=== PATIENT | female | born 1965 | race Caucasian/White ===

== ENCOUNTER → 2018-09-13 14:36 | Outpatient (CLI) | payer MEDICAID, SELFPAY ==
--- NOTE | 2018-09-13 14:40 | XR_ITS ---
XR knee RT 4V HISTORY: ITS.REASON: right knee pain/ 4 views weightbearing ORDERING PHYSICIAN: Mireya William MD PATIENT AGE: 53 years COMPARISON: 05/20/2016 FINDINGS: There are moderate osteoarthritic changes of the medial compartment and patellofemoral joint. There is decrease in the joint space medially with osteophyte formation and osteosclerosis. These findings have progressed since the previous exam at both the medial compartment and patellofemoral joint. No fracture or dislocation. There is minimal lateral translation of the tibia by approximately 4 mm. IMPRESSION: Moderate osteoarthritis of the right knee which has progressed at the medial compartment and patellofemoral joint
== END ==
PROVIDERS: PCP Nurse Practitioner Family; Visit Provider Orthopaedic Surgery
DX: M25.561 Pain in right knee (principal)
CPT/HCPCS: 73564

== ENCOUNTER → 2019-02-08 13:02 | Outpatient (CLI) | payer MEDICAID, SELFPAY | PROVIDERS: PCP Nurse Practitioner; Visit Provider Nurse Practitioner | DX: G47.30 Sleep apnea, unspecified (principal); G47.10 Hypersomnia, unspecified; R06.83 Snoring; E66.9 Obesity, unspecified; G47.33 Obstructive sleep apnea (adult) (pediatric) | CPT/HCPCS: 95806 ==

== ENCOUNTER → 2020-01-01 13:16 | Outpatient (CLI) | payer OTHER, SELFPAY ==
[2020-01-01 13:27] LABS: Basophils # 0.1 K/mm3 (0-0.2); Basophils % 0.9 % (0.1-2.0); Eosinophils # 0.2 K/mm3 (0.0-0.4); Eosinophils % 2.5 % (0.1-12.0); Hematocrit 42.1 % (37.0-47.0); Hemoglobin 13.3 g/dL (12.2-16.2); Lymphocytes # 2.2 K/mm3 (0.7-4.5); Mean Corpuscular HGB Conc 31.7 g/dL (31.8-35.4); Mean Corpuscular Hemoglobin 28.7 pg (27.0-31.2); Mean Corpuscular Volume 90.8 fl (81-99); Monocytes # 0.5 K/mm3 (0.1-1.0); Neutrophils # 4.5 K/mm3 (1.8-7.8); Neutrophils % 60.5 % (37.0-80.0); Platelet Count 327 K/mm3 (142-424); Red Blood Count 4.64 M/mm3 (4.20-5.40); Red Cell Distribution Width 14.2 % (11.5-17.5); White Blood Count 7.4 K/mm3 (4.8-10.8)
[2020-01-01 13:29] LABS: Chloride 103 mmol/L (98-107); Potassium 5.2 mmoL/L (3.5-5.1); Sodium 138 mmol/L (136-145)
[2020-01-01 13:32] LABS: Alanine Aminotransferase 19 U/L (12-78); Albumin Level 4.2 g/dl (3.5-5.0); Albumin/Globulin Ratio 1.1 (1.1-1.8); Alkaline Phosphatase 132 U/L (38-126); Anion Gap 13.2 mEq/L (5-15); Aspartate Amino Transferase 24 U/L (14-36); Bilirubin,Total 0.4 mg/dl (0.2-1.3); Blood Urea Nitrogen 30 mg/dl (7-17); Carbon Dioxide 27 mmol/L (22.0-30.0); Cholesterol 174 mg/dl (140-200); Estimated Glomerular Filt Rate 52 ml/min (>60); GFR (African American) 62 ML/MIN (>60); Globulin 3.7 g/dL (1.3-3.2); Glucose 99 mg/dl (74-100); Total Protein,Serum 7.9 g/dl (6.3-8.2); Triglycerides 102 mg/dl (30-150); VLDL Cholesterol 20 mg/dL (0-40)
[2020-01-01 13:33] LABS: HDL Cholesterol 35 mg/dl (40-60)
[2020-01-01 13:43] LABS: Direct LDL Cholesterol 130.22 mg/dL (100-129)
[2020-01-01 14:03] LABS: Thyroid Stimulating Hormone 0.82 uIU/mL (0.465-4.68)
[2020-01-01 20:32] LABS: Hemoglobin A1C 5.5 % (4.0-6.0)
[2020-01-02 13:08] LABS: Vitamin D 25 Hydroxy 64.2 ng/mL (30.0-100.0)
[2020-01-02 13:16] LABS: Uric Acid 8.3 mg/dl (2.5-6.2)
== END ==
PROVIDERS: Visit Provider Physician Assistant
DX: M10.9 Gout, unspecified (principal); Z79.899 Other long term (current) drug therapy
CPT/HCPCS: 80053; 80061; 82652; 83036; 84436; 84443; 84550; 85025

== ENCOUNTER → 2020-01-02 09:34 | Outpatient (CLI) | payer OTHER, SELFPAY ==
--- NOTE | 2020-01-02 09:37 | XR_ITS ---
PROCEDURE: XR CHEST 2V CLINICAL HISTORY: edema, dyspnea COMPARISON: CXR1 CHEST-PORTABLE from 02/07/2013 CXR2 XR chest AP from 04/29/2019 FINDINGS: Borderline cardiomegaly without failure. The lungs are clear without infiltrates, suspicious nodules, or pleural effusions. No acute bony abnormalities. IMPRESSION: Mild cardiomegaly otherwise negative Dictated by: Abhijit Ramey MD 01/02/2020 11:38 Electronically signed by Abhijit Ramey MD in [place] 01/02/2020 11:38
== END ==
PROVIDERS: PCP Physician Assistant; Visit Provider Physician Assistant
DX: R06.00 Dyspnea, unspecified (principal); R60.9 Edema, unspecified
CPT/HCPCS: 71046

== ENCOUNTER → 2020-01-10 09:11 | Outpatient (CLI) | payer OTHER, SELFPAY | PROVIDERS: PCP Physician Assistant; Visit Provider Physician Assistant | DX: R06.00 Dyspnea, unspecified (principal); R60.9 Edema, unspecified | CPT/HCPCS: 93306 ==

== ENCOUNTER 2020-01-10 13:45 | Outpatient (RCR) | payer OTHER, SELFPAY ==
--- NOTE | 2020-01-10 14:36 | HMH.PTOPWND ---
Rehab Outpt Wound Evaluation Rehab OP Wound Evaluation Start: 01/10/20 13:56 Freq: Status: Active Protocol: Document 01/10/20 14:20 [email or web address] (Rec: 01/10/20 14:36 PHORNE [id number]) Electronically Signed By Wayne Ovalles, PT 01/10/20 14:20 Subjective/History History History Pt is 54 yowf who presents with c/o B LE edema with associated pain and worse with prolonged standing or sitting . She also reports tingling and numbness throughout B LE, but the description of symptoms most resembles lumbar pathology. She has increased tenderness to palpation throughout B lower legs. She has PMH of HTN and hypothyroid . Subjective Subjective Pt c/o 2/10 pain currently, 10 /10 at worst. Lymphedema Eval Classification of Lymphedema Secondary Lymphedema Yes Stemmer's sign Stemmer's Sign no Stage of Lymphedema Lymphedema stages Stage II (Pitting edema, increased fibrosis w/ decreased pitting) Skin Changes Dry Skin Yes Skin Folds Yes Other Changes Yes Pain Scale Pain Scale (0-10) 10 Affected Extremities Areas Affected by Lymphedema/Edema Right Lower Extremity,Left Lower Extremity Manual Lymphatic Drainage Treatment Area MLD Treatment Area Right Lower Extremity,Left Lower Extremity Wound Problems/Impairments Impairments Problems/Impairmments Palpation Tenderness,Impaired Walking,Impaired Standing, Impaired Sitting,Increased Edema,Lymphedema Present, Subjective C/O Pain,Impaired Self Care/Self Management Prognosis Rehab Potential Fair Clinical Impression Consistent with Diagnosis Yes Short Term Goals Number of Weeks 4 Decreased Palpation Tenderness Yes: to min Increase Ability to Sit Yes Decrease Subjective C/O Pain Yes: 7/10 at worst Patient to Understand Lymphedema Yes Treatment and Exercises Decrease Girth Measurments by (cm) Yes: by 10 cm Alf Goals Number of Weeks 8 Decreased Palpation Tenderness Yes: to none Increase Ability to Stand Yes Decrease Subjective C/O Pain Yes: 4/10 at worst
== END 2020-01-10 13:50 | disposition home or self-care (01) ==
LOC: PT 13:45
PROVIDERS: PCP Physician Assistant; Visit Provider Podiatrist
DX: I89.0 Lymphedema, not elsewhere classified (principal)
CPT/HCPCS: 97162

== ENCOUNTER → 2020-05-17 11:38 | Outpatient (CLI) | payer OTHER, SELFPAY ==
--- NOTE | 2020-05-17 11:39 | XR_ITS ---
PROCEDURE: XR KNEE LT 4V CLINICAL INDICATION: knee pain COMPARISON: [id number] XR knee RT 4V from 09/13/2018 FINDINGS: No fracture or dislocation. No lytic or blastic change. There is normal mineralization. There is prominent joint space narrowing medially and there is prominent spurring of the medial tibial spine. There is narrowing of the patellofemoral space. The changes are similar to the right knee though not quite as severe. There is no definite effusion and there is no fracture or loose body. IMPRESSION: Moderate degenerate changes primarily involving the medial joint space similar to the right knee Dictated by: Dr. Andrzej Burk MD 05/17/2020 12:[address] Andrzej Burk MD in [place] 05/17/2020 12:17
== END ==
PROVIDERS: PCP Physician Assistant; Visit Provider Nurse Practitioner Family
DX: M25.562 Pain in left knee (principal)
CPT/HCPCS: 73564

== ENCOUNTER → 2020-06-06 13:39 | Outpatient (CLI) | payer OTHER, SELFPAY ==
--- NOTE | 2020-06-06 13:43 | XR_ITS ---
PROCEDURE: XR KNEE RT 4V CLINICAL INDICATION: pain and swelling COMPARISON: CR [id number] KNEE-3 VIEWS-RT from 05/27/2016 CR [id number] XR knee RT 4V from 09/13/2018 CR XR KNEE LT 4V from 05/17/2020 FINDINGS: There are moderate to severe osteoarthritic changes of the medial compartment and patellofemoral joint. No fracture or dislocation. There is mild lateral translation of the proximal tibia and there is mild osteosclerosis of the medial compartment. IMPRESSION: Moderate to severe osteoarthritic changes of the right knee which has progressed since 05/27/2016 Dictated b Abhijit Ramey MD 06/06/2020 14:08 Abhijit Ramey MD in [place] 06/06/2020 14:08
== END ==
PROVIDERS: PCP Physician Assistant; Visit Provider Physician Assistant
DX: M25.561 Pain in right knee (principal)
CPT/HCPCS: 73564

== ENCOUNTER 2020-07-05 07:48 | Outpatient (RCR) | payer OTHER, SELFPAY ==
--- NOTE | 2020-07-05 08:57 | HMH.PTOPEV ---
PT Outpatient Evaluation Rehab PT Outpatient Evaluation Start: 07/05/20 08:44 Freq: Status: Active Protocol: Document 07/05/20 08:45 ANA (Rec: 07/05/20 08:56 ANA [id number]) Electronically Signed By Josesito Mtz, PT 07/05/20 08:45 Outpatient Therapy Subjective History Subjective History Pt reports h/o chronic LBP and B knee pain beginning ~10+yrs ago. Pt reports and acknowledges her need to lose weight to help decrease overall arthritic issues. Pt reports R>L knee pain, and L>R sided LBP. Pt reports intermittent LLE radicular s/s into L SI area, and R LE into glut mm area. Pt reports B knee medial jt line pain and referred pain into B pes anserine area. PMH: lymphedema Chief Complaint Pain,Stiff,Swelling, Paresthesia,Weakness Symptom Type Ache,Sharp,Dull Symptoms Relieved By Rest/Positioning,Ice,OTC Meds Symptoms Aggravated By Standing,Physical Activity, Walking,Lifting Prior Functional Limitations Lifting,Housework,Standing, Walking Current Functional Limitations Lifting,Housework,Standing, Walking,Bending/Stooping Symptom Description Constant but Variable Level of pain today (0-10) 7 Pain scale - at its best (0-10) 5 Pain scale - at its worst (0-10) 10 Lumbopelvic Eval Posture Thoracic Spine Posture Standing Position Neutral Lumbar Spine Posture Standing Position Neutral Assistive device Assistive Devices None / NA Gait Observation General Gait Pattern Observation Antalgic Gait Palapation tenderness bilateral lumbar spinal tenderness Yes: 3/4 paraspinal tenderness Yes: 3/4 buttock tenderness Yes: 3/4 Lumbar/Sacral Palpation Findings Tenderness Accessory Movement L-spine Vertebrae Accessory Movements [place] [employer] [place] that Elicit Symptoms L2 bilateral L3 bilateral L4 bilateral L5 bilateral Range of Motion Lumbar Spine Active Flexion Range of 0-40 Motion (degrees) Lumbar Spine Active Extension Range of 0-15 Motion (degrees) Left Lumbar Spine Lateral Flexion Active 0-20 Range of Motion (degrees) Right Lumbar Spine Lateral Flexion 0-20 Active Range of Motion (degrees) Lumbar Spine ROM Limitations
== END 2020-07-05 08:40 | disposition home or self-care (01) ==
LOC: PT 07:48
PROVIDERS: PCP Physician Assistant; Visit Provider Orthopaedic Surgery
DX: M54.5 Low back pain (principal); M17.0 Bilateral primary osteoarthritis of knee
CPT/HCPCS: 97163

== ENCOUNTER → 2020-08-01 18:06 | Outpatient (CLI) | payer OTHER, SELFPAY ==
[2020-08-01 19:08] LABS: Basophils # 0.1 K/mm3 (0-0.2); Basophils % 0.8 % (0.1-2.0); Eosinophils # 0.2 K/mm3 (0.0-0.4); Hematocrit 39.7 % (37.0-47.0); Lymphocytes # 3.1 K/mm3 (0.7-4.5); Lymphocytes % 27.9 % (10-50); Mean Corpuscular HGB Conc 32.9 g/dL (31.8-35.4); Mean Corpuscular Hemoglobin 30.8 pg (27.0-31.2); Mean Corpuscular Volume 93.7 fl (81-99); Mean Platelet Volume 9.1 fl (7.4-10.4); Monocytes # 0.6 K/mm3 (0.1-1.0); Neutrophils # 7.2 K/mm3 (1.8-7.8); Neutrophils % 64.2 % (37.0-80.0); Platelet Count 301 K/mm3 (142-424); Red Blood Count 4.23 M/mm3 (4.20-5.40); Red Cell Distribution Width 14.1 % (11.5-17.5); White Blood Count 11.2 K/mm3 (4.8-10.8)
[2020-08-01 19:10] LABS: Chloride 102 mmol/L (98-107); Potassium 4.9 mmoL/L (3.5-5.1); Sodium 140 mmol/L (136-145)
[2020-08-01 19:12] LABS: Alanine Aminotransferase 16 U/L (12-78); Alkaline Phosphatase 103 U/L (38-126); Aspartate Amino Transferase 22 U/L (14-36); Bilirubin,Total 0.4 mg/dl (0.2-1.3); Blood Urea Nitrogen 27 mg/dl (7-17); Estimated Glomerular Filt Rate 51 ml/min (>60); GFR (African American) 62 ML/MIN (>60)
[2020-08-01 19:13] LABS: Albumin Level 3.8 g/dl (3.5-5.0); Albumin/Globulin Ratio 1.2 (1.1-1.8); Anion Gap 12.9 mEq/L (5-15); Calcium 9.8 mg/dl (8.4-10.2); Carbon Dioxide 30 mmol/L (22.0-30.0); Cholesterol 163 mg/dl (140-200); Globulin 3.2 g/dL (1.3-3.2); Glucose 110 mg/dl (74-100); HDL Cholesterol 41 mg/dl (40-60); Triglycerides 137 mg/dl (30-150); VLDL Cholesterol 27 mg/dL (0-40)
[2020-08-01 19:25] LABS: Direct LDL Cholesterol 106.62 mg/dL (100-129)
[2020-08-01 19:29] LABS: T4 (Thyroxine) 7.9 ug/dl (5.53-11.0)
== END ==
PROVIDERS: Visit Provider Physician Assistant
DX: E03.9 Hypothyroidism, unspecified (principal); I89.0 Lymphedema, not elsewhere classified
CPT/HCPCS: 80053; 80061; 84436; 84443; 85025

== ENCOUNTER 2020-08-13 10:00 | Outpatient (RCR) | payer OTHER, SELFPAY ==
--- NOTE | 2020-07-09 09:17 | HMH.PTOPWND ---
Rehab Outpt Wound Evaluation Rehab OP Wound Evaluation Start: 07/09/20 08:55 Freq: Status: Active Protocol: Document 07/09/20 09:11 ANDREA (Rec: 07/09/20 09:17 PHORNE [id number]) Electronically Signed By Wayne Ovalles, PT 07/09/20 09:11 Subjective/History History History Pt is 55 yowf who presents with c/o B LE edema, for as long as I can remember. She reports both legs appear to swell evenly, but she has more knee pain on the L. She reports recent cortisone injections in B knees due to OA. She has hx of OA, gout, HTN, sleep apnea, cataract surgery, and hypothyroid. Subjective Subjective Currently c/o 5/10 pain in B lower legs. Intermittent tingling in B LE as well. Lymphedema Eval Classification of Lymphedema Secondary Lymphedema Yes Stemmer's sign Stemmer's Sign yes Stage of Lymphedema Lymphedema stages Stage II (Pitting edema, increased fibrosis w/ decreased pitting) Skin Changes Dry Skin Yes: B LE Skin Folds Yes: B ankle cuff Other Changes Yes Pain Scale Pain Scale (0-10) 5 Affected Extremities Areas Affected by Lymphedema/Edema Right Lower Extremity,Left Lower Extremity Manual Lymphatic Drainage Treatment Area MLD Treatment Area Right Lower Extremity,Left Lower Extremity Wound Problems/Impairments Impairments Problems/Impairmments Palpation Tenderness,Impaired Standing,Impaired Recreational Activities,Increased Edema, Lymphedema Present,Subjective C/O Pain,Impaired Self Care/ Self Management Prognosis Rehab Potential Fair Clinical Impression Consistent with Diagnosis Yes Short Term Goals Number of Weeks 4 Decreased Palpation Tenderness Yes: to min Decrease Edema Yes Decrease Subjective C/O Pain Yes: /10 Patient to Understand Lymphedema Yes Treatment and Exercises Decrease Girth Measurments by (cm) Yes: by 10 cm Property Management Bookkeeper Goals Number of Weeks 8 Decreased Palpation Tenderness Yes: to none Decrease Lymphedema Yes Decrease Subjective C/O Pain Yes: 11/10 Patient to be Ind w/ HEP Yes
== END 2020-08-13 10:05 | disposition home or self-care (01) ==
LOC: PT 10:00
PROVIDERS: PCP Physician Assistant; Visit Provider Orthopaedic Surgery
DX: M17.11 Unilateral primary osteoarthritis, right knee; I89.0 Lymphedema, not elsewhere classified
CPT/HCPCS: 97140; 97162

== ENCOUNTER → 2020-10-07 18:12 | Outpatient (CLI) | payer OTHER, SELFPAY ==
[2020-10-07 18:56] LABS: T4 (Thyroxine) 10.7 ug/dl (5.53-11.0)
== END ==
LOC: LAB 18:13 → LAB.DROPOF 10-08 11:54
PROVIDERS: Visit Provider Physician Assistant
DX: E03.9 Hypothyroidism, unspecified (principal)
CPT/HCPCS: 84436; 84443

== ENCOUNTER → 2021-01-03 10:57 | Outpatient (CLI) | payer OTHER, SELFPAY ==
[2021-01-03 11:40] LABS: Basophils # 0.1 K/mm3 (0-0.2); Basophils % 0.9 % (0.1-2.0); Eosinophils # 0.2 K/mm3 (0.0-0.4); Eosinophils % 2.3 % (0.1-12.0); Hematocrit 38.7 % (37.0-47.0); Hemoglobin 12.2 g/dL (12.2-16.2); Lymphocytes # 2.7 K/mm3 (0.7-4.5); Lymphocytes % 25.2 % (10-50); Mean Corpuscular HGB Conc 31.5 g/dL (31.8-35.4); Mean Corpuscular Hemoglobin 29.5 pg (27.0-31.2); Mean Corpuscular Volume 93.7 fl (81-99); Mean Platelet Volume 7.9 fl (7.4-10.4); Monocytes # 0.5 K/mm3 (0.1-1.0); Monocytes % 4.2 % (1.7-9.3); Neutrophils # 7.3 K/mm3 (1.8-7.8); Neutrophils % 67.4 % (37.0-80.0); Platelet Count 305 K/mm3 (142-424); Red Blood Count 4.13 M/mm3 (4.20-5.40); Red Cell Distribution Width 14.6 % (11.5-17.5); White Blood Count 10.8 K/mm3 (4.8-10.8)
[2021-01-03 11:56] LABS: Alanine Aminotransferase 18 U/L (12-78); Albumin Level 4.1 g/dl (3.5-5.0); Albumin/Globulin Ratio 1.2 (1.1-1.8); Alkaline Phosphatase 110 U/L (38-126); Aspartate Amino Transferase 23 U/L (14-36); Bilirubin,Total 0.5 mg/dl (0.2-1.3); Blood Urea Nitrogen 25 mg/dl (7-17); Calcium 9.7 mg/dl (8.4-10.2); Carbon Dioxide 27 mmol/L (22.0-30.0); Chloride 104 mmol/L (98-107); Estimated Glomerular Filt Rate 51 ml/min (>60); GFR (African American) 62 ML/MIN (>60); Globulin 3.5 g/dL (1.3-3.2); Glucose 115 mg/dl (74-100); Sodium 140 mmol/L (136-145); Total Protein,Serum 7.6 g/dl (6.3-8.2)
[2021-01-03 12:03] LABS: C-Reactive Protein 25.8 mg/L (0-4)
[2021-01-03 12:18] LABS: Erythrocyte Sedimentation Rate 63 mm/hr (0-30)
[2021-01-04 13:10] LABS: RA Latex Turbid. <10.0 IU/mL (0.0-13.9)
[2021-01-05 15:46] LABS: Anti-Centromere B Antibodies <0.2 AI (0.0-0.9); Anti-Jo-1 <0.2 AI (0.0-0.9); Anti-Smith Antibody <0.2 AI (0.0-0.9); Antichromatin Antibodies <0.2 AI (0.0-0.9); Antiscleroderma-70 Antibodies <0.2 AI (0.0-0.9); RNP Antibodies <0.2 AI (0.0-0.9); Sjogren's Anti-SS-A <0.2 AI (0.0-0.9); Sjogren's Anti-SS-B <0.2 AI (0.0-0.9)
[2021-01-05 16:15] LABS: Anti-DNA (DS) Ab Qn 2 IU/mL (0-9)
[2021-01-06 03:14] LABS: PTT-LA 31.1 sec (0.0-51.9); dRVVT 38.2 sec (0.0-47.0)
[2021-01-06 15:02] LABS: Lupus Reflex Interpretation Comment: (.)
[2021-01-07 15:42] LABS: Anti-Cyclic Citrullinated Pept 13 units (0-19)
== END ==
PROVIDERS: Visit Provider Physician Assistant
DX: M25.50 Pain in unspecified joint (principal)
CPT/HCPCS: 80053; 84443; 85025; 85613; 85651; 86140; 86200; 86225; 86235; 86431

== ENCOUNTER 2021-01-06 12:11 | Emergency (ER) | payer OTHER, SELFPAY ==
[2021-01-06 12:28] VITALS: BP 144/98; PULSE 101; RESP 22; TEMP 36.2; O2SAT 94; BMI 51.2
--- NOTE | 2021-01-06 12:37 | HMH.EDUTC ---
[facility] [place] Clinical Impression: Vertigo Otitis media Qualifiers: Otitis media type: suppurative Chronicity: acute Laterality: bilateral Recurrence: non-recurrent Spontaneous tympanic membrane rupture: without spontaneous rupture Qualified Code(s): H66.003 - Acute suppurative otitis media without spontaneous rupture of ear drum, bilateral Disposition: Home, Self-Care Condition on Discharge: Good Instructions: Vertigo, Middle Ear Infection Additional Instructions: Drink plenty of fluids. Take tylenol or ibuprofen for pain or fever. Take the medications as directed. Follow up with your regular doctor. GO TO THE ER FOR ANY WORSENING SYMPTOMS Prescriptions: Doxycycline Hyclate [Doxycycline 100mg Capsule] 100 mg PO Q12 10 Days #20 cap Transmission Status: Received by [id number] predniSONE [Prednisone 20mg Tab] 20 mg PO BID 5 Days #10 tab Transmission Status: Received by [id number] Referrals: Lisa Aguirre PA [Primary Care Provider] - Time of Disposition: 12:51 Medical Decision Making - Medical Records Medical records reviewed: No: I reviewed the patient's medical records. - Cesar Inquiry Pt receiving controlled substance: No Vital Signs: 01/06/21 12:28 01/06/21 13:02 Temperature 97.2 F L 98 F Temperature Source Tympanic Pulse Rate 103 H Pulse Rate [Right] 101 H Respiratory Rate 22 16 Blood Pressure 147/101 H Blood Pressure [Right Arm] 144/98 H Blood Pressure Mean [Right Arm] 113 Blood Pressure Source [Right Arm] Automatic Cuff Blood Pressure Position [Right Arm] Sitting 02 Sat by Pulse Oximetry 94 L Oxygen Delivery Method Room Air [facility] [place] HPI - General Stated complaint: pressure in ears, dizziness, nausea Time Seen by Provider: 01/06/21 12:37 Mode of Arrival: Ambulatory Source of Information: Patient Limitations: No Limitations Description of Symptoms (Recalled from Triage Doc. by RN): pt is having EATON, inner ear pain and dizziness bilaterally, thought the R ear is worse. pt saw Lisa about two weeks ago and was perscribed bactrim and meclazine. the meclizine has helped with some of the dizziness but make her very fatigued. with the bactrim the ears were some better but after stopping it about it week ago they are worse again. HEENT Symptoms (Recalled from RN notes): Yes (inner ear pain and dizziness) Resp Symptoms (Recalled from RN notes): No Skin Symptoms (Recalled from RN notes): No MS Symptoms (Recalled from RN notes): No Functional Status (Recalled from RN notes): na - History of Present Illness Provider Complaint: She c/o intermittent dizziness, bilateral ear pain and sinus congestion. Her symptoms have been ongoing for the past 3 weeks approx. - Related Data Home Medications Medication Instructions Recorded Confirmed cholecalciferol (vitamin D3) 25 1,000 unit PO DAILY 08/29/18 11/08/20 mcg (1,000 unit) capsule lisinopril 10 PO 30 Days #30 tab 08/29/18 11/08/20 mg-hydrochlorothiazide 12.5 mg tablet magnesium citrate 125 mg capsule 125 mg PO DAILY cap 08/29/18 11/08/20 meloxicam 15 mg tablet PO 30 Days #30 tab 08/29/18 11/08/20 vitamin B complex 1 tab PO DAILY 08/29/18 11/08/20 Previous Rx's Medication Instructions Recorded diclofenac sodium 1 % topical gel 4 g TOPICAL QID PRN #100 g 05/17/20 gabapentin 100 mg capsule 100 mg PO BID #60 cap 08/02/20 metronidazole 0.75 % topical gel 1 applic TOPICAL BID PRN #45 g 10/23/20 naproxen 500 mg tablet See Rx Instructions .ROUTE 12/17/20 .COMPLEX #60 tab fluticasone propionate 50 1 spray INTRANASAL QDAY 30 Days 12/18/20 mcg/actuation nasal #9.9 g spray,suspension meclizine 25 mg tablet 25 mg PO TID PRN #30 tab 12/18/20 sulfamethoxazole 800 1 tab PO BID 10 Days #20 tab 12/18/20 mg-trimethoprim 160 mg tablet levothyroxine 150 mcg tablet See Rx Instructions .ROUTE 01/03/21 .COMPLEX #90 tab Doxycycline Hyclate [Doxycycline 100 mg PO Q12 10 Days #20 cap
[2021-01-06 13:02] VITALS: BP 147/101; PULSE 103; RESP 16; TEMP 36.6
== END 2021-01-06 13:02 | disposition home or self-care (01) ==
PROVIDERS: Emergency Provider Nurse Practitioner Family; PCP Physician Assistant
DX: H66.003 Acute suppurative otitis media without spontaneous rupture of ear drum, bilateral (principal); E03.9 Hypothyroidism, unspecified; I10 Essential (primary) hypertension; Z79.899 Other long term (current) drug therapy; Z88.0 Allergy status to penicillin; Z88.1 Allergy status to other antibiotic agents; Z88.8 Allergy status to other drugs, medicaments and biological substances
CPT/HCPCS: 99202; G0463

== ENCOUNTER 2021-02-04 18:15 | Emergency (ER) | payer OTHER, SELFPAY ==
--- NOTE | 2021-02-04 18:21 | HMH.EDUTC ---
[facility] [place] Disposition Clinical Impression: Low back pain Qualifiers: Chronicity: acute Back pain laterality: right Sciatica presence: without sciatica Qualified Code(s): M54.5 - Low back pain Disposition: Home, Self-Care Condition on Discharge: Good Instructions: Ankle Sprain, DI for Ankle Sprain Additional Instructions: Rest the extremity, apply ice for 15 minutes as tolerated three or four times per day, Elevate the extremity as tolerated while you are resting. Take ibuprofen for pain. I sent in a prescription to your pharmacy. Follow up with Dr. Hall (orthopedics). Sometimes there can be fractures that don't show up well on the first set of x-rays. So, you should follow up if you continue to have symptoms. I put in a referral but you need to call her office and schedule an appointment. Follow up with your regular doctor. GO TO THE ER FOR ANY WORSENING SYMPTOMS Prescriptions: Ibuprofen [Ibuprofen 600mg Tablet] 600 mg PO Q6HP PRN #30 tab PRN Reason: Mild Pain Transmission Status: Received by [id number] methylPREDNISolone [Medrol] 4 mg PO DIRECTED 6 Days #21 tab.ds.pk Transmission Status: Received by [id number] Referrals: Lisa Aguirre PA [Primary Care Provider] - Bri Hall DPM [Staff Physician] - Forms: Work/School Release Time of Disposition: 18:31 Medical Decision Making - Medical Records Medical records reviewed: No: I reviewed the patient's medical records. - Cesar Inquiry Pt receiving controlled substance: No Vital Signs: 02/04/21 18:31 02/04/21 19:46 Temperature 98.8 F 98 F Temperature Source Oral Pulse Rate 80 Pulse Rate [Right] 89 Respiratory Rate 16 19 Blood Pressure 119/74 Blood Pressure [Right Arm] 121/79 Blood Pressure Mean [Right Arm] 93 02 Sat by Pulse Oximetry 98 Orders (Tests/Meds): ED MEDICATIONS Discontinued Medications Generic Name Dose Route Start Last Admin Trade Name Freq PRN Reason Stop Dose Admin Ketorolac Tromethamine 60 mg 02/04/21 19:18 02/04/21 19:43 Ketorolac 60mg/2ml Vial IM 02/04/21 19:19 60 mg ONCE ONE Administration Methylprednisolone Sodium Succinate 125 mg 02/04/21 19:18 02/04/21 19:42 Methylprednisolone Sod Succ 125mg Vial IM 02/04/21 19:19 125 mg ONCE ONE Administration [facility] [place] HPI - General Stated complaint: back and legs numb Time Seen by Provider: 02/04/21 18:21 - History of Present Illness Provider Complaint: She states that she has been having low back pain that radiates down her right leg. She has a history of similar episodes. She denies any injury. She states that when she gets like this she usally needs a steroid shot to get it better. - Related Data Home Medications Medication Instructions Recorded Confirmed cholecalciferol (vitamin D3) 25 1,000 unit PO DAILY 08/29/18 01/16/21 mcg (1,000 unit) capsule lisinopril 10 PO 30 Days #30 tab 08/29/18 01/16/21 mg-hydrochlorothiazide 12.5 mg tablet magnesium citrate 125 mg capsule 125 mg PO DAILY cap 08/29/18 01/16/21 meloxicam 15 mg tablet PO 30 Days #30 tab 08/29/18 01/16/21 vitamin B complex 1 tab PO DAILY 08/29/18 01/16/21 tizanidine 4 mg capsule 4 mg PO TID PRN 01/16/21 01/16/21 Previous Rx's Medication Instructions Recorded diclofenac sodium 1 % topical gel 4 g TOPICAL QID PRN #100 g 05/17/20 naproxen 500 mg tablet See Rx Instructions .ROUTE 12/17/20 .COMPLEX #60 tab meclizine 25 mg tablet 25 mg PO TID PRN #30 tab 12/18/20 Doxycycline Hyclate [Doxycycline 100 mg PO Q12 10 Days #20 cap 01/06/21 100mg Capsule] levothyroxine 200 mcg tablet 200 mcg PO DAILY #30 tab 01/09/21 furosemide 20 mg tablet 20 mg PO DAILY #30 tab 01/21/21 fluticasone propionate 50 See Rx Instructions .ROUTE 01/27/21 mcg/actuation nasal .COMPLEX #16 g spray,suspension Ibuprofen [Ibuprofen 600mg 600 mg PO Q6HP PRN #30 tab 02/04/21 Tablet] methylPREDNISolone [Medrol] 4 mg PO DIRECTED 6 Days
[2021-02-04 18:31] VITALS: BP 121/79; PULSE 89; RESP 16; TEMP 37.1; O2SAT 98; BMI 56.5
[2021-02-04 19:46] VITALS: BP 119/74; PULSE 80; RESP 19; TEMP 36.6
== END 2021-02-04 19:55 | disposition home or self-care (01) ==
PROVIDERS: Emergency Provider Nurse Practitioner Family; PCP Physician Assistant
DX: M54.5 Low back pain (principal); I10 Essential (primary) hypertension; E66.01 Morbid (severe) obesity due to excess calories; Z68.43 Body mass index [BMI] 50.0-59.9, adult; Z88.0 Allergy status to penicillin; Z88.8 Allergy status to other drugs, medicaments and biological substances; Z79.899 Other long term (current) drug therapy
CPT/HCPCS: 96372; 99202; G0463

== ENCOUNTER → 2021-02-06 09:48 | Outpatient (CLI) | payer OTHER, SELFPAY ==
--- NOTE | 2021-02-06 | CA_ITS ---
APPROVED REPORT Exam: Pharmacologic Technologist: Audrey Quevedo, Ht: 5 ft 2 in Wt: 299 lbs BSA: 2.27 m2 HR: 77 bpm BP: 101/51 mmHg Medical History Medications: Levothyroxine,,,,, Flonase,,,,, Naproxen,,,,, MeLOXICAM,,,,, Meclizine,,,,, DOxycycline,,,,, Lisinopri/HCTZ,,,,, Tizadine,,,,, Stress Test Details Test: LEXISCAN HR Resting HR: 82 bpm Max Heart Rate (APMHR): 164.107375 bpm Max HR Achieved: 109 bpm Target HR (85% APMHR): 139.983606 bpm % of APMHR: 66.46 Recovery HR: 96 bpm BP Resting BP: 101/51 mmHg Max BP: 118/61 mmHg Recovery BP: 106.0/55.0 mmHg ECG Resting ECG: NSR, rightward axis, low voltage QRS Clinical Exercise duration: 04:00 min Highest Stage Achieved: Exercise capacity: 1.0 METs Stress ECG Conclusion Symptoms: Mild SOA, queasy stomach, malaise. No CP. Arrythmias/Ectopy: Occ PVC. ST-T Changes: No significant changes. Conclusion: Unremarkable Lexiscan stress. Myoview images reported separately. Test Summary REST . . . . . . . Resting REST 04:03 . . 82 . 101/ 51 . . Stage 1 . . . . . . . Cardiolite injected Stage 1 01:00 . . 104 . . . . Stage 2 01:00 . . 104 . . . . Stage 3 01:00 . . 101 . 111/ 57 . . Stage 4 01:00 . . 101 . 116/ 57 . Stop exercise at 04:00 RECOVERY 01:00 . . 101 . 118/ 61 . . RECOVERY 02:00 . . 100 . 118/ 61 . . RECOVERY 03:00 . . 92 . 118/ 61 . . RECOVERY 03:27 . . 99 . 106/ 55 . . Electronically signed by : Tulio Angel, 02/07/2021 08:30:37
--- NOTE | 2021-02-06 09:49 | NM_ITS ---
APPROVED REPORT Exam: Nuclear Stress Test Indication: OBESITY, HTN, FM HX, C.P., SOB, PALPITATIONS, SYNCOPE, FATIGUE Patient Location: Outpatient Stress Tech: [facility] Tech:Kassidy ShoreLUISA RT (R)(N)(M) Ht: 5 ft 2 in Wt: 300 lbs Bra Size: 38C HR: 77 bpm BP: 101/51 mmHg BSA: 2.27 m2 BMI: 54.8 History: OBESITY, HTN, FM HX, C.P., SOB, PALPITATIONS, SYNCOPE, FATIGUE Procedure: Patient received a 0.4 mg of intravenous Lexiscan, resting heart rate 77 bpm, resting blood pressure 101/51 mmHg, with Lexiscan maximum heart rate achived was 105 bpm which is % of the maximum predicted heart rate and blood pressure was 111/57 mmHg. Cardiac Stress and Resting SPECT Images: Cardiac Stress and Resting SPECT images were obtained using technetium 99m Myoview 32.6 mCi stress and 10.06 mCi at rest. EF of 75%. No wall motion abnormalities. No fixed or reversible defects. Conclusion: EF of 75%. No wall motion abnormalities. No fixed or reversible defects. Electronically signed by : Abhijit Ramey MD 02/10/2021 13:53:04
== END ==
PROVIDERS: PCP Physician Assistant; Visit Provider Physician Assistant
DX: R06.00 Dyspnea, unspecified (principal); R60.9 Edema, unspecified
CPT/HCPCS: 78452; 93017; 93306; A9502; J2785

== ENCOUNTER → 2021-02-18 07:39 | Outpatient (CLI) | payer OTHER, SELFPAY ==
--- NOTE | 2021-02-18 08:39 | XR_ITS ---
PROCEDURE: XR CHEST 2V CLINICAL HISTORY: dyspnea COMPARISON: CR CXR1 CHEST-PORTABLE from 02/07/2013 CR CXR2 XR chest AP from 04/29/2019 DX XR CHEST 2V from 01/02/2020 FINDINGS: But is again noted and there is no pulmonary congestion. However there is a somewhat subtle ill-defined hazy opacities in the right infrahilar region and right lower lobe and retrocardiac location on the lateral not seen on the previous chest film 01/02/2020. A minimal developing pneumonic infiltrate cannot be excluded. The right upper lung field and left lung sanchez are clear. There is no pleural fluid. IMPRESSION: Questionable mild ill-defined pneumonic infiltrate right lower lobe and suggest clinical correlation Dictated by: Dr. Andrzej Burk MD 02/18/2021 09:00 Dr. Andrzej Burk MD in [place] 02/18/2021 09:00
== END ==
PROVIDERS: PCP Physician Assistant; Visit Provider Physician Assistant
DX: R06.00 Dyspnea, unspecified (principal); R60.9 Edema, unspecified
CPT/HCPCS: 71046; 94060; 94727; 94729

== ENCOUNTER → 2021-04-09 09:37 | Outpatient (CLI) | payer OTHER, SELFPAY ==
--- NOTE | 2021-04-09 | XR_ITS ---
PROCEDURE: XR CHEST 2V CLINICAL HISTORY: DYSPNES Dyspnea COMPARISON: CR CXR2 XR chest AP from 04/29/2019 DX XR CHEST 2V from 01/02/2020 CR XR CHEST 2V from 02/18/2021 FINDINGS: The cardiomediastinal silhouette and pulmonary vascularity are within normal limits. The left CP angle is cut off on the film. The remaining lungs are clear. No acute bony abnormalities. IMPRESSION: No acute findings. Dictated by: Abhijit Ramey MD 04/09/2021 12:58 Abhijit Ramey MD in [place] 04/09/2021 12:58
--- NOTE | 2021-04-09 09:37 | NM_ITS ---
PROCEDURE: NM PUL VENT AND PERFUSE CLINICAL INDICATION: SOA COMPARISON: CR XR CHEST 2V from 04/09/2021 TECHNIQUE: Dose 37.6 mCi technetium DTPA inhaled. 8.7 mCi technetium M AA IV FINDINGS: There is a segmental perfusion/ventilation mismatching defect involving the anterior segment of the right upper lobe.. Matching defect is present within the lingula involving both superior and inferior segment. A small mismatching defect is present involving the posterior segment of the left upper lobe. IMPRESSION: Multiple mismatching defects as well as a matching segmental defect. These findings are consistent with high probability for pulmonary embolus. Dictated by: Abhijit Ramey MD 04/09/2021 14:52 Abhijit Ramey MD in [place] 04/09/2021 14:52
== END ==
PROVIDERS: PCP Physician Assistant; Visit Provider Physician Assistant
DX: R06.00 Dyspnea, unspecified (principal)
CPT/HCPCS: 71046; 78582; A9539; A9540

== ENCOUNTER → 2021-04-10 10:59 | Outpatient (CLI) | payer OTHER, SELFPAY ==
[2021-04-10 11:59] LABS: Anion Gap 14.6 mEq/L (5-15); Blood Urea Nitrogen 27 mg/dl (7-17); Calcium 9.6 mg/dl (8.4-10.2); Carbon Dioxide 27 mmol/L (22.0-30.0); Chloride 103 mmol/L (98-107); Estimated Glomerular Filt Rate 51 ml/min (>60); GFR (African American) 62 ML/MIN (>60); Glucose 100 mg/dl (74-100); Potassium 4.6 mmoL/L (3.5-5.1); Sodium 140 mmol/L (136-145)
== END ==
PROVIDERS: Visit Provider Physician Assistant
DX: N18.9 Chronic kidney disease, unspecified (principal)
CPT/HCPCS: 36415; 80048

== ENCOUNTER 2021-04-13 12:16 | Emergency (ER) | payer OTHER, SELFPAY ==
[2021-04-13 12:40] VITALS: BP 126/79; PULSE 88; RESP 22; TEMP 36.8; O2SAT 97; BMI 52.1
--- NOTE | 2021-04-13 13:29 | HMH.EDUTC ---
[facility] [place] Clinical Impression: Otitis media Qualifiers: Otitis media type: unspecified Laterality: right Qualified Code(s): H66.91 - Otitis media, unspecified, right ear Disposition: Home, Self-Care Condition on Discharge: Good Instructions: Middle Ear Infection, Ofloxacin Otic Additional Instructions: Use drops as prescribed in your right ear for Otitis Media *Monitor Temp, Over the counter Motrin or Tylenol as directed/as needed Tylenol every 4 hours and Motrin every 6 hours (as long as your family doctor has told you that you can take it) for fever or pain. and straight to ER if unable to lower temp less than 101.0 after medication given *Warm salt water gargles may help to soothe the throat *Throat Lozenges *Warm fluids like tea with honey may help to soothe the throat *Sleep elevated *Humidifier/Vaporizer Return if needed Follow up IMMEDIATELY for new or worsening symptoms or no Noticeable improvement over the next 48-72 hours. 911 for difficulty breathing or swallowing Prescriptions: Ofloxacin [Floxin 0.3% OTIC Solution 5mL] 10 ml OT BID 14 Days #1 bottle Transmission Status: Pending to [id number] Referrals: Lisa Aguirre PA [Primary Care Provider] - As needed Time of Disposition: 13:46 Medical Decision Making - Cesar Inquiry Pt receiving controlled substance: No Cesar was queried for this patient: No Vital Signs: 04/13/21 12:40 Temperature 98.3 F Temperature Source Oral Pulse Rate [Right Brachial] 88 Respiratory Rate 22 Blood Pressure [Right Arm] 126/79 Blood Pressure Mean [Right Arm] 94 Blood Pressure Source [Right Arm] Automatic Cuff Blood Pressure Position [Right Arm] Sitting 02 Sat by Pulse Oximetry 97 Oxygen Delivery Method Room Air [facility] [place] - General Stated complaint: Rt ear pain Time Seen by Provider: 04/13/21 13:29 Mode of Arrival: Ambulatory Source of Information: Patient Limitations: No Limitations Description of Symptoms (Recalled from Triage Doc. by RN): PATIENT C/O RIGHT EAR PAIN SINCE WEDNESDAY HEENT Symptoms (Recalled from RN notes): Yes Resp Symptoms (Recalled from RN notes): No Skin Symptoms (Recalled from RN notes): No MS Symptoms (Recalled from RN notes): No Functional Status (Recalled from RN notes): WNL - History of Present Illness Provider Complaint: Patient state that she has been having pain in her right ear and right side of throat for several days State that she was worried that she may have an ear infection States that today she wasnt able to hear out of her ear so she came in to get it checked - Related Data Home Medications Medication Instructions Recorded Confirmed magnesium citrate 125 mg capsule 125 mg PO DAILY cap 08/29/18 04/02/21 vitamin B complex 1 tab PO DAILY 08/29/18 04/02/21 tizanidine 4 mg capsule 4 mg PO TID PRN 01/16/21 04/02/21 aspirin 81 mg tablet,delayed 81 mg PO DAILY 03/17/21 04/02/21 release lisinopril 10 1 tab PO DAILY 30 Days tab 03/17/21 04/02/21 mg-hydrochlorothiazide 12.5 mg tablet loratadine 10 mg tablet 10 mg PO DAILY tab 03/17/21 04/02/21 meloxicam 15 mg tablet 15 mg PO DAILY 30 Days #30 tab 03/17/21 04/02/21 montelukast 10 mg tablet 10 mg PO DAILY tab 03/17/21 04/02/21 albuterol sulfate 90 mcg/actuation 90 mcg INHALATION g 04/02/21 04/02/21 aerosol inhaler azelastine 137 mcg (0.1 %) nasal 2 spray INTRANASAL BID 04/02/21 04/02/21 spray aerosol fluticasone propionate 50 g INTRANASAL 04/02/21 04/02/21 mcg/actuation nasal spray,suspension Previous Rx's Medication Instructions Recorded meclizine 25 mg tablet 25 mg PO TID PRN #30 tab 12/18/20 furosemide 20 mg tablet 20 mg PO DAILY #30 tab 01/21/21 Ibuprofen [Ibuprofen 600mg 600 mg PO Q6HP PRN #30 tab 02/04/21 Tablet] metoprolol succinate 25 mg 25 mg PO DAILY #30 tab 03/17/21 tablet,extended release 24 hr naproxen 500 mg tablet See Rx Instructions .ROUTE 03/27/21 .COMPLEX #60 tab fluticasone 250 mcg-salmetero
[2021-04-13 13:50] VITALS: BP 126/79; PULSE 88; RESP 22; TEMP 36.8; O2SAT 97
== END 2021-04-13 13:55 | disposition home or self-care (01) ==
PROVIDERS: Emergency Provider Nurse Practitioner; PCP Physician Assistant
DX: H66.91 Otitis media, unspecified, right ear (principal); H61.21 Impacted cerumen, right ear; E03.9 Hypothyroidism, unspecified; I10 Essential (primary) hypertension; Z88.0 Allergy status to penicillin; Z88.1 Allergy status to other antibiotic agents; Z88.8 Allergy status to other drugs, medicaments and biological substances; Z79.899 Other long term (current) drug therapy
CPT/HCPCS: 99202; G0463

== ENCOUNTER → 2021-06-02 13:10 | Outpatient (CLI) | payer OTHER, SELFPAY ==
[2021-06-02 15:29] LABS: Basophils # 0.1 K/mm3 (0-0.2); Basophils % 1.1 % (0.1-2.0); Eosinophils # 0.3 K/mm3 (0.0-0.4); Eosinophils % 2.8 % (0.1-12.0); Hematocrit 37.4 % (37.0-47.0); Hemoglobin 12.1 g/dL (12.2-16.2); Lymphocytes # 2.6 K/mm3 (0.7-4.5); Lymphocytes % 22.2 % (10-50); Mean Corpuscular HGB Conc 32.3 g/dL (31.8-35.4); Mean Corpuscular Hemoglobin 29.5 pg (27.0-31.2); Mean Corpuscular Volume 91.4 fl (81-99); Mean Platelet Volume 9.1 fl (7.4-10.4); Monocytes # 0.6 K/mm3 (0.1-1.0); Monocytes % 5.2 % (1.7-9.3); Neutrophils % 68.6 % (37.0-80.0); Platelet Count 332 K/mm3 (142-424); Red Blood Count 4.09 M/mm3 (4.20-5.40); Red Cell Distribution Width 15.2 % (11.5-17.5); White Blood Count 11.7 K/mm3 (4.8-10.8)
[2021-06-02 15:40] LABS: Alanine Aminotransferase 19 U/L (12-78); Albumin Level 3.8 g/dl (3.5-5.0); Albumin/Globulin Ratio 1.2 (1.1-1.8); Alkaline Phosphatase 101 U/L (38-126); Anion Gap 11.4 mEq/L (5-15); Aspartate Amino Transferase 22 U/L (14-36); Bilirubin,Total 0.6 mg/dl (0.2-1.3); Blood Urea Nitrogen 35 mg/dl (7-17); Calcium 9.4 mg/dl (8.4-10.2); Carbon Dioxide 28 mmol/L (22.0-30.0); Chloride 105 mmol/L (98-107); Chol/HDL Ratio 5.9 (1-3.5); Cholesterol 178 mg/dl (140-200); Estimated Glomerular Filt Rate 51 ml/min (>60); GFR (African American) 62 ML/MIN (>60); Globulin 3.2 g/dL (1.3-3.2); Glucose 131 mg/dl (74-100); HDL Cholesterol 30 mg/dl (40-60); Potassium 5.4 mmoL/L (3.5-5.1); Sodium 139 mmol/L (136-145); Triglycerides 141 mg/dl (30-150); VLDL Cholesterol 28 mg/dL (0-40)
[2021-06-02 15:51] LABS: Direct LDL Cholesterol 122.61 mg/dL (100-129)
[2021-06-02 15:53] LABS: 25-OH Vitamin D, Total 68.4 ng/mL (30-100)
[2021-06-02 16:11] LABS: Thyroid Stimulating Hormone 0.85 uIU/mL (0.465-4.68)
[2021-06-02 17:55] LABS: Free T4 (Free Thyroxine) 2.43 ng/dl (0.78-2.19)
== END ==
PROVIDERS: Visit Provider Physician Assistant
DX: E03.9 Hypothyroidism, unspecified (principal); I10 Essential (primary) hypertension; R59.1 Generalized enlarged lymph nodes; E66.9 Obesity, unspecified; Z68.43 Body mass index [BMI] 50.0-59.9, adult
CPT/HCPCS: 80053; 80061; 82306; 84439; 84443; 85025

== ENCOUNTER → 2021-06-11 12:51 | Outpatient (CLI) | payer OTHER, SELFPAY ==
[2021-06-11 13:57] LABS: Chloride 105 mmol/L (98-107); Potassium 5.2 mmoL/L (3.5-5.1); Sodium 141 mmol/L (136-145)
[2021-06-11 14:00] LABS: Blood Urea Nitrogen 31 mg/dl (7-17); Estimated Glomerular Filt Rate 46 ml/min (>60); GFR (African American) 56 ML/MIN (>60)
[2021-06-11 14:01] LABS: Anion Gap 15.2 mEq/L (5-15); Calcium 9.9 mg/dl (8.4-10.2); Carbon Dioxide 26 mmol/L (22.0-30.0); Glucose 135 mg/dl (74-100)
[2021-06-11 15:21] LABS: Hemoglobin A1C 5.6 % (4.0-6.0)
[2021-06-13 15:32] LABS: Anti-DNA (DS) Ab Qn 2 IU/mL (0-9)
== END ==
PROVIDERS: Visit Provider Physician Assistant
DX: D64.9 Anemia, unspecified (principal); R73.09 Other abnormal glucose; M25.50 Pain in unspecified joint
CPT/HCPCS: 36415; 80048; 83036; 86225

== ENCOUNTER → 2021-10-03 07:23 | Outpatient (CLI) | payer OTHER, SELFPAY ==
--- NOTE | 2021-10-03 07:33 | CT_ITS ---
PROCEDURE INFORMATION: Exam: CTA Chest With Contrast Exam date and time: 10/03/2021 7:33 AM Age: 56 years old Clinical indication: Shortness of breath; Additional info: SOB TECHNIQUE: Imaging protocol: Computed tomographic angiography of the chest with contrast. 3D rendering (Not supervised by radiologist): MIP and/or 3D reconstructed images were created by the technologist. Radiation optimization: All CT scans at this facility use at least one of these dose optimization techniques: automated exposure control; mA and/or kV adjustment per patient size (includes targeted exams where dose is matched to clinical indication); or iterative reconstruction. Contrast material: ISOVUE 370; Contrast volume: 75 ml; Contrast route: INTRAVENOUS (IV); COMPARISON: CR XR CHEST 2V 04/09/2021 12:28 PM FINDINGS: Pulmonary arteries: No evidence of pulmonary embolus to the segmental level. Aorta: No aneurysm of the aorta. No dissection of the aorta. Lungs: Unremarkable. No consolidation. No masses. Pleural spaces: Unremarkable. No pneumothorax. No pleural effusion. Heart: Unremarkable. No cardiomegaly. No pericardial effusion. Lymph nodes: Unremarkable. No enlarged lymph nodes. Kidneys and ureters: 2.3 cm simple cyst left kidney . No follow-up imaging recommended . Bones/joints: Unremarkable. No acute fracture. Soft tissues: Unremarkable. IMPRESSION: 1. No evidence of pulmonary embolus to the segmental level. 2. No aneurysm of the aorta. 3. No dissection of the aorta. COMMENTS: Consistent with the [employer]'s Incidental Findings Committee white paper (J Am Hannah Radiol 2018): Any incidental renal lesion less than 1 cm or classified as too small to characterize, or any incidental cystic renal lesion characterized as simple-appearing, is likely benign. No follow-up imaging is recommended for these lesions per consensus recommendations based on imaging criteria.
[2021-10-03 08:11] LABS: Blood Urea Nitrogen 36 mg/dl (7-17); Estimated Glomerular Filt Rate 36 ml/min (>60); GFR (African American) 43 ML/MIN (>60)
[2021-10-03 09:15] LABS: D-Dimer 0.39 ug/mL (0.0-0.5)
== END ==
PROVIDERS: Visit Provider Internal Medicine Pulmonary Disease
DX: R06.02 Shortness of breath (principal)
CPT/HCPCS: 36415; 71275; 82565; 84520; 85378; Q9967

== ENCOUNTER → 2022-01-19 07:39 | Outpatient (CLI) | payer OTHER, SELFPAY ==
--- NOTE | 2022-01-19 07:40 | CA_ITS ---
APPROVED REPORT EXAM: Comprehensive 2D, Doppler, and color-flow Echocardiogram Budget Accountant: Nicole Mayers RVT Ht: 5 ft 2 in Wt: 292lbs BSA: 2.25 BP: 131/74 mmHg Indications: CHECK RVSP,SOA,PHTN,OBESITY,HX PE,ASTHMA 2D Dimensions LVOT 2.39 cm (M/F) 1.5-2.5 LA Volume 28.80 mL LA Volume Index 12.85 mL/m2 (M/F) 16-34 M-Mode Dimensions RVDd 3.00 cm (0.9-2.6) LA Diam 3.98 cm (1.9-4.0) LVDd 4.50 cm (3.5-5.7) Ao Diam 3.41 cm (2.0-3.7) LVDs 2.95 cm (3.5-5.7) IVSd 1.22 cm (0.6-1.1) PWd 1.31 cm (0.6-1.1) EF (Teich) 63.60% FS 34.40% EDV (Teich) 92.40 mL TAPSE 2.11 (<1.7) ESV (Teich) 33.60 mL LV Diastology E Decel Time 150.00 (160-240 msec) E/A Ratio 0.9 MED E' 4.00 (< 7 cm/sec) E'/MED E' Ratio 17.37 (>14) LAT E' 6.30 (<10 cm/sec) E/LAT E' Ratio 11.03 (>14) Aortic Valve AO Peak GR. 5.60 mmHg Mitral Valve MV E Max Marcus. 69.00 (40-130 cm/s) MV A Velocity 79.00 (40-130 cm/s) E/A Ratio 0.88 MV Decel. Time 150.00 (160-240 ms) MV PHT 44.00 ms Pulmonary Valve PV Peak Velocity 82.00 (50-150 cm/s) Tricuspid Valve TR P. Velocity 221.00 cm/s RAP Estimate 10.00 mmHg RVSP 29.60 mmHg Left Ventricle Left atrium is mildly enlarged, left ventricle is normal size, mild concentric left ventricular hypertrophy, visually estimated ejection fraction 55% with no regional wall motion abnormality, grade 1 diastolic dysfunction seen without tissue Doppler evidence of raise left atrial pressure. Right Ventricle Right atrium and right ventricle are mildly enlarged with normal contractility. Aortic Valve Aortic valve is minimally thickened and fibrosed, there is no aortic stenosis or aortic insufficiency. Mitral Valve Mitral valve grossly normal, there is trace mitral regurgitation. Tricuspid Valve Tricuspid valve grossly normal, there is trace tricuspid regurgitation, calculated right ventricular systolic pressure 30 mmHg. Pulmonic Valve Pulmonic valve is poorly visualized. Great Vessels Aortic root is normal size. Inferior vena cava is poorly visualized. Pericardium No significant pericardial effusion noted. Conclusion 1. Mild biatrial normal, normal left ventricular size, mild concentric left ventricular hypertrophy, visually estimated ejection fraction 55% with no regional wall motion abnormality, grade 1 diastolic dysfunction seen without tissue Doppler evidence of raise left atrial pressure. 2. Mildly enlarged right ventricle with normal contractility. 3. Trace mitral and tricuspid regurgitation, calculated right ventricular systolic pressure 30 mmHg. 4. No significant pericardial effusion noted 5. Inferior vena cava is poorly visualized. Electronically signed by : Trev Mijares MD 01/19/2022 19:27:03
[2022-01-19 09:07] LABS: Basophils # 0.1 K/mm3 (0-0.2); Basophils % 1.1 % (0.1-2.0); Eosinophils # 0.4 K/mm3 (0.0-0.4); Eosinophils % 3.1 % (0.1-12.0); Hematocrit 36.3 % (37.0-47.0); Hemoglobin 11.5 g/dL (12.2-16.2); Lymphocytes # 2.8 K/mm3 (0.7-4.5); Lymphocytes % 24.1 % (10-50); Mean Corpuscular HGB Conc 31.6 g/dL (31.8-35.4); Mean Corpuscular Hemoglobin 29.6 pg (27.0-31.2); Mean Corpuscular Volume 93.6 fl (81-99); Mean Platelet Volume 8.8 fl (7.4-10.4); Monocytes # 0.7 K/mm3 (0.1-1.0); Monocytes % 5.9 % (1.7-9.3); Neutrophils # 7.5 K/mm3 (1.8-7.8); Neutrophils % 65.7 % (37.0-80.0); Platelet Count 348 K/mm3 (142-424); Red Blood Count 3.88 M/mm3 (4.20-5.40); Red Cell Distribution Width 14.9 % (11.5-17.5); White Blood Count 11.5 K/mm3 (4.8-10.8)
[2022-01-19 09:37] LABS: Chloride 105 mmol/L (98-107); Potassium 4.9 mmoL/L (3.5-5.1); Sodium 138 mmol/L (136-145)
[2022-01-19 09:40] LABS: Anion Gap 11.9 mEq/L (5-15); Blood Urea Nitrogen 31 mg/dl (7-17); Carbon Dioxide 26 mmol/L (22.0-30.0); Cholesterol 163 mg/dl (140-200); Estimated Glomerular Filt Rate 36 ml/min (>60); GFR (African American) 43 ML/MIN (>60); Triglycerides 130 mg/dl (30-150); VLDL Cholesterol 26 mg/dL (0-40)
[2022-01-19 09:41] LABS: Calcium 8.9 mg/dl (8.4-10.2); Chol/HDL Ratio 5.4 (1-3.5); Glucose 124 mg/dl (74-100); HDL Cholesterol 30 mg/dl (40-60)
[2022-01-19 09:54] LABS: Direct LDL Cholesterol 113.24 mg/dL (100-129)
[2022-01-19 10:10] LABS: Thyroid Stimulating Hormone 0.81 uIU/mL (0.465-4.68)
== END ==
PROVIDERS: Nurse Practitioner Family; PCP Physician Assistant; Visit Provider Internal Medicine Pulmonary Disease
DX: R06.09 Other forms of dyspnea (principal); I27.20 Pulmonary hypertension, unspecified; E66.01 Morbid (severe) obesity due to excess calories; Z68.43 Body mass index [BMI] 50.0-59.9, adult; J45.40 Moderate persistent asthma, uncomplicated
CPT/HCPCS: 36415; 80048; 80061; 84436; 84443; 85025; 93306

== ENCOUNTER → 2022-02-02 14:11 | Outpatient (CLI) | payer OTHER, SELFPAY ==
[2022-02-08 18:09] LABS: D001-IgE D pteronyssinus <0.10 kU/L (Class 0); D002-IgE D farinae <0.10 kU/L (Class 0); E001-IgE Cat Dander 1.02 kU/L (Class II); E005-IgE Dog Dander 4.67 kU/L (Class IV); E072-IgE Mouse Urine <0.10 kU/L (Class 0); G002-IgE Bermuda Grass <0.10 kU/L (Class 0); G006-IgE Timothy Grass <0.10 kU/L (Class 0); I006-IgE Cockroach, German <0.10 kU/L (Class 0); Immunoglobulin E, Total 90 IU/mL (6-495); M001-IgE Penicillium chrysogen <0.10 kU/L (Class 0); M002-IgE Cladosporium herbarum <0.10 kU/L (Class 0); M003-IgE Aspergillus fumigatus <0.10 kU/L (Class 0); M006-IgE Alternaria alternata <0.10 kU/L (Class 0); T001-IgE Maple/Box Elder <0.10 kU/L (Class 0); T003-IgE Common Silver Birch <0.10 kU/L (Class 0); T006-IgE Cedar, Mountain <0.10 kU/L (Class 0); T007-IgE Oak, White <0.10 kU/L (Class 0); T008-IgE Elm, American <0.10 kU/L (Class 0); T010-IgE Walnut <0.10 kU/L (Class 0); T011-IgE Maple Leaf Sycamore <0.10 kU/L (Class 0); T014-IgE Cottonwood <0.10 kU/L (Class 0); T015-IgE Ash, White <0.10 kU/L (Class 0); T022-IgE Pecan, Hickory <0.10 kU/L (Class 0); T070-IgE White Mulberry <0.10 kU/L (Class 0); W001-IgE Ragweed, Short <0.10 kU/L (Class 0); W011-IgE Thistle, Russian <0.10 kU/L (Class 0); W014-IgE Pigweed, Common <0.10 kU/L (Class 0); W018-IgE Sheep Sorrel <0.10 kU/L (Class 0)
== END ==
PROVIDERS: PCP Physician Assistant; Visit Provider Internal Medicine Pulmonary Disease
DX: R06.09 Other forms of dyspnea (principal); R42 Dizziness and giddiness; R60.0 Localized edema; J45.50 Severe persistent asthma, uncomplicated
CPT/HCPCS: 36415; 82785; 86003; 94762

== ENCOUNTER → 2022-10-13 10:00 | Outpatient (CLI) | payer OTHER, SELFPAY ==
--- NOTE | 2022-10-13 10:02 | US_ITS ---
FINAL REPORT CLINICAL HISTORY: .HTN, bilateral rest pain, bilateral claudication, obesity, lymphedema bilateral legs. FINDINGS: ANKLE-BRACHIAL PRESSURE INDICES Pressure indices are as follows: RIGHT LOWER EXTREMITY: Ankle-brachial pressure index: 1.1 Comments: Normal LEFT LOWER EXTREMITY: Ankle-brachial pressure index: 1.0 Comments: Normal CONCLUSION: No evidence of significant obstructive peripheral vascular disease of the lower extremities Reviewed, Interpreted and Dictated by Moshe Borjas III, MD Transcribed by Philly Hale Authenticated and [facility]
== END ==
PROVIDERS: PCP Physician Assistant; Visit Provider Nurse Practitioner Family
DX: I70.213 Atherosclerosis of native arteries of extremities with intermittent claudication, bilateral legs (principal)
CPT/HCPCS: 93923

== ENCOUNTER 2023-01-14 15:00 | Outpatient (RCR) | payer OTHER, SELFPAY | END 2023-01-14 15:05 | disposition home or self-care (01) | LOC: PT 15:00 | PROVIDERS: PCP Physician Assistant; Visit Provider Nurse Practitioner Family | DX: I89.0 Lymphedema, not elsewhere classified (principal) | CPT/HCPCS: 97110; 97140; 97162; 97164 ==

== ENCOUNTER → 2023-02-12 13:42 | Outpatient (CLI) | payer OTHER, SELFPAY ==
--- NOTE | 2023-02-12 13:47 | US_ITS ---
FINAL REPORT TECHNIQUE: Sonographic images of the thyroid were obtained. CLINICAL HISTORY: HYPOTHYROIDISM FINDINGS: THYROID ULTRASOUND The thyroid gland is small measuring 2.0 x 0.4 x 0.0.8 cm on the right and 1.8 x 0.4 x 0.6 cm on the left. No dominant mass is identified. IMPRESSION: Small thyroid gland without mass. Reviewed, Interpreted and Dictated by Moshe Borjas III, MD Transcribed by Ana Morales Authenticated and [facility]
== END ==
PROVIDERS: PCP Physician Assistant; Visit Provider Nurse Practitioner Family
DX: E03.9 Hypothyroidism, unspecified (principal)
CPT/HCPCS: 76536

== ENCOUNTER 2023-02-15 14:40 | Emergency (ER) | payer OTHER, SELFPAY ==
[2023-02-15 15:00] VITALS: BP 148/61; PULSE 103; RESP 20; TEMP 36.8; O2SAT 97; BMI 54.6
--- NOTE | 2023-02-15 15:20 | EXP.UTC ---
Discharge Plan Disposition Patient Disposition: Home, Self-Care Condition: Good Prescriptions Prescriptions: New methylprednisolone 4 mg Tablets,Dose Pack 4 mg PO DIRECTED Qty: 21 0RF ciprofloxacin-dexamethasone 0.3-0.1 % Drops,Suspension 2 drp Ear-Right BID 7 Days Qty: 1 0RF sulfamethoxazole-trimethoprim [Bactrim DS] 800-160 mg Tablet 1 tab PO BID Qty: 20 0RF No Action magnesium citrate 125 mg capsule 125 mg capsule 125 mg PO DAILY meloxicam 15 mg tablet 15 mg PO DAILY 30 Days Qty: 30 tizanidine 4 mg capsule 4 mg PO TID PRN (Reason: pain) triamcinolone acetonide 55 mcg/actuation nasal spray,aerosol 55 mcg/actuation aerosol INTRANASAL escitalopram oxalate 5 mg tablet 5 mg PO DAILY lisinopril-hydrochlorothiazide 10-12.5 mg tablet 1 tab PO DAILY Label Comments: TAKE 1 TABLET BY MOUTH ONCE DAILY levothyroxine 200 mcg tablet 200 mcg PO DAILY loratadine 10 mg tablet 10 mg PO DAILY aspirin [Adult Low Dose Aspirin] 81 mg tablet,delayed release (DR/EC) 81 mg PO DAILY azelastine 137 mcg (0.1 %) aerosol,spray 2 spray INTRANASAL BID Rx Instructions: administer into each nostril albuterol sulfate 90 mcg/actuation HFA aerosol inhaler 90 mcg INHALATION Label Comments: INHALE 2 PUFFS BY MOUTH EVERY 4 TO 6 HOURS NEEDED FOR PERSISTENT COUGH WHEEZE CHEST TIGHTNESS OR SHORTNESS OF BREATH ipratropium-albuterol 0.5 mg-3 mg(2.5 mg base)/3 mL solution for nebulization 3 ml INHALATION QID PRN (Reason: shortness of breath or wheezing) Qty: 90 3RF diclofenac sodium 1 % gel 2 g TP QID Qty: 100 0RF Rx Instructions: apply to single elbow, wrist or hand; for hand includes palm/fingers/back of hand fluticasone propionate [Flonase Allergy Relief] 50 mcg/actuation spray,suspension 2 spray intranasal DAILY 90 Days Qty: 16 3RF Rx Instructions: administer into each nostril fluticasone propion-salmeterol [Advair Diskus] 500-50 mcg/dose blister with device 1 inh INHALATION DAILY Label Comments: INHALE 1 DOSE BY MOUTH TWICE DAILY fluticasone propion-salmeterol [Advair Diskus] 500-50 mcg/dose blister with device 1 inh INHALATION BID montelukast 10 mg tablet 10 mg PO DAILY Referrals Follow up/Referrals: Ariela Soto APRN [Primary Care Provider] - See instructions Activity Restrictions/Add. Instructions Additional Instructions/Restrictions: Drink plenty of fluids. Take tylenol or ibuprofen for pain or fever. Take the medications as directed. Follow up with your regular doctor. GO TO THE ER FOR ANY WORSENING SYMPTOMS Clinical Impressions Clinical Impression: Otitis media, Pharyngitis Instructions Patient Instructions: Middle Ear Infection Discharge ED Provider: Will Barry [facility] General Stated complaint: ear and throat pain Mode of Arrival: Ambulatory Source of Information: Patient Limitations: No Limitations Time Seen by Provider: 02/15/23 15:15 Description of Symptoms (Recalled from Triage Doc. by RN): right ear pain and drainage. 1 wk ago was in [facility] Symptoms (Recalled from RN notes): Yes Resp Symptoms (Recalled from RN notes): No Skin Symptoms (Recalled from RN notes): No MS Symptoms (Recalled from RN notes): No Functional Status (Recalled from RN notes): n/a History of Present Illness Provider Complaint: She states that she was treated for a right ear infection last week but it has not got better. She is having right ear pain and fullness, sore throat, and dizziness at times when she turns her head to the right. Related Data Home Medications Medication Instructions Recorded Confirmed magnesium citrate 125 mg capsule 125 mg PO DAILY . 08/29/18 02/15/23 tizanidine 4 mg capsule 4 mg PO TID PRN pain 01/16/21 02/15/23 aspirin 81 mg tablet,delayed 81 mg PO DAILY heart health 03/17/21 02/15/23 release (Adult Low Dose Aspirin) kale
[2023-02-15 15:44] VITALS: BP 148/61; PULSE 103; RESP 20; TEMP 36.8; O2SAT 97
== END 2023-02-15 15:44 | disposition home or self-care (01) ==
PROVIDERS: Emergency Provider Nurse Practitioner Family; PCP Nurse Practitioner Family
DX: H66.91 Otitis media, unspecified, right ear (principal); J02.9 Acute pharyngitis, unspecified; I10 Essential (primary) hypertension; E03.9 Hypothyroidism, unspecified
CPT/HCPCS: 99212; 99214; G0463

== ENCOUNTER → 2023-03-01 16:24 | Outpatient (CLI) | payer OTHER, SELFPAY ==
[2023-03-01 16:31] LABS: Adenovirus,PCR Not Detected (NotDetected); Bordetella Pertussis Not Detected (NotDetected); Chlamydophila Pneumoniae, PCR Not Detected (NotDetected); Coronavirus 19, PCR Not Detected (NotDetected); Coronavirus 229E Not Detected (NotDetected); Coronavirus NL63 Not Detected (NotDetected); Coronavirus OC43 Not Detected (NotDetected); Coronovirus HKU1,PCR Not Detected (NotDetected); Human Metapneumovirus Not Detected (NotDetected); Influenza A, PCR Not Detected (NotDetected); Influenza AH1, 2009 Not Detected (NotDetected); Influenza AH1, PCR Not Detected (NotDetected); Influenza AH3,PCR Not Detected (NotDetected); Influenza B, PCR Not Detected (NotDetected); Mycoplasma Pneumoniae, PCR Not Detected (NotDetected); Parainfluenza 1, PCR Not Detected (NotDetected); Parainfluenza 2, PCR Not Detected (NotDetected); Parainfluenza 3, PCR Not Detected (NotDetected); Parainfluenza 4, PCR Not Detected (NotDetected); Respiratory Syncytial Virus Not Detected (NotDetected); Rhinovirus/Enterovirus Not Detected (NotDetected)
== END ==
PROVIDERS: PCP Nurse Practitioner Family; Visit Provider Nurse Practitioner Family
DX: R05.1 Acute cough (principal)
CPT/HCPCS: 87581; 87632; 87798; C9803; U0003; U0005

== ENCOUNTER → 2023-04-19 07:33 | Outpatient (CLI) | payer OTHER, SELFPAY ==
--- NOTE | 2023-04-19 07:35 | MR_ITS ---
FINAL REPORT CLINICAL HISTORY: LEFT ANTERIOR KNEE PAIN, SWELLING OF JOINT COMPARISON: None FINDINGS: Multi planar MR imaging was performed of the left knee. On the sagittal images, the anterior cruciate ligament is not well seen. The posterior cruciate ligament is intact. On the coronal images, the anterior cruciate ligament is identified and appears intact. The quadriceps and patellar tendons are intact. There are large complex tears of the anterior and posterior horns of the medial meniscus. There is a linear tear of the anterior horn of the lateral meniscus. The medial and lateral collateral ligaments appear intact. The medial and lateral retinacula appear intact. There are osteochondral lesions along the articular surface of the medial femoral condyle. There are moderate hypertrophic changes at the joint margins, more evident on the right than the left. Small osteophytes are noted along the undersurface of the patella. No evidence of soft tissue inflammatory reaction. IMPRESSION: Areas of the anterior and posterior horns of the medial meniscus and anterior horn of the lateral meniscus. Osteochondral lesions medial femoral condyle and medial tibial plateau with moderate changes of osteoarthritis at the medial and lateral joint margins. Small osteophytes along the undersurface of the patella. Reviewed, Interpreted and Dictated by Alberto Patrick MD Transcribed by Maria Antonia Manjarrez Authenticated and [facility]
== END ==
PROVIDERS: PCP Nurse Practitioner Family; Visit Provider Nurse Practitioner Family
DX: M25.562 Pain in left knee (principal); M25.462 Effusion, left knee
CPT/HCPCS: 73721

== ENCOUNTER → 2023-04-29 13:36 | Outpatient (CLI) | payer OTHER, SELFPAY ==
--- NOTE | 2023-04-29 13:39 | XR_ITS ---
FINAL REPORT CLINICAL HISTORY: rt knee pain COMPARISON: 06/06/2020 FINDINGS: RIGHT KNEE SERIES Four views of the right knee were obtained. There is no acute fracture or dislocation. There is moderate degenerative change. There is no soft tissue abnormality. IMPRESSION: Moderate degenerative change. Reviewed, Interpreted and Dictated by Moshe Borjas III, MD Transcribed by Kumar Tobar Authenticated and [facility]
== END ==
PROVIDERS: PCP Nurse Practitioner Family; Visit Provider Orthopaedic Surgery
DX: M25.561 Pain in right knee (principal)
CPT/HCPCS: 73562

== ENCOUNTER → 2023-05-03 10:50 | Outpatient (CLI) | payer OTHER, SELFPAY ==
--- NOTE | 2023-05-03 10:50 | CT_ITS ---
FINAL REPORT TECHNIQUE: Axial CT images of the face were obtained without contrast. Coronal reformatted images were also obtained. This study was performed with techniques to keep radiation doses as low as reasonably achievable, (ALARA). Individualized dose reduction techniques using automated exposure control or adjustment of mA and/or kV according to the patient''s size were employed. CLINICAL HISTORY: chronic sinus pressure FINDINGS: There is moderate mucosal thickening of the right sphenoid sinus. Remaining paranasal sinuses are clear. Ostiomeatal units are patent. No fluid levels are identified. There are multiple missing and carious teeth. Lucency is seen surrounding the apex of the left mandibular premolar worrisome for periapical abscess. IMPRESSION: Moderate mucosal thickening of the right sphenoid sinus. No fluid levels identified. Lucency surrounding the apex of the left mandibular premolar worrisome for periapical abscess Reviewed, Interpreted and Dictated by Moshe Borjas III, MD Transcribed by Jil Soler Authenticated and [facility]
== END ==
PROVIDERS: PCP Nurse Practitioner Family; Visit Provider Nurse Practitioner
DX: J32.9 Chronic sinusitis, unspecified (principal)
CPT/HCPCS: 70486

== ENCOUNTER → 2023-05-27 14:08 | Outpatient (POV) | payer OTHER, SELFPAY ==
[2023-05-27 14:23] VITALS: BP 135/99; PULSE 116; RESP 20; O2SAT 93; BMI 54.8
--- NOTE | 2023-05-27 14:47 | EXP.PAIN.OV ---
HPI Data of Consult Patient: new to practice Consult date: 05/27/23 Requesting Physician: Missy Rice APRN Primary Care Provider: Ariela Soto APRN Consult Narrative Reason for consult: Bilateral knee pain, hip pain, low back pain History of present illness: Ms. Barrera is a 58 year old female who presents today as a new patient. She is a referral from Dr. Frankie Rice's office. Today she rates her pain a 7 out of 10. Patient states that she continues to have pain at multiple sites including her bilateral knees, hips and low back. Patient states this is going on for years and progressively worsened over time. Patient does describe it as a aching, sharp sensations that is worse with increased activity. She does state that when standing it causes significant pain that she has to frequently stop and take breaks. She does state that she will experience numbness in her hips and has recently found out that she cannot put pressure or lie on her right hip due to worsening pain. Patient does state that her knees have had multiple injections in the past including gel that did provide significant relief. She does have a torn meniscus in her left knee and was seen Dr. Rice who at this time is not recommending surgery. Patient does have a significant health history including lymphedema, osteoarthritis, thyroid disorder and sleep apnea. Patient states she has tried [id number] medications such as Tylenol and ibuprofen and is currently prescribed tizanidine 4 mg 3 times a day and meloxicam 15 mg daily. She does state that she takes hydrochlorothiazide for her blood pressure and lymphedema. Patient denies any side effects from these medications. She does state that overall her worst pain is in her bilateral knees and would be interested to have improvements in this area. Patient is not on any scheduled medications. Patient has also tried heat and ice and topicals with minimal relief. Her Cesar is [phone]. Its been reviewed and appropriate. CC: Missy Rice APRN [facility] Disclaimer: The information contained in this section may have been updated after the patient was seen, as this information can be updated by other users. Medical History (Updated 05/27/23 @ 14:53 by Missy Rice APRN) Abnormal EKG Allergic rhinitis Asthma Chest pain Chronic sinusitis Dyspnea Dyspnea on exertion Family history of asthma History of DVT (deep vein thrombosis) History of pulmonary embolism HTN (hypertension) Hypertrophy of nasal turbinates Hypothyroidism Lymphedema of both lower extremities Mild right atrial enlargement Moderate persistent asthma Morbid obesity with BMI of 50.0-59.9, adult Osteoarthritis Pulmonary embolism Pulmonary hypertension Seasonal allergies Shortness of breath Sinus tachycardia Tooth abscess Surgical History History of colonoscopy Family History Other Cancer Coronary artery disease Heart attack Hypertension Stroke Thyroid disorder Social History (Updated 05/27/23 @ 14:24 by Yane Munoz RN) Smoking Status: Never smoker alcohol intake: never substance use type: denies use current occupational status: other Travel in the last 8 weeks: None household members: family housing: house number of children: 2 Review of Systems Review of Systems Review of systems:: pertinent systems reviewed and negative unless documented below Review of systems (narrative): Review of Systems: General: No recent weight changes, no fever, no sleep disturbances Respiratory: No cough, no shortness of air, no recurring pulmonary infections Cardiovascular/peripheral vascular: No chest pain, no palpitations, no edema, no shortness of breath Gastrointestinal: No new onset incontinence, normal bowel movements reported Genitourinary: No new onset incontinence Musculoskeletal: Low back pain, bilate
== END ==
PROVIDERS: PCP Nurse Practitioner Family; Visit Provider Nurse Practitioner Family
DX: M25.561 Pain in right knee (principal); M25.562 Pain in left knee; G89.29 Other chronic pain; M25.551 Pain in right hip; M25.552 Pain in left hip; M54.5 Low back pain
CPT/HCPCS: 99202; G0463

== ENCOUNTER 2023-06-11 09:09 | Day surgery (SDC) | payer OTHER, SELFPAY ==
[2023-06-11 09:30] VITALS: BP 137/74; BP 139/95; PULSE 112; PULSE 119; RESP 18; TEMP 36.5; O2SAT 96; BMI 52.8
--- NOTE | 2023-06-11 09:41 | P.PCN_ITS ---
Procedure Anesthesiologist:: Jeremy Wharton CRNA Complications:: None
--- NOTE | 2023-06-11 09:41 | EXP.PAIN.PRO ---
Procedure Anesthesiologist:: Jeremy Wharton CRNA Complications:: None
--- NOTE | 2023-06-11 09:43 | EXP.PAIN.PRO ---
Procedure Date: 06/11/23 Time: 09:30 Anesthesiologist:: Jeremy Wharton CRNA Complications:: None Pre-procedure Diagnosis:: Osteoarthritis bilateral knees. Meniscus tear left knee. Post-procedure Diagnosis:: Same. Indications for Procedure:: Patient is a pleasant 58-year-old female comes our clinic today for bilateral intra-articular knee injections. Patient has had multiple knee injections of different variety of medication. She states cortisone intra-articular has been effective in the past. Patient reports she has a meniscus tear in the left knee. However, orthopedic surgery does not want to operate. Patient rates her pain 7/10. Procedure Details:: Procedure Details: Bilateral intra-articular knee injection Informed consent was obtained risk and benefits of the procedure were explained to the patient. Patient was taken the procedure room both knees were prepped using ChloraPrep. A 25-gauge needle was used to inject 10 mL bupivacaine 0.25% and Depo-Medrol 40 mg into each knee. We did a total of 80 mg Depo-Medrol for both knees. The patient tolerated the procedure well with no complications. Plan and Disposition:: Patient was discharged without incident.
[2023-06-11 09:45] VITALS: BP 112/88; PULSE 113; RESP 18; O2SAT 96
== END 2023-06-11 09:45 | disposition home or self-care (01) ==
PROVIDERS: PCP Nurse Practitioner Family; Visit Provider Nurse Anesthetist, Certified Registered
DX: M17.0 Bilateral primary osteoarthritis of knee (principal); S83.207D Unspecified tear of unspecified meniscus, current injury, left knee, subsequent encounter
CPT/HCPCS: 20610; J1040

== ENCOUNTER → 2023-07-09 07:57 | Outpatient (POV) | payer OTHER, SELFPAY ==
[2023-07-09 08:28] VITALS: BP 121/75; PULSE 95; RESP 18; O2SAT 95; BMI 51.2
--- NOTE | 2023-07-09 08:47 | EXP.PAIN.SOA ---
[facility] Pain Management SOAP Note Subjective:: This patient is a very pleasant 58-year-old female that comes our clinic today for follow-up after receiving bilateral intra-articular knee injections. Patient reports 70+ percent improvement terms of her overall bilateral knee pain. She states she is able to ambulate with minimal difficulty. Also, transitioning from sitting to standing is much less painful. She rates her pain today 3/10. Objective:: Patient is awake alert [place] x3. In no acute distress. Flexion-extension lumbar spine normal. Deep tendon reflexes upper lower extremities normal. Motor strength upper and lower extremities normal. There is no gross sensory deficit. Gait is normal Assessment:: Bilateral osteoarthritis knees. Chronic bilateral knee pain. Plan:: Patient will contact us on a as needed basis regarding her knees. I did talk with her briefly regarding genicular nerve block if in fact intra-articular cortisone fails. [facility] Disclaimer: The information contained in this section may have been updated after the patient was seen, as this information can be updated by other users. Medical History Abnormal EKG Allergic rhinitis Asthma Chest pain Chronic sinusitis Dyspnea Dyspnea on exertion Family history of asthma History of DVT (deep vein thrombosis) History of pulmonary embolism HTN (hypertension) Hypertrophy of nasal turbinates Hypothyroidism Lymphedema of both lower extremities Mild right atrial enlargement Moderate persistent asthma Morbid obesity with BMI of 50.0-59.9, adult Osteoarthritis Pulmonary embolism Pulmonary hypertension Seasonal allergies Shortness of breath Sinus tachycardia Tooth abscess Surgical History History of colonoscopy Family History Other Cancer Coronary artery disease Heart attack Hypertension Stroke Thyroid disorder Social History Smoking Status: Never smoker alcohol intake: never substance use type: denies use current occupational status: other Travel in the last 8 weeks: None household members: family housing: house number of children: 2
== END ==
PROVIDERS: PCP Family Medicine; Visit Provider Nurse Anesthetist, Certified Registered
DX: M17.0 Bilateral primary osteoarthritis of knee (principal); M25.561 Pain in right knee; M25.562 Pain in left knee; G89.29 Other chronic pain
CPT/HCPCS: 99212; G0463

== ENCOUNTER → 2023-07-14 07:32 | Outpatient (CLI) | payer OTHER, SELFPAY ==
[2023-07-14 08:40] VITALS: PULSE 76; PULSE 80
== END ==
PROVIDERS: PCP Family Medicine; Visit Provider Internal Medicine Pulmonary Disease
DX: R06.09 Other forms of dyspnea (principal)
CPT/HCPCS: 94060; 94618; 94640; 94727; 94729

== ENCOUNTER → 2023-08-23 10:19 | Outpatient (POV) | payer OTHER, SELFPAY ==
--- NOTE | 2023-08-23 12:43 | A.OFFVIS_ITS ---
[facility] Pain Management SOAP Note Subjective:: This patient is a very pleasant 58-year-old female comes our clinic today for evaluation regarding bilateral knee pain. Patient having difficulty standing and or ambulating secondary to bilateral knee pain. Patient states her knee pain is affecting her sleep. Patient reports responding very well to intra- articular knee injections on 06/11/2023. Patient requesting a repeat of the intra-articular knee injections. I think this is reasonable given her degree of relief with previous injections as well as her symptoms. Patient has had consultation regarding bilateral knee pain with orthopedic surgery. No surgery was recommended. I discussed with the patient regarding future intervention in regards to genicular nerve block. Patient's Cesar #[id number] has been reviewed and appropriate. Objective:: Patient is awake alert [place] x3. In no acute distress. Flexion-extension lumbar spine somewhat guarded secondary to pain. Deep tendon reflexes upper and lower extremities normal. Motor strength upper and lower extremities normal. There is no gross sensory deficit. Gait is antalgic. Assessment:: DJD bilateral knees. Osteoarthritis bilateral knees. Plan:: We will plan bilateral intra-articular knee injections. [facility] Disclaimer: The information contained in this section may have been updated after the patient was seen, as this information can be updated by other users. Medical History (Updated 07/14/23 @ 10:31 by Rene Ortiz MD) Abnormal EKG Allergic rhinitis Asthma Chest pain Chronic sinusitis Dyspnea Dyspnea on exertion Family history of asthma History of DVT (deep vein thrombosis) History of pulmonary embolism HTN (hypertension) Hypertrophy of nasal turbinates Hypothyroidism Lymphedema of both lower extremities Mild right atrial enlargement Moderate persistent asthma Morbid obesity with BMI of 50.0-59.9, adult Osteoarthritis Pulmonary embolism Pulmonary hypertension Seasonal allergies Shortness of breath Sinus tachycardia Tooth abscess Surgical History History of colonoscopy Family History Other Cancer Coronary artery disease Heart attack Hypertension Stroke Thyroid disorder Social History Smoking Status: Never smoker alcohol intake: never substance use type: denies use current occupational status: other Travel in the last 8 weeks: None household members: family housing: house number of children: 2
[2023-08-23 14:17] VITALS: BP 145/65; PULSE 98; RESP 18; O2SAT 96; BMI 54.8
== END ==
PROVIDERS: PCP Nurse Practitioner Family; Visit Provider Nurse Anesthetist, Certified Registered
DX: M17.0 Bilateral primary osteoarthritis of knee (principal)
CPT/HCPCS: 99212; G0463

== ENCOUNTER 2023-09-07 07:57 | Day surgery (SDC) | payer OTHER, SELFPAY ==
[2023-09-07 08:31] VITALS: BP 123/73; PULSE 108; RESP 18; TEMP 36.7; O2SAT 96; BMI 52.8
[2023-09-07 08:35] VITALS: BP 141/86; PULSE 111; RESP 20; O2SAT 95
[2023-09-07 08:38] VITALS: BP 141/86; PULSE 103; RESP 20; O2SAT 95
[2023-09-07 08:42] VITALS: BP 118/77; PULSE 99; RESP 16; O2SAT 96
--- NOTE | 2023-09-07 08:48 | P.PCN_ITS ---
Procedure Date: 09/07/23 Time: 08:30 Anesthesiologist:: Jeremy Wharton CRNA Complications:: None Pre-procedure Diagnosis:: DJD bilateral knees. Chronic knee pain bilaterally. Post-procedure Diagnosis:: Same. Indications for Procedure:: Very pleasant 58-year-old female that comes our clinic today for bilateral intra-articular knee injections of cortisone. Patient complains of bilateral knee pain she describes as constant, dull, aching. Patient rates her pain 8/10. Patient reports responding very well several months of relief from previous intra-articular cortisone injections. Procedure Details:: Informed consent was obtained risk and benefits of the procedure were explained to the patient. Patient was taken the procedure room both knees were prepped using ChloraPrep. A 25-gauge needle was used to inject 10 mL bupivacaine 0.25% a nd Depo-Medrol 40 mg into each knee. We did a total of 80 mg Depo-Medrol for both knees. The patient tolerated the procedure well with no complications. Plan and Disposition:: Patient was discharged without incident.
== END 2023-09-07 08:42 | disposition home or self-care (01) ==
PROVIDERS: PCP Nurse Practitioner Family; Visit Provider Nurse Anesthetist, Certified Registered
DX: M17.0 Bilateral primary osteoarthritis of knee (principal); M25.561 Pain in right knee; M25.562 Pain in left knee; G89.29 Other chronic pain
CPT/HCPCS: 20610; J1040

== ENCOUNTER 2023-11-25 16:29 | Outpatient (CLI) | payer OTHER, SELFPAY ==
--- NOTE | 2023-11-25 16:39 | CA_ITS ---
FINAL REPORT TECHNIQUE: Graded compression, spectral analysis and ultrasound images of the venous system of the right upper extremity were obtained. CLINICAL HISTORY: RIGHT ARM PAIN,NKI,HX OF DVT'S AND PE'S,OBESITY FINDINGS: The jugular vein, subclavian vein, axillary vein, brachial vein, cephalic vein and basilic venous system are fully compressible and demonstrate no evidence of thrombosis. IMPRESSION: No evidence of thrombosis of the venous system of the right upper extremity. Reviewed, Interpreted and Dictated by Alberto Patrick MD Transcribed by Lula Fernández Authenticated and [facility]
== END 2023-11-25 23:59 ==
PROVIDERS: PCP Nurse Practitioner Family; Visit Provider Nurse Practitioner Family
DX: M79.601 Pain in right arm (principal); Z86.718 Personal history of other venous thrombosis and embolism; I89.0 Lymphedema, not elsewhere classified
CPT/HCPCS: 93971

== ENCOUNTER 2023-11-30 12:55 | Outpatient (CLI) | payer OTHER, SELFPAY ==
--- NOTE | 2023-11-30 13:02 | XR_ITS ---
FINAL REPORT CLINICAL HISTORY: RT UPPER LIMB PAIN COMPARISON: None FINDINGS: Two views show no evidence of acute displaced fracture or dislocation of the visualized bony architecture. The joint spaces appear normal. IMPRESSION: Unremarkable exam. Reviewed, Interpreted and Dictated by Patricia Quick MD Transcribed by Cindy Sheppard Authenticated and [facility]
== END 2023-11-30 23:59 ==
LOC: RAD 12:57
PROVIDERS: PCP Nurse Practitioner Family; Visit Provider Nurse Practitioner Family
DX: M79.601 Pain in right arm (principal)
CPT/HCPCS: 73030

== ENCOUNTER 2024-01-13 16:35 | Emergency (ER) | payer OTHER, SELFPAY ==
[2024-01-13 17:45] VITALS: BP 113/82; PULSE 100; RESP 22; TEMP 37.1; O2SAT 95; BMI 36.6
--- NOTE | 2024-01-13 17:51 | ED_ITS ---
Discharge Plan Disposition Patient Disposition: Home, Self-Care Condition: Good Prescriptions Prescriptions: New drtchiwk-cosvzqlnt-PJ 3.5-10,000-1 mg/mL-unit/mL-% solution 4 drp Ear-Right Q8H 7 Days Qty: 10 0RF levofloxacin 500 mg tablet 500 mg PO DAILY Qty: 7 0RF methylprednisolone 4 mg Tablets,Dose Pack 4 mg PO DIRECTED 6 Days Qty: 21 0RF Rx Instructions: Take 1 pack as directed for 6 days guaifenesin [Mucinex] 600 mg tablet extended release 12hr 600 - 1,200 mg PO BIDP PRN (Reason: Congestion) Qty: 30 0RF No Action magnesium citrate 125 mg capsule 125 mg PO DAILY meloxicam 15 mg tablet 15 mg PO DAILY 30 Days Qty: 30 tizanidine 4 mg capsule 4 mg PO TID PRN (Reason: pain) triamcinolone acetonide 55 mcg/actuation aerosol 1 mcg INTRANASAL . lisinopril-hydrochlorothiazide 10-12.5 mg tablet 1 tab PO DAILY Patient Comments: TAKE 1 TABLET BY MOUTH ONCE DAILY fluticasone propion-salmeterol [Advair Diskus] 250-50 mcg/dose blister with device 1 inh inhalation BID 90 Days Qty: 180 3RF cholecalciferol (vitamin D3) 25 mcg (1,000 unit) capsule 25 mcg PO DAILY B-complex with vitamin C [Super B/C] Capsule 1 cap PO DAILY potassium citrate 99 mg capsule 99 mg PO DAILY brimonidine 0.2 % drops 1 drp ophthalmic (eye) BID Rx Instructions: administer approximately 8 hours apart montelukast 10 mg tablet 10 mg PO DAILY 90 Days Qty: 90 2RF fluticasone propionate [Flonase Allergy Relief] 50 mcg/actuation spray,suspension 2 spray intranasal DAILY 90 Days Qty: 16 2RF Rx Instructions: administer into each nostril azelastine 137 mcg (0.1 %) aerosol,spray 1 spray intranasal .q6 PRN (Reason: allergy symptoms) 90 Days Qty: 30 3RF Rx Instructions: administer into each nostril loratadine 10 mg tablet 10 mg PO DAILY aspirin [Adult Low Dose Aspirin] 81 mg tablet,delayed release (DR/EC) 81 mg PO DAILY albuterol sulfate 90 mcg/actuation HFA aerosol inhaler 90 mcg INHALATION . Patient Comments: INHALE 2 PUFFS BY MOUTH EVERY 4 TO 6 HOURS NEEDED FOR PERSISTENT COUGH WHEEZE CHEST TIGHTNESS OR SHORTNESS OF BREATH levothyroxine 175 mcg tablet 175 mcg PO DAILY ipratropium-albuterol 0.5 mg-3 mg(2.5 mg base)/3 mL solution for nebulization 3 ml INHALATION QID PRN (Reason: shortness of breath or wheezing) Qty: 90 3RF methylprednisolone [Medrol (Coleman)] 4 mg tablets,dose pack See Rx Instructions PO PER PKG DIR Rx Instructions: PO PER PKG DIR fluticasone propionate [Flonase Allergy Relief] 50 mcg/actuation spray,suspension 2 spray intranasal DAILY Rx Instructions: administer into each nostril montelukast 10 mg tablet 10 mg PO DAILY Referrals Follow up/Referrals: Una Olmos APRN [Primary Care Provider] - See instructions Activity Restrictions/Add. Instructions Additional Instructions/Restrictions: Drink plenty of fluids. Take tylenol or ibuprofen for pain or fever. Take the medications as directed. Follow up with your regular doctor. GO TO THE ER FOR ANY WORSENING SYMPTOMS Use the ear drops as directed. Clinical Impressions Clinical Impression: Otitis media, Sinusitis Instructions Patient Instructions: How to Instill Ear Drops, Sinusitis, Middle Ear Infection, DI for Sinusitis Discharge ED Provider: Will Barry [facility] General Stated complaint: right ear pain Time Seen by Provider: 01/13/24 17:51 History of Present Illness Provider Complaint: She states that she has had right ear pain, scratchy throat, malaise and sinus congestion for the past 3 days. Related Data Home Medications Medication Instructions Recorded Confirmed magnesium citrate 125 mg capsule 125 mg PO DAILY . 08/29/18 12/13/23 tizanidine 4 mg capsule 4 mg PO TID PRN pain 01/16/21 12/13/23 aspirin 81 mg tablet,delayed 81 mg PO DAILY heart health 03/17/21 12/13/23 release (Adult Low Dose Aspirin) loratadine 10 mg tablet 10 mg PO DAILY allergies 03/17/21 12/13/23 meloxicam 15 mg tablet 15 mg PO DAILY Pain 30 days #30 03/17/21 12/13/23 tabs albuterol sulfate 90 mcg/actuation 90 mcg inhalation . . 04/02/21 12/13/23 aerosol inhaler triamcinolone acetonide 55 1 mcg intranasal . . 06/02/21 12/13/23 mcg/actuation nasal spray,aerosol lisinopril 10 1 tab PO DAILY High blood pressure 11/03/21 12/13/23 mg-hydrochlorothiazide 12.5 mg tablet montelukast 10 mg tablet 10 mg PO DAILY Asthma 02/15/23 12/13/23 B-complex with vitamin C (Super 1 cap PO DAILY . 04/14/23 12/13/23 B/C capsule) cholecalciferol (vitamin D3) 25 25 mcg PO DAILY . 04/14/23 12/13/23 mcg (1,000 unit) capsule potassium citrate 99 mg capsule 99 mg PO DAILY . 04/14/23 12/13/23 levothyroxine 175 mcg tablet 175 mcg PO DAILY . 05/05/23 12/13/23 fluticasone propionate 50 2 spray intranasal DAILY . 06/11/23 12/13/23 mcg/actuation nasal spray,suspension (Flonase Allergy Relief) methylprednisolone 4 mg tablets in See Rx Instructions PO PER PKG DIR 06/11/23 12/13/23 a dose pack (Medrol (Coleman)) . brimonidine 0.2 % eye drops 1 drp ophthalmic (eye) BID 12/13/23 12/13/23 Previous Rx's Medication Instructions Recorded ipratropium 0.5 mg-albuterol 3 mg 3 ml inhalation QID PRN shortness 03/10/23 (2.5 mg base)/3 mL nebulization of breath or wheezing #90 mL soln fluticasone 250 mcg-salmeterol 50 1 inh inhalation BID 90 days #180 07/14/23 mcg/dose blistr powdr for ea inhalation (Advair Diskus) azelastine 137 mcg (0.1 %) nasal 1 spray intranasal .q6 PRN allergy 12/13/23 spray aerosol symptoms 90 days #30 mL fluticasone propionate 50 2 spray intranasal DAILY 90 days 12/13/23 mcg/actuation nasal #16 grams spray,suspension (Flonase Allergy Relief) montelukast 10 mg tablet 10 mg PO DAILY 90 days #90 tabs 12/13/23 guaifenesin 600 mg tablet, 600 - 1,200 mg (1 - 2 x 600 mg) PO 01/13/24 extended release 12 hr (Mucinex) BIDP PRN Congestion #30 tabs levofloxacin 500 mg tablet 500 mg PO DAILY #7 tabs 01/13/24 methylprednisolone 4 mg tablets in 4 mg PO DIRECTED 6 days #21 tabs 01/13/24 a dose pack hdolavui-hngosogsz-wnfajsxks 3.5 4 drp Ear-Right Q8H 7 days #10 mL 01/13/24 mg/mL-10,000 unit/mL-1 % ear solution Allergies Allergy/AdvReac Type Severity Reaction Status Date / Time cefprozil [From Cefzil] Allergy Verified 12/13/23 15:28 cephalexin [From Keflex] Allergy Verified 12/13/23 15:28 cetirizine [From Zyrtec] Allergy Verified 12/13/23 15:28 erythromycin base Allergy Verified 12/13/23 15:28 fexofenadine [From Calista] Allergy Verified 12/13/23 15:28 loratadine [From Claritin-D] Allergy Verified 12/13/23 15:28 Penicillins Allergy Verified 12/13/23 15:28 pseudoephedrine Allergy Verified 12/13/23 15:28 [From Claritin-D] Antihistamine, Piperidine Allergy Unknown Uncoded 12/13/23 15:28 Astemizole Allergy Unknown Uncoded 12/13/23 15:28 Cefprozil Allergy Unknown Uncoded 12/13/23 15:28 Cephalexin Allergy Unknown Uncoded 12/13/23 15:28 Cephalosporin Allergy Unknown Uncoded 12/13/23 15:28 Cetirizine Allergy Unknown Uncoded 12/13/23 15:28 CLASS: 04:00 - ANTIHISTAMINE Allergy Unknown Uncoded 12/13/23 15:28 DRUGS DHE 45 Allergy Unknown LOSS OF Uncoded 12/13/23 15:28 MUSCLE CONTROL From Erythromycin Stearate Allergy Unknown Uncoded 12/13/23 15:28 From Fexofenadine Allergy Unknown Uncoded 12/13/23 15:28 Hydrochloride Macrolide/Antibacterial Allergy Unknown Uncoded 12/13/23 15:28 Penicillin Allergy Unknown Uncoded 12/13/23 15:28 PSEUDOEPHEDRINE Allergy Unknown I-HIVES Uncoded 12/13/23 15:28 Terfenadine Allergy Unknown Uncoded 12/13/23 15:28 DHE45 Allergy Uncoded 12/13/23 15:28 TAVIST D Allergy Uncoded 12/13/23 15:28 [facility] Disclaimer: The information contained in this section may have been updated after the patient was seen, as this information can be updated by other users. Medical History Abnormal EKG Allergic rhinitis Asthma Chest pain Chronic sinusitis Dyspnea Dyspnea on exertion Family history of asthma History of DVT (deep vein thrombosis) History of pulmonary embolism HTN (hypertension) Hypertrophy of nasal turbinates Hypothyroidism Lymphedema of both lower extremities Mild right atrial enlargement Moderate persistent asthma Morbid obesity with BMI of 50.0-59.9, adult Osteoarthritis Pulmonary embolism Pulmonary hypertension Seasonal allergies Shortness of breath Sinus tachycardia Tooth abscess Surgical History History of colonoscopy Family History Other Cancer Coronary artery disease Heart attack Hypertension Stroke Thyroid disorder Social History Smoking Status: Never smoker alcohol intake: never substance use type: denies use current occupational status: other Travel in the last 8 weeks: None household members: family housing: house number of children: 2 ROS Obtained: Yes All systems reviewed & no additional complaints except as documented Constitutional Constitutional: Denies chills, Reports fever(s) and Reports poor appetite Eyes Eyes: Denies eye discharge ENT Ears, Nose, Mouth, and Throat: Denies ear discharge, Reports otalgia, Denies hearing loss, Denies sinus pain and Reports sore throat Cardiovascular Cardiovascular: Denies chest pain and Denies dyspnea Respiratory Respiratory: Denies chest congestion, Reports cough and Denies dyspnea Gastrointestinal Gastrointestingal: Denies abdominal pain, diarrhea, nausea or vomiting Musculoskeletal Musculoskeletal: Denies arthralgias Integumentary/Breasts Skin/Breast: Denies rash Physical Exam General General appearance: alert and in no apparent distress Head Head exam: atraumatic, normocephalic and normal inspection Eye Eye exam: Present normal appearance; Absent PERRL or EOMI ENT ENT exam: Present mucous membranes moist and normal external ear exam Expanded ENT Exam TM/Canal exam: Bilateral TM: erythema, bulging and effusion Nose exam: Absent sinus tenderness Nasal speculum exam: Bilateral: normal Mouth exam: Present normal external inspection and other; Absent drooling Teeth exam: Present normal inspection Throat exam: Present tonsillar erythema and tonsillomegaly Neck Neck exam: Present normal inspection, full ROM and trachea midline; Absent tenderness, meningismus or lymphadenopathy Chest Chest inspection: Present normal inspection and symmetric chest wall rise; Absent tenderness Respiratory Respiratory exam: Present normal lung sounds bilaterally; Absent respiratory distress, wheezes or stridor Cardiovascular Cardiovascular exam: Present regular rate, normal rhythm and normal heart sounds; Absent tachycardia or irregular rhythm Abdominal Exam Abdominal exam: Present soft and normal bowel sounds; Absent distention, tenderness, guarding, rebound or rigidity Extremities Exam Extremities exam: Present normal inspection and normal capillary refill; Absent tenderness, joint swelling or calf tenderness Back Exam Back exam: Present normal inspection and full ROM; Absent tenderness, CVA tenderness (R) or CVA tenderness (L) Neurological Exam Neurological exam: Present alert, oriented X3, CN II-XII intact, normal gait and reflexes normal; Absent motor sensory deficit Psychiatric Psychiatric exam: Present normal affect and normal mood Skin Skin exam: Present warm, dry, intact and normal color Lymphatic Lymphatic Findings: no adenopathy Medical Decision Making Medical Records Medical records reviewed: No I reviewed the patient's medical records. Cesar Inquiry Pt receiving controlled substance: No Lab Data Lab results reviewed: Yes I reviewed the patient's lab results.
[2024-01-13 18:28] VITALS: BP 113/82; PULSE 100; RESP 22; TEMP 37.1; O2SAT 95
== END 2024-01-13 18:33 | disposition home or self-care (01) ==
PROVIDERS: Emergency Provider Nurse Practitioner Family; PCP Nurse Practitioner Family
DX: J01.90 Acute sinusitis, unspecified (principal); H66.93 Otitis media, unspecified, bilateral; R53.81 Other malaise; R09.81 Nasal congestion; I11.9 Hypertensive heart disease without heart failure; E03.9 Hypothyroidism, unspecified; J45.40 Moderate persistent asthma, uncomplicated; I27.20 Pulmonary hypertension, unspecified; Z86.711 Personal history of pulmonary embolism
CPT/HCPCS: 99212; 99214; G0463

== ENCOUNTER 2024-01-24 15:30 | Emergency (ER) | payer OTHER, SELFPAY ==
[2024-01-24 15:50] VITALS: BP 127/86; PULSE 86; RESP 19; TEMP 37; O2SAT 99; BMI 51.8
--- NOTE | 2024-01-24 16:00 | EXP.UTC ---
Discharge Plan Disposition Patient Disposition: Home, Self-Care Condition: Good Prescriptions Prescriptions: New ofloxacin 0.3 % drops 10 drp otic (ear) Q12H 14 Days Qty: 20 0RF Rx Instructions: use in right ear as directed No Action magnesium citrate 125 mg capsule 125 mg PO DAILY meloxicam 15 mg tablet 15 mg PO DAILY 30 Days Qty: 30 tizanidine 4 mg capsule 4 mg PO TID PRN (Reason: pain) triamcinolone acetonide 55 mcg/actuation aerosol 1 mcg INTRANASAL . lisinopril-hydrochlorothiazide 10-12.5 mg tablet 1 tab PO DAILY Patient Comments: TAKE 1 TABLET BY MOUTH ONCE DAILY fluticasone propion-salmeterol [Advair Diskus] 250-50 mcg/dose blister with device 1 inh inhalation BID 90 Days Qty: 180 3RF cholecalciferol (vitamin D3) 25 mcg (1,000 unit) capsule 25 mcg PO DAILY B-complex with vitamin C [Super B/C] Capsule 1 cap PO DAILY potassium citrate 99 mg capsule 99 mg PO DAILY brimonidine 0.2 % drops 1 drp ophthalmic (eye) BID Rx Instructions: administer approximately 8 hours apart montelukast 10 mg tablet 10 mg PO DAILY 90 Days Qty: 90 2RF fluticasone propionate [Flonase Allergy Relief] 50 mcg/actuation spray,suspension 2 spray intranasal DAILY 90 Days Qty: 16 2RF Rx Instructions: administer into each nostril azelastine 137 mcg (0.1 %) aerosol,spray 1 spray intranasal .q6 PRN (Reason: allergy symptoms) 90 Days Qty: 30 3RF Rx Instructions: administer into each nostril loratadine 10 mg tablet 10 mg PO DAILY aspirin [Adult Low Dose Aspirin] 81 mg tablet,delayed release (DR/EC) 81 mg PO DAILY albuterol sulfate 90 mcg/actuation HFA aerosol inhaler 90 mcg INHALATION . Patient Comments: INHALE 2 PUFFS BY MOUTH EVERY 4 TO 6 HOURS NEEDED FOR PERSISTENT COUGH WHEEZE CHEST TIGHTNESS OR SHORTNESS OF BREATH levothyroxine 175 mcg tablet 175 mcg PO DAILY ipratropium-albuterol 0.5 mg-3 mg(2.5 mg base)/3 mL solution for nebulization 3 ml INHALATION QID PRN (Reason: shortness of breath or wheezing) Qty: 90 3RF methylprednisolone [Medrol (Coleman)] 4 mg tablets,dose pack See Rx Instructions PO PER PKG DIR Rx Instructions: PO PER PKG DIR fluticasone propionate [Flonase Allergy Relief] 50 mcg/actuation spray,suspension 2 spray intranasal DAILY Rx Instructions: administer into each nostril montelukast 10 mg tablet 10 mg PO DAILY [id number] 3.5-10,000-1 mg/mL-unit/mL-% solution 4 drp Ear-Right Q8H 7 Days Qty: 10 0RF levofloxacin 500 mg tablet 500 mg PO DAILY Qty: 7 0RF methylprednisolone 4 mg Tablets,Dose Pack 4 mg PO DIRECTED 6 Days Qty: 21 0RF Rx Instructions: Take 1 pack as directed for 6 days guaifenesin [Mucinex] 600 mg tablet extended release 12hr 600 - 1,200 mg PO BIDP PRN (Reason: Congestion) Qty: 30 0RF Referrals Follow up/Referrals: Una Olmos APRN [Primary Care Provider] - See instructions Activity Restrictions/Add. Instructions Additional Instructions/Restrictions: Stop the previous ear drop and start the Ofloxacin you was prescribed today Follow up with ENT as discussed Follow up with Dentist as discussed Apply Milk of Magnesium to canker sores may help with the pain and discomfort *Monitor Temp, Over the counter Motrin or Tylenol as directed/as needed Tylenol every 4 hours and Motrin every 6 hours (as long as your family doctor has told you that you can take it) for fever or pain. and straight to ER if unable to lower temp less than 101.0 after medication given *Warm salt water gargles may help to soothe the throat *Throat Lozenges? *Warm fluids like tea with honey may help to soothe the throat? *Sleep elevated *Humidifier/Vaporizer Your throat swab was sent for culture. Those results are typically sent to your primary care. Be sure to follow up in 2-3 days with your family doctor/primary care physician if no improvement so they can review those result and treat if necessary. If you don?t have a primary care doctor, I recommend you get one but in the mean time, you will have to return to a walk in clinic Follow up IMMEDIATELY for new or worsening symptoms or no Noticeable improvement over the next 48-72 hours. 911 for difficulty breathing or swallowing Clinical Impressions Clinical Impression: Otitis media Instructions Patient Instructions: Canker Sores (Alternative Therapy), DI for Aphthous Ulcers (Canker Sores), Middle Ear Infection Discharge ED Provider: Valerie Rae [facility] General Stated complaint: Earache,sore throat,off balance Mode of Arrival: Ambulatory Source of Information: Patient Time Seen by Provider: 01/24/24 16:00 Description of Symptoms (Recalled from Triage Doc. by RN): PT STATES THAT SHE WAS SEEN HERE LAST WEEK SOMETIME AND WAS TREATED FOR AN EAR INFECTION IN HER RIGHT EAR BUT SAYS THAT IT HAS WORSENED SINCE THEN AND IS NOW HAVING A SORE THROAT ALONG WITH IT. HEENT Symptoms (Recalled from RN notes): Yes Resp Symptoms (Recalled from RN notes): No Skin Symptoms (Recalled from RN notes): No MS Symptoms (Recalled from RN notes): No Functional Status (Recalled from RN notes): WNL History of Present Illness Provider Complaint: Patient states that she was seen and treated last week for ear infection and she has finished her oral antibiotics and had trouble getting her ear drops States that her ear is still hurting her and now she is having sore throat too States that today it was still bothering her so she came in to get checked Related Data Home Medications Medication Instructions Recorded Confirmed magnesium citrate 125 mg capsule 125 mg PO DAILY . 08/29/18 12/13/23 tizanidine 4 mg capsule 4 mg PO TID PRN pain 01/16/21 12/13/23 aspirin 81 mg tablet,delayed 81 mg PO DAILY heart health 03/17/21 12/13/23 release (Adult Low Dose Aspirin) loratadine 10 mg tablet 10 mg PO DAILY allergies 03/17/21 12/13/23 meloxicam 15 mg tablet 15 mg PO DAILY Pain 30 days #30 03/17/21 12/13/23 tabs albuterol sulfate 90 mcg/actuation 90 mcg inhalation . . 04/02/21 12/13/23 aerosol inhaler triamcinolone acetonide 55 1 mcg intranasal . . 06/02/21 12/13/23 mcg/actuation nasal spray,aerosol lisinopril 10 1 tab PO DAILY High blood pressure 11/03/21 12/13/23 mg-hydrochlorothiazide 12.5 mg tablet montelukast 10 mg tablet 10 mg PO DAILY Asthma 02/15/23 12/13/23 B-complex with vitamin C (Super 1 cap PO DAILY . 04/14/23 12/13/23 B/C capsule) cholecalciferol (vitamin D3) 25 25 mcg PO DAILY . 04/14/23 12/13/23 mcg (1,000 unit) capsule potassium citrate 99 mg capsule 99 mg PO DAILY . 04/14/23 12/13/23 levothyroxine 175 mcg tablet 175 mcg PO DAILY . 05/05/23 12/13/23 fluticasone propionate 50 2 spray intranasal DAILY . 06/11/23 12/13/23 mcg/actuation nasal spray,suspension (Flonase Allergy Relief) methylprednisolone 4 mg tablets in See Rx Instructions PO PER PKG DIR 06/11/23 12/13/23 a dose pack (Medrol (Coleman)) . brimonidine 0.2 % eye drops 1 drp ophthalmic (eye) BID 12/13/23 12/13/23 Previous Rx's Medication Instructions Recorded ipratropium 0.5 mg-albuterol 3 mg 3 ml inhalation QID PRN shortness 03/10/23 (2.5 mg base)/3 mL nebulization of breath or wheezing #90 mL soln fluticasone 250 mcg-salmeterol 50 1 inh inhalation BID 90 days #180 07/14/23 mcg/dose blistr powdr for ea inhalation (Advair Diskus) azelastine 137 mcg (0.1 %) nasal 1 spray intranasal .q6 PRN allergy 12/13/23 spray aerosol symptoms 90 days #30 mL fluticasone propionate 50 2 spray intranasal DAILY 90 days 12/13/23 mcg/actuation nasal #16 grams spray,suspension (Flonase Allergy Relief) montelukast 10 mg tablet 10 mg PO DAILY 90 days #90 tabs 12/13/23 guaifenesin 600 mg tablet, 600 - 1,200 mg (1 - 2 x 600 mg) PO 01/13/24 extended release 12 hr (Mucinex) BIDP PRN Congestion #30 tabs levofloxacin 500 mg tablet 500 mg PO DAILY #7 tabs 01/13/24 methylprednisolone 4 mg tablets in 4 mg PO DIRECTED 6 days #21 tabs 01/13/24 a dose pack [id number] 3.5 4 drp Ear-Right Q8H 7 days #10 mL 01/13/24 mg/mL-10,000 unit/mL-1 % ear solution ofloxacin 0.3 % ear drops 10 drp otic (ear) Q12H 14 days #20 01/24/24 mL Allergies Allergy/AdvReac Type Severity Reaction Status Date / Time cefprozil [From Cefzil] Allergy Verified 12/13/23 15:28 cephalexin [From Keflex] Allergy Verified 12/13/23 15:28 cetirizine [From Zyrtec] Allergy Verified 12/13/23 15:28 erythromycin base Allergy Verified 12/13/23 15:28 fexofenadine [From Calista] Allergy Verified 12/13/23 15:28 loratadine [From Claritin-D] Allergy Verified 12/13/23 15:28 Penicillins Allergy Verified 12/13/23 15:28 pseudoephedrine Allergy Verified 12/13/23 15:28 [From Claritin-D] Antihistamine, Piperidine Allergy Unknown Uncoded 12/13/23 15:28 Astemizole Allergy Unknown Uncoded 12/13/23 15:28 Cefprozil Allergy Unknown Uncoded 12/13/23 15:28 Cephalexin Allergy Unknown Uncoded 12/13/23 15:28 Cephalosporin Allergy Unknown Uncoded 12/13/23 15:28 Cetirizine Allergy Unknown Uncoded 12/13/23 15:28 CLASS: 04:00 - ANTIHISTAMINE Allergy Unknown Uncoded 12/13/23 15:28 DRUGS DHE 45 Allergy Unknown LOSS OF Uncoded 12/13/23 15:28 MUSCLE CONTROL From Erythromycin Stearate Allergy Unknown Uncoded 12/13/23 15:28 From Fexofenadine Allergy Unknown Uncoded 12/13/23 15:28 Hydrochloride Macrolide/Antibacterial Allergy Unknown Uncoded 12/13/23 15:28 Penicillin Allergy Unknown Uncoded 12/13/23 15:28 PSEUDOEPHEDRINE Allergy Unknown I-HIVES Uncoded 12/13/23 15:28 Terfenadine Allergy Unknown Uncoded 12/13/23 15:28 DHE45 Allergy Uncoded 12/13/23 15:28 TAVIST D Allergy Uncoded 12/13/23 15:28 Worker's Comp Is this a Worker's Comp case?: No [facility] Disclaimer: The information contained in this section may have been updated after the patient was seen, as this information can be updated by other users. Medical History Abnormal EKG Allergic rhinitis Asthma Chest pain Chronic sinusitis Dyspnea Dyspnea on exertion Family history of asthma History of DVT (deep vein thrombosis) History of pulmonary embolism HTN (hypertension) Hypertrophy of nasal turbinates Hypothyroidism Lymphedema of both lower extremities Mild right atrial enlargement Moderate persistent asthma Morbid obesity with BMI of 50.0-59.9, adult Osteoarthritis Pulmonary embolism Pulmonary hypertension Seasonal allergies Shortness of breath Sinus tachycardia Tooth abscess Surgical History History of colonoscopy Family History Other Cancer Coronary artery disease Heart attack Hypertension Stroke Thyroid disorder Social History Smoking Status: Never smoker alcohol intake: never substance use type: denies use current occupational status: other Travel in the last 8 weeks: None household members: family housing: house number of children: 2 ROS Obtained: Yes All systems reviewed & no additional complaints except as documented and Yes Systems reviewed as appropriate & no additional complaints except as documented Constitutional Constitutional: Reports system reviewed and no additional complaints, except as documented and Reports as per HPI ENT Ears, Nose, Mouth, and Throat: Reports system reviewed and no additional complaints, except as documented, Reports as per HPI, Reports otalgia and Reports sore throat Cardiovascular Cardiovascular: Reports system reviewed and no additional complaints, except as documented and Reports as per HPI Respiratory Respiratory: Reports system reviewed and no additional complaints, except as documented and Reports as per HPI Gastrointestinal Gastrointestingal: Reports system reviewed and no additional complaints, except as documented and as per HPI Musculoskeletal Musculoskeletal: Reports system reviewed and no additional complaints, except as documented and Reports as per HPI Physical Exam General General appearance: alert and in no apparent distress ENT ENT exam: Present mucous membranes moist Expanded ENT Exam TM/Canal exam: Right TM: erythema (mild ) and loss of landmarks Teeth exam: Present dental caries and other (several small canker sores noted) Throat exam: Present tonsillar erythema (mild) Respiratory Respiratory exam: Present normal lung sounds bilaterally; Absent respiratory distress or wheezes Cardiovascular Cardiovascular exam: Present regular rate, normal rhythm and normal heart sounds Neurological Exam Neurological exam: Present alert, oriented X3 and normal gait Medical Decision Making Cesar Inquiry Pt receiving controlled substance: No Cesar was queried for this patient: No Vital Signs: 01/24/24 15:50 Temperature 98.6 F Temperature Source Oral Pulse Rate [Right Brachial] 86 Respiratory Rate 19 Blood Pressure [Right Arm] 127/86 Blood Pressure Mean [Right Arm] 99 Blood Pressure Source [Right Arm] Automatic Cuff Blood Pressure Position [Right Arm] Sitting 02 Sat by Pulse Oximetry 99 Lab Data Lab results reviewed: Yes I reviewed the patient's lab results. Medical Decision Narrative: Medication discussed with pharmacy due to allergies will change drops to ofloxacin and refer to ENT and Dentist
[2024-01-24 16:03] LABS: UTC Strep Screen (Rapid) Negative (Negative)
[2024-01-24 16:23] VITALS: BP 127/86; PULSE 86; RESP 19; TEMP 37; O2SAT 99
== END 2024-01-24 16:31 | disposition home or self-care (01) ==
PROVIDERS: Emergency Provider Nurse Practitioner; PCP Nurse Practitioner Family
DX: H66.91 Otitis media, unspecified, right ear (principal); R07.0 Pain in throat; I10 Essential (primary) hypertension; E03.9 Hypothyroidism, unspecified
CPT/HCPCS: 87880; 99212; 99214; G0463

== ENCOUNTER 2024-06-05 14:10 | Outpatient (CLI) | payer OTHER, SELFPAY ==
[2024-06-05 14:41] LABS: Basophils # 0.1 K/mm3 (0-0.2); Basophils % 0.8 % (0.1-2.0); Eosinophils # 0.3 K/mm3 (0.0-0.4); Eosinophils % 2.2 % (0.1-12.0); Hematocrit 41.4 % (37.0-47.0); Hemoglobin 13.3 g/dL (12.2-16.2); Lymphocytes % 24.6 % (10-50); Mean Corpuscular HGB Conc 32.3 g/dL (31.8-35.4); Mean Corpuscular Hemoglobin 31.6 pg (27.0-31.2); Mean Corpuscular Volume 98.1 fl (81-99); Mean Platelet Volume 8.4 fl (7.4-10.4); Monocytes # 0.6 K/mm3 (0.1-1.0); Monocytes % 4.6 % (1.7-9.3); Neutrophils # 8.3 K/mm3 (1.8-7.8); Neutrophils % 67.8 % (37.0-80.0); Platelet Count 310 K/mm3 (142-424); Red Blood Count 4.22 M/mm3 (4.20-5.40); Red Cell Distribution Width 14.8 % (11.5-17.5); White Blood Count 12.2 K/mm3 (4.8-10.8)
[2024-06-05 14:57] LABS: D-Dimer 0.54 ug/mL (0.0-0.5)
[2024-06-05 15:16] LABS: Alanine Aminotransferase 32 U/L (12-78); Albumin Level 3.8 g/dl (3.5-5.0); Alkaline Phosphatase 105 U/L (38-126); Anion Gap 12.7 mEq/L (5-15); Aspartate Amino Transferase 32 U/L (14-36); Bilirubin,Indirect 0.6 mg/dL (0.0-0.9); Bilirubin,Total 0.6 mg/dl (0.2-1.3); Bilirubin,Unconjugated 0.6 mg/dL (0.0-1.1); Blood Urea Nitrogen 28 mg/dl (7-17); Calcium 9.8 mg/dl (8.4-10.2); Carbon Dioxide 27 mmol/L (22.0-30.0); Chloride 105 mmol/L (98-107); Chol/HDL Ratio 5.7 (1-3.5); Cholesterol 164 mg/dl (140-200); Estimated Glomerular Filt Rate 46 ml/min (>60); GFR (African American) 55 ML/MIN (>60); Glucose 134 mg/dl (74-100); HDL Cholesterol 29 mg/dl (40-60); Magnesium 1.7 mg/dl (1.6-2.3); Potassium 4.7 mmoL/L (3.5-5.1); Sodium 140 mmol/L (136-145); Total Protein,Serum 7.6 g/dl (6.3-8.2); Triglycerides 126 mg/dl (30-150); VLDL Cholesterol 25 mg/dL (0-40)
[2024-06-05 15:24] LABS: NT Pro Brain Natriuretic Pep. 64.9 pg/mL (0-125)
[2024-06-05 15:27] LABS: Direct LDL Cholesterol 113.32 mg/dL (100-129)
== END 2024-06-05 23:59 | disposition home or self-care (01) ==
LOC: LAB 14:11
PROVIDERS: PCP Nurse Practitioner; Visit Provider Nurse Practitioner
DX: R06.00 Dyspnea, unspecified (principal); I89.0 Lymphedema, not elsewhere classified; E66.01 Morbid (severe) obesity due to excess calories; R07.89 Other chest pain; R00.0 Tachycardia, unspecified; Z68.43 Body mass index [BMI] 50.0-59.9, adult
CPT/HCPCS: 36415; 80048; 80061; 80076; 83735; 83880; 85025; 85378

== ENCOUNTER 2024-06-05 15:57 | Outpatient (CLI) | payer OTHER, SELFPAY ==
--- NOTE | 2024-06-05 16:04 | CT_ITS ---
PROCEDURE INFORMATION: Exam: CTA Chest With Contrast Exam date and time: 06/05/2024 4:36 PM Age: 59 years old Clinical indication: Dyspnea TECHNIQUE: Imaging protocol: Computed tomographic angiography of the chest with contrast. Exam focused on the arteries. 3D rendering (Not supervised by radiologist): MIP and/or 3D reconstructed images were created by the technologist. Radiation optimization: All CT scans at this facility use at least one of these dose optimization techniques: automated exposure control; mA and/or kV adjustment per patient size (includes targeted exams where dose is matched to clinical indication); or iterative reconstruction. Contrast material: ISOVUE; Contrast volume: 70 ml; Contrast route: INTRAVENOUS (IV); COMPARISON: 1. CT ANGIO CHEST PE PROTOCOL 10/03/2021 8:41 AM 2. CR XR CHEST 2V 04/09/2021 12:28 PM 3. CR XR CHEST 2V 02/18/2021 8:43 AM FINDINGS: Pulmonary arteries: There is fair opacification of the pulmonary arterial tree. No central pulmonary arterial filling defect is seen. Aorta: There is atherosclerotic disease of the visualized aorta and its major branch vessels. Other arteries: Subsegmental vessels are not well evaluated due to technical factors. Lungs: Scattered areas of bronchial wall thickening which are likely chronic inflammatory. A few areas of subpleural reticulation are noted, nonspecific. Pleural spaces: Unremarkable. No pneumothorax. No pleural effusion. Heart: Unremarkable. No cardiomegaly. No pericardial effusion. Lymph nodes: There are calcified mediastinal lymph nodes likely reflecting prior granulomatous disease. Liver: There is possible hepatic steatosis, evaluation is limited secondary to contrast enhancement. Spleen: There are multiple calcifications in the spleen most likely reflects small granulomas. Kidneys and ureters: Simple appearing left renal cyst is noted. Bones/joints: There is diffuse degenerative disease of the visualized osseous structures. Soft tissues: Unremarkable. Other findings: Motion artifact mildly limits evaluation. IMPRESSION: 1. No central pulmonary arterial filling defect is seen. Subsegmental vessels are not well evaluated due to technical factors. 2. No dense parenchymal consolidation, pleural effusion, or pneumothorax. COMMENTS: Consistent with the [employer]'s Incidental Findings Committee white paper (J Am Hannah Radiol 2018): Any incidental renal lesion less than 1 cm or classified as too small to characterize, or any incidental cystic renal lesion characterized as simple-appearing, is likely benign. No follow-up imaging is recommended for these lesions per consensus recommendations based on imaging criteria.
[2024-06-05] MEDS: SODIUM CHLORIDE 0.9% 10ML SYR (RAD ONLY) 10 ML IV (16:52)
[2024-06-05] MEDS: 0.9 % SODIUM CHLORIDE 50 ML VIAL IV (16:52)
[2024-06-05] MEDS: IOPAMIDOL-370 (76%);100ML BOTTLE 70 ML IV (16:52)
== END 2024-06-05 23:59 | disposition home or self-care (01) ==
LOC: RAD 15:59
PROVIDERS: PCP Family Medicine; Visit Provider Nurse Practitioner
DX: R06.02 Shortness of breath (principal); R79.1 Abnormal coagulation profile; R79.89 Other specified abnormal findings of blood chemistry
CPT/HCPCS: 71275; Q9967

== ENCOUNTER 2024-06-19 06:31 | Outpatient (CLI) | payer OTHER, SELFPAY ==
--- NOTE | 2024-06-19 | CA_ITS ---
APPROVED REPORT Exam: Pharmacologic Technologist: Deidre Tavares, Ht: 5 ft 2 in Wt: 299 lbs BSA: 2.27 m2 HR: 74 bpm BP: 126/68 mmHg Rhythm: NSR Medical History Medications: Levothyroxine,,,,, Aspirin,,,,, Losartan,,,,, Flonase,,,,, Albuterol,,,,, Montelukast,,,,, ADVAIR,,,,, Vit C,,,,, LoraTADINE,,,,, Celecoxib,,,,, Lisinopril HCTZ,,,,, Vraylar,,,,, Cardiac Risk Factors: HTN, FHX of CAD Stress Test Details Test: LEXISCAN HR Resting HR: 82 bpm Max Heart Rate (APMHR): 160 bpm Max HR Achieved: 96 bpm Target HR (85% APMHR): 136 bpm % of APMHR: 60 Recovery HR: 84 bpm BP Resting BP: 126.0/68.0 mmHg Max BP: 126.0/68.0 mmHg Recovery BP: 114.0/63.0 mmHg ECG Resting ECG: NSR Stress ECG: No significant ST changes Arrhythmia: None Clinical Exercise duration: 04:01 min Highest Stage Achieved: Exercise capacity: 1.0 METs Stress ECG Conclusion During lexiscan pt experinced SOB. No CP noted. No arrhythmias noted. ST changes: None Conclusion: Unremarkable EKG due to lexiscan. Myoview images reported separately. Test Summary REST . . . . . . . Sitting REST . . . . . . . Sitting REST 06:27 . . 82 . 126/ 68 . . Stage 1 01:00 . . 84 . . . . Stage 2 01:00 . . 80 . . . . Stage 3 01:00 . . 90 . 120/ 63 . . Stage 4 01:00 . . 85 . 123/ 74 . . Stage 4 01:01 . . 85 . 123/ 74 . Stop exercise at 04:01 RECOVERY 01:00 . . 87 . 120/ 63 . . RECOVERY 02:00 . . 76 . 114/ 63 . . RECOVERY 03:00 . . 85 . 123/ 64 . . RECOVERY 03:09 . . 83 . 123/ 64 . . Electronically signed by : Roxane Schwartz MD 06/20/2024 10:27:59
--- NOTE | 2024-06-19 06:31 | CA_ITS ---
APPROVED REPORT EXAM: Comprehensive 2D, Doppler, and color-flow Echocardiogram Drapery Cutter: Sondra Skelton RT(R) Ht: 5 ft 2 in Wt: 299lbs BSA: 2.27 BP: 108/67 mmHg Indications: CP, PHTN, abn EKG, SOB, HTN, hyperlipidemia. TDE due to body habitus. 2D Dimensions EF AP4 73.20 % GL Strain -24.5 % M-Mode Dimensions RVDd 3.24 cm (0.9-2.6) LA Diam 3.81 cm (1.9-4.0) LVDd 5.21 cm (3.5-5.7) LVDs 3.80 cm (3.5-5.7) IVSd 0.89 cm (0.6-1.1) PWd 1.03 cm (0.6-1.1) EF (Teich) 52.30% FS 27.10% EDV (Teich) 130.10 mL ESV (Teich) 62.00 mL LV Diastology E Decel Time 197 (160-240 msec) E/A Ratio 1.2 Mitral Valve MV E Max Marcus. 101.0 (40-130 cm/s) MV A Velocity 83.0 (40-130 cm/s) E/A Ratio 1.21 MV PHT 58.0 ms Tricuspid Valve TR P. Velocity 221.00 cm/s RAP Estimate 10.00 mmHg RVSP 29.60 mmHg Left Ventricle The left ventricle is normal size. The left ventricular systolic function is normal. The left ventricular ejection fraction is within the normal range. There is increased LV wall thickness. There is normal LV segmental wall motion. The left ventricular diastolic function is normal. LVEF is 55%. Right Ventricle Right ventricle is mildly dilated. Right ventricle is mildly hypokinetic. Atria Left atrium is mildly dilated. Right atrium is mildly dilated. There is no Doppler evidence of interatrial shunt. Aortic Valve The aortic valve is mildly thickened. There is no aortic valvular stenosis. No aortic regurgitation is present. Mitral Valve The mitral valve is normal in structure. No evidence of mitral valve stenosis. Trace mitral valve regurgitation noted. Tricuspid Valve The tricuspid valve leaflets are thin and pliable. Trace tricuspid regurgitation. There is insufficient TR jet to estimate RVSP. Pulmonic Valve The pulmonary valve is normal in structure. Trace pulmonic regurgitation. Great Vessels The aortic root is normal in size. The ascending aorta is normal in size. IVC is normal in size and collapses >50% with inspiration. Pericardium There is no pericardial effusion. Other Information Study Quality: Technically Difficult Conclusion Technically difficult study due to poor accoustic windows. Normal biventricular systolic function. Mild RV dilation with mild reduction in RV function. Biatrial dilation. No significant valvular stenosis or regurgitation. Electronically signed by : Roxane Schwartz MD 06/20/2024 09:45:27
--- NOTE | 2024-06-19 06:39 | NM_ITS ---
APPROVED REPORT Exam: Nuclear Stress Test Indication: SOB, Fatigue, HTN, Family history Patient Location: Outpatient Stress Tech: Deidre Tavares NM Tech:Lina Patel, ARRT, RT (R)(N) Ht: 5 ft 2 in Wt: 300 lbs Bra Size: 38C HR: 82 bpm BP: 126/68 mmHg BSA: 2.27 m2 Rhythm: NSR TID: 1.36 BMI: 54.8 History: SOB, Fatigue, HTN, Family history Procedure: Patient received 0.4 mg of intravenous Lexiscan, resting heart rate 82 bpm, resting blood pressure 126/68 mmHg, with Lexiscan maximum heart rate achieved was 96 bpm which is % of the maximum predicted heart rate and blood pressure was 126/68 mmHg. With Lexiscan, patient denied any complaint of chest pain. Cardiac Stress and Resting SPECT Images: Cardiac Stress and Resting SPECT images were obtained using technetium 99m Myoview 31.1 mCi stress and 10.64 mCi at rest. The patient could not lie on her abdomen. Therefore, prone stress imaging could not be performed. This may affect the diagnostic interpretation of the study findings. Resting and stress imaging in supine positions demonstrates no evidence of fixed or reversible perfusion defects. There is increase in transient ischemic dilatation ratio (TID 1.36), suggestive of possible multivessel disease or balanced ischemia. Gated imaging demonstrates normal global and regional LV systolic function. LVEF is calculated at 72%. Conclusion: No evidence of fixed or reversible perfusion defects. There is increase in transient ischemic dilatation ratio (TID 1.36), suggestive of possible multivessel disease or balanced ischemia. Gated imaging demonstrates normal global and regional LV systolic function. LVEF is calculated at 72%. Electronically signed by : Roxane Schwartz MD 06/20/2024 10:30:24
[2024-06-19] MEDS: REGADENOSON 0.4MG/5ML SYRINGE 0.4 MG IV (08:47)
[2024-06-19] MEDS: ISOTOPE MYOVIEW (PER STUDY) 1 DOSE IV (08:47)
[2024-06-19] MEDS: SODIUM CHLORIDE 0.9% 10ML SYR (RAD ONLY) 10 ML IV ×2 (08:47)
== END 2024-06-19 23:59 | disposition home or self-care (01) ==
LOC: RAD 06:31
PROVIDERS: PCP Nurse Practitioner; Visit Provider Nurse Practitioner
DX: R07.89 Other chest pain (principal); R06.00 Dyspnea, unspecified; E66.01 Morbid (severe) obesity due to excess calories; Z68.43 Body mass index [BMI] 50.0-59.9, adult
CPT/HCPCS: 78452; 93017; 93018; 93306; A9502; J2785

== ENCOUNTER 2024-07-16 15:14 | Emergency (ER) | payer OTHER, SELFPAY ==
[2024-07-16 15:50] VITALS: BP 108/83; PULSE 91; RESP 20; TEMP 36.8; O2SAT 98; BMI 53.9
--- NOTE | 2024-07-16 16:21 | EXP.UTC ---
Discharge Plan Disposition Patient Disposition: Home, Self-Care Condition: Good Prescriptions Prescriptions: No Action lisinopril-hydrochlorothiazide 10-12.5 mg tablet 1 tab PO DAILY Patient Comments: TAKE 1 TABLET BY MOUTH ONCE DAILY cholecalciferol (vitamin D3) 25 mcg (1,000 unit) capsule 25 mcg PO DAILY B-complex with vitamin C [Super B/C] Capsule 1 cap PO DAILY potassium citrate 99 mg capsule 99 mg PO DAILY celecoxib 200 mg capsule 200 mg PO DAILY Patient Comments: TAKE 1 CAPSULE BY MOUTH ONCE DAILY WITH FOOD Vraylar 1.5 mg capsule 1.5 mg PO DAILY Patient Comments: TAKE 1 CAPSULE BY MOUTH ONCE DAILY levothyroxine 200 mcg tablet 200 mcg PO ONCE Patient Comments: TAKE 1 TABLET BY MOUTH ONCE DAILY IN THE MORNING ON AN EMPTY STOMACH loratadine 10 mg tablet 10 mg PO DAILY aspirin [Adult Low Dose Aspirin] 81 mg tablet,delayed release (DR/EC) 81 mg PO DAILY albuterol sulfate 90 mcg/actuation HFA aerosol inhaler 90 mcg INHALATION Q6HP PRN (Reason: SOA) Patient Comments: INHALE 2 PUFFS BY MOUTH EVERY 4 TO 6 HOURS NEEDED FOR PERSISTENT COUGH WHEEZE CHEST TIGHTNESS OR SHORTNESS OF BREATH spironolactone [Aldactone] 25 mg tablet 25 mg PO DAILY Qty: 30 2RF fluticasone propionate [Flonase Allergy Relief] 50 mcg/actuation spray,suspension 2 spray intranasal DAILY 90 Days Qty: 16 3RF Rx Instructions: administer into each nostril fluticasone propion-salmeterol [Advair Diskus] 250-50 mcg/dose blister with device See Rx Instructions .ROUTE .COMPLEX Qty: 180 0RF Dose Instruction: INHALE 1 PUFF BY MOUTH TWICE DAILY Rx Instructions: INHALE 1 PUFF BY MOUTH TWICE DAILY montelukast 10 mg tablet 10 mg PO DAILY Referrals Follow up/Referrals: Marian Liu APRN [Primary Care Provider] - See instructions Activity Restrictions/Add. Instructions Additional Instructions/Restrictions: Follow up with your Family Doctor if needed Return if needed Straight to ER if any life threatening symptoms Clinical Impressions Clinical Impression: Cerumen impaction Instructions Patient Instructions: DI for Cerumen Impaction Print Language Print Language: Swiss Discharge ED Provider: Valerie Rae [facility] [place] HPI General Stated complaint: right ear pain, fluid in ear Mode of Arrival: Ambulatory Source of Information: Patient Limitations: No Limitations Time Seen by Provider: 07/16/24 16:21 Description of Symptoms (Recalled from Triage Doc. by RN): PATIENT C/O RIGHT EAR PAIN WITH DECREASED HEARING THAT STARTED TODAY HEENT Symptoms (Recalled from RN notes): Yes Resp Symptoms (Recalled from RN notes): No Skin Symptoms (Recalled from RN notes): No MS Symptoms (Recalled from RN notes): No Functional Status (Recalled from RN notes): WNL History of Present Illness Provider Complaint: Patient states that she has been having feeling of her right ear stopped up and not being able to hear well out of that ear States feels like it is stopped up with wax and may have some fluid trapped behind the was wanting to get her ear cleaned out and checked Related Data Home Medications ?Medication ?Instructions ?Recorded ?Confirmed aspirin 81 mg tablet,delayed 81 mg PO DAILY heart health 03/17/21 07/16/24 release (Adult Low Dose Aspirin) loratadine 10 mg tablet 10 mg PO DAILY allergies 03/17/21 07/16/24 albuterol sulfate 90 mcg/actuation 90 mcg inhalation Q6HP PRN SOA 04/02/21 07/16/24 aerosol inhaler lisinopril 10 1 tab PO DAILY High blood pressure 11/03/21 07/16/24 mg-hydrochlorothiazide 12.5 mg tablet montelukast 10 mg tablet 10 mg PO DAILY Asthma 02/15/23 07/16/24 B-complex with vitamin C (Super 1 cap PO DAILY . 04/14/23 07/16/24 B/C capsule) cholecalciferol (vitamin D3) 25 25 mcg PO DAILY . 04/14/23 07/16/24 mcg (1,000 unit) capsule potassium citrate 99 mg capsule 99 mg PO DAILY . 04/14/23 07/16/24 cariprazine 1.5 mg capsule 1.5 mg PO DAILY 06/05/24 07/16/24 (Vraylar) celecoxib 200 mg capsule 200 mg PO DAILY 06/05/24 07/16/24 levothyroxine 200 mcg tablet 200 mcg PO ONCE 07/06/24 07/16/24 Previous Rx's ?Medication ?Instructions ?Recorded fluticasone propionate 50 2 spray intranasal DAILY 90 days 04/14/24 mcg/actuation nasal #16 grams spray,suspension (Flonase Allergy Relief) Advair Diskus 250 mcg-50 mcg/dose See Rx Instructions .Route 06/26/24 powder for inhalation (fluticasone .COMPLEX #180 ea propion-salmeterol) spironolactone 25 mg tablet 25 mg PO DAILY #30 tabs 07/06/24 (Aldactone) Allergies Allergy/AdvReac Type Severity Reaction Status Date / Time cefprozil [From Cefzil] Allergy Verified 06/05/24 13:05 cephalexin [From Keflex] Allergy Verified 06/05/24 13:05 cetirizine [From Zyrtec] Allergy Verified 06/05/24 13:05 erythromycin base Allergy Verified 06/05/24 13:05 fexofenadine [From Calista] Allergy Verified 06/05/24 13:05 loratadine [From Claritin-D] Allergy Verified 06/05/24 13:05 Penicillins Allergy Verified 06/05/24 13:05 pseudoephedrine Allergy Verified 06/05/24 13:05 [From Claritin-D] Antihistamine, Piperidine Allergy Unknown Uncoded 06/05/24 13:05 Astemizole Allergy Unknown Uncoded 06/05/24 13:05 Cefprozil Allergy Unknown Uncoded 06/05/24 13:05 Cephalexin Allergy Unknown Uncoded 06/05/24 13:05 Cephalosporin Allergy Unknown Uncoded 06/05/24 13:05 Cetirizine Allergy Unknown Uncoded 06/05/24 13:05 CLASS: 04:00 - ANTIHISTAMINE Allergy Unknown Uncoded 06/05/24 13:05 DRUGS DHE 45 Allergy Unknown LOSS OF Uncoded 06/05/24 13:05 MUSCLE CONTROL From Erythromycin Stearate Allergy Unknown Uncoded 06/05/24 13:05 From Fexofenadine Allergy Unknown Uncoded 06/05/24 13:05 Hydrochloride Macrolide/Antibacterial Allergy Unknown Uncoded 06/05/24 13:05 Penicillin Allergy Unknown Uncoded 06/05/24 13:05 PSEUDOEPHEDRINE Allergy Unknown I-HIVES Uncoded 06/05/24 13:05 Terfenadine Allergy Unknown Uncoded 06/05/24 13:05 DHE45 Allergy Uncoded 06/05/24 13:05 TAVIST D Allergy Uncoded 06/05/24 13:05 Worker's Comp Is this a Worker's Comp case?: No PFSH PFSH Disclaimer: The information contained in this section may have been updated after the patient was seen, as this information can be updated by other users. Medical History Osteoarthritis Tooth abscess Hypertrophy of nasal turbinates Chronic sinusitis Asthma Allergic rhinitis Seasonal allergies Family history of asthma Moderate persistent asthma History of pulmonary embolism Pulmonary hypertension Shortness of breath Dyspnea on exertion History of DVT (deep vein thrombosis) Pulmonary embolism Mild right atrial enlargement Abnormal EKG Sinus tachycardia Chest pain Dyspnea Hypothyroidism Lymphedema of both lower extremities Morbid obesity with BMI of 50.0-59.9, adult HTN (hypertension) Surgical History History of colonoscopy Family History Other Cancer Coronary artery disease Heart attack Hypertension Stroke Thyroid disorder Social History Smoking Status: Never smoker alcohol intake: never substance use type: denies use current occupational status: other Travel in the last 8 weeks: None household members: family housing: house number of children: 2 ROS Obtained: Yes All systems reviewed & no additional complaints except as documented and Yes Systems reviewed as appropriate & no additional complaints except as documented Constitutional Constitutional: Reports system reviewed and no additional complaints, except as documented and Reports as per HPI ENT Ears, Nose, Mouth, and Throat: Reports system reviewed and no additional complaints, except as documented, Reports as per HPI and Reports otalgia Cardiovascular Cardiovascular: Reports system reviewed and no additional complaints, except as documented and Reports as per HPI Respiratory Respiratory: Reports system reviewed and no additional complaints, except as documented and Reports as per HPI Gastrointestinal Gastrointestingal: Reports system reviewed and no additional complaints, except as documented and as per HPI Physical Exam General General appearance: alert and in no apparent distress ENT ENT exam: Present mucous membranes moist Expanded ENT Exam TM/Canal exam: Right TM: cerumen impaction Respiratory Respiratory exam: Present normal lung sounds bilaterally; Absent respiratory distress or wheezes Cardiovascular Cardiovascular exam: Present regular rate, normal rhythm and normal heart sounds Neurological Exam Neurological exam: Present alert, oriented X3 and normal gait Medical Decision Making Cesar Inquiry Pt receiving controlled substance: No Cesar was queried for this patient: No Vital Signs: 07/16/24 15:50 Temperature 98.2 F Temperature Source Oral Pulse Rate [Left Brachial] 91 H Respiratory Rate 20 Blood Pressure [Left Arm] 108/83 L Blood Pressure Mean [Left Arm] 91 Blood Pressure Source [Left Arm] Automatic Cuff Blood Pressure Position [Left Arm] Sitting 02 Sat by Pulse Oximetry 98 Oxygen Delivery Method Room Air Procedures Ear Wax Removal Right Ear: Cerumenolytic Used: other Results: Re-examined: cerumen removed completely TM Examination: TM(s) intact, normal appearance Ear Canal Exam: atraumatic Patient Tolerated Procedure: well and no complications Complications: no problems Technique: ear canal irrigated
[2024-07-16 16:45] VITALS: BP 108/83; PULSE 91; RESP 20; TEMP 36.8; O2SAT 98
== END 2024-07-16 16:46 | disposition home or self-care (01) ==
PROVIDERS: Emergency Provider Nurse Practitioner; PCP Nurse Practitioner
DX: H92.01 Otalgia, right ear (principal); H61.21 Impacted cerumen, right ear
CPT/HCPCS: 69209; 99213; 99214; G0463

== ENCOUNTER 2024-07-21 07:24 | Outpatient (CLI) | payer OTHER, SELFPAY ==
[2024-07-21] VITALS (11 sets, daily range): BP systolic 97–150; BP diastolic 52–81; PULSE 54–94; RESP 18–20; O2SAT 85–96; BMI 56.1
--- NOTE | 2024-07-21 07:29 | CT_ITS ---
APPROVED REPORT Manager Sharepoint: CLINICAL INDICATION Chest Pain TECHNIQUE Image Acquisition: A 128 slice MDCT scanner (Blaasta View) was used for data acquisition. A noncontrast coronary calcium scan was performed. A CT attenuation threshold of 130 Hounsfield units (HU) was used for the detection of calcium in contiguous voxels of 1 sq mm in area to be counted as individual lesions. Bolus tracking in the ascending aorta with a threshold of 180 HU was performed. Immediately afterwards, ECG synchronized cardiac CT was then performed from the cardiac base to apex using retrospective gating with ECG tube current modulation. A total of 85 mL of Isovue 370 mg/mL contrast medium was administered at 5 mL/sec followed by a saline flush using a biphasic injection protocol. A tube voltage of 120 KVp was used. The patient received the following medications prior to the cardiac CT. 75 mg of oral metoprolol 15 mg of oral ivabradine 0.8 mg of sublingual nitroglycerin The average heart rate at the time of acquisition was 52 bpm and regular. Image Reconstruction Transaxial images were reconstructed at 0.67 mm slide thickness. Data was reviewed interactively on an advanced workstation capable of 2 and 3-dimensional displays in all conventional reconstruction formats, including multiplanar reformations, maximum intensity projections, curved multiplanar reformations, and volume rendered reconstructions. When applicable, selected routine images describing the relevant coronary anatomy and pathology were saved and sent to PACS. Complications None Technical Quality Overall image quality was suboptimal due to significant blurring. Coronary artery opacification was adequate. Total DLP (Dose-Length Product) is 2145.7 mGy-cm. The reported value represents the total of one or more individual components during the CT acquisition of this date and at this time, and as such, the same value may appear in more than one CT report depending on the interpreting/reporting physicians. COMPARISON None FINDINGS CT Coronary Calcium Scoring LMA (Left Main Artery) = 0 LAD (Left Anterior Descending) = 0 LCX (Left Coronary Circumflex) = 0 RCA (Right Coronary Artery) = 0 Total Calcium Score = 0 using the AJ-130 method. The interpretation of the calcium heart score is based on the following continuum*: 0 = no calcified plaque detected (risk of coronary artery disease is very low ??? less than 5%) 1-10 = calcium detected in extremely minimal levels (risk of coronary diseases is still low ??? less than 10%) 11-100 = mild levels of plaque detected with certainty (mild or minimal narrowing of heart arteries is likely) 101-400 = definite,at least moderate levels of plaque detected (relatively high risk of a heart attack within 3-5 years) >401-999 = extensive levels of plaque detected (high risk of heart attack, high levels of vascular disease are present, high likelihood of at least one significant coronary narrowing) *The calcium heart score quantifies the burden of coronary calcification/plaque in the coronary arteries. The calcium heart score is not able to evaluate the presence or burden of non-calcified (i.e. soft) plaque. There is no identifiable calcification in the aortic valve, mitral annulus or mitral valve, pericardium, or myocardium. Coronary CT Angiography The coronary arterial system is left dominant. Quantitative Stenosis Grading: Left Main (LM): The left main originates normally from the left sinus of Valsalva. The LM bifurcates into the left anterior descending artery and left circumflex artery. The LM is patent with no evidence of atherosclerosis. Left Anterior Descending (LAD) and Diagonal Branches: The LAD gives off 2 diagonal branch(es). The LAD and its branches are patent with no evidence of atherosclerosis. There is no evidence of LAD-myocardial bridge. Left Circumflex (LCX) and Obtuse Marginals (OM): The LCX gives off 2 Obtuse Marginal (OM) branch(es). The LCX and its branches are patent with no evidence of atherosclerosis. Right Coronary Artery (RCA): The RCA originates normally from the right sinus of Valsalva. The RCA and its branches are patent with no evidence of atherosclerosis. Non-Coronary Cardiac Findings: Analysis of the left ventricular (LV) structure and function was performed after 3-D reconstruction of the LV from axial images, with user-corrected automatic contouring for assessment of LV volumes and user-defined reconstruction from oblique planes for measurement of 3-D cardiac structure and function. -The left ventricle systolic function is normal. -There is no left atrial appendage filling defect. Two right pulmonary veins and two left pulmonary veins drain normally into the left atrium. -No pericardial thickening or calcification. -Central and branch pulmonary arteries in the [id number] are unremarkable. -Thoracic aorta within the visualized thoracic aortic-branches in the [id number] is unremarkable. Extracardiac Structures No significant extra-cardiac findings. Note, however, that this study is focused on the cardiac findings. IMPRESSION -Absence of coronary calcification with an Agatston score = 0using the AJ-130 method. -No evidence of significant flow-limiting atherosclerosis of the coronary arteries. -CAD-RADS 0. Management recommendations per ACC/AHA guidelines*, as clinically appropriate. *Recommendations: CAD RADS 0: Reassurance. Consider non-atherosclerotic causes of chest pain. CAD RADS 1: Consider non-atherosclerotic causes of chest pain. Consider preventive therapy and risk factor modification. CAD RADS 2: Consider non-atherosclerotic causes of chest pain. Consider preventive therapy and risk factor modification, particularly for patients with nonobstructive plaque in multiple segments. CAD RADS 3: Consider further functional testing. Consider symptom-guided anti-ischemic and preventive pharmacotherapy as well as risk factor modification per published guideline statements. CAD RADS 4A: Consider further functional testing or invasive coronary angiography with revascularization per published guideline statements. Consider symptom-guided anti-ischemic and preventive pharmacotherapy as well as risk factor modification per published guideline statements. CAD RADS 4B: Invasive coronary angiography recommended with revascularization per published guideline statements. Consider symptom-guided anti-ischemic and preventive pharmacotherapy as well as risk factor modification per published guideline statements. CAD RADS 5: Consider invasive angiography and/or viability assessment with revascularization per published guideline statements. Consider symptom-guided anti-ischemic and preventive pharmacotherapy as well as risk factor modification per published guideline statements. CRITICAL RESULT None COMMUNICATION Per this written report The coronary and cardiac findings of this CCTA were reviewed, reported, and signed by Dalton Schwartz MD (Research Chemical Engineer) Conclusion Electronically signed by : Roxane Schwartz MD 07/24/2024 12:55:44
--- NOTE | 2024-07-21 07:52 | PC.NURSE ---
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
[2024-07-21 08:05] LABS: Anion Gap 7.3 mEq/L (5-15); Blood Urea Nitrogen 30 mg/dl (7-17); Carbon Dioxide 32 mmol/L (22.0-30.0); Chloride 106 mmol/L (98-107); Creatinine Clearance Estimated 36 mL/min (50-200); Estimated Glomerular Filt Rate 42 ml/min (>60); GFR (African American) 51 ML/MIN (>60); Glucose 166 mg/dl (74-100); Potassium 4.3 mmoL/L (3.5-5.1); Sodium 141 mmol/L (136-145)
[2024-07-21] MEDS: METOPROLOL TARTRATE 50MG TABLET *IVABRADINE+METOPROLOL REGIMINE 75 MG PO (08:12)
[2024-07-21] MEDS: IVABRADINE HCL 7.5MG TABLET *IVABRADINE+METOPROLOL REGIMINE 15 MG PO (08:14)
--- NOTE | 2024-07-21 08:15 | PC.NURSE ---
Oxygen sats on RA stay 84-86%. Will apply O2@ at 2L/NC. Sat went up to 94 on 2L.
[2024-07-21] MEDS: SODIUM CHLORIDE 0.9% 250ML BAG 250 ML IV (08:22)
--- NOTE | 2024-07-21 08:27 | PC.NURSE ---
GFR is low at 42. Notified Jorgito Em FACILITIES ENGINEER Cardiology. Give Normal Saline 250cc bolus prior to CTA.
[2024-07-21] MEDS: NITROGLYCERIN 0.4MG SL TABLET 0.8 MG SL (09:38)
--- NOTE | 2024-07-21 09:38 | PC.NURSE ---
Pt to CT scan, VSS. Nitro 0.8mg SL given per CTA protocol
[2024-07-21] MEDS: 0.9 % SODIUM CHLORIDE 50 ML VIAL IV (09:55)
[2024-07-21] MEDS: IOPAMIDOL-370 (76%);100ML BOTTLE 94 ML IV (09:55)
[2024-07-21] MEDS: SODIUM CHLORIDE 0.9% 10ML SYR (RAD ONLY) 10 ML IV (09:55)
--- NOTE | 2024-07-21 10:09 | PC.NURSE ---
Pt returned from CT, no C/O. BP running lower 107/52, HR 55. O2 Sats remain in the 90's while on 2L O2. Pt says she feels so much better with the oxygen on. Continue to monitor at this time.
--- NOTE | 2024-07-21 10:56 | PC.NURSE ---
Pt has done well after CTA. Pleasant and copperative. Wore oxygen 2L while here and maintained sats in high 90's. Pt says that Patricia Langston is her primary and has been working to get her home oxygen. Insurance so far has not allowed her to get it yet says the pt. Encouraged pt to continue to press PCP to work on this. Verbalized understanding. Discussed if have severe SOA, dizziness, passing out to come to ER. Verbalized understanding.
== END 2024-07-21 11:06 | disposition home or self-care (01) ==
PROVIDERS: PCP Nurse Practitioner; Visit Provider Nurse Practitioner
DX: R94.39 Abnormal result of other cardiovascular function study (principal); I50.30 Unspecified diastolic (congestive) heart failure
CPT/HCPCS: 75574; 80048; Q9967

== ENCOUNTER 2025-03-15 17:09 | Inpatient (IN) | payer OTHER, SELFPAY ==
[2025-03-15] VITALS (12 sets, daily range): BP systolic 102–199; BP diastolic 52–90; PULSE 70–92; RESP 14–22; TEMP 36.6; O2SAT 88–98; BMI 58.6
--- NOTE | 2025-03-15 17:43 | XR_ITS ---
PROCEDURE INFORMATION: Exam: XR Chest Exam date and time: 03/15/2025 6:01 PM Age: 60 years old Clinical indication: Shortness of breath; Additional info: SOA TECHNIQUE: Imaging protocol: Radiologic exam of the chest. Views: 1 view. COMPARISON: CT ANGIO CHEST PE PROTOCOL 06/05/2024 4:36 PM FINDINGS: Lungs: Pulmonary vasculature grossly normal. No gross pulmonary infiltrates. Question mild interstitial prominence bilaterally although possibly artifactual related to body habitus and image noise. Density in the medial right base corresponds to a cardiophrenic fat pad seen on prior CT 10/03/2021. Poorly delineated left hemidiaphragm although felt to be related to lordotic projection. Pleural spaces: No gross pleural effusions. No pneumothorax. Heart/Mediastinum: Suspect moderate cardiomegaly although likely accentuated by portable lordotic projection. No tracheal/mediastinal shift. Bones/joints: No acute osseous abnormalities are identified. Soft tissues: Exam technically limited by body habitus and soft tissue attenuation. Other findings: Lordotic projection. IMPRESSION: 1. Moderate cardiomegaly, although likely accentuated by technique. 2. Technically limited exam due to body habitus and soft tissue attenuation. Can not exclude mild changes of interstitial pulmonary edema or interstitial pneumonitis.
--- NOTE | 2025-03-15 17:43 | CT_ITS ---
PROCEDURE INFORMATION: Exam: CT Head Without Contrast Exam date and time: 03/15/2025 5:59 PM Age: 60 years old Clinical indication: Other: Headache TECHNIQUE: Imaging protocol: Computed tomography of the head without contrast. Radiation optimization: All CT scans at this facility use at least one of these dose optimization techniques: automated exposure control; mA and/or kV adjustment per patient size (includes targeted exams where dose is matched to clinical indication); or iterative reconstruction. COMPARISON: CT - HEADWO CT head/brain wo con 04/28/2019 11:56 PM FINDINGS: Brain: Chronic asymmetric left cerebral hemiatrophy stable in appearance from 04/28/2019, likely mild [id number], correlate clinically. The IACs are grossly normal. Hyperostosis frontalis interna incidentally noted. 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 Mild chronic prominence of the extra-axial CSF space in the paramedian left frontal distribution felt to be secondary to chronic left cerebral hemiatrophy, grossly unchanged from 2019 given the acquisition plane differences. No evidence of acute intracranial hemorrhage. Cerebral/cerebellar ramey-white matter differentiation is well maintained. Mild white matter hypodensities in the bilateral frontal periventricular white matter and left internal capsule which are nonspecific but most commonly associated with chronic microvascular ischemia in this age group. No intracranial mass lesions. Chronic 5 mm right to left midline shift stable from 2019, felt to be related to chronic left lucretia atrophy. Low-lying cerebellar tonsils extending up to 6 mm below the foramen magnum with tonsillar pegging, consistent with Chiari 1 malformation. Cerebral ventricles: Nondilated ventricles. Pituitary gland and sella: The sella is grossly normal. Paranasal sinuses: Mild mucosal thickening in the right sphenoid sinus suggesting chronic sinusitis. No fluid levels. The other paranasal sinuses are clear. Mastoid air cells: Partially opacified right inferior mastoid air cells suggesting mild mastoiditis. No gross coalescence. Left mastoid air cells are clear. Orbital cavities: No acute intraorbital findings. Prior bilateral ocular cataract surgery. 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 No acute osseous findings. Soft tissues: Unremarkable. Vasculature: Mild calcific atherosclerosis. No asymmetric vascular hyperdensities suggestive of thrombosis are identified. IMPRESSION: 1. No acute intracranial process. No intracranial hemorrhage or positive mass effect. 2. Chronic left cerebral hemiatrophy stable in appearance from 2019, with associated chronic 5 mm right to left midline shift secondary which is unchanged. 3. Chiari 1 malformation. 4. Mild chronic right sphenoid sinus. 5. Mild right mastoiditis. 6. Additional nonemergent findings detailed above.
--- NOTE | 2025-03-15 17:44 | ED_ITS ---
<Statement entered by Missy Lambert DO - 03/16/25 00:45> I was consulted by the MOISÉS, and we discussed the complexity of the problems being addressed. I approved the treatment and management plan for this patient's care in the emergency department, thus performing a substantive portion of the medical decision making. Missy Lambert DO Discharge Plan Disposition Patient Disposition: Admitted Condition: Good Clinical Impressions Clinical Impression: Mastoiditis, Chiari malformation, Pulmonary embolism, Hypoxia Discharge ED Provider: Missy Lambert General Adult HPI <YULIYA Munguia - Last Filed: 03/15/25 22:33> General Chief complaint: PAIN Stated complaint: body aches,skin is hot Time Seen by Provider: 03/15/25 17:37 Mode of Arrival: Ambulatory Source of Information: Patient Description of Symptoms (Recalled from ER Triage Doc. by RN): Pt presents for evaluation of bodyaches, feels like her skin is on fire and feels fatigued. Pt states she was diagnosed with diabetes 1 week ago. History of Present Illness HPI narrative: 60-year-old female presents to the emergency department at the request of urgent care provider for low oxygen saturation , that was found at urgent care, patient admits to subjective fever chills fatigue malaise body aches and headache for the last 1 week, she has chronic cough, and chronic shortness of breath and utilizes as needed oxygen at home as needed, patient denies any overt chest pain, denies any abdominal pain, denies constipation, admits to diarrhea, no melena no hematochezia no hemoptysis, no hematemesis, no urinary type symptomatology. Patient has other past medical history consistent with HFpEF, osteoarthritis, lymphedema bilateral lower extremities, obesity, asthma, hypertension, hypothyroidism, and prediabetes which was recently diagnosed by outpatient physician. Patient denies any alcohol tobacco or drug use, initial triage vitals are notable for SpO2 of 89 to 91% on 2 L nasal cannula. Onset (ago): week(s) Related Data Home Medications ?Medication ?Instructions ?Recorded ?Confirmed aspirin 81 mg tablet,delayed 81 mg PO DAILY heart health 03/17/21 03/16/25 release (Adult Low Dose Aspirin) loratadine 10 mg tablet 10 mg PO DAILY allergies 03/17/21 03/16/25 lisinopril 10 1 tab PO DAILY High blood pressure 11/03/21 03/16/25 mg-hydrochlorothiazide 12.5 mg tablet montelukast 10 mg tablet 10 mg PO DAILY Asthma 02/15/23 03/16/25 B-complex with vitamin C (Super 1 cap PO DAILY . 04/14/23 03/16/25 B/C capsule) cholecalciferol (vitamin D3) 25 25 mcg PO DAILY . 04/14/23 03/16/25 mcg (1,000 unit) capsule potassium citrate 99 mg capsule 99 mg PO DAILY . 04/14/23 03/16/25 celecoxib 200 mg capsule 200 mg PO DAILY 06/05/24 03/16/25 brimonidine 0.2 % eye drops 1 drp ophthalmic (eye) BID 03/16/25 03/16/25 levothyroxine 25 mcg tablet 225 mcg PO DAILY 03/16/25 03/16/25 Previous Rx's ?Medication ?Instructions ?Recorded fluticasone 250 mcg-salmeterol 50 1 inh inhalation BID 90 days #180 08/07/24 mcg/dose blistr powdr for ea inhalation (Advair Diskus) fluticasone propionate 50 2 spray intranasal DAILY 90 days 08/07/24 mcg/actuation nasal #16 grams spray,suspension (Flonase Allergy Relief) Allergies Allergy/AdvReac Type Severity Reaction Status Date / Time acetaminophen (From Tavist) Allergy Verified 03/15/25 17:12 cefprozil (From Cefzil) Allergy Hives Verified 03/15/25 17:12 cephalexin (From Keflex) Allergy Hives Verified 03/15/25 17:12 cetirizine (From Zyrtec) Allergy Hives Verified 03/15/25 17:12 clemastine (From Tavist) Allergy Verified 03/15/25 17:12 erythromycin base Allergy Hives Verified 03/15/25 17:12 fexofenadine (From Calista) Allergy Hives Verified 03/15/25 17:12 loratadine (From Claritin-D) Allergy Hives Verified 03/15/25 17:12 Penicillins Allergy Hives Verified 03/15/25 17:12 pseudoephedrine (From Allergy Hives Verified 03/15/25 17:12 Claritin-D) Antihistamine, Piperidine Allergy Unknown Hives Uncoded 03/15/25 17:12 Astemizole Allergy Unknown Unknown Uncoded 03/15/25 17:12 allergy reaction Cefprozil Allergy Unknown Unknown Uncoded 03/15/25 17:12 allergy reaction Cephalexin Allergy Unknown Hives Uncoded 03/15/25 17:12 Cephalosporin Allergy Unknown Hives Uncoded 03/15/25 17:12 Cetirizine Allergy Unknown Hives Uncoded 03/15/25 17:12 CLASS: 04:00 - ANTIHISTAMINE Allergy Unknown Hives Uncoded 03/15/25 17:12 DRUGS DHE 45 Allergy Unknown LOSS OF Uncoded 03/15/25 17:12 MUSCLE CONTROL From Erythromycin Stearate Allergy Unknown Hives Uncoded 03/15/25 17:12 From Fexofenadine Allergy Unknown Hives Uncoded 03/15/25 17:12 Hydrochloride Macrolide/Antibacterial Allergy Unknown Hives Uncoded 03/15/25 17:12 Penicillin Allergy Unknown Hives Uncoded 03/15/25 17:12 PSEUDOEPHEDRINE Allergy Unknown I-HIVES Uncoded 03/15/25 17:12 Terfenadine Allergy Unknown Hives Uncoded 03/15/25 17:12 DHE45 Allergy Hives Uncoded 03/15/25 17:12 [facility] <YULIYA Munguia - Last Filed: 03/15/25 22:33> [facility] Disclaimer: The information contained in this section may have been updated after the patient was seen, as this information can be updated by other users. Medical History Cataract Osteoarthritis Tooth abscess Hypertrophy of nasal turbinates Chronic sinusitis Asthma Allergic rhinitis Seasonal allergies Family history of asthma Moderate persistent asthma History of pulmonary embolism Pulmonary hypertension Shortness of breath Dyspnea on exertion History of DVT (deep vein thrombosis) Pulmonary embolism Mild right atrial enlargement Abnormal EKG Sinus tachycardia Chest pain Dyspnea Hypothyroidism Lymphedema of both lower extremities Morbid obesity with BMI of 50.0-59.9, adult HTN (hypertension) Surgical History History of colonoscopy Family History Other Cancer Coronary artery disease Heart attack Hypertension Stroke Thyroid disorder Social History (Updated 03/16/25 @ 00:28 by Mireya Arias RN) Smoking Status: Never smoker alcohol intake: never substance use type: denies use current occupational status: other Travel in the last 8 weeks?: None household members: family housing: house number of children: 2 Have you lived/traveled outside [place] in past 30 days?: No Contact w/someone who lives/traveled outside US past 30 days?: No Exposure to someone with infectious disease in past 14 days?: No Do you have a fever (greater than 100.4 F or 38 C)?: Yes Have you tested positive for COVID-19?: No Exposed to someone with COVID-19 in past 14 days?: No Do you have a sore throat?: No Do you have a cough?: No Do you have any weakness?: Yes Do you have any diarrhea?: No Are you experiencing any unusual bleeding?: No Do you have any muscle aches/pain?: No Do you have any abdominal pain?: No Are you experiencing loss of taste or smell?: No Other Medical History Have you received the Flu Vaccine for this season: No Have you received the Pneumonia Vaccine: No <YULIYA Munguia - Last Filed: 03/15/25 22:33> ROS Obtained: Yes All systems reviewed & no additional complaints except as documented Physical Exam <YULIYA Munguia - Last Filed: 03/15/25 22:33> General General appearance: alert and in no apparent distress Comment: Chronically ill-appearing Head Head exam: atraumatic and normocephalic Eye Eye exam: Present PERRL and EOMI ENT ENT exam: Present mucous membranes moist Neck Neck exam: Present normal inspection Chest Chest inspection: Present normal inspection and symmetric chest wall rise Respiratory Respiratory exam: Present other (Mild diffuse crackles heard throughout bilateral lung sanchez, no real wheezing, rhonchi or stridor); Absent normal lung sounds bilaterally or respiratory distress Cardiovascular Cardiovascular exam: Present regular rate and normal rhythm Abdominal Exam Abdominal exam: Present soft; Absent tenderness, guarding, rebound or rigidity Extremities Exam Extremities exam: Present normal inspection Neurological Exam Neurological exam: Present alert and oriented X3 Psychiatric Psychiatric exam: Present normal affect Skin Skin exam: Present warm, dry and other (Generalized 1+ pitting edema of the bilateral lower extremities/lymphedema and chronic venous stasis dermatitis/skin changes are noted) Medical Decision Making <YULIYA Munguia - Last Filed: 03/15/25 22:33> Medical Records Medical records reviewed: Yes I reviewed the patient's medical records. Screening: Per USPSTF and CDC recommendations, given the prevalence of disease in our region, it is our hospital?s policy to screen for HIV and viral Hepatitis for all patients aged 18 and over and those with ongoing risk factors. Cesar Inquiry Pt receiving controlled substance: No Cesar was queried for this patient: No Vital Signs: 03/15/25 17:19 03/15/25 18:11 03/15/25 18:40 Temperature 97.8 F Temperature Source Oral Pulse Rate 92 H 84 Pulse Rate [Right] 89 Respiratory Rate 18 19 Blood Pressure 115/68 102/63 L Blood Pressure [Right Arm] 135/70 Blood Pressure Mean [Right Arm] 91 Blood Pressure Source Blood Pressure Source [Right Arm] Automatic Cuff Blood Pressure Position Blood Pressure Position [Right Arm] Sitting 02 Sat by Pulse Oximetry 88 L 92 L 91 L Oxygen Delivery Method Nasal Cannula Oxygen Flow Rate (LPM) 03/15/25 19:00 03/15/25 19:30 03/15/25 20:00 Temperature Temperature Source Pulse Rate 81 79 80 Pulse Rate [Right] Respiratory Rate 16 22 18 Blood Pressure 199/66 H 123/68 117/69 Blood Pressure [Right Arm] Blood Pressure Mean [Right Arm] Blood Pressure Source Blood Pressure Source [Right Arm] Blood Pressure Position Blood Pressure Position [Right Arm] 02 Sat by Pulse Oximetry 92 L 90 L 90 L Oxygen Delivery Method Nasal Cannula Nasal Cannula Oxygen Flow Rate (LPM) 2 2 03/15/25 21:01 03/15/25 21:12 03/15/25 21:30 Temperature Temperature Source Pulse Rate 76 76 74 Pulse Rate [Right] Respiratory Rate 22 14 19 Blood Pressure 103/59 L 112/52 L 107/56 L Blood Pressure [Right Arm] Blood Pressure Mean [Right Arm] Blood Pressure Source Blood Pressure Source [Right Arm] Blood Pressure Position Blood Pressure Position [Right Arm] 02 Sat by Pulse Oximetry 94 L 94 L 96 Oxygen Delivery Method Nasal Cannula Nasal Cannula Nasal Cannula Oxygen Flow Rate (LPM) 2 2 2 03/15/25 22:00 03/15/25 22:52 03/15/25 22:58 Temperature 97.8 F Temperature Source Oral Pulse Rate 70 74 Pulse Rate [Right] Respiratory Rate 20 Blood Pressure 107/53 L 142/90 H Blood Pressure [Right Arm] Blood Pressure Mean [Right Arm] Blood Pressure Source Automatic Cuff Blood Pressure Source [Right Arm] Blood Pressure Position Sitting Blood Pressure Position [Right Arm] 02 Sat by Pulse Oximetry 96 92 L Oxygen Delivery Method Nasal Cannula Nasal Cannula Nasal Cannula Oxygen Flow Rate (LPM) 2 3 2 Lab Data Lab Results 03/15/25 17:50: SARS-CoV-2 (PCR) Not detected, Influenza A Untype (PCR) Not detected, Influenza Type B (PCR) Not detected 03/15/25 18:44: WBC 12.7 H, RBC 4.82, Hgb 14.3, Hct 47.0, MCV 97.5, MCH 29.7, M CHC 30.4 L, RDW 15.8, Plt Count 295, MPV 9.8, Neut % (Auto) 67.9, Lymph % (Auto) 18.9, Saunders % (Auto) 8.1, Eos % (Auto) 3.0, Baso % (Auto) 0.7, Neut # (Auto) 8.6 H, Lymph # (Auto) 2.4, Saunders # (Auto) 1.0, Eos # (Auto) 0.4, Baso # (Auto) 0.1, PT 10.8, INR 0.96, APTT 23.6 L, D-Dimer 1.20 H, Sodium 139, Potassium 4.5, Chloride 100, Carbon Dioxide 35 H, Anion Gap 8.5, BUN 25 H, Creatinine 1.20 H, Estimated Creat Clear 35, Estimated GFR 46 L, Est GFR ( Amer) 55 L, G lucose 108 H, Calcium 9.5, Magnesium 2.0, Total Bilirubin 0.6, AST 25, ALT 22, Alkaline Phosphatase 86, Troponin I < 0.01, NT-Pro-B Natriuret Pep 269 H, Total Protein 7.4, Albumin 4.0, Globulin 3.4 H, Albumin/Globulin Ratio 1.2, Lipase 47 03/15/25 21:02: Troponin I < 0.01 03/15/25 18:44 03/15/25 18:44 Orders (Tests/Meds): ED MEDICATIONS Generic Name Dose Route Start Last Admin Trade Name Freq PRN Reason Stop Dose Admin Albuterol/Ipratropium 3 ml 03/15/25 23:39 Ipratropium/Albuterol 3 Ml Neb IH 04/14/25 23:38 Q6HP PRN Shortness Of Breath Heparin Sodium/Dextrose 500 mls @ 40 mls/hr 03/15/25 21:45 03/15/25 21:47 Heparin 25,000 Units In D5w 500ml Premix IV 04/14/25 21:44 40 mls/hr .[id number] REMY Administration 2,000 UNITS/HR Clindamycin Phosphate 600 mg in 50 mls @ 100 mls/hr 03/16/25 08:00 Clindamycin 600mg/50ml D5w Premix IV 03/26/25 07:59 Q8H [facility] Insulin Human Lispro 0 unit 03/16/25 06:00 Humalog 100 Units/Ml 10ml Vial (Ssi) SUBCUT 04/15/25 05:59 ACHS [facility] Protocol Levothyroxine Sodium 200 mcg 03/16/25 07:00 Levothyroxine 100mcg (0.1mg) Tab PO 04/15/25 06:59 DAILYDM [facility] Miscellaneous 1 each 03/15/25 21:15 03/15/25 22:15 Heparin Drip Consult NOTAPPLIC 04/14/25 21:14 1 each CONSULT PHARMACY REMY Administration Ondansetron HCl 4 mg 03/15/25 23:42 Ondansetron 4mg/2ml Vial IV 04/14/25 23:41 Q8HP PRN Nausea Discontinued Medications Generic Name Dose Route Start Last Admin Trade Name Freq PRN Reason Stop Dose Admin Heparin Sodium (Porcine) 10,000 unit 03/15/25 21:45 03/15/25 21:46 Heparin Sodium 5,000 Unit/Ml Vial IV 03/15/25 21:46 10,000 unit ONCE ONE Administration Clindamycin Phosphate 600 mg in 50 mls @ 100 mls/hr 03/15/25 22:15 03/16/25 00:01 Clindamycin 600mg/50ml D5w Premix IV 03/15/25 22:44 100 mls/hr ONCE ONE Administration Sodium Chloride 1,000 mls @ 999 mls/hr 03/15/25 22:25 03/16/25 00:01 Sod Chlor 0.9% 1000ml Bag IV 03/15/25 23:25 Not Given .Q1H1M ONE Iopamidol 70 ml 03/15/25 20:29 03/15/25 20:30 Iopamidol-370 (76%);100ml Bottle IV 03/15/25 20:30 70 ml ONCE ONE Administration Sodium Chloride 50 ml 03/15/25 20:29 03/15/25 20:30 0.9 % Sodium Chloride 50 Ml Vial IV 03/15/25 20:30 50 ml ONCE ONE Administration Sodium Chloride 10 ml 03/15/25 20:29 03/15/25 20:30 Sodium Chloride 0.9% 10ml Syr (Rad Only) IV 03/15/25 20:30 10 ml ONCE ONE Administration ORDERS Category Date Time Status CT head/brain wo con Stat Cat Scan 03/15/25 17:43 Completed CTA Chest [CT angio chest PE protocol] Stat Cat Scan 03/15/25 19:49 Completed XR chest portable Stat Exams 03/15/25 17:43 Completed Complete Blood Count Auto Diff Stat Lab 03/15/25 18:44 Completed Comprehensive Metabolic Panel Stat Lab 03/15/25 18:44 Completed D-Dimer Stat Lab 03/15/25 18:44 Completed Heparin drip PTT [PTT Heparin (inpatient only)] Stat Lab 03/15/25 23:58 Completed Heparin drip PTT [PTT Heparin (inpatient only)] Stat Lab 03/15/25 23:59 Ordered Heparin drip PTT [PTT Heparin (inpatient only)] Stat Lab 03/16/25 01:00 Ordered Heparin drip PTT [PTT Heparin (inpatient only)] Stat Lab 03/16/25 02:00 Ordered Lipase Stat Lab 03/15/25 18:44 Completed Magnesium Stat Lab 03/15/25 18:44 Completed NT Pro Brain Natriuretic Pep. Stat Lab 03/15/25 18:44 Completed PT INR [Prothrombin Time INR] Stat Lab 03/15/25 18:44 Completed PTT Heparin (inpatient only) Stat Lab 03/15/25 18:44 Completed Rapid PCR Covid and Flu A/B Stat Lab 03/15/25 17:50 Completed Troponin I Q3H Lab 03/15/25 21:02 Completed Troponin I Q3H Lab 03/15/25 23:58 Received Troponin I Stat Lab 03/15/25 18:44 Completed Urinalysis and Microscopic Stat Lab 03/15/25 17:44 Ordered Medical Decision Narrative: 60-year-old female presents to the emergency department with fatigue malaise, body aches, chills, shortness of breath, differential diagnosis to include but not limited to acute URI, CHF exacerbation, COPD exacerbation, pulmonary edema, pleurisy, cardiac arrhythmia, electro disturbance, pneumonia, PE, among others. Will obtain basic laboratory studies, chest x-ray, CT head without contrast, D- dimer lipase magnesium level proBNP PT/INR, rapid PCR COVID and flu, troponin and urinalysis, and EKG. Mild leukocytosis 12.7 is noted on CBC COVID-19 is not detected, influenza A and B are negative as well. I reviewed the patient's CT head without contrast along the corresponding radiologic report, no acute intracranial process, no intracranial hemorrhage or positive mass effect, chronic left cerebral hemiatrophy stable in appearance from 2019 with associated chronic 5 mm right to left midline shift secondary to which is unchanged, Chiari I 1 malformation mild chronic right sphenoid sinus, mild right mastoiditis, additional nonemergent findings as detailed above. I reviewed the patient's chest x-ray along with corresponding radiologic report, moderate cardiomegaly although likely ascending related technique enterically limited exam due to body habitus and soft tissue attenuation cannot exclude mild transient interstitial pulm edema or interstitial pneumonitis. Coags within normal limits D-dimer is elevated at 1.2 CMP is notable for elevated, dioxide level 35, BUN is elevated 25, creatinine is elevated 1.2, troponin within normal limits, proBNP is mildly elevated at 269 otherwise unremarkable CMP. Due to elevated D-dimer and previously documented DVT, years criteria and PERC criteria cannot be utilized to rule out DVT, will obtain CTA chest with and without contrast PE protocol. I reviewed the patient's CTA chest with and without contrast, along with the corresponding radiologic report, small nonocclusive filling defect suspicion for PE in the right lower lobe, lobar branch additional SPECT and small PE in the medial basilar segmental branch although assessment of small peripheral branch vessels was largely nondiagnostic to gross respiratory motion, moderate pulmonary arterial dilation consistent pulmonary arterial hypertension increased from 06/05/2024 there is elevation of the RV/LV, ratio concerning for an element of RV strain, moderate cardiomegaly, thyroid gland is not well-visualized disease severely atrophic or surgically absent, correlate clinically for evidence of hypothyroidism. Attempted to call endbander on-call at 9:14 PM, no answer we will try again. Will start heparin IV pharmacy to dose. Discussed the patient's case with Marley Black APRN the on-call hospitalist taking admissions, she is agreeable with current admission plan/treatment plan, would like me to prescribe IV antibiotics and reach out to cardiology, pending cardiology callback cardiology been paged multiple times, will try different on- call endbander. Will start IV clindamycin 600 mg, for mastoiditis no leukocytosis, since patient has hives/allergy to cephalosporin and penicillins. I discussed need for admission with the patient, at the bedside patient family agree with current treatment plan/discharge plan. Discussed patient case with on-call endbander Dr. Chan at approximately 10:21 PM, he is agreement with current admission plan/treatment plan with cardiology to see, no need for emergent Wrapper Stemmer Hand procedure for removal of pulmonary embolism tonight. Closed loop communication was performed with hospitalist Marley Black APRN at approximately 10:23 PM, she is agreement with this plan. Of note we will also start some gentle IV NS, patient not initially meeting sepsis criteria on arrival with only hypoxia, with leukocytosis and possible source of infection being mastoiditis, I do think the hypoxia is more in line with her pulmonary embolisms, will start gentle fluids. <Missy Lambert, DO - Last Filed: 03/16/25 00:45> Vital Signs: 03/15/25 17:19 03/15/25 18:11 03/15/25 18:40 Temperature 97.8 F Temperature Source Oral Pulse Rate 92 H 84 Pulse Rate [Right] 89 Respiratory Rate 18 19 Blood Pressure 115/68 102/63 L Blood Pressure [Right Arm] 135/70 Blood Pressure Mean [Right Arm] 91 Blood Pressure Source Blood Pressure Source [Right Arm] Automatic Cuff Blood Pressure Position Blood Pressure Position [Right Arm] Sitting 02 Sat by Pulse Oximetry 88 L 92 L 91 L Oxygen Delivery Method Nasal Cannula Oxygen Flow Rate (LPM) 03/15/25 19:00 03/15/25 19:30 03/15/25 20:00 Temperature Temperature Source Pulse Rate 81 79 80 Pulse Rate [Right] Respiratory Rate 16 22 18 Blood Pressure 199/66 H 123/68 117/69 Blood Pressure [Right Arm] Blood Pressure Mean [Right Arm] Blood Pressure Source Blood Pressure Source [Right Arm] Blood Pressure Position Blood Pressure Position [Right Arm] 02 Sat by Pulse Oximetry 92 L 90 L 90 L Oxygen Delivery Method Nasal Cannula Nasal Cannula Oxygen Flow Rate (LPM) 2 2 03/15/25 21:01 03/15/25 21:12 03/15/25 21:30 Temperature Temperature Source Pulse Rate 76 76 74 Pulse Rate [Right] Respiratory Rate 22 14 19 Blood Pressure 103/59 L 112/52 L 107/56 L Blood Pressure [Right Arm] Blood Pressure Mean [Right Arm] Blood Pressure Source Blood Pressure Source [Right Arm] Blood Pressure Position Blood Pressure Position [Right Arm] 02 Sat by Pulse Oximetry 94 L 94 L 96 Oxygen Delivery Method Nasal Cannula Nasal Cannula Nasal Cannula Oxygen Flow Rate (LPM) 2 2 2 03/15/25 22:00 03/15/25 22:52 03/15/25 22:58 Temperature 97.8 F Temperature Source Oral Pulse Rate 70 74 Pulse Rate [Right] Respiratory Rate 20 Blood Pressure 107/53 L 142/90 H Blood Pressure [Right Arm] Blood Pressure Mean [Right Arm] Blood Pressure Source Automatic Cuff Blood Pressure Source [Right Arm] Blood Pressure Position Sitting Blood Pressure Position [Right Arm] 02 Sat by Pulse Oximetry 96 92 L Oxygen Delivery Method Nasal Cannula Nasal Cannula Nasal Cannula Oxygen Flow Rate (LPM) 2 3 2 Lab Data Lab Results 03/15/25 17:50: SARS-CoV-2 (PCR) Not detected, Influenza A Untype (PCR) Not detected, Influenza Type B (PCR) Not detected 03/15/25 18:44: WBC 12.7 H, RBC 4.82, Hgb 14.3, Hct 47.0, MCV 97.5, MCH 29.7, M CHC 30.4 L, RDW 15.8, Plt Count 295, MPV 9.8, Neut % (Auto) 67.9, Lymph % (Auto) 18.9, Saunders % (Auto) 8.1, Eos % (Auto) 3.0, Baso % (Auto) 0.7, Neut # (Auto) 8.6 H, Lymph # (Auto) 2.4, Saunders # (Auto) 1.0, Eos # (Auto) 0.4, Baso # (Auto) 0.1, PT 10.8, INR 0.96, APTT 23.6 L, D-Dimer 1.20 H, Sodium 139, Potassium 4.5, Chloride 100, Carbon Dioxide 35 H, Anion Gap 8.5, BUN 25 H, Creatinine 1.20 H, Estimated Creat Clear 35, Estimated GFR 46 L, Est GFR ( Amer) 55 L, G lucose 108 H, Calcium 9.5, Magnesium 2.0, Total Bilirubin 0.6, AST 25, ALT 22, Alkaline Phosphatase 86, Troponin I < 0.01, NT-Pro-B Natriuret Pep 269 H, Total Protein 7.4, Albumin 4.0, Globulin 3.4 H, Albumin/Globulin Ratio 1.2, Lipase 47 03/15/25 21:02: Troponin I < 0.01 Orders (Tests/Meds): ED MEDICATIONS Generic Name Dose Route Start Last Admin Trade Name Freq PRN Reason Stop Dose Admin Albuterol/Ipratropium 3 ml 03/15/25 23:39 Ipratropium/Albuterol 3 Ml Neb IH 04/14/25 23:38 Q6HP PRN Shortness Of Breath Heparin Sodium/Dextrose 500 mls @ 40 mls/hr 03/15/25 21:45 03/15/25 21:47 Heparin 25,000 Units In D5w 500ml Premix IV 04/14/25 21:44 40 mls/hr .[id number] REMY Administration 2,000 UNITS/HR Clindamycin Phosphate 600 mg in 50 mls @ 100 mls/hr 03/16/25 08:00 Clindamycin 600mg/50ml D5w Premix IV 03/26/25 07:59 Q8H [facility] Insulin Human Lispro 0 unit 03/16/25 06:00 Humalog 100 Units/Ml 10ml Vial (Ssi) SUBCUT 04/15/25 05:59 ACHS [facility] Protocol Levothyroxine Sodium 200 mcg 03/16/25 07:00 Levothyroxine 100mcg (0.1mg) Tab PO 04/15/25 06:59 DAILYDM [facility] Miscellaneous 1 each 03/15/25 21:15 03/15/25 22:15 Heparin Drip Consult NOTAPPLIC 04/14/25 21:14 1 each CONSULT PHARMACY [facility] Administration Ondansetron HCl 4 mg 03/15/25 23:42 Ondansetron 4mg/2ml Vial IV 04/14/25 23:41 Q8HP PRN Nausea Discontinued Medications Generic Name Dose Route Start Last Admin Trade Name Freq PRN Reason Stop Dose Admin Heparin Sodium (Porcine) 10,000 unit 03/15/25 21:45 03/15/25 21:46 Heparin Sodium 5,000 Unit/Ml Vial IV 03/15/25 21:46 10,000 unit ONCE ONE Administration Clindamycin Phosphate 600 mg in 50 mls @ 100 mls/hr 03/15/25 22:15 03/16/25 00:01 Clindamycin 600mg/50ml D5w Premix IV 03/15/25 22:44 100 mls/hr ONCE ONE Administration Sodium Chloride 1,000 mls @ 999 mls/hr 03/15/25 22:25 03/16/25 00:01 Sod Chlor 0.9% 1000ml Bag IV 03/15/25 23:25 Not Given .Q1H1M ONE Iopamidol 70 ml 03/15/25 20:29 03/15/25 20:30 Iopamidol-370 (76%);100ml Bottle IV 03/15/25 20:30 70 ml ONCE ONE Administration Sodium Chloride 50 ml 03/15/25 20:29 03/15/25 20:30 0.9 % Sodium Chloride 50 Ml Vial IV 03/15/25 20:30 50 ml ONCE ONE Administration Sodium Chloride 10 ml 03/15/25 20:29 03/15/25 20:30 Sodium Chloride 0.9% 10ml Syr (Rad Only) IV 03/15/25 20:30 10 ml ONCE ONE Administration ORDERS Category Date Time Status CT head/brain wo con Stat Cat Scan 03/15/25 17:43 Completed CTA Chest [CT angio chest PE protocol] Stat Cat Scan 03/15/25 19:49 Completed XR chest portable Stat Exams 03/15/25 17:43 Completed Complete Blood Count Auto Diff Stat Lab 03/15/25 18:44 Completed Comprehensive Metabolic Panel Stat Lab 03/15/25 18:44 Completed D-Dimer Stat Lab 03/15/25 18:44 Completed Heparin drip PTT [PTT Heparin (inpatient only)] Stat Lab 03/15/25 23:58 Completed Heparin drip PTT [PTT Heparin (inpatient only)] Stat Lab 03/15/25 23:59 Ordered Heparin drip PTT [PTT Heparin (inpatient only)] Stat Lab 03/16/25 01:00 Ordered Heparin drip PTT [PTT Heparin (inpatient only)] Stat Lab 03/16/25 02:00 Ordered Lipase Stat Lab 03/15/25 18:44 Completed Magnesium Stat Lab 03/15/25 18:44 Completed NT Pro Brain Natriuretic Pep. Stat Lab 03/15/25 18:44 Completed PT INR [Prothrombin Time INR] Stat Lab 03/15/25 18:44 Completed PTT Heparin (inpatient only) Stat Lab 03/15/25 18:44 Completed Rapid PCR Covid and Flu A/B Stat Lab 03/15/25 17:50 Completed Troponin I Q3H Lab 03/15/25 21:02 Completed Troponin I Q3H Lab 03/15/25 23:58 Received Troponin I Stat Lab 03/15/25 18:44 Completed Urinalysis and Microscopic Stat Lab 03/15/25 17:44 Ordered ECG Data Tracing #1: I reviewed this ECG and interpreted as documented below: Normal sinus rhythm with a ventricular rate of [address] changes concerning for ischemia. Normal intervals ECG initial impression date: 03/15/25 ECG initial impression time: 17:50 Critical Care <YULIYA Munguia - Last Filed: 03/15/25 22:33> Critical Care Time Critical Care Time: No <Missy Lambert DO - Last Filed: 03/16/25 00:45> Critical Care Time Critical Care Time: Yes Attestation: On 03/15/25, the high probability of a clinically significant, sudden or life threatening deterioration of the following system(s) required my full and direct attention, intervention and personal management. The time I documented below is in addition to time spent performing reported procedures but includes the following listed in this critical care notation. Total Time Total Critical Care Time: 45
--- NOTE | 2025-03-15 17:49 | ECG_ITS ---
APPROVED REPORT Exam: Resting ECG HR:87 bpm ECG Measurements Heart Rate 87 AXES MD 173 P 17 QRSd 92 QRS 139 QT 340 T 16 QTc 385 Conclusion SINUS RHYTHM POSSIBLE RIGHT VENTRICULAR HYPERTROPHY [SOME/ALL OF: PROMINENT R IN V1, LATE TRANSITION, RAD, PAOLA, SSS] POSSIBLE ANTERIOR MYOCARDIAL INFARCTION , OF INDETERMINATE AGE [30 ms Q WAVE IN V3/V4, OR R < 0.2 mV IN V4] No STEMI Electronically signed by : PILLO WHITE, 03/16/2025 23:38:56
[2025-03-15 17:57] LABS: Coronavirus 19, PCR Not Detected (NotDetected); Influenza A, PCR Not Detected (NotDetected); Influenza B, PCR Not Detected (NotDetected)
[2025-03-15 18:57] LABS: Basophils # 0.1 K/mm3 (0-0.2); Basophils % 0.7 % (0.1-2.0); Eosinophils # 0.4 Kmm3 (0.0-0.4); Hemoglobin 14.3 g/dL (12.2-16.2); Immature Granulocytes # 0.18 10^3uL; Immature Granulocytes % 1.4 %; Lymphocytes # 2.4 K/mm3 (0.7-4.5); Lymphocytes % 18.9 % (10-50); Mean Corpuscular HGB Conc 30.4 g/dL (31.8-35.4); Mean Corpuscular Hemoglobin 29.7 pg (27.0-31.2); Mean Corpuscular Volume 97.5 fl (81-99); Mean Platelet Volume 9.8 fl (7.4-10.4); Monocytes % 8.1 % (1.7-9.3); Neutrophils # 8.6 K/mm3 (1.8-7.8); Neutrophils % 67.9 % (37.0-80.0); Nucleated Red Blood Cells # 0.03 10^3/uL; Nucleated Red Blood Cells % 0.2 %; Platelet Count 295 K/mm3 (142-424); Red Blood Count 4.82 M/mm3 (4.20-5.40); Red Cell Distribution Width 15.8 % (11.5-17.5); Red Cell Distribution Width-SD 56.5 fL; White Blood Count 12.7 K/mm3 (4.8-10.8)
[2025-03-15 19:04] LABS: INR 0.96 (0.9-1.1); Prothrombin Time 10.8 seconds (10.1-12.5)
[2025-03-15 19:07] LABS: Alanine Aminotransferase 22 U/L (12-78); Albumin/Globulin Ratio 1.2 (1.1-1.8); Alkaline Phosphatase 86 U/L (38-126); Anion Gap 8.5 mEq/L (5-15); Aspartate Amino Transferase 25 U/L (14-36); Bilirubin,Total 0.6 mg/dl (0.2-1.3); Blood Urea Nitrogen 25 mg/dl (7-17); Calcium 9.5 mg/dl (8.4-10.2); Carbon Dioxide 35 mmol/L (22.0-30.0); Chloride 100 mmol/L (98-107); Creatinine Clearance Estimated 35 mL/min (50-200); Estimated Glomerular Filt Rate 46 ml/min (>60); GFR (African American) 55 ML/MIN (>60); Globulin 3.4 g/dL (1.3-3.2); Glucose 108 mg/dl (74-100); Lipase 47 U/L (23-300); Potassium 4.5 mmoL/L (3.5-5.1); Sodium 139 mmol/L (136-145); Total Protein,Serum 7.4 g/dl (6.3-8.2)
[2025-03-15 19:21] LABS: NT Pro Brain Natriuretic Pep. 269 pg/mL (0-125)
[2025-03-15 19:40] LABS: Troponin I < 0.01 ng/ml (0.00-0.034)
--- NOTE | 2025-03-15 19:49 | CT_ITS ---
PROCEDURE INFORMATION: Exam: CTA Chest With Contrast Exam date and time: 03/15/2025 8:20 PM Age: 60 years old Clinical indication: Shortness of breath; Additional info: Shortness of air, elevated d-dimer TECHNIQUE: Imaging protocol: Computed tomographic angiography of the chest with contrast. Exam focused on the arteries. 3D rendering (Not supervised by radiologist): MIP and/or 3D reconstructed images were created by the technologist. Radiation optimization: All CT scans at this facility use at least one of these dose optimization techniques: automated exposure control; mA and/or kV adjustment per patient size (includes targeted exams where dose is matched to clinical indication); or iterative reconstruction. Contrast material: ISO 370; Contrast volume: 70 ml; Contrast route: INTRAVENOUS (IV); COMPARISON: CT ANGIO CHEST PE PROTOCOL 06/05/2024 4:36 PM FINDINGS: Pulmonary arteries: A nonocclusive filling defect in the right lower lobe lobar pulmonary arterial branch on axial series 5, image 61 concerning for small PE. Question filling defect in the right lower lobe medial basilar segmental branch on series 5, image 68 as well. No other potential emboli are identified although peripheral small branch assessment is significantly limited by respiratory motion at multiple levels. There is moderate chronic pulmonary arterial dilatation consistent with pulmonary arterial hypertension which is increased since 06/05/2024. RV-LV ratio of 1.6 with increased RV dilatation compared to 06/05/2024, concerning for an element of RV strain. Aorta: Mild aortic ectasia/tortuosity and calcific atherosclerosis. No aortic aneurysm or dissection. No mediastinal hematoma. Thyroid: The thyroid gland is not well visualized and is either severely atrophic or surgically absent. Correlate clinically for evidence of hypothyroidism. Lungs: No acute tracheobronchial abnormalities. No gross pulmonary infiltrates or edema pattern. Mild atelectasis in the lung bases. No pulmonary mass lesions are identified. Pleural spaces: No pleural effusion. No pneumothorax. Heart: Moderate cardiomegaly. No pericardial effusion. Coronary arteries: No coronary artery calcification. Esophagus: The esophagus is largely contracted but demonstrates no gross abnormality. Lymph nodes: No supraclavicular or axillary adenopathy. No mediastinal or hilar adenopathy. Spleen: Granulomatous calcifications in the spleen. Kidneys: Simple left renal cortical cyst which does not require further evaluation. Bones/joints: No acute osseous abnormalities. Mild thoracic spondylosis. Soft tissues: No acute soft tissue abnormalities. IMPRESSION: 1. Small nonocclusive filling defect suspicious for PE in the right lower lobe lobar branch and additional suspected small PE in the medial basilar segmental branch although assessment of the small peripheral branch vessels was largely nondiagnostic due to gross respiratory motion. 2. Moderate pulmonary arterial dilatation consistent with pulmonary arterial hypertension, increased from 06/05/2024, and there is elevation of the RV/LV ratio concerning for an element of RV strain. 3. Moderate cardiomegaly. 4. The thyroid gland is not well visualized and is either severely atrophic or surgically absent. Correlate clinically for evidence of hypothyroidism. 5. These findings initiated a critical results reporting process. An addendum will be issued at the time of clinician notification. COMMENTS: Consistent with the [employer]'s Incidental Findings Committee white paper (J Am Hannah Radiol 2018): Any incidental renal lesion less than 1 cm or classified as too small to characterize, or any incidental cystic renal lesion characterized as simple-appearing, is likely benign. No follow-up imaging is recommended for these lesions per consensus recommendations based on imaging criteria.
[2025-03-15] MEDS: SODIUM CHLORIDE 0.9% 10ML SYR (RAD ONLY) 10 ML IV (20:30)
[2025-03-15] MEDS: IOPAMIDOL-370 (76%);100ML BOTTLE 70 ML IV (20:30)
[2025-03-15] MEDS: 0.9 % SODIUM CHLORIDE 50 ML VIAL IV (20:30)
[2025-03-15 21:30] LABS: Troponin I < 0.01 ng/ml (0.00-0.034)
[2025-03-15] MEDS: HEPARIN SODIUM 5,000 UNIT/ML VIAL 10000 UNIT IV (21:46)
[2025-03-15 21:47] LABS: PTT Heparin (inpatient only) 23.6 Seconds (50-75)
[2025-03-15] MEDS: HEPARIN SODIUM,PORCINE/D5W 500 ML 40 UNIT IV (21:47)
[2025-03-15] MEDS: HEPARIN DRIP CONSULT 1 EACH NOTAPPLIC (22:15)
--- NOTE | 2025-03-15 23:15 | P.HP_ITS ---
<Statement entered by Will Bloom MD - 03/16/25 09:39> Rounded on patient after nurse practitioner. Personally examined and interviewed patient. Agree with exam findings and care plan as documented. History of Present Illness *Admission Date: 03/15/25 *Reason for visit:: Malaise and fatigue, myalgia *History of present illness: This is a 60-year-old female with past medical history of prior pulmonary emboli now off of anticoagulation, ear pain, HFpEF, HLD, osteoarthritis, obesity, DM 2, asthma who presents emergency department today with complaints of bodyaches and fatigue. States that for the past week she has experiencing increased shortness of breath and cough that is more substantial than her baseline. She also reports subjective fever chills malaise and fatigue. States that she has just felt generally unwell. Also reports posterior headache. She reports new diagnosis of DM 2 and is still undergoing insurance verification for home medications for this. She does endorse polydipsia and polyuria. She denies any chest pain, or palpitations. Denies any lower extremity pain. Does endorse as needed oxygen usage at home and chronic bilateral lower extremity edema. Emergency department workup notable for mild hypoxia on arrival with oxygen saturation of 92% on room air. White blood cell count of 12.7, creatinine of 1.[address] imaging with nonocclusive filling defect in the right lower lobe lobar pulmonary artery branch concerning for small PE also questionable filling defect of the right lower lobe medial basilar segmental branch. Also moderate chronic pulmonary arterial dilatation consistent with pulmonary arterial hypertension which is increased since 06/05/2024. Moderate cardiomegaly. Given concerns for small PEs with possible right heart strain, cardiology was consulted and states it is given patient's stability, admit to hospital on heparin drip. She is admitted to hospitalist service at this time. [facility] Disclaimer: The information contained in this section may have been updated after the patient was seen, as this information can be updated by other users. Medical History Cataract Osteoarthritis Tooth abscess Hypertrophy of nasal turbinates Chronic sinusitis Asthma Allergic rhinitis Seasonal allergies Family history of asthma Moderate persistent asthma History of pulmonary embolism Pulmonary hypertension Shortness of breath Dyspnea on exertion History of DVT (deep vein thrombosis) Pulmonary embolism Mild right atrial enlargement Abnormal EKG Sinus tachycardia Chest pain Dyspnea Hypothyroidism Lymphedema of both lower extremities Morbid obesity with BMI of 50.0-59.9, adult HTN (hypertension) Surgical History History of colonoscopy Family History Other Cancer Coronary artery disease Heart attack Hypertension Stroke Thyroid disorder Social History (Updated 03/16/25 @ 00:28 by Mireya Arias RN) Smoking Status: Never smoker alcohol intake: never substance use type: denies use current occupational status: other Travel in the last 8 weeks?: None household members: family housing: house number of children: 2 Have you lived/traveled outside [place] in past 30 days?: No Contact w/someone who lives/traveled outside US past 30 days?: No Exposure to someone with infectious disease in past 14 days?: No Do you have a fever (greater than 100.4 F or 38 C)?: Yes Have you tested positive for COVID-19?: No Exposed to someone with COVID-19 in past 14 days?: No Do you have a sore throat?: No Do you have a cough?: No Do you have any weakness?: Yes Do you have any diarrhea?: No Are you experiencing any unusual bleeding?: No Do you have any muscle aches/pain?: No Do you have any abdominal pain?: No Are you experiencing loss of taste or smell?: No Other Medical History Have you received the Flu Vaccine for this season: No Have you received the Pneumonia Vaccine: No Review of Systems Review of Systems Review of systems:: pertinent systems reviewed and negative unless documented below Review of systems (narrative): Negative except for HPI Meds Home Medications and Allergies Home Medications ?Medication ?Instructions ?Recorded ?Confirmed ?Type aspirin 81 mg tablet,delayed 81 mg PO DAILY heart health 03/17/21 03/16/25 History release (Adult Low Dose Aspirin) loratadine 10 mg tablet 10 mg PO DAILY allergies 03/17/21 03/16/25 History lisinopril 10 1 tab PO DAILY High blood pressure 11/03/21 03/16/25 History mg-hydrochlorothiazide 12.5 mg tablet montelukast 10 mg tablet 10 mg PO DAILY Asthma 02/15/23 03/16/25 History B-complex with vitamin C (Super 1 cap PO DAILY . 04/14/23 03/16/25 History B/C capsule) cholecalciferol (vitamin D3) 25 25 mcg PO DAILY . 04/14/23 03/16/25 History mcg (1,000 unit) capsule potassium citrate 99 mg capsule 99 mg PO DAILY . 04/14/23 03/16/25 History celecoxib 200 mg capsule 200 mg PO DAILY 06/05/24 03/16/25 History fluticasone 250 mcg-salmeterol 50 1 inh inhalation BID 90 days #180 08/07/24 03/16/25 Rx mcg/dose blistr powdr for ea inhalation (Advair Diskus) fluticasone propionate 50 2 spray intranasal DAILY 90 days 08/07/24 03/16/25 Rx mcg/actuation nasal #16 grams spray,suspension (Flonase Allergy Relief) brimonidine 0.2 % eye drops 1 drp ophthalmic (eye) BID 03/16/25 03/16/25 History levothyroxine 25 mcg tablet 225 mcg PO DAILY 03/16/25 03/16/25 History New Prescriptions to Start Prescriptions: Allergies Allergy/AdvReac Type Severity Reaction Status Date / Time acetaminophen (From Tavist) Allergy Verified 03/15/25 17:12 cefprozil (From Cefzil) Allergy Hives Verified 03/15/25 17:12 cephalexin (From Keflex) Allergy Hives Verified 03/15/25 17:12 cetirizine (From Zyrtec) Allergy Hives Verified 03/15/25 17:12 clemastine (From Tavist) Allergy Verified 03/15/25 17:12 erythromycin base Allergy Hives Verified 03/15/25 17:12 fexofenadine (From Calista) Allergy Hives Verified 03/15/25 17:12 loratadine (From Claritin-D) Allergy Hives Verified 03/15/25 17:12 Penicillins Allergy Hives Verified 03/15/25 17:12 pseudoephedrine (From Allergy Hives Verified 03/15/25 17:12 Claritin-D) Antihistamine, Piperidine Allergy Unknown Hives Uncoded 03/15/25 17:12 Astemizole Allergy Unknown Unknown Uncoded 03/15/25 17:12 allergy reaction Cefprozil Allergy Unknown Unknown Uncoded 03/15/25 17:12 allergy reaction Cephalexin Allergy Unknown Hives Uncoded 03/15/25 17:12 Cephalosporin Allergy Unknown Hives Uncoded 03/15/25 17:12 Cetirizine Allergy Unknown Hives Uncoded 03/15/25 17:12 CLASS: 04:00 - ANTIHISTAMINE Allergy Unknown Hives Uncoded 03/15/25 17:12 DRUGS DHE 45 Allergy Unknown LOSS OF Uncoded 03/15/25 17:12 MUSCLE CONTROL From Erythromycin Stearate Allergy Unknown Hives Uncoded 03/15/25 17:12 From Fexofenadine Allergy Unknown Hives Uncoded 03/15/25 17:12 Hydrochloride Macrolide/Antibacterial Allergy Unknown Hives Uncoded 03/15/25 17:12 Penicillin Allergy Unknown Hives Uncoded 03/15/25 17:12 PSEUDOEPHEDRINE Allergy Unknown I-HIVES Uncoded 03/15/25 17:12 Terfenadine Allergy Unknown Hives Uncoded 03/15/25 17:12 DHE45 Allergy Hives Uncoded 03/15/25 17:12 Exam Data for Last 24 hours Vital signs and Labs for Last 24 Hours: Temp Pulse Resp BP Pulse Ox O2 Del Method O2 Flow Rate 97.8 F 74 20 142/90 H 92 L Nasal Cannula 3 03/15/25 22:58 03/15/25 22:58 03/15/25 22:58 03/15/25 22:58 03/15/25 22:52 03/16/25 01:00 03/16/25 01:00 Laboratory Results - last 24 hr 03/15/25 17:50: SARS-CoV-2 (PCR) Not detected, Influenza A Untype (PCR) Not detected, Influenza Type B (PCR) Not detected 03/15/25 18:44: WBC 12.7 H, RBC 4.82, Hgb 14.3, Hct 47.0, MCV 97.5, MCH 29.7, MCHC 30.4 L, RDW 15.8, Plt Count 295, MPV 9.8, Neut % (Auto) 67.9, Lymph % (Auto) 18.9, Mccone % (Auto) 8.1, Eos % (Auto) 3.0, Baso % (Auto) 0.7, Neut # (Auto) 8.6 H, Lymph # (Auto) 2.4, Mccone # (Auto) 1.0, Eos # (Auto) 0.4, Baso # (Auto) 0.1, PT 10.8, INR 0.96, APTT 23.6 L, D-Dimer 1.20 H, Sodium 139, Potassium 4.5, Chloride 100, Carbon Dioxide 35 H, Anion Gap 8.5, BUN 25 H, Creatinine 1.20 H, Estimated Creat Clear 35, Estimated GFR 46 L, Est GFR ( Amer) 55 L, Glucose 108 H, Calcium 9.5, Magnesium 2.0, Total Bilirubin 0.6, AST 25, ALT 22, Alkaline Phosphatase 86, Troponin I < 0.01, NT-Pro-B Natriuret Pep 269 H, Total Protein 7.4, Albumin 4.0, Globulin 3.4 H, Albumin/Globulin Ratio 1.2, Lipase 47 03/15/25 21:02: Troponin I < 0.01 03/15/25 23:23: POC Glucose 120 H 03/15/25 23:58: APTT 50.0, Magnesium 1.9, Troponin I < 0.01 03/16/25 01:27: APTT 46.7 L 03/16/25 01:57: APTT 48.5 L I & O for Last 24 hours: Intake & Output 03/13/25 03/14/25 03/15/25 03/16/25 23:59 23:59 23:59 23:59 Intake Total 290 / 290 Balance 290 / 290 Weight 136.078 kg Constitutional Constitutional: no acute distress, morbidly obese and disheveled *Routine HEENT Exam Head: Present normocephalic Eye: Present EOMI and PERRL ENT: Present mucous membranes moist *Routine Neck Exam Neck: Present supple; Absent lymphadenopathy *Routine Respiratory Exam Respiratory: Present wheezes (Mild) and normal respiratory effort *Routine Cardiovascular Exam Cardiovascular: Present RRR *Routine Abdominal Exam Abdominal: Present soft and normoactive bowel sounds; Absent tenderness *Routine Rectal Exam Rectal:: deferred *Routine Genitalia Exam Genitalia:: deferred *Routine Extremities Exam Extremities: Absent cyanosis, clubbing or edema *Routine Skin Exam Skin: Present warm; Absent rash *Routine Neurological Exam Neurological: Present alert and oriented X3 Assessment and Plan *Assessment and plan (1) Pulmonary embolism: Status: Acute Category: Medical Code(s): I26.99 - Other pulmonary embolism without acute cor pulmonale (2) Chiari malformation: Status: Acute Category: Medical (3) (HFpEF) heart failure with preserved ejection fraction: Status: Acute Category: Medical Code(s): I50.30 - Unspecified diastolic (congestive) heart failure (4) Pulmonary artery hypertension: Status: Acute Category: Medical Code(s): I27.21 - Secondary pulmonary arterial hypertension (5) HLD (hyperlipidemia): Status: Acute Category: Medical Code(s): E78.5 - Hyperlipidemia, unspecified (6) Diabetes mellitus: Status: Acute Category: Medical Code(s): E11.9 - Type 2 diabetes mellitus without complications (7) Asthma: Status: Acute Category: Medical Code(s): J45.909 - Unspecified asthma, uncomplicated (8) Headache: Status: Acute Category: Medical Code(s): R51.9 - Headache, unspecified Plan Admit to medicine #Pulmonary embolism Prior history and was on Xarelto for a short period. CT with evidence of questionable filling defect of the right lower lobe lobar pulmonary artery branch and right lower lobe medial basilar segmental branch RV to LV ratio of 1.6 which is increased dilatation compared to 06/05/2024 concerning for mild right heart strain Cardiology consulted, initiate heparin drip Patient is stable on room air. Does endorse using 2 L nasal cannula as needed. Patient likely has element of mild hypoxia at baseline given asthma and morbid obesity. Will obtain echocardiogram in a.m. Pulmonology and cardiology consult in a.m. #Pulmonary artery hypertension Prior echocardiogram with RVSP of 35-40 with improvement to RVSP of 30 after completed treatment for pulmonary emboli Will obtain repeat echocardiogram in a.m. #HFpEF Echocardiogram in a.m. to evaluate current EF Continue hydrochlorothiazide in a.m. #Headache #Chiari malformation #Mastoiditis Patient reports posterior headache as well as ear infection recently. Mild mastoiditis found on CT imaging. Will continue clindamycin. Also noted to have grade 1 Chiari malformation. Continue blood pressure management #DM 2 Patient reports new diagnosis but unsure of A1c. Patient not currently on medications as she is waiting for insurance approval Will check A1c now Sliding scale insulin #CKD stage IIIa Creatinine at baseline Monitor intake and #Heparin gtt Requires intensive monitoring for toxicity pharmacy consulted
--- NOTE | 2025-03-15 23:15 | PC.NURSE ---
Patient arrived to floor via stretcher from ED at 23:06.
[2025-03-15 23:32] LABS: POC Glucose,Bedside 120 (70-110)
[2025-03-16] VITALS (12 sets, daily range): BP systolic 103–124; BP diastolic 40–68; PULSE 62–80; RESP 16–23; TEMP 36.6–37.4; O2SAT 92–97; BMI 61.1
[2025-03-16] MEDS: CLINDAMYCIN PHOSPHATE/D5W 600 MG/50 ML PIGGYBACK 100 MG IV ×3 (00:01→15:15)
[2025-03-16 01:06] LABS: Troponin I < 0.01 ng/ml (0.00-0.034)
[2025-03-16 01:38] LABS: Magnesium 1.9 mg/dl (1.6-2.3)
[2025-03-16 01:54] LABS: PTT Heparin (inpatient only) 46.7 Seconds (50-75)
[2025-03-16 02:21] LABS: PTT Heparin (inpatient only) 48.5 Seconds (50-75)
[2025-03-16] MEDS: HEPARIN SODIUM 5,000 UNIT/ML VIAL 3000 UNIT IV (03:22)
[2025-03-16] MEDS: HEPARIN SODIUM,PORCINE/D5W 500 ML 45 UNIT IV ×2 (03:23→10:17)
[2025-03-16] MEDS: ACETAMINOPHEN 325MG TAB 650 MG PO ×3 (05:33→20:31)
[2025-03-16] MEDS: humaLOG 100 UNITS/ML 10ML VIAL (SSI) SUBCUT (05:34)
[2025-03-16 06:02] LABS: POC Glucose,Bedside 165 (70-110)
--- NOTE | 2025-03-16 06:17 | PC.NURSE ---
Pt is alert and oriented x4, Pt did c/o EATON and was treated per MAR. Pt had an allergy listed to tylenol but pt stated that she takes tylenol @ home when needed, this nurse did update this in the chart. Pt did require 2 units of insulin this morning. Pt Heparin continues to run @ 2250 units 45ml/hr.
[2025-03-16 06:43] LABS: Basophils # 0.1 K/mm3 (0-0.2); Basophils % 0.9 % (0.1-2.0); Eosinophils # 0.4 Kmm3 (0.0-0.4); Eosinophils % 3.1 % (0.1-12.0); Hematocrit 44.9 % (37.0-47.0); Hemoglobin 13.4 g/dL (12.2-16.2); Immature Granulocytes # 0.16 10^3uL; Immature Granulocytes % 1.3 %; Lymphocytes # 2.3 K/mm3 (0.7-4.5); Lymphocytes % 17.7 % (10-50); Mean Corpuscular HGB Conc 29.8 g/dL (31.8-35.4); Mean Corpuscular Hemoglobin 29.6 pg (27.0-31.2); Mean Corpuscular Volume 99.3 fl (81-99); Mean Platelet Volume 9.9 fl (7.4-10.4); Monocytes # 1.1 K/mm3 (0.1-1.0); Monocytes % 8.8 % (1.7-9.3); Neutrophils # 8.7 K/mm3 (1.8-7.8); Neutrophils % 68.2 % (37.0-80.0); Nucleated Red Blood Cells # 0 10^3/uL; Nucleated Red Blood Cells % 0 %; Platelet Count 255 K/mm3 (142-424); Red Blood Count 4.52 M/mm3 (4.20-5.40); Red Cell Distribution Width-SD 58.6 fL; White Blood Count 12.7 K/mm3 (4.8-10.8)
[2025-03-16 07:02] LABS: Anion Gap 9.1 mEq/L (5-15); Blood Urea Nitrogen 23 mg/dl (7-17); Carbon Dioxide 35 mmol/L (22.0-30.0); Chloride 99 mmol/L (98-107); Creatinine Clearance Estimated 37 mL/min (50-200); Estimated Glomerular Filt Rate 50 ml/min (>60); GFR (African American) 61 ML/MIN (>60); Glucose 165 mg/dl (74-100); Phosphorous 4.8 mg/dl (2.5-4.5); Potassium 4.1 mmoL/L (3.5-5.1); Sodium 139 mmol/L (136-145)
--- NOTE | 2025-03-16 08:00 | CA_ITS ---
APPROVED REPORT EXAM: Comprehensive 2D, Doppler, and color-flow Echocardiogram Terrazzo Polisher: Nancy Cervantes RDCS Ht: 5 ft 0 in Wt: 300lbs BSA: 2.22 BP: 142/90 mmHg Indications: PE R HEART STRAIN,HTN,DM,HLP TDS DUE TO OBESITY/BODY HABITUS LIMITED STUDY M-Mode Dimensions RVDd 3.44 cm (0.9-2.6) LA Diam 3.77 cm (1.9-4.0) LVDd 5.00 cm (3.5-5.7) LVDs 3.28 cm (3.5-5.7) IVSd 1.13 cm (0.6-1.1) PWd 1.08 cm (0.6-1.1) EF (Teich) 63.20% FS 34.40% EDV (Teich) 118.20 mL ESV (Teich) 43.50 mL Left Ventricle The left ventricle is normal size. The left ventricular systolic function is normal. The left ventricular ejection fraction is within the normal range. There is increased overall thickness. Regional wall motion is difficult to evaluate in the setting of technically difficult study. Diastolic function is indeterminate. LVEF is 55%. Right Ventricle Right ventricle is mildly dilated. The right ventricular systolic function is normal. Atria The left atrium size is normal. The right atrium is not well-visualized. Aortic Valve The aortic valve is mildly thickened. Trace aortic regurgitation. There is no aortic valvular stenosis. Mitral Valve The mitral valve is normal in structure. Trace mitral regurgitation. Tricuspid Valve Tricuspid valve is grossly normal in structure and function. Trace tricuspid regurgitation. There is insufficient TR jet to estimate RVSP. Pulmonic Valve The pulmonary valve is normal in structure. Trace pulmonic regurgitation. Great Vessels The aortic root is normal in size. The IVC is not well-visualized. Pericardium There is no pericardial effusion. Other Information Study Quality: Technically Difficult Conclusion Technically difficult study due to poor acoustic windows. Normal biventricular systolic function. Mild RV dilation. Mild PI. Electronically signed by : Roxane Schwartz MD 03/16/2025 22:27:22
[2025-03-16 08:01] LABS: PTT Heparin (inpatient only) 69.2 Seconds (50-75)
[2025-03-16] MEDS: LEVOTHYROXINE 100MCG (0.1MG) TAB 200 MCG PO (08:16)
--- NOTE | 2025-03-16 08:20 | P.CONPHA_ITS ---
[facility] Pharmacy Heparin Dosing Demographic Data Admission date:: 03/15/25 Date: 03/16/25 Time: 08:20 Allergies Allergy/AdvReac Type Severity Reaction Status Date / Time cefprozil (From Cefzil) Allergy Hives Verified 03/15/25 17:12 cephalexin (From Keflex) Allergy Hives Verified 03/15/25 17:12 cetirizine (From Zyrtec) Allergy Hives Verified 03/15/25 17:12 clemastine (From Tavist) Allergy Hives Verified 03/16/25 05:30 erythromycin base Allergy Hives Verified 03/15/25 17:12 fexofenadine (From Calista) Allergy Hives Verified 03/15/25 17:12 loratadine (From Claritin-D) Allergy Hives Verified 03/15/25 17:12 Penicillins Allergy Hives Verified 03/15/25 17:12 pseudoephedrine (From Allergy Hives Verified 03/15/25 17:12 Claritin-D) Antihistamine, Piperidine Allergy Unknown Hives Uncoded 03/15/25 17:12 Astemizole Allergy Unknown Unknown Uncoded 03/15/25 17:12 allergy reaction Cefprozil Allergy Unknown Unknown Uncoded 03/15/25 17:12 allergy reaction Cephalexin Allergy Unknown Hives Uncoded 03/15/25 17:12 Cephalosporin Allergy Unknown Hives Uncoded 03/15/25 17:12 Cetirizine Allergy Unknown Hives Uncoded 03/15/25 17:12 CLASS: 04:00 - ANTIHISTAMINE Allergy Unknown Hives Uncoded 03/15/25 17:12 DRUGS DHE 45 Allergy Unknown LOSS OF Uncoded 03/15/25 17:12 MUSCLE CONTROL From Erythromycin Stearate Allergy Unknown Hives Uncoded 03/15/25 17:12 From Fexofenadine Allergy Unknown Hives Uncoded 03/15/25 17:12 Hydrochloride Macrolide/Antibacterial Allergy Unknown Hives Uncoded 03/15/25 17:12 Penicillin Allergy Unknown Hives Uncoded 03/15/25 17:12 PSEUDOEPHEDRINE Allergy Unknown I-HIVES Uncoded 03/15/25 17:12 Terfenadine Allergy Unknown Hives Uncoded 03/15/25 17:12 DHE45 Allergy Hives Uncoded 03/15/25 17:12 Height: 1.52 m Weight: 141 kg Indication Medication therapy:: Heparin Current Active Problems (Updated 03/16/25 @ 13:44 by Rene Ortiz MD) Acute respiratory failure with hypoxia and hypercarbia (Acute) Acute on chronic hypoxic respiratory failure (Acute) Headache (Acute) Asthma (Acute) Diabetes mellitus (Acute) Pulmonary artery hypertension (Acute) Hypoxia (Acute) Pulmonary embolism (Acute) Chiari malformation (Acute) Mastoiditis (Acute) (HFpEF) heart failure with preserved ejection fraction (Acute) HLD (hyperlipidemia) (Acute) CVA?: No Bleeding problem?: No Kidney disease?: No IL?: No Desired PTT range:: 50-75 seconds Labs Anticoagulation Lab Results:: 03/15/25 03/16/25 18:44 06:16 Hgb 14.3 13.4 Hct 47.0 44.9 Plt Count 295 255 Monitoring Dose Monitor 1: Date: 03/15/25 Time: 18:44 PTT Result:: 23.6 Infusion Rate:: 2,000 UNITS/HR Comment:: 10,000 UNIT BOLUS Dose Monitor 2: Date: 03/15/25 Time: 23:45 PTT Result:: 50.0 Infusion Rate:: 2,000 UNITS/HR Dose Monitor 3: Date: 03/16/25 Time: 01:00 PTT Result:: 46.7 Infusion Rate:: 2,000 UNITS/HR Dose Monitor 4: Date: 03/16/25 Time: 01:57 PTT Result:: 48.5 Infusion Rate:: INCREASE RATE TO 2,250 UNITS/HR Comment:: 3,000 UNIT BOLUS Dose Monitor 5: Date: 03/16/25 Time: 07:30 PTT Result:: 69.2 Infusion Rate:: 2,250 UNITS/HR Dose Monitor 6: Date: 03/16/25 Time: 11:30 Core Measures Is INR > or = 2 at discharge?: No Most Recent Labs:: Laboratory Results - last 24 hr 03/15/25 17:50: SARS-CoV-2 (PCR) Not detected, Influenza A Untype (PCR) Not detected, Influenza Type B (PCR) Not detected 03/15/25 18:44: WBC 12.7 H, RBC 4.82, Hgb 14.3, Hct 47.0, MCV 97.5, MCH 29.7, MCHC 30.4 L, RDW 15.8, Plt Count 295, MPV 9.8, Neut % (Auto) 67.9, Lymph % (Auto) 18.9, Lucas % (Auto) 8.1, Eos % (Auto) 3.0, Baso % (Auto) 0.7, Neut # (Auto) 8.6 H, Lymph # (Auto) 2.4, Lucas # (Auto) 1.0, Eos # (Auto) 0.4, Baso # (Auto) 0.1, PT 10.8, INR 0.96, APTT 23.6 L, D-Dimer 1.20 H, Sodium 139, Potassium 4.5, Chloride 100, Carbon Dioxide 35 H, Anion Gap 8.5, BUN 25 H, Creatinine 1.20 H, Estimated Creat Clear 35, Estimated GFR 46 L, Est GFR ( Amer) 55 L, Glucose 108 H, Calcium 9.5, Magnesium 2.0, Total Bilirubin 0.6, AST 25, ALT 22, Alkaline Phosphatase 86, Troponin I < 0.01, NT-Pro-B Natriuret Pep 269 H, Total Protein 7.4, Albumin 4.0, Globulin 3.4 H, Albumin/Globulin Ratio 1.2, Lipase 47 03/15/25 21:02: Troponin I < 0.01 03/15/25 23:23: POC Glucose 120 H 03/15/25 23:58: APTT 50.0, Magnesium 1.9, Troponin I < 0.01 03/16/25 01:27: APTT 46.7 L 03/16/25 01:57: APTT 48.5 L 03/16/25 05:09: POC Glucose 165 H 03/16/25 06:16: WBC 12.7 H, RBC 4.52, Hgb 13.4, Hct 44.9, MCV 99.3 H, MCH 29.6, MCHC 29.8 L, RDW 16.0, Plt Count 255, MPV 9.9, Neut % (Auto) 68.2, Lymph % (Auto) 17.7, Lucas % (Auto) 8.8, Eos % (Auto) 3.1, Baso % (Auto) 0.9, Neut # (Auto) 8.7 H, Lymph # (Auto) 2.3, Lucas # (Auto) 1.1 H, Eos # (Auto) 0.4, Baso # (Auto) 0.1, Sodium 139, Potassium 4.1, Chloride 99, Carbon Dioxide 35 H, Anion Gap 9.1, BUN 23 H, Creatinine 1.10 H, Estimated Creat Clear 37, Estimated GFR 50 L, Est GFR ( Amer) 61, Glucose 165 H D, Calcium 9.0, Phosphorus 4.8 H 03/16/25 07:25: APTT 69.2 Were Heparin and Warfarin started on the same day?: No If not, why?: CHANGED TO XARELTO
[2025-03-16 08:28] LABS: Free T4 (Free Thyroxine) 1.73 ng/dl (0.78-2.19)
--- NOTE | 2025-03-16 08:28 | HMH.PHAINT1 ---
Pharmacy Intervention Comments: HOME MEDICATION LIST VERIFIED USING LIST FROM OUTPATIENT PHARMACY AND PT INTERVIEW
[2025-03-16 08:34] LABS: Hemoglobin A1C 7.2 % (4.0-6.0)
[2025-03-16 08:43] LABS: Thyroid Stimulating Hormone 6.13 uIU/mL (0.465-4.68)
--- NOTE | 2025-03-16 10:30 | P.CONS_ITS ---
History of Present Illness History of present illness: Ms. Barrera is a 60-year-old female no significant smoking history history of asthma allergic rhinitis exertional dyspnea heart failure preserved EF presented with worsening body aches and fatigue, worsening shortness of breath pulmonary was called for further evaluation and management. [facility] Disclaimer: The information contained in this section may have been updated after the patient was seen, as this information can be updated by other users. Medical History (Updated 03/16/25 @ 13:44 by Rene Ortiz MD) Acute respiratory failure with hypoxia and hypercarbia Cataract Osteoarthritis Tooth abscess Hypertrophy of nasal turbinates Chronic sinusitis Asthma Allergic rhinitis Seasonal allergies Family history of asthma Moderate persistent asthma History of pulmonary embolism Pulmonary hypertension Shortness of breath Dyspnea on exertion History of DVT (deep vein thrombosis) Pulmonary embolism Mild right atrial enlargement Abnormal EKG Sinus tachycardia Chest pain Dyspnea Hypothyroidism Lymphedema of both lower extremities Morbid obesity with BMI of 50.0-59.9, adult HTN (hypertension) Surgical History History of colonoscopy Family History Other Cancer Coronary artery disease Heart attack Hypertension Stroke Thyroid disorder Social History Smoking Status: Never smoker alcohol intake: never substance use type: denies use current occupational status: other Travel in the last 8 weeks?: None household members: family housing: house number of children: 2 Have you lived/traveled outside [place] in past 30 days?: No Contact w/someone who lives/traveled outside US past 30 days?: No Exposure to someone with infectious disease in past 14 days?: No Do you have a fever (greater than 100.4 F or 38 C)?: Yes Have you tested positive for COVID-19?: No Exposed to someone with COVID-19 in past 14 days?: No Do you have a sore throat?: No Do you have a cough?: No Do you have any weakness?: Yes Do you have any diarrhea?: No Are you experiencing any unusual bleeding?: No Do you have any muscle aches/pain?: No Do you have any abdominal pain?: No Are you experiencing loss of taste or smell?: No Review of Systems Constitutional Constitutional: Reports anorexia, Reports body ache(s), Reports fatigue and Reports snoring Eyes Eyes: Denies eye discharge, Denies dry eyes, Denies irritation and Denies itchy eyes ENT Ears, Nose, Mouth, and Throat: Denies epistaxis, Denies facial pain, Denies lip swelling and Denies throat swelling *Cardiovascular Cardiovascular: Reports dyspnea and Reports dyspnea on exertion *Respiratory Respiratory: Denies change in phlegm color, Reports chest congestion, Reports cough, Reports dyspnea, Reports dyspnea on exertion, Denies excessive phlegm production, Reports snoring and Reports wheezing *Gastrointestinal Gastrointestinal: Denies abdominal pain, Denies belching and Denies cramping *Musculoskeletal Musculoskeletal: Reports back pain, Reports myalgias and Reports other (No small joint swelling or Pain) Psychiatric Psychiatric: Denies homicidal ideation and Denies suicidal ideation Endocrine Endocrine: Reports fatigue and Denies heat intolerance Hematologic/Lymphatic Hematologic/Lymphatic: Denies easy bleeding and Denies lymphadenopathy Allergic/Immunologic Allergic/Immunologic: Denies itchy eyes, Denies lip swelling, Denies throat swelling and Reports wheezing Pulmonology Exam Inpatient Vital signs and Labs for Last 24 Hours: Temp Pulse Resp BP Pulse Ox O2 Del Method O2 Flow Rate 98.0 F 62 20 107/51 L 97 Nasal Cannula 3 03/16/25 08:00 03/16/25 08:00 03/16/25 08:00 03/16/25 08:00 03/16/25 08:00 03/16/25 09:05 03/16/25 09:05 Laboratory Results - last 24 hr 03/15/25 17:50: SARS-CoV-2 (PCR) Not detected, Influenza A Untype (PCR) Not detected, Influenza Type B (PCR) Not detected 03/15/25 18:44: WBC 12.7 H, RBC 4.82, Hgb 14.3, Hct 47.0, MCV 97.5, MCH 29.7, M CHC 30.4 L, RDW 15.8, Plt Count 295, MPV 9.8, Neut % (Auto) 67.9, Lymph % (Auto) 18.9, [facility] % (Auto) 8.1, Eos % (Auto) 3.0, Baso % (Auto) 0.7, Neut # (Auto) 8.6 H, Lymph # (Auto) 2.4, [facility] # (Auto) 1.0, Eos # (Auto) 0.4, Baso # (Auto) 0.1, PT 10.8, INR 0.96, APTT 23.6 L, D-Dimer 1.20 H, Sodium 139, Potassium 4.5, Chloride 100, Carbon Dioxide 35 H, Anion Gap 8.5, BUN 25 H, Creatinine 1.20 H, Estimated Creat Clear 35, Estimated GFR 46 L, Est GFR ( Amer) 55 L, G lucose 108 H, Calcium 9.5, Magnesium 2.0, Total Bilirubin 0.6, AST 25, ALT 22, Alkaline Phosphatase 86, Troponin I < 0.01, NT-Pro-B Natriuret Pep 269 H, Total Protein 7.4, Albumin 4.0, Globulin 3.4 H, Albumin/Globulin Ratio 1.2, Lipase 47 03/15/25 21:02: Troponin I < 0.01 03/15/25 23:23: POC Glucose 120 H 03/15/25 23:58: APTT 50.0, Magnesium 1.9, Troponin I < 0.01 03/16/25 01:27: APTT 46.7 L 03/16/25 01:57: APTT 48.5 L 03/16/25 05:09: POC Glucose 165 H 03/16/25 06:16: WBC 12.7 H, RBC 4.52, Hgb 13.4, Hct 44.9, MCV 99.3 H, MCH 29.6, MCHC 29.8 L, RDW 16.0, Plt Count 255, MPV 9.9, Neut % (Auto) 68.2, Lymph % (Auto) 17.7, [facility] % (Auto) 8.8, Eos % (Auto) 3.1, Baso % (Auto) 0.9, Neut # (Auto) 8.7 H, Lymph # (Auto) 2.3, [facility] # (Auto) 1.1 H, Eos # (Auto) 0.4, Baso # (Auto) 0.1, Sodium 139, Potassium 4.1, Chloride 99, Carbon Dioxide 35 H, Anion Gap 9.1, BUN 23 H, Creatinine 1.10 H, Estimated Creat Clear 37, Estimated GFR 50 L, Est GFR ( Amer) 61, Glucose 165 H D, Hemoglobin A1c 7.2 H, Calcium 9.0, Phosphorus 4.8 H, TSH 6.13 H, Free T4 1.73 03/16/25 07:25: APTT 69.2 I & O for Labs for Last 24 Hours: Intake & Output 03/13/25 03/14/25 03/15/25 03/16/25 23:59 23:59 23:59 23:59 Intake Total 290 / 290 Balance 290 / 290 Weight 300 lb 311 lb 3.2 oz Constitutional: Present severe distress Head: Present normocephalic and atraumatic ENT: Present normal exam, normal oropharynx and mucous membranes moist Neck: Present normal inspection and full ROM Respiratory: Present wheezes, crackles, diminished air movement and able to speak in complete sentences Cardiac: Present S1/S2, Tachycardia and radial pulses present GI: Present soft and distention; Absent tenderness or guarding Rectal (female): Present deferred (female): Present deferred Skin: Present intact; Absent cyanosis or jaundice Neuro: Absent alert, awake or oriented x 3 Extremities: Present normal inspection; Absent clubbing or cyanosis Psychiatric: Present normal affect and cooperative Meds Home Medications and Allergies Home Medications ?Medication ?Instructions ?Recorded ?Confirmed ?Type aspirin 81 mg tablet,delayed 81 mg PO DAILY 03/17/21 03/16/25 History release (Adult Low Dose Aspirin) loratadine 10 mg tablet 10 mg PO DAILY 03/17/21 03/16/25 History lisinopril 10 1 tab PO DAILY 1012.5MG 11/03/21 03/16/25 History mg-hydrochlorothiazide 12.5 mg tablet montelukast 10 mg tablet 10 mg PO HS 02/15/23 03/16/25 History B-complex with vitamin C (Super 1 cap PO DAILY 04/14/23 03/16/25 History B/C capsule) cholecalciferol (vitamin D3) 25 25 mcg PO DAILY 04/14/23 03/16/25 History mcg (1,000 unit) capsule potassium citrate 99 mg capsule 99 mg PO DAILY 04/14/23 03/16/25 History celecoxib 200 mg capsule 200 mg PO DAILY 06/05/24 03/16/25 History fluticasone 250 mcg-salmeterol 50 1 inh inhalation BID 90 days #180 08/07/24 03/16/25 Rx mcg/dose blistr powdr for ea inhalation (Advair Diskus) fluticasone propionate 50 2 spray intranasal DAILY 90 days 08/07/24 03/16/25 Rx mcg/actuation nasal #16 grams spray,suspension (Flonase Allergy Relief) brimonidine 0.2 % eye drops 1 drp ophthalmic (eye) BID 03/16/25 03/16/25 History latanoprost 0.005 % eye drops 1 drp ophthalmic (eye) DAILY 03/16/25 03/16/25 History levothyroxine 200 mcg tablet 200 mcg PO DAILY 03/16/25 03/16/25 History levothyroxine 25 mcg tablet 25 mcg PO DAILY 03/16/25 03/16/25 History New Prescriptions to Start Prescriptions: Allergies Allergy/AdvReac Type Severity Reaction Status Date / Time cefprozil (From Cefzil) Allergy Hives Verified 03/15/25 17:12 cephalexin (From Keflex) Allergy Hives Verified 03/15/25 17:12 cetirizine (From Zyrtec) Allergy Hives Verified 03/15/25 17:12 clemastine (From Tavist) Allergy Hives Verified 03/16/25 05:30 erythromycin base Allergy Hives Verified 03/15/25 17:12 fexofenadine (From Calista) Allergy Hives Verified 03/15/25 17:12 loratadine (From Claritin-D) Allergy Hives Verified 03/15/25 17:12 Penicillins Allergy Hives Verified 03/15/25 17:12 pseudoephedrine (From Allergy Hives Verified 03/15/25 17:12 Claritin-D) Antihistamine, Piperidine Allergy Unknown Hives Uncoded 03/15/25 17:12 Astemizole Allergy Unknown Unknown Uncoded 03/15/25 17:12 allergy reaction Cefprozil Allergy Unknown Unknown Uncoded 03/15/25 17:12 allergy reaction Cephalexin Allergy Unknown Hives Uncoded 03/15/25 17:12 Cephalosporin Allergy Unknown Hives Uncoded 03/15/25 17:12 Cetirizine Allergy Unknown Hives Uncoded 03/15/25 17:12 CLASS: 04:00 - ANTIHISTAMINE Allergy Unknown Hives Uncoded 03/15/25 17:12 DRUGS DHE 45 Allergy Unknown LOSS OF Uncoded 03/15/25 17:12 MUSCLE CONTROL From Erythromycin Stearate Allergy Unknown Hives Uncoded 03/15/25 17:12 From Fexofenadine Allergy Unknown Hives Uncoded 03/15/25 17:12 Hydrochloride Macrolide/Antibacterial Allergy Unknown Hives Uncoded 03/15/25 17:12 Penicillin Allergy Unknown Hives Uncoded 03/15/25 17:12 PSEUDOEPHEDRINE Allergy Unknown I-HIVES Uncoded 03/15/25 17:12 Terfenadine Allergy Unknown Hives Uncoded 03/15/25 17:12 DHE45 Allergy Hives Uncoded 03/15/25 17:12 Results Laboratory Findings 03/16/25 06:16 03/16/25 06:16 PT/INR, D-dimer PT 10.8 seconds (10.1-12.5) 03/15/25 18:44 INR 0.96 (0.9-1.1) 03/15/25 18:44 D-Dimer 1.20 ug/mL (0.0-0.5) H 03/15/25 18:44 Abnormal lab findings: Abnormal Labs 03/15/25 03/15/25 03/16/25 18:44 23:23 01:27 WBC 12.7 H MCV MCHC 30.4 L Neut # (Auto) 8.[address] [facility] [place] [facility] # (Auto) APTT 23.6 L 46.7 L D-Dimer 1.20 H Carbon Dioxide 35 H BUN 25 H Creatinine 1.20 H Estimated GFR 46 L Est GFR ( Amer) 55 L Glucose 108 H POC Glucose 120 H Hemoglobin A1c Phosphorus NT-Pro-B Natriuret Pep 269 H Globulin 3.4 H TSH 03/16/25 03/16/25 03/16/25 01:57 05:09 06:16 WBC 12.7 H MCV 99.3 H MCHC 29.8 L Neut # (Auto) 8.[address] # (Auto) 1.1 H APTT 48.5 L D-Dimer Carbon Dioxide 35 H BUN 23 H Creatinine 1.10 H Estimated GFR 50 L Est GFR ( Amer) Glucose 165 H D POC Glucose 165 H Hemoglobin A1c 7.2 H Phosphorus 4.8 H NT-Pro-B Natriuret Pep Globulin TSH 6.13 H Assessment and Plan *Assessment and plan (1) Acute on chronic hypoxic respiratory failure: Status: Acute Category: Medical Code(s): J96.21 - Acute and chronic respiratory failure with hypoxia (2) Pulmonary artery hypertension: Status: Acute Category: Medical Code(s): I27.21 - Secondary pulmonary arterial hypertension (3) Pulmonary embolism: Status: Acute Category: Medical Code(s): I26.99 - Other pulmonary embolism without acute cor pulmonale (4) Acute respiratory failure with hypoxia and hypercarbia: Status: Acute Category: Medical Code(s): J96.01 - Acute respiratory failure with hypoxia; J96.02 - Acute respiratory failure with hypercapnia Plan Ms. Barrera is a 60-year-old female no significant smoking history history of asthma allergic rhinitis exertional dyspnea heart failure preserved EF presented with worsening body aches and fatigue, worsening shortness of breath pulmonary was called for further evaluation and management. She does have a history of PE and DVT which was likely attributed to her taking OC pills. Her VQ scan from April 2021 high probability for PE, completed Xarelto currently not taking any anticoagulation. CTA PE protocol upon this admission central filling defect in the right main pulmonary artery and right lower lobe PA branches. No other airspace disease/consolidative changes noted. No lymphadenopathy. D-dimer on this elevation elevated at 1.2. Troponins within normal limits at 0.01. CT continued evidence of pulmonary hypertension, PA diameter stable from prior these filling defects were not evident on her CTA protocols from June 2024 and from October 2021. Concerning for recurrent PE. Patient on examination also appeared lethargic, following blood pressure worsening hypercarbic respiratory failure likely combination of asthma exacerbation along with underlying sleep apnea with AHI of 24 and she is currently not being treated. Plan: Initiate full dose anticoagulation for the noted pulmonary embolism. Patient will need indefinite anticoagulation therapy given her recurrent episodes of pulmonary embolism. Initiate BiPAP therapy for the noted hypercarbic respiratory failure. Follow-up with [facility] in 4 hours. Continue oxygen supplementation to maintain O2 saturation of 90% and DuoNebs every 6 hours along with Pulmicort every 12 scheduled Continue to receive clindamycin for mastoiditis Patient prior history of sleep apnea with AHI of 28. Currently not using her noninvasive ventilator therapy. Will follow as an outpatient basis to initiate the patient on NIV.
--- NOTE | 2025-03-16 10:37 | CA_ITS ---
FINAL REPORT CLINICAL HISTORY: PE, hx-DVT-10 years ago, morbid obesity COMPARISON: None FINDINGS: DUPLEX VENOUS SONOGRAPHY OF THE BILATERAL LOWER EXTREMITIES Multiple transverse and longitudinal scans were performed of the femoropopliteal deep venous systems, with augmentation and compression maneuvers. HISTORY: Pain edema FINDINGS: The exam is somewhat limited secondary to patient's size and noncompliance. Normal phasic flow was noted in the visualized deep venous systems. No intraluminal increased echogenicity is noted to suggest thrombus. There is normal compression and augmentation of the venous structures. No abnormal venous collaterals are seen. IMPRESSION: Limited exam as described, no evidence of deep venous thrombosis of the bilateral lower extremities. Reviewed, Interpreted and Dictated by Katie Haas MD Transcribed by Cindy Sheppard Authenticated and [facility]
[2025-03-16 11:21] LABS: POC Glucose,Bedside 153 (70-110)
[2025-03-16 11:40] LABS: ABG Base Excess 8.2 mmol/L (-2.4-2.3); ABG HCO3 35.5 mmhg (22.0-26.0); ABG Oxygen Saturation 94 % (90-100); ABG PH 7.25 mmol/L (7.35-7.45); ABG PO2 73.9 mmhg (80-100); ABG TCO2 38.1 mmhg (23-27)
[2025-03-16 11:42] LABS: Allen's Test ACCEPTABLE; Oxygen 3.5 %; Source R RADIAL
[2025-03-16 11:43] LABS: ABG PCO2 83.2 mmhg (35.0-45.0)
[2025-03-16 12:07] LABS: PTT Heparin (inpatient only) 63.8 Seconds (50-75)
--- NOTE | 2025-03-16 12:29 | EXP.CARD.CON ---
History of Present Illness History of Present Illness Consult date: 03/16/25 Requesting physician: Will Bloom Chief complaint: SOA, body aches History of present illness: 60-year-old white female established patient of our office with a history of DVT and PE in 2014 originally believed to be from oral contraception and was not on anticoagulation for many years when she started seeing us. She had a CCTA in July which was negative for coronary disease. She does have a BMI of 61 and is essentially bedbound at home per her son who is here today. Patient presented to the emergency room last night with worsening myalgias and drowsiness. In the workup CTA revealed a small nonocclusive right lower lobe and suspected medial basilar segment PE. CT also suggested pulmonary arterial dilation and suggestion of RV strain with moderate cardiomegaly. She was admitted overnight and started on heparin. 2D echo is pending. This morning she is very drowsy and frequently falling asleep during our conversation so her son is helping with history. She is on 3 L nasal cannula. Heart rate 62. PFSH [facility] Disclaimer: The information contained in this section may have been updated after the patient was seen, as this information can be updated by other users. Medical History Cataract Osteoarthritis Tooth abscess Hypertrophy of nasal turbinates Chronic sinusitis Asthma Allergic rhinitis Seasonal allergies Family history of asthma Moderate persistent asthma History of pulmonary embolism Pulmonary hypertension Shortness of breath Dyspnea on exertion History of DVT (deep vein thrombosis) Pulmonary embolism Mild right atrial enlargement Abnormal EKG Sinus tachycardia Chest pain Dyspnea Hypothyroidism Lymphedema of both lower extremities Morbid obesity with BMI of 50.0-59.9, adult HTN (hypertension) Surgical History History of colonoscopy Family History Other Cancer Coronary artery disease Heart attack Hypertension Stroke Thyroid disorder Social History Smoking Status: Never smoker alcohol intake: never substance use type: denies use current occupational status: other Travel in the last 8 weeks?: None household members: family housing: house number of children: 2 Have you lived/traveled outside US in past 30 days?: No Contact w/someone who lives/traveled outside US past 30 days?: No Exposure to someone with infectious disease in past 14 days?: No Do you have a fever (greater than 100.4 F or 38 C)?: Yes Have you tested positive for COVID-19?: No Exposed to someone with COVID-19 in past 14 days?: No Do you have a sore throat?: No Do you have a cough?: No Do you have any weakness?: Yes Do you have any diarrhea?: No Are you experiencing any unusual bleeding?: No Do you have any muscle aches/pain?: No Do you have any abdominal pain?: No Are you experiencing loss of taste or smell?: No Review of Systems Constitutional Constitutional: Reports fatigue and Reports weakness Eyes Eyes: Denies loss of vision ENT Ears, Nose, Mouth, and Throat: Denies hearing loss and Denies vertigo *Cardiovascular Cardiovascular: Denies chest pain, Reports dyspnea and Denies syncope *Respiratory Respiratory: Denies cough and Reports dyspnea *Gastrointestinal Gastrointestinal: Denies change in stool character, Denies nausea and Denies vomiting *Musculoskeletal Musculoskeletal: Denies muscle weakness Integumentary/Breasts Skin/Breast: Denies changing lesions *Neurologic Neurologic: Denies loss of vision, Denies syncope, Denies vertigo and Reports weakness Endocrine Endocrine: Reports fatigue Exam Data for Last 24 hours Vital signs and Labs for Last 24 Hours: Temp Pulse Resp BP Pulse Ox O2 Del Method O2 Flow Rate 98.0 F 62 20 107/51 L 97 Nasal Cannula 3 03/16/25 08:00 03/16/25 08:00 03/16/25 08:00 03/16/25 08:00 03/16/25 08:00 03/16/25 11:10 03/16/25 11:10 Laboratory Results - last 24 hr 03/15/25 17:50: SARS-CoV-2 (PCR) Not detected, Influenza A Untype (PCR) Not detected, Influenza Type B (PCR) Not detected 03/15/25 18:44: WBC 12.7 H, RBC 4.82, Hgb 14.3, Hct 47.0, MCV 97.5, MCH 29.7, MCHC 30.4 L, RDW 15.8, Plt Count 295, MPV 9.8, Neut % (Auto) 67.9, Lymph % (Auto) 18.9, Brown % (Auto) 8.1, Eos % (Auto) 3.0, Baso % (Auto) 0.7, Neut # (Auto) 8.6 H, Lymph # (Auto) 2.4, [place] # (Auto) 1.0, Eos # (Auto) 0.4, Baso # (Auto) 0.1, PT 10.8, INR 0.96, APTT 23.6 L, D-Dimer 1.20 H, Sodium 139, Potassium 4.5, Chloride 100, Carbon Dioxide 35 H, Anion Gap 8.5, BUN 25 H, Creatinine 1.20 H, Estimated Creat Clear 35, Estimated GFR 46 L, Est GFR ( Amer) 55 L, Glucose 108 H, Calcium 9.5, Magnesium 2.0, Total Bilirubin 0.6, AST 25, ALT 22, Alkaline Phosphatase 86, Troponin I < 0.01, NT-Pro-B Natriuret Pep 269 H, Total Protein 7.4, Albumin 4.0, Globulin 3.4 H, Albumin/Globulin Ratio 1.2, Lipase 47 03/15/25 21:02: Troponin I < 0.01 03/15/25 23:23: POC Glucose 120 H 03/15/25 23:58: APTT 50.0, Magnesium 1.9, Troponin I < 0.01 03/16/25 01:27: APTT 46.7 L 03/16/25 01:57: APTT 48.5 L 03/16/25 05:09: POC Glucose 165 H 03/16/25 06:16: WBC 12.7 H, RBC 4.52, Hgb 13.4, Hct 44.9, MCV 99.3 H, MCH 29.6, MCHC 29.8 L, RDW 16.0, Plt Count 255, MPV 9.9, Neut % (Auto) 68.2, Lymph % (Auto) 17.7, [place] % (Auto) 8.8, Eos % (Auto) 3.1, Baso % (Auto) 0.9, Neut # (Auto) 8.7 H, Lymph # (Auto) 2.3, Brown # (Auto) 1.1 H, Eos # (Auto) 0.4, Baso # (Auto) 0.1, Sodium 139, Potassium 4.1, Chloride 99, Carbon Dioxide 35 H, Anion Gap 9.1, BUN 23 H, Creatinine 1.10 H, Estimated Creat Clear 37, Estimated GFR 50 L, Est GFR ( Amer) 61, Glucose 165 H D, Hemoglobin A1c 7.2 H, Calcium 9.0, Phosphorus 4.8 H, TSH 6.13 H, Free T4 1.73 03/16/25 07:25: APTT 69.2 03/16/25 11:10: POC Glucose 153 H 03/16/25 11:28: Specimen Source R radial, O2 % 3.5, ABG pH 7.25 L, ABG pCO2 83.2 H, ABG pO2 73.9 L, ABG HCO3 35.5 H, ABG Total CO2 38.1 H, ABG O2 Saturation 94, ABG Base Excess 8.2 H, Abhijit Test Acceptable I & O for Last 24 hours: Intake & Output 03/13/25 03/14/25 03/15/25 03/16/25 23:59 23:59 23:59 23:59 Intake Total 290 / 290 Balance 290 / 290 Weight 300 lb 311 lb 3.2 oz Constitutional Constitutional: no acute distress, morbidly obese and somnolent *Routine HEENT Exam Eye: Present PERRL *Routine Respiratory Exam Respiratory: Present CTA bilaterally and wheezes; Absent accessory muscle use or crackles *Routine Cardiovascular Exam Cardiovascular: Present RRR, Normal S1 and Normal S2; Absent murmur, gallop or rubs *Routine Abdominal Exam Abdominal: Present soft; Absent tenderness *Routine Extremities Exam Extremities: Present pulses intact; Absent cyanosis or edema Comments: BLE lymphedema *Routine Skin Exam Skin: Present intact; Absent erythema or wounds *Routine Neurological Exam Neurological: Present alert and oriented X3 Routine Psychiatric Exam Psychiatric: Present cooperative [facility] Home Medications and Allergies Home Medications ?Medication ?Instructions ?Recorded ?Confirmed ?Type aspirin 81 mg tablet,delayed 81 mg PO DAILY 03/17/21 03/16/25 History release (Adult Low Dose Aspirin) loratadine 10 mg tablet 10 mg PO DAILY 03/17/21 03/16/25 History lisinopril 10 1 tab PO DAILY 10/12.5MG 11/03/21 03/16/25 History mg-hydrochlorothiazide 12.5 mg tablet montelukast 10 mg tablet 10 mg PO HS 02/15/23 03/16/25 History B-complex with vitamin C (Super 1 cap PO DAILY 04/14/23 03/16/25 History B/C capsule) cholecalciferol (vitamin D3) 25 25 mcg PO DAILY 04/14/23 03/16/25 History mcg (1,000 unit) capsule potassium citrate 99 mg capsule 99 mg PO DAILY 04/14/23 03/16/25 History celecoxib 200 mg capsule 200 mg PO DAILY 06/05/24 03/16/25 History fluticasone 250 mcg-salmeterol 50 1 inh inhalation BID 90 days #180 08/07/24 03/16/25 Rx mcg/dose blistr powdr for ea inhalation (Advair Diskus) fluticasone propionate 50 2 spray intranasal DAILY 90 days 08/07/24 03/16/25 Rx mcg/actuation nasal #16 grams spray,suspension (Flonase Allergy Relief) brimonidine 0.2 % eye drops 1 drp ophthalmic (eye) BID 03/16/25 03/16/25 History latanoprost 0.005 % eye drops 1 drp ophthalmic (eye) DAILY 03/16/25 03/16/25 History levothyroxine 200 mcg tablet 200 mcg PO DAILY 03/16/25 03/16/25 History levothyroxine 25 mcg tablet 25 mcg PO DAILY 03/16/25 03/16/25 History New Prescriptions to Start Prescriptions: Allergies Allergy/AdvReac Type Severity Reaction Status Date / Time cefprozil (From Cefzil) Allergy Hives Verified 03/15/25 17:12 cephalexin (From Keflex) Allergy Hives Verified 03/15/25 17:12 cetirizine (From Zyrtec) Allergy Hives Verified 03/15/25 17:12 clemastine (From Tavist) Allergy Hives Verified 03/16/25 05:30 erythromycin base Allergy Hives Verified 03/15/25 17:12 fexofenadine (From Calista) Allergy Hives Verified 03/15/25 17:12 loratadine (From Claritin-D) Allergy Hives Verified 03/15/25 17:12 Penicillins Allergy Hives Verified 03/15/25 17:12 pseudoephedrine (From Allergy Hives Verified 03/15/25 17:12 Claritin-D) Antihistamine, Piperidine Allergy Unknown Hives Uncoded 03/15/25 17:12 Astemizole Allergy Unknown Unknown Uncoded 03/15/25 17:12 allergy reaction Cefprozil Allergy Unknown Unknown Uncoded 03/15/25 17:12 allergy reaction Cephalexin Allergy Unknown Hives Uncoded 03/15/25 17:12 Cephalosporin Allergy Unknown Hives Uncoded 03/15/25 17:12 Cetirizine Allergy Unknown Hives Uncoded 03/15/25 17:12 CLASS: 04:00 - ANTIHISTAMINE Allergy Unknown Hives Uncoded 03/15/25 17:12 DRUGS DHE 45 Allergy Unknown LOSS OF Uncoded 03/15/25 17:12 MUSCLE CONTROL From Erythromycin Stearate Allergy Unknown Hives Uncoded 03/15/25 17:12 From Fexofenadine Allergy Unknown Hives Uncoded 03/15/25 17:12 Hydrochloride Macrolide/Antibacterial Allergy Unknown Hives Uncoded 03/15/25 17:12 Penicillin Allergy Unknown Hives Uncoded 03/15/25 17:12 PSEUDOEPHEDRINE Allergy Unknown I-HIVES Uncoded 03/15/25 17:12 Terfenadine Allergy Unknown Hives Uncoded 03/15/25 17:12 DHE45 Allergy Hives Uncoded 03/15/25 17:12 Assessment and Plan *Assessment and plan (1) Pulmonary embolism: Status: Acute Category: Medical Code(s): I26.99 - Other pulmonary embolism without acute cor pulmonale (2) (HFpEF) heart failure with preserved ejection fraction: Status: Acute Category: Medical Code(s): I50.30 - Unspecified diastolic (congestive) heart failure (3) Acute on chronic hypoxic respiratory failure: Status: Acute Category: Medical Code(s): J96.21 - Acute and chronic respiratory failure with hypoxia Plan Acute RLL/RML PE - likely provoked due to venous stasis, bed bound status at home from obesity although cannot r/o underlying coagulopathy as she also had VTE in 2014 while on OCP - nonocclusive thrombus, high comorbidities, not a candidate for thrombectomy - ECHO here is pending - 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
--- NOTE | 2025-03-16 13:50 | EXP.ACUTE.PN ---
Subjective *Date: 03/16/25 *Time: 21:17 Interval history: On 3 L this morning on rounds. He still feels short of breath however. No nausea or vomiting. Denies chest pain. Pulmonology and cardiology evaluating today. Medical Exam Vital signs and Labs for Last 24 Hours: Vital Signs Temp Pulse Pulse Resp BP BP Pulse Ox 03/16/25 13:01 92 L 03/16/25 13:00 03/16/25 12:00 98.6 F 65 20 110/54 L 97 03/16/25 11:10 03/16/25 09:05 03/16/25 08:00 70 03/16/25 08:00 98.0 F 62 20 107/51 L 97 03/16/25 08:00 03/16/25 06:56 03/16/25 04:57 03/16/25 04:00 97.8 F 76 16 124/68 93 L 03/16/25 04:00 80 03/16/25 03:00 03/16/25 01:00 03/16/25 00:00 70 03/15/25 23:00 03/15/25 22:58 97.8 F 74 20 142/90 H 03/15/25 22:52 92 L 03/15/25 22:00 70 107/53 L 96 03/15/25 21:30 74 19 107/56 L 96 03/15/25 21:12 76 14 112/52 L 94 L 03/15/25 21:01 76 22 103/59 L 94 L 03/15/25 20:00 80 18 117/69 90 L 03/15/25 19:30 79 22 123/68 90 L 03/15/25 19:00 81 16 199/66 H 92 L 03/15/25 18:40 84 19 102/63 L 91 L 03/15/25 18:11 92 H 115/68 92 L 03/15/25 17:19 97.8 F 89 18 135/70 88 L O2 Del Method O2 Flow Rate FiO2 03/16/25 13:01 BiPAP 35 03/16/25 13:00 35 03/16/25 12:00 03/16/25 11:10 Nasal Cannula 3 03/16/25 09:05 Nasal Cannula 3 03/16/25 08:00 03/16/25 08:00 Nasal Cannula 3.5 03/16/25 08:00 Nasal Cannula 3 03/16/25 06:56 Nasal Cannula 3 03/16/25 04:57 Nasal Cannula 3 03/16/25 04:00 Room Air 03/16/25 04:00 03/16/25 03:00 Nasal Cannula 3 03/16/25 01:00 Nasal Cannula 3 03/16/25 00:00 03/15/25 23:00 Nasal Cannula 3 03/15/25 22:58 Nasal Cannula 2 03/15/25 22:52 Nasal Cannula 3 03/15/25 22:00 Nasal Cannula 2 03/15/25 21:30 Nasal Cannula 2 03/15/25 21:12 Nasal Cannula 2 03/15/25 21:01 Nasal Cannula 2 03/15/25 20:00 03/15/25 19:30 Nasal Cannula 2 03/15/25 19:00 Nasal Cannula 2 03/15/25 18:40 03/15/25 18:11 Nasal Cannula 03/15/25 17:19 Intake and Output 03/15/25 03/16/25 03/16/25 23:59 07:59 15:59 Intake Total 290 / 290 Balance 290 / 290 Intake: Intake, Oral Amount 240 / 240 Intake, Total IV Amount 50 / 50 Clindamycin Phosphate/D5w 600 50 / 50 mg In 50 ml @ 100 mls/hr IV ONCE ONE Rx#:[id number] Other: Weight 136.078 kg 141.158 kg 141.16 kg Patient Weight 03/16/25 23:59 Weight 141.16 kg Laboratory Results - last 24 hr 03/15/25 17:50: SARS-CoV-2 (PCR) Not detected, Influenza A Untype (PCR) Not detected, Influenza Type B (PCR) Not detected 03/15/25 18:44: WBC 12.7 H, RBC 4.82, Hgb 14.3, Hct 47.0, MCV 97.5, MCH 29.7, MCHC 30.4 L, RDW 15.8, Plt Count 295, MPV 9.8, Neut % (Auto) 67.9, Lymph % (Auto) 18.9, [place] % (Auto) 8.1, Eos % (Auto) 3.0, Baso % (Auto) 0.7, Neut # (Auto) 8.6 H, Lymph # (Auto) 2.4, [place] # (Auto) 1.0, Eos # (Auto) 0.4, Baso # (Auto) 0.1, PT 10.8, INR 0.96, APTT 23.6 L, D-Dimer 1.20 H, Sodium 139, Potassium 4.5, Chloride 100, Carbon Dioxide 35 H, Anion Gap 8.5, BUN 25 H, Creatinine 1.20 H, Estimated Creat Clear 35, Estimated GFR 46 L, Est GFR ( Amer) 55 L, Glucose 108 H, Calcium 9.5, Magnesium 2.0, Total Bilirubin 0.6, AST 25, ALT 22, Alkaline Phosphatase 86, Troponin I < 0.01, NT-Pro-B Natriuret Pep 269 H, Total Protein 7.4, Albumin 4.0, Globulin 3.4 H, Albumin/Globulin Ratio 1.2, Lipase 47 03/15/25 21:02: Troponin I < 0.01 03/15/25 23:23: POC Glucose 120 H 03/15/25 23:58: APTT 50.0, Magnesium 1.9, Troponin I < 0.01 03/16/25 01:27: APTT 46.7 L 03/16/25 01:57: APTT 48.5 L 03/16/25 05:09: POC Glucose 165 H 03/16/25 06:16: WBC 12.7 H, RBC 4.52, Hgb 13.4, Hct 44.9, MCV 99.3 H, MCH 29.6, MCHC 29.8 L, RDW 16.0, Plt Count 255, MPV 9.9, Neut % (Auto) 68.2, Lymph % (Auto) 17.7, [place] % (Auto) 8.8, Eos % (Auto) 3.1, Baso % (Auto) 0.9, Neut # (Auto) 8.7 H, Lymph # (Auto) 2.3, [place] # (Auto) 1.1 H, Eos # (Auto) 0.4, Baso # (Auto) 0.1, Sodium 139, Potassium 4.1, Chloride 99, Carbon Dioxide 35 H, Anion Gap 9.1, BUN 23 H, Creatinine 1.10 H, Estimated Creat Clear 37, Estimated GFR 50 L, Est GFR ( Amer) 61, Glucose 165 H D, Hemoglobin A1c 7.2 H, Calcium 9.0, Phosphorus 4.8 H, TSH 6.13 H, Free T4 1.73 03/16/25 07:25: APTT 69.2 03/16/25 11:10: POC Glucose 153 H 03/16/25 11:28: Specimen Source R radial, O2 % 3.5, ABG pH 7.25 L, ABG pCO2 83.2 H, ABG pO2 73.9 L, ABG HCO3 35.5 H, ABG Total CO2 38.1 H, ABG O2 Saturation 94, ABG Base Excess 8.2 H, Abhijit Test Acceptable 03/16/25 11:39: APTT 63.8 I & O for Labs for Last 24 Hours: Intake & Output 03/13/25 03/14/25 03/15/25 03/16/25 23:59 23:59 23:59 23:59 Intake Total 290 / 290 Balance 290 / 290 Weight 136.078 kg 141.16 kg Constitutional: Present moderate distress, morbidly obese, chronically ill appearing and cooperative Head: Present atraumatic and normocephalic ENT: Present normal exam Comment:: Cushingoid facies Respiratory: Present accessory muscle use and diminished air movement; Absent rhonchi, wheezes or crackles Cardiac: Present Reg Rate and Rhythm GI: Present soft and normal bowel sounds; Absent distention or tenderness Extremities: Present normal inspection, full ROM and edema (Chronic lymphedema lower extremities) Skin: Present intact; Absent erythema Neuro: Present Grossly Intact, alert, awake, oriented x 3 and moves all extremities Assessment and Plan *Assessment and plan (1) Acute respiratory failure with hypoxia and hypercarbia: Status: Acute Category: Medical Code(s): J96.01 - Acute respiratory failure with hypoxia; J96.02 - Acute respiratory failure with hypercapnia (2) Pulmonary embolism: Status: Acute Category: Medical Code(s): I26.99 - Other pulmonary embolism without acute cor pulmonale (3) (HFpEF) heart failure with preserved ejection fraction: Status: Acute Category: Medical Code(s): I50.30 - Unspecified diastolic (congestive) heart failure (4) Chiari malformation: Status: Acute Category: Medical (5) Pulmonary artery hypertension: Status: Acute Category: Medical Code(s): I27.21 - Secondary pulmonary arterial hypertension (6) HLD (hyperlipidemia): Status: Acute Category: Medical Code(s): E78.5 - Hyperlipidemia, unspecified (7) Diabetes mellitus: Status: Acute Category: Medical Code(s): E11.9 - Type 2 diabetes mellitus without complications (8) Asthma: Status: Acute Category: Medical Code(s): J45.909 - Unspecified asthma, uncomplicated (9) Headache: Status: Acute Category: Medical Code(s): R51.9 - Headache, unspecified (10) Obesity: Status: Acute Qualifiers: Body mass index: BMI 50.0-59.9 Obesity classification: adult class 3 (BMI >= 40) Obesity type: due to excess calories Serious obesity comorbidity presence: with serious comorbidity Qualified Code(s): E66.01 - Morbid (severe) obesity due to excess calories; Z68.43 - Body mass index (BMI) 50-59.9, adult Category: Medical Code(s): E66.9 - Obesity, unspecified Plan 60-year-old female with chronic pulmonary hypertension, HFpEF, previous PEs. Severe morbid obesity with immobility/bedbound status. Presented with respiratory distress. Found to have PEs. Necessitating inpatient care. Pulmonology and cardiology assisting with care today. Continues to require inpatient management. Problems addressed as follows: #Pulmonary embolism #Acute on chronic hypoxemic and hypercapnic respiratory failure -Discussed case with pulmonology, patient's blood gas worsening this afternoon. Placed temporarily on BiPAP due to hypercapnia and respiratory acidosis with pH of 7.26. -Goal sats greater 90%. -White count 12.7. -Discussed case with pulmonology, recommend discontinuing heparin drip, transition to therapeutic dose oral anticoagulation with Xarelto 15 mg twice daily -Repeat VBG in 4 hours after initiating BiPAP. Continue DuoNebs every 6 hours and Pulmicort twice daily - Continue clindamycin for mastoiditis - Pulmonology to follow-up on outpatient basis for noninvasive ventilation due to sleep apnea with AHI of 28 #Pulmonary artery hypertension #Acute on chronic HFpEF Prior echocardiogram with RVSP of 35-40 with improvement to RVSP of 30 after completed treatment for pulmonary emboli Repeat echo obtained, formal read still pending. - No plan for intervention for PEs. - Continue diuresis due to elevated RVSP with Bumex 1 mg daily Will obtain repeat echocardiogram in a.m. - CCTA July 2024 negative for coronary disease - Her morbid obesity with BMI of 61 is a complicating factor - proBNP 269, no edema noted on chest CT - Recommend aggressive weight loss #Morbid obesity, BMI 61 - Patient is already bedbound at home, this is life limiting, recommend bariatrics referral outpatient - Consider GLP-1 outpatient #Headache #Chiari malformation #Mastoiditis Patient reports posterior headache as well as ear infection recently. Mild mastoiditis found on CT imaging. Will continue clindamycin. Also noted to have grade 1 Chiari malformation. Continue blood pressure management #DM 2 Patient reports new diagnosis but unsure of A1c. Found to be 7.2, TSH of 6. Kidney function normal with BUN 23, creatinine 1.1. Repeat CBC, CMP, magnesium ordered for the morning. Continue sliding scale insulin with fingersticks ACHS #CKD stage IIIa Creatinine at baseline Monitor intake and Full code Diabetic diet Alisha
--- NOTE | 2025-03-16 14:34 | HMH.PTEV ---
Physical Therapy Evaluation Rehab PT IP Evaluation Start: 03/16/25 09:11 Freq: ONCE Status: Active Protocol: Document 03/16/25 14:17 ANDREA (Rec: 03/16/25 14:34 PHORAMANDA [id number]) Subjective/History History History This is a 60-year-old female with past medical history of prior pulmonary emboli now off of anticoagulation, ear pain, HFpEF, HLD, osteoarthritis, obesity, DM 2, asthma. States that for the past week she has experiencing increased shortness of breath and cough that is more substantial than her baseline. CT imaging with nonocclusive filling defect in the right lower lobe lobar pulmonary artery branch concerning for small PE also questionable filling defect of the right lower lobe medial basilar segmental branch. Patient currently lives at home with her son and has 2 steps to enter her home. Pt is able to transfer to bathroom using her hands on the lorenzana/ railing independently. Pt is usually bedbound otherwise. Subjective Subjective Pt presents resting in bed on BiPAP. She is oriented to her name and . Pt has difficulty speaking with mask on so history was taken with mainly yes/no questions. Pt is willing to participate with PT this pm. Pt returned to bed with call light in reach. [facility] How much help from another person do you currently need... Turning from your back to your side None while in a flat bed without using bedrails? Moving from lying on back to sitting on A little the side of a flat bed without using bedrails? Moving to and from a bed to a chair ( A little including a wheelchair)? Standing up from a chair using your arms A little ? (e.g., wheelchair, bedside chair) Walking in hospital room? A little Climbing 3-5 steps with a railing? A little Mobility Score 19 Mobility Level [facility] Mobility Calculator Mobility 6 Walk 10 steps or more Rehab PT IP Eval Objective Appearance Patient Behavior Appropriate,Cooperative Patient Orientation Person,Birthday Difficulty following instructions none Balance Ability to Arise Able, uses arms to help Sitting Balance Steady, safe Standing Balance Steady, wide stance Dynamic Sitting Balance Ability Normal Dynamic Standing Balance Ability Normal Transfers Bed Transfer Ability Minimal x 1 (25% assist) Chair Transfer Ability Minimal x 1 (25% assist) Sit to Stand Bed Transfer Ability Minimal x 1 (25% assist) Sit to Stand Chair Transfer Ability Minimal x 1 (25% assist) Rehab PT IP prob,goals,plan Problems Date of Evaluation: 03/16/25 PT IP Problems Bed Mobility,Transfers,Gait, Safety Rehab Potential Rehab Potential Good Plan PT Intervention Plan Bed Mobility,Transfers,Gait, Safety,Therapeutic Exercise PT Plan Frequency Daily Duration LOS Discharge Goals Bed Transfer Ability Independent Sit to Stand Chair Transfer Ability Contact Guard/Hand Hold Ambulation Distance (feet) 5 Discharge Plan PT Discharge Plan Patient is currently most appropriate to return home once medically stable for d/c. Recommend home health therapy to further increase LE and trunk strength and cardiovascular endurance. Skilled therapy is currently indicated to improve LE strength and endurance to return to PLOF with all ADLs and transfers. Eval Complexity Eval Charge Codes 48344 - High Complexity PHYSICIAN CERTIFICATION: I certify the specified therapy services for [place] are required, authorized, and reviewed every 30 days.
--- NOTE | 2025-03-16 15:14 | SW/DCPLANNER ---
Addendum entered by Dayana Huerta 03/19/25 13:43: Spoke with patient again about out patient therapy. Patient is still agreeable to come back here at [facility] for out patient therapy. I also let patient know that if a family member was not able to bring her that she could use the [facility] bus with her insurance. I let the medicaid billing clerk know that patient is agreeable to outpatient therapy when she is discharged. Beverly LEWIS [employer] Installer Addendum entered by Snow Ziegler RN 03/16/25 16:11: Patient unable to have home health and is willing to do outpatient therapy here on Mondays and Wednesdays. Relayed information to Dr. Bloom and will follow up on Wednesday to make sure it is scheduled. Original Note: Spoke with patient once she is medically stable and ready for d/c if she would be interested in home health services. Patient stated that she would. With the patient's insurance it will be hard to get her established with home health. I have texted [facility] to see if they accept the patient's insurance. Will update once i hear back. Beverly Todd
--- NOTE | 2025-03-16 15:55 | PC.NURSE ---
Patient able to sit in chair for an hour and a half. VS stable. Patient placed on bipap due to increased co2. Patient alert and oriented X 4. Lung sounds diminished
[2025-03-16 17:17] LABS: VBG Base Excess 7.9 mmol/L (-2.4-2.3); VBG HCO3 34.5 mmol/L (23-30); VBG Oxygen Saturation 87.3 % (50-70); VBG PH 7.29 mmol/L (7.31-7.41); VBG Total CO2 36.7 mmol/L (23-27)
[2025-03-16] MEDS: RIVAROXABAN 15MG TABLET 15 MG PO (18:03)
[2025-03-16 18:15] LABS: POC Glucose,Bedside 108 (70-110)
[2025-03-16] MEDS: IPRATROPIUM/ALBUTEROL 3 ML NEB IH (18:55)
[2025-03-16] MEDS: BUDESONIDE 0.5MG/2ML NEB 0.5 MG IH (18:55)
[2025-03-16 20:16] LABS: POC Glucose,Bedside 98 (70-110)
[2025-03-16] MEDS: MONTELUKAST SODIUM 10MG TAB 10 MG PO (20:31)
[2025-03-16] MEDS: TRAMADOL 50MG TABLET 50 MG PO (20:44)
--- NOTE | 2025-03-16 20:44 | PC.NURSE ---
Addendum entered by Hai Conner RN 03/17/25 06:54: wore bipap consistently since 330 this morning and has been asleep since. aroused with shaking, patient will open eyes. Original Note: patient c/o pain in hips and headache - gave tylenol. hospitalist came in room shortly after with new tramadol order.
[2025-03-17] VITALS (17 sets, daily range): BP systolic 101–140; BP diastolic 57–78; PULSE 52–80; RESP 16–26; TEMP 36.5–36.9; O2SAT 93–99; BMI 61.4
[2025-03-17] MEDS: IPRATROPIUM/ALBUTEROL 3 ML NEB IH ×5 (00:17→21:24)
[2025-03-17] MEDS: ONDANSETRON 4MG/2ML VIAL 4 MG IV (00:23)
[2025-03-17] MEDS: CLINDAMYCIN PHOSPHATE/D5W 600 MG/50 ML PIGGYBACK 100 MG IV ×4 (00:23→23:57)
[2025-03-17 00:39] LABS: Lactate Venous 1.5 mmol/L (0.4-2.0); VBG Base Excess 6.3 mmol/L (-2.4-2.3); VBG HCO3 33.1 mmol/L (23-30); VBG Oxygen Saturation 75.3 % (50-70); VBG PH 7.28 mmol/L (7.31-7.41); VBG PO2 41.2 mmol/L (28-40); VBG Total CO2 35.3 mmol/L (23-27)
[2025-03-17 01:09] LABS: VBG PCO2 72.7 mmol/L (35-51)
[2025-03-17] MEDS: PROCHLORPERAZINE 10MG/2ML VIAL 5 MG IV (02:58)
[2025-03-17] MEDS: BUDESONIDE 0.5MG/2ML NEB 0.5 MG IH ×2 (05:55→19:08)
[2025-03-17] MEDS: humaLOG 100 UNITS/ML 10ML VIAL (SSI) SUBCUT (06:27)
[2025-03-17 06:34] LABS: POC Glucose,Bedside 196 (70-110)
[2025-03-17 06:44] LABS: ABG Base Excess 10.9 mmol/L (-2.4-2.3); ABG HCO3 39.9 mmhg (22.0-26.0); ABG Oxygen Saturation 93 % (90-100); ABG PO2 73.6 mmhg (80-100); ABG TCO2 43.6 mmhg (23-27)
[2025-03-17 06:45] LABS: Oxygen 40% Bipap22/10 %; Vent Rate 24
[2025-03-17 06:46] LABS: Allen's Test Acceptable; Source Left Radial
[2025-03-17 06:50] LABS: ABG PH 7.14 mmol/L (7.35-7.45)
[2025-03-17 06:54] LABS: ABG PCO2 120.5 mmhg (35.0-45.0)
[2025-03-17 08:03] LABS: Hematocrit 46.9 % (37.0-47.0); Hemoglobin 13.8 g/dL (12.2-16.2); Mean Corpuscular Volume 100.6 fl (81-99); Red Blood Count 4.66 M/mm3 (4.20-5.40); White Blood Count 12.4 K/mm3 (4.8-10.8)
[2025-03-17 08:04] LABS: Basophils # 0.1 K/mm3 (0-0.2); Basophils % 0.7 % (0.1-2.0); Eosinophils % 0.2 % (0.1-12.0); Immature Granulocytes # 0.32 10^3uL; Immature Granulocytes % 2.6 %; Lymphocytes # 1.1 K/mm3 (0.7-4.5); Lymphocytes % 8.7 % (10-50); Mean Corpuscular HGB Conc 29.4 g/dL (31.8-35.4); Mean Corpuscular Hemoglobin 29.6 pg (27.0-31.2); Mean Platelet Volume 9.9 fl (7.4-10.4); Monocytes # 0.8 K/mm3 (0.1-1.0); Monocytes % 6.1 % (1.7-9.3); Neutrophils # 10.1 K/mm3 (1.8-7.8); Neutrophils % 81.7 % (37.0-80.0); Nucleated Red Blood Cells # 0.02 10^3/uL; Nucleated Red Blood Cells % 0.2 %; Platelet Count 253 K/mm3 (142-424); Red Cell Distribution Width-SD 59.2 fL
[2025-03-17 08:20] LABS: Alanine Aminotransferase 21 U/L (12-78); Albumin/Globulin Ratio 1.1 (1.1-1.8); Alkaline Phosphatase 90 U/L (38-126); Anion Gap 9.5 mEq/L (5-15); Aspartate Amino Transferase 32 U/L (14-36); Bilirubin,Total 0.5 mg/dl (0.2-1.3); Blood Urea Nitrogen 29 mg/dl (7-17); Calcium 8.9 mg/dl (8.4-10.2); Carbon Dioxide 35 mmol/L (22.0-30.0); Chloride 97 mmol/L (98-107); Creatinine Clearance Estimated 37 mL/min (50-200); Estimated Glomerular Filt Rate 50 ml/min (>60); GFR (African American) 61 ML/MIN (>60); Globulin 3.5 g/dL (1.3-3.2); Glucose 180 mg/dl (74-100); Magnesium 2.2 mg/dl (1.6-2.3); Potassium 5.5 mmoL/L (3.5-5.1); Sodium 136 mmol/L (136-145); Total Protein,Serum 7.5 g/dl (6.3-8.2)
[2025-03-17 08:46] LABS: Lactate Venous 1.9 mmol/L (0.4-2.0); VBG Base Excess 7.6 mmol/L (-2.4-2.3); VBG HCO3 35.4 mmol/L (23-30); VBG Oxygen Saturation 95.8 % (50-70); VBG PH 7.21 mmol/L (7.31-7.41); VBG PO2 83.7 mmol/L (28-40); VBG Total CO2 38.2 mmol/L (23-27)
[2025-03-17] MEDS: LEVOTHYROXINE 100MCG (0.1MG) TAB 200 MCG PO (08:53)
[2025-03-17] MEDS: BUMETANIDE 1MG/4ML VIAL 1 MG IV ×2 (08:53→18:25)
[2025-03-17] MEDS: RIVAROXABAN 15MG TABLET 15 MG PO ×2 (08:53→17:43)
[2025-03-17] MEDS: LATANOPROST 0.005% OPTH SOLN 2.5ML OP (08:54)
[2025-03-17 11:12] LABS: POC Glucose,Bedside 138 (70-110)
[2025-03-17 11:57] LABS: Microscopic, Urine URINE MICROSCOPIC (MICROSCOPIC)
[2025-03-17 12:00] LABS: Appearance,Urine CLEAR (Clear); Bilirubin,Urine Negative (Negative); Blood, Urine 1+ (Negative); Color,Urine YELLOW (Yellow); Glucose,Urine (UA) Negative (Negative); Ketones,Urine Negative (Negative); Leukocyte Esterase,Urine Negative (Negative); Nitrate,Urine Negative (Negative); Protein,Urine Negative (Negative); Specific Gravity, Urine 1.025 (1.005-1.030); Urobilinogen,Urine 0.2 EU/dl (0.2)
--- NOTE | 2025-03-17 12:15 | PC.NURSE ---
Pt has had no urinary output this shift, bladder scan completed and showed >958mL. Bladder appears distended, but is not tender to touch. Pt states she does not feel the need to urinate and has had no incontinent episodes. Dr Bloom notified and gave verbal order to insert lantigua catheter. 16 fr lantigua cath inserted and anchored. 1200mL of dark, cloudy urine drained into lantigua bag within 2 minutes. UA sent to lab and CAUTI information added to discharge plan.
[2025-03-17 12:18] LABS: Hyaline Casts,Urine OCC #/lpf (0)
[2025-03-17 12:47] LABS: Lactate Venous 1.7 mmol/L (0.4-2.0); VBG Base Excess 5.7 mmol/L (-2.4-2.3); VBG HCO3 33.9 mmol/L (23-30); VBG Oxygen Saturation 76.3 % (50-70); VBG Total CO2 36.6 mmol/L (23-27)
[2025-03-17 12:50] LABS: VBG PH 7.19 mmol/L (7.31-7.41)
[2025-03-17 12:51] LABS: VBG PCO2 90.1 mmol/L (35-51)
[2025-03-17] MEDS: METHYLPREDNISOLONE SOD SUCC 40MG VIAL 40 MG IV (14:34)
[2025-03-17 16:53] LABS: POC Glucose,Bedside 119 (70-110)
--- NOTE | 2025-03-17 17:55 | EXP.ACUTE.PN ---
Subjective *Date: 03/17/25 *Time: 17:55 Interval history: Worsening respiratory distress this morning prior to rounds. Blood gas obtained showing pH of 7.14, PCO2 of 120. Patient placed on BiPAP. Frankly obtunded. Would open eyes very briefly to voice but dozes back off. Did not want to wear BiPAP last night. No significant urine output this morning after rounds, bladder scan showed approximately a liter in her bladder. Catheter placed with prompt evacuation of at least 1.5 L of urine output. Remains afebrile. No nausea or vomiting. Medical Exam Vital signs and Labs for Last 24 Hours: Vital Signs Temp Pulse Pulse Resp BP Pulse Ox O2 Del Method 03/17/25 17:00 BiPAP 03/17/25 16:00 98.5 F 62 23 123/67 96 BiPAP 03/17/25 15:00 BiPAP 03/17/25 14:00 98 BiPAP 03/17/25 14:00 54 L 22 101/57 L 97 BiPAP 03/17/25 13:00 BiPAP 03/17/25 12:00 60 03/17/25 12:00 59 L 22 122/68 95 BiPAP 03/17/25 11:07 62 03/17/25 11:07 59 L 03/17/25 11:07 03/17/25 11:00 BiPAP 03/17/25 10:00 59 L 25 H 124/69 95 BiPAP 03/17/25 09:00 BiPAP 03/17/25 08:00 70 03/17/25 08:00 24 95 BiPAP 03/17/25 08:00 98 F 66 18 140/78 95 03/17/25 06:51 BiPAP 03/17/25 05:55 70 03/17/25 05:55 76 03/17/25 05:55 96 BiPAP 03/17/25 05:55 03/17/25 05:00 BiPAP 03/17/25 04:00 80 03/17/25 04:00 97.7 F 68 17 132/74 94 L CPAP 03/17/25 03:00 BiPAP 03/17/25 01:45 03/17/25 01:00 BiPAP 03/17/25 00:45 03/17/25 00:18 71 03/17/25 00:18 73 03/17/25 00:00 80 03/17/25 00:00 98.3 F 79 16 114/65 93 L CPAP 03/16/25 23:00 Nasal Cannula 03/16/25 22:20 03/16/25 21:00 Room Air 03/16/25 20:50 03/16/25 20:00 80 03/16/25 20:00 Nasal Cannula, BiPAP 03/16/25 19:31 99.4 F 76 18 103/40 L 93 L Nasal Cannula 03/16/25 18:55 75 03/16/25 18:55 79 03/16/25 18:55 92 L Nasal Cannula 03/16/25 18:37 Room Air O2 Flow Rate FiO2 03/17/25 17:00 03/17/25 16:00 03/17/25 15:00 03/17/25 14:00 40 03/17/25 14:00 03/17/25 13:00 03/17/25 12:00 03/17/25 12:00 03/17/25 11:07 03/17/25 11:07 03/17/25 11:07 40 03/17/25 11:00 03/17/25 10:00 03/17/25 09:00 03/17/25 08:00 03/17/25 08:00 40 03/17/25 08:00 03/17/25 06:51 03/17/25 05:55 03/17/25 05:55 03/17/25 05:55 40 03/17/25 05:55 40 03/17/25 05:00 03/17/25 04:00 03/17/25 04:00 03/17/25 03:00 03/17/25 01:45 35 03/17/25 01:00 03/17/25 00:45 35 03/17/25 00:18 03/17/25 00:18 03/17/25 00:00 03/17/25 00:00 03/16/25 23:00 3 03/16/25 22:20 35 03/16/25 21:00 03/16/25 20:50 35 03/16/25 20:00 03/16/25 20:00 3 03/16/25 19:31 3 03/16/25 18:55 03/16/25 18:55 03/16/25 18:55 3 03/16/25 18:37 Intake and Output 03/17/25 03/17/25 03/17/25 07:59 15:59 23:59 Intake Total 290 / 390 50 / 390 50 / 390 Output Total 1200 / 1200 Balance 290 / -810 -1150 / -810 50 / -810 Intake: Intake, Oral Amount 240 / 240 Intake, Total IV Amount 50 / 150 50 / 150 50 / 150 Clindamycin Phosphate/D5w 600 50 / 150 50 / 150 50 / 150 mg In 50 ml @ 100 mls/hr IV Q8H [facility] Rx#:[id number] Output: Output, Urine Amount (Catheter) 1200 / 1200 [place] 1200 / 1200 Other: Number of Unmeasured Voids 0 0 Weight 142.11 kg Patient Weight 03/17/25 23:59 Weight 142.11 kg Laboratory Results - last 24 hr 03/16/25 17:11: POC Glucose 108 03/16/25 20:05: POC Glucose 98 03/17/25 00:25: VBG pH 7.28 L, VBG pCO2 72.7 H, VBG pO2 41.2 H, VBG HCO3 33.1 H, VBG Total CO2 35.3 H, VBG O2 Saturation 75.3 H, VBG Base Excess 6.3 H, VBG Lactic Acid 1.5 03/17/25 06:23: POC Glucose 196 H 03/17/25 06:26: Specimen Source Left radial, O2 % 40% bipap22/10, ABG pH 7.14 L*, ABG pCO2 120.5 H, ABG pO2 73.6 L, ABG HCO3 39.9 H, ABG Total CO2 43.6 H, ABG O2 Saturation 93, ABG Base Excess 10.9 H, Abhijit Test Acceptable, Vent Rate 24 03/17/25 07:35: WBC 12.4 H, RBC 4.66, Hgb 13.8, Hct 46.9, MCV 100.6 H, MCH 29.6, MCHC 29.4 L, RDW 16.0, Plt Count 253, MPV 9.9, Neut % (Auto) 81.7 H, Lymph % (Auto) 8.7 L, Atkinson % (Auto) 6.1, Eos % (Auto) 0.2, Baso % (Auto) 0.7, Neut # (Auto) 10.1 H, Lymph # (Auto) 1.1, Atkinson # (Auto) 0.8, Eos # (Auto) 0.0, Baso # (Auto) 0.1, Sodium 136, Potassium 5.5 H D, Chloride 97 L, Carbon Dioxide 35 H, Anion Gap 9.5, BUN 29 H D, Creatinine 1.10 H, Estimated Creat Clear 37, Estimated GFR 50 L, Est GFR ( Amer) 61, Glucose 180 H, Calcium 8.9, Magnesium 2.2 D, Total Bilirubin 0.5, AST 32 D, ALT 21, Alkaline Phosphatase 90, Total Protein 7.5, Albumin 4.0, Globulin 3.5 H, Albumin/Globulin Ratio 1.1 03/17/25 08:15: VBG pH 7.21 L, VBG pCO2 90.0 H, VBG pO2 83.7 H, VBG HCO3 35.4 H, VBG Total CO2 38.2 H, VBG O2 Saturation 95.8 H, VBG Base Excess 7.6 H, VBG Lactic Acid 1.9 03/17/25 11:04: POC Glucose 138 H 03/17/25 11:50: Urine Color Yellow, Urine Appearance Clear, Urine pH 6.0, Ur Specific [place] 1.025, Urine Protein Negative, Urine Glucose (UA) Negative, Urine Ketones Negative, Urine Blood 1+ A, Urine Nitrate Negative, Urine Bilirubin Negative, Urine Urobilinogen 0.2, Ur Leukocyte Esterase Negative, Urine RBC 3-5, Urine WBC None, Ur Squamous Epith Cells 3-5, Urine Bacteria None, Hyaline Casts Occ 03/17/25 12:30: VBG pH 7.19 L, VBG pCO2 90.1 H, VBG pO2 41.0 H, VBG HCO3 33.9 H, VBG Total CO2 36.6 H, VBG O2 Saturation 76.3 H, VBG Base Excess 5.7 H, VBG Lactic Acid 1.7 03/17/25 16:41: POC Glucose 119 H I & O for Labs for Last 24 Hours: Intake & Output 03/14/25 03/15/25 03/16/25 03/17/25 23:59 23:59 23:59 23:59 Intake Total 790 / 1080 390 / 390 Output Total 950 / 950 1200 / 1200 Balance -160 / 130 -810 / -810 Weight 136.078 kg 141 kg 142.11 kg Constitutional: Present moderate distress, morbidly obese, chronically ill appearing and somnolent Head: Present atraumatic and normocephalic ENT: Present normal exam Comment:: Cushingoid facies Respiratory: Present accessory muscle use and diminished air movement; Absent rhonchi, wheezes or crackles Cardiac: Present Reg Rate and Rhythm GI: Present soft and normal bowel sounds; Absent distention or tenderness Comment:: Catheter in place Extremities: Present normal inspection, full ROM and edema (Chronic lymphedema lower extremities) Skin: Present intact; Absent erythema Neuro: Present Grossly Intact and moves all extremities; Absent alert, awake or oriented x 3 Comment:: Spontaneous movement. Obtunded Assessment and Plan *Assessment and plan (1) Acute respiratory failure with hypoxia and hypercarbia: Status: Acute Category: Medical Code(s): J96.01 - Acute respiratory failure with hypoxia; J96.02 - Acute respiratory failure with hypercapnia (2) Pulmonary embolism: Status: Acute Category: Medical Code(s): I26.99 - Other pulmonary embolism without acute cor pulmonale (3) (HFpEF) heart failure with preserved ejection fraction: Status: Acute Category: Medical Code(s): I50.30 - Unspecified diastolic (congestive) heart failure (4) Chiari malformation: Status: Acute Category: Medical (5) Pulmonary artery hypertension: Status: Acute Category: Medical Code(s): I27.21 - Secondary pulmonary arterial hypertension (6) HLD (hyperlipidemia): Status: Acute Category: Medical Code(s): E78.5 - Hyperlipidemia, unspecified (7) Diabetes mellitus: Status: Acute Category: Medical Code(s): E11.9 - Type 2 diabetes mellitus without complications (8) Asthma: Status: Acute Category: Medical Code(s): J45.909 - Unspecified asthma, uncomplicated (9) Headache: Status: Acute Category: Medical Code(s): R51.9 - Headache, unspecified (10) Obesity: Status: Acute Qualifiers: Body mass index: BMI 50.0-59.9 Obesity classification: adult class 3 (BMI >= 40) Obesity type: due to excess calories Serious obesity comorbidity presence: with serious comorbidity Qualified Code(s): E66.01 - Morbid (severe) obesity due to excess calories; Z68.43 - Body mass index (BMI) 50-59.9, adult Category: Medical Code(s): E66.9 - Obesity, unspecified Plan 60-year-old female with chronic pulmonary hypertension, HFpEF, previous PEs. Severe morbid obesity with immobility/bedbound status. Presented with respiratory distress. Found to have PEs. Necessitating inpatient care. Pulmonology and cardiology assisting with care today. Worsening respiratory status overnight. Hypercapnic failure this morning. Initiated BiPAP. Escalated to ICU level care. Continues to require inpatient management. Problems addressed as follows: #Pulmonary embolism #Acute on chronic hypoxemic and hypercapnic respiratory failure -Discussed case with pulmonology, patient's blood gas worsening this morning. Placed on BiPAP. Seeing some improvement with adjustment in mask size. Repeat ABG ordered for the afternoon. - White count stable at 12. - Goal sats greater 90% - Continue Xarelto 15 mg twice daily - nticoagulation with Xarelto 15 mg twice daily - Continue DuoNebs every 4 hours and Pulmicort twice daily - Continue clindamycin for mastoiditis - Pulmonology to follow-up on outpatient basis for noninvasive ventilation due to sleep apnea with AHI of 28 #Pulmonary artery hypertension #Acute on chronic HFpEF Prior echocardiogram with RVSP of 35-40 with improvement to RVSP of 30 after completed treatment for pulmonary emboli Repeat echo obtained, formal read still pending. - No plan for intervention for PEs. - Continue diuresis due to elevated RVSP; increase Bumex to 1 mg twice daily - CCTA July 2024 negative for coronary disease - Her morbid obesity with BMI of 61 is a complicating factor - proBNP 269, no edema noted on chest CT - Recommend aggressive weight loss #Morbid obesity, BMI 61 - Patient is already bedbound at home, this is life limiting, recommend bariatrics referral outpatient - Consider GLP-1 outpatient #Headache #Chiari malformation #Mastoiditis Patient reports posterior headache as well as ear infection recently. Mild mastoiditis found on CT imaging. Will continue clindamycin. Also noted to have grade 1 Chiari malformation. Continue blood pressure management #DM 2 -A1c 7.2. TSH of 6. - Kidney function stable BUN 29, creatinine 1.1. - Morning glucose 180, repeat CBC, CMP, magnesium ordered for the morning. - Continue sliding scale insulin with fingersticks ACHS #CKD stage IIIa Creatinine at baseline Monitor intake and output. [place] placed today Full code Diabetic diet Xarelto ICU/Critical care attestation This patient is critically ill with 35 minutes devoted solely to this patient managing life/organ supporting interventions that required physician assessment. This includes time spent making adjustments in ventilator settings, IV fluid administration, titration of pressors, adjustments of medications, discussion of patient with consultants and other care providers as well as updating patient and/or family (if patient by virtue of his/her condition is unable to participate in decision making). This does not include time spent performing separately billed procedures. Time is not concurrent with that of other providers.
[2025-03-17 19:39] LABS: Lactate Venous 1.9 mmol/L (0.4-2.0); VBG HCO3 36.6 mmol/L (23-30); VBG Oxygen Saturation 88.1 % (50-70); VBG PH 7.29 mmol/L (7.31-7.41); VBG PO2 51.6 mmol/L (28-40)
--- NOTE | 2025-03-17 19:49 | CT_ITS ---
PROCEDURE INFORMATION: Exam: CT Head Without Contrast Exam date and time: 03/17/2025 9:08 PM Age: 60 years old Clinical indication: Altered mental status/memory loss; Additional info: R/O hemorrhage in setting of ac for pe and AMS TECHNIQUE: Imaging protocol: Computed tomography of the head without contrast. Radiation optimization: All CT scans at this facility use at least one of these dose optimization techniques: automated exposure control; mA and/or kV adjustment per patient size (includes targeted exams where dose is matched to clinical indication); or iterative reconstruction. COMPARISON: CT HEAD/BRAIN WO CON 03/15/2025 5:59 PM FINDINGS: Brain: No hemorrhage. Stable chronic 5 mm [id number] midline shift. Redemonstration of the Chiari 1 malformation. Unremarkable white matter. No mass effect. Cerebral ventricles: No ventriculomegaly. Paranasal sinuses: Right sphenoid sinus mucosal thickening. No fluid levels. Mastoid air cells: Visualized mastoid air cells are well aerated. Bones: Unremarkable. No acute fracture. Soft tissues: Unremarkable. IMPRESSION: No definite acute intracranial abnormality. Limited evaluation for subtle abnormalities secondary to significant image noise.
[2025-03-17 19:50] LABS: VBG PCO2 78.8 mmol/L (35-51)
--- NOTE | 2025-03-17 20:16 | PC.NURSE ---
Called radiology at this time. Stated they are putting another pt on table. State they will be ready for pt in about 10 mins.
[2025-03-17 21:55] LABS: POC Glucose,Bedside 165 (70-110)
[2025-03-18] VITALS (21 sets, daily range): BP systolic 97–139; BP diastolic 47–78; PULSE 55–120; RESP 20–30; TEMP 36.3–37.3; O2SAT 65–99; BMI 59.9
[2025-03-18] MEDS: IPRATROPIUM/ALBUTEROL 3 ML NEB IH ×6 (01:50→21:43)
[2025-03-18 02:38] LABS: Lactate Venous 1.7 mmol/L (0.4-2.0); VBG Base Excess 11.5 mmol/L (-2.4-2.3); VBG HCO3 37.6 mmol/L (23-30); VBG Oxygen Saturation 92.5 % (50-70); VBG PH 7.32 mmol/L (7.31-7.41); VBG PO2 58.4 mmol/L (28-40); VBG Total CO2 39.9 mmol/L (23-27)
[2025-03-18 02:40] LABS: VBG PCO2 74.9 mmol/L (35-51)
[2025-03-18] MEDS: BUDESONIDE 0.5MG/2ML NEB 0.5 MG IH ×2 (06:08→18:20)
[2025-03-18 06:29] LABS: POC Glucose,Bedside 114 (70-110)
[2025-03-18 06:30] LABS: Basophils # 0.1 K/mm3 (0-0.2); Basophils % 0.4 % (0.1-2.0); Eosinophils % 0.1 % (0.1-12.0); Hematocrit 43.8 % (37.0-47.0); Hemoglobin 13.1 g/dL (12.2-16.2); Immature Granulocytes # 0.18 10^3uL; Immature Granulocytes % 1.3 %; Lymphocytes # 1.3 K/mm3 (0.7-4.5); Lymphocytes % 9.5 % (10-50); Mean Corpuscular HGB Conc 29.9 g/dL (31.8-35.4); Mean Corpuscular Hemoglobin 29.7 pg (27.0-31.2); Mean Corpuscular Volume 99.3 fl (81-99); Mean Platelet Volume 9.8 fl (7.4-10.4); Monocytes # 1.2 K/mm3 (0.1-1.0); Monocytes % 8.3 % (1.7-9.3); Neutrophils # 11.2 K/mm3 (1.8-7.8); Neutrophils % 80.4 % (37.0-80.0); Nucleated Red Blood Cells # 0 10^3/uL; Nucleated Red Blood Cells % 0 %; Platelet Count 273 K/mm3 (142-424); Red Blood Count 4.41 M/mm3 (4.20-5.40); Red Cell Distribution Width 15.5 % (11.5-17.5); Red Cell Distribution Width-SD 56.9 fL
[2025-03-18 06:33] LABS: Albumin Level 3.6 g/dl (3.5-5.0); Chloride 94 mmol/L (98-107); Sodium 137 mmol/L (136-145)
[2025-03-18 06:34] LABS: Lactate Venous 1.8 mmol/L (0.4-2.0); VBG Base Excess 13.2 mmol/L (-2.4-2.3); VBG HCO3 39.1 mmol/L (23-30); VBG Oxygen Saturation 92.7 % (50-70); VBG PH 7.33 mmol/L (7.31-7.41); VBG PO2 59.8 mmol/L (28-40); VBG Total CO2 41.4 mmol/L (23-27)
[2025-03-18 06:36] LABS: Alanine Aminotransferase 23 U/L (12-78); Alkaline Phosphatase 77 U/L (38-126); Aspartate Amino Transferase 27 U/L (14-36); Bilirubin,Total 0.5 mg/dl (0.2-1.3); Blood Urea Nitrogen 30 mg/dl (7-17); Creatinine Clearance Estimated 40 mL/min (50-200); Estimated Glomerular Filt Rate 64 ml/min (>60); GFR (African American) 77 ML/MIN (>60); Globulin 3.5 g/dL (1.3-3.2); Total Protein,Serum 7.1 g/dl (6.3-8.2)
[2025-03-18 06:37] LABS: Calcium 8.8 mg/dl (8.4-10.2); Glucose 128 mg/dl (74-100)
[2025-03-18 06:42] LABS: VBG PCO2 75.5 mmol/L (35-51)
[2025-03-18 06:43] LABS: Carbon Dioxide 39 mmol/L (22.0-30.0)
[2025-03-18] MEDS: CLINDAMYCIN PHOSPHATE/D5W 600 MG/50 ML PIGGYBACK 100 MG IV ×3 (08:59→23:22)
[2025-03-18] MEDS: BUMETANIDE 1MG/4ML VIAL 1 MG IV ×2 (08:59→17:24)
[2025-03-18] MEDS: LATANOPROST 0.005% OPTH SOLN 2.5ML OP (09:00)
[2025-03-18] MEDS: RIVAROXABAN 15MG TABLET 15 MG PO ×2 (09:17→17:28)
[2025-03-18] MEDS: LEVOTHYROXINE 100MCG (0.1MG) TAB 300 MCG PO (09:18)
[2025-03-18 11:37] LABS: POC Glucose,Bedside 134 (70-110)
[2025-03-18] MEDS: METHYLPREDNISOLONE SOD SUCC 40MG VIAL 40 MG IV (13:53)
--- NOTE | 2025-03-18 15:55 | P.PN_ITS ---
Subjective *Date: 03/18/25 *Time: 17:21 Interval history: Wore BiPAP overnight. Transitioned off BiPAP this morning to nasal cannula oxygen. More interactive. Opening eyes and having conversation. Does not remember meeting me yesterday. Oriented to self, knows she is in the hospital. Blood gas showing some improvement with pH of 7.33. pCO2 elevated at 75, consistent with chronic hypercapnic respiratory failure with compensation. Responding to diuresis. -2 L since admission Medical Exam Vital signs and Labs for Last 24 Hours: Vital Signs Temp Pulse Pulse Resp BP Pulse Ox O2 Del Method 03/18/25 15:05 BiPAP 03/18/25 14:05 Nasal Cannula 03/18/25 14:00 67 20 106/63 L 90 L Nasal Cannula 03/18/25 13:34 57 L 03/18/25 13:34 63 03/18/25 13:34 94 L Nasal Cannula 03/18/25 13:05 Nasal Cannula 03/18/25 12:00 70 22 99/47 L 91 L Nasal Cannula 03/18/25 11:10 Nasal Cannula 03/18/25 10:21 75 03/18/25 10:21 78 03/18/25 10:21 03/18/25 10:00 68 22 99/52 L 94 L BiPAP 03/18/25 09:00 76 20 108/55 L 92 L BiPAP 03/18/25 09:00 BiPAP 03/18/25 08:45 BiPAP 03/18/25 08:00 70 03/18/25 08:00 76 24 97/50 L 91 L BiPAP 03/18/25 06:38 BiPAP 03/18/25 06:09 77 03/18/25 06:09 76 03/18/25 06:09 94 L BiPAP 03/18/25 06:09 03/18/25 06:00 79 24 105/56 L 94 L BiPAP 03/18/25 05:00 BiPAP 03/18/25 04:00 99.2 F 03/18/25 04:00 67 03/18/25 04:00 69 24 115/58 L 98 BiPAP 03/18/25 02:46 BiPAP 03/18/25 02:07 03/18/25 02:07 65 03/18/25 02:06 63 03/18/25 02:00 73 92 L BiPAP 03/18/25 02:00 73 24 107/59 L 99 BiPAP 03/18/25 00:46 BiPAP 03/18/25 00:00 120 H 03/18/25 00:00 97.3 F L 71 24 112/60 94 L BiPAP 03/17/25 22:59 BiPAP 03/17/25 22:00 63 20 104/62 L 93 L BiPAP 03/17/25 21:24 61 03/17/25 21:24 64 03/17/25 21:24 03/17/25 21:00 BiPAP 03/17/25 20:00 60 03/17/25 20:00 98.3 F 52 L 19 131/70 98 BiPAP 03/17/25 20:00 56 L 93 L BiPAP 03/17/25 19:08 54 L 03/17/25 19:08 61 03/17/25 19:08 95 BiPAP 03/17/25 19:08 03/17/25 18:49 BiPAP 03/17/25 18:00 56 L 24 123/69 99 Room Air 03/17/25 17:00 BiPAP 03/17/25 16:00 60 03/17/25 16:00 98.5 F 62 23 123/67 96 BiPAP O2 Flow Rate FiO2 03/18/25 15:05 03/18/25 14:05 6 03/18/25 14:00 6 03/18/25 13:34 03/18/25 13:34 03/18/25 13:34 4 03/18/25 13:05 6 03/18/25 12:00 6 03/18/25 11:10 6 03/18/25 10:21 03/18/25 10:21 03/18/25 10:21 35 03/18/25 10:00 03/18/25 09:00 03/18/25 09:00 03/18/25 08:45 03/18/25 08:00 03/18/25 08:00 03/18/25 06:38 35 03/18/25 06:09 03/18/25 06:09 03/18/25 06:09 35 03/18/25 06:09 35 03/18/25 06:00 35 03/18/25 05:00 35 03/18/25 04:00 03/18/25 04:00 03/18/25 04:00 03/18/25 02:46 03/18/25 02:07 35 03/18/25 02:07 03/18/25 02:06 03/18/25 02:00 35 03/18/25 02:00 35 03/18/25 00:46 03/18/25 00:00 03/18/25 00:00 30 03/17/25 22:59 03/17/25 22:00 30 03/17/25 21:24 03/17/25 21:24 03/17/25 21:24 40 03/17/25 21:00 03/17/25 20:00 03/17/25 20:00 40 03/17/25 20:00 03/17/25 19:08 03/17/25 19:08 03/17/25 19:08 40 03/17/25 19:08 40 03/17/25 18:49 03/17/25 18:00 03/17/25 17:00 03/17/25 16:00 03/17/25 16:00 Intake and Output 03/17/25 03/18/25 03/18/25 23:59 07:59 15:59 Intake Total 50 / 435 45 / 45 Output Total 450 / 1650 900 / 900 Balance -400 / -1215 -855 / -855 Intake: Intake, Total IV Amount 50 / 195 45 / 45 Clindamycin Phosphate/D5w 600 50 / 195 45 / 45 mg In 50 ml @ 100 mls/hr IV Q8H [facility] Rx#:[id number] Output: Output, Urine Amount 900 / 900 Output, Urine Amount (Catheter) 450 / 1650 [place] 450 / 1650 Other: Number of Unmeasured Voids 0 1 0 Weight 138.391 kg Patient Weight 03/18/25 23:59 Weight 138.391 kg Laboratory Results - last 24 hr 03/17/25 16:41: POC Glucose 119 H 03/17/25 19:34: VBG pH 7.29 L, VBG pCO2 78.8 H, VBG pO2 51.6 H, VBG HCO3 36.6 H, VBG Total CO2 39.0 H, VBG O2 Saturation 88.1 H, VBG Base Excess 10.0 H, VBG Lactic Acid 1.9 03/17/25 21:47: POC Glucose 165 H 03/18/25 02:24: VBG pH 7.32, VBG pCO2 74.9 H, VBG pO2 58.4 H, VBG HCO3 37.6 H, VBG Total CO2 39.9 H, VBG O2 Saturation 92.5 H, VBG Base Excess 11.5 H, VBG Lactic Acid 1.7 03/18/25 06:19: POC Glucose 114 H 03/18/25 06:20: WBC 14.0 H, RBC 4.41, Hgb 13.1, Hct 43.8, MCV 99.3 H, MCH 29.7, MCHC 29.9 L, RDW 15.5, Plt Count 273, MPV 9.8, Neut % (Auto) 80.4 H, Lymph % (Auto) 9.5 L, [place] % (Auto) 8.3, Eos % (Auto) 0.1, Baso % (Auto) 0.4, Neut # (Auto) 11.2 H, Lymph # (Auto) 1.3, [place] # (Auto) 1.2 H, Eos # (Auto) 0.0, Baso # (Auto) 0.1, Sodium 137, Potassium 5.0, Chloride 94 L, Carbon Dioxide 39 H, Anion Gap 9.0, BUN 30 H, Creatinine 0.90, Estimated Creat Clear 40, Estimated GFR 64, Est GFR ( Amer) 77 D, Glucose 128 H D, Calcium 8.8, Magnesium 2.0, Total Bilirubin 0.5, AST 27, ALT 23, Alkaline Phosphatase 77, Total Protein 7.1, Albumin 3.6, Globulin 3.5 H, Albumin/Globulin Ratio 1.0 L 03/18/25 06:28: VBG pH 7.33, VBG pCO2 75.5 H, VBG pO2 59.8 H, VBG HCO3 39.1 H, VBG Total CO2 41.4 H, VBG O2 Saturation 92.7 H, VBG Base Excess 13.2 H, VBG Lactic Acid 1.8 03/18/25 11:29: POC Glucose 134 H I & O for Labs for Last 24 Hours: Intake & Output 03/15/25 03/16/25 03/17/25 03/18/25 23:59 23:59 23:59 23:59 Intake Total 790 / 1080 390 / 435 45 / 45 Output Total 950 / 950 1650 / 1650 900 / 900 Balance -160 / 130 -1260 / -1215 -855 / -855 Weight 136.078 kg 141 kg 142.11 kg 138.391 kg Constitutional: Present moderate distress, morbidly obese, chronically ill appearing and somnolent Head: Present atraumatic and normocephalic ENT: Present normal exam Comment:: Cushingoid facies Respiratory: Present accessory muscle use and diminished air movement; Absent rhonchi, wheezes or crackles Cardiac: Present Reg Rate and Rhythm GI: Present soft and normal bowel sounds; Absent distention or tenderness Comment:: Catheter in place Extremities: Present normal inspection, full ROM and edema (Chronic lymphedema lower extremities) Skin: Present intact; Absent erythema Neuro: Present Grossly Intact, alert, awake and moves all extremities; Absent oriented x 3 Comment:: Oriented to self and place Assessment and Plan *Assessment and plan (1) Acute respiratory failure with hypoxia and hypercarbia: Status: Acute Category: Medical Code(s): J96.01 - Acute respiratory failure with hypoxia; J96.02 - Acute respiratory failure with hypercapnia (2) Pulmonary embolism: Status: Acute Category: Medical Code(s): I26.99 - Other pulmonary embolism without acute cor pulmonale (3) (HFpEF) heart failure with preserved ejection fraction: Status: Acute Category: Medical Code(s): I50.30 - Unspecified diastolic (congestive) heart failure (4) Chiari malformation: Status: Acute Category: Medical (5) Pulmonary artery hypertension: Status: Acute Category: Medical Code(s): I27.21 - Secondary pulmonary arterial hypertension (6) HLD (hyperlipidemia): Status: Acute Category: Medical Code(s): E78.5 - Hyperlipidemia, unspecified (7) Diabetes mellitus: Status: Acute Category: Medical Code(s): E11.9 - Type 2 diabetes mellitus without complications (8) Asthma: Status: Acute Category: Medical Code(s): J45.909 - Unspecified asthma, uncomplicated (9) Headache: Status: Acute Category: Medical Code(s): R51.9 - Headache, unspecified (10) Obesity: Status: Acute Qualifiers: Body mass index: BMI 50.0-59.9 Obesity classification: adult class 3 (BMI >= 40) Obesity type: due to excess calories Serious obesity comorbidity presence: with serious comorbidity Qualified Code(s): E66.01 - Morbid (severe) obesity due to excess calories; Z68.43 - Body mass index (BMI) 50-59.9, adult Category: Medical Code(s): E66.9 - Obesity, unspecified Plan 60-year-old female with chronic pulmonary hypertension, HFpEF, previous PEs. Severe morbid obesity with immobility/bedbound status. Presented with respiratory distress. Found to have PEs. Necessitating inpatient care. Pulmonology and cardiology assisting with care. We left BiPAP this morning. Seeing some improvement in her hypercapnia. Will continue BiPAP when napping or asleep. Continues to require inpatient management. Problems addressed as follows: #Pulmonary embolism #Acute on chronic hypoxemic and hypercapnic respiratory failure - Discussed case with pulmonology, blood gas better this morning with pH of 7.33, pCO2 of 75, consistent with compensation. Will take off BiPAP and use nasal cannula during the day. Wear BiPAP when napping or sleep. - White count 12, hemoglobin 13. Bicarb compensated at 39. - Goal sats greater 90% - Continue Xarelto 15 mg twice daily - Continue DuoNebs every 4 hours and Pulmicort twice daily - Continue clindamycin for mastoiditis - Pulmonology to follow-up on outpatient basis for noninvasive ventilation due to sleep apnea with AHI of 28 #Pulmonary artery hypertension #Acute on chronic HFpEF Prior echocardiogram with RVSP of 35-40 with improvement to RVSP of 30 after completed treatment for pulmonary emboli Repeat echo obtained, formal read still pending. - No plan for intervention for PEs. - Continue diuresis due to elevated RVSP; increase Bumex to 1 mg twice daily. -2-1/2 L since admission - CCTA July 2024 negative for coronary disease - Her morbid obesity with BMI of 61 is a complicating factor - proBNP 269, no edema noted on chest CT - Recommend aggressive weight loss #Morbid obesity, BMI 61 - Patient is already bedbound at home, this is life limiting, recommend bariatrics referral outpatient - Consider GLP-1 outpatient #Headache #Chiari malformation #Mastoiditis Patient reports posterior headache as well as ear infection recently. Mild mastoiditis found on CT imaging. Will continue clindamycin. Also noted to have grade 1 Chiari malformation. Continue blood pressure management #DM 2 -A1c 7.2. TSH of 6. - Kidney function stable BUN 29, creatinine 1.1. - Morning glucose 180, repeat CBC, CMP, magnesium ordered for the morning. - Continue sliding scale insulin with fingersticks ACHS #CKD stage IIIa Creatinine at baseline Monitor intake and output. Juliette placed today Full code Diabetic diet Mariamto
[2025-03-18] MEDS: ACETAMINOPHEN 325MG TAB 650 MG PO (17:08)
[2025-03-18] MEDS: humaLOG 100 UNITS/ML 10ML VIAL (SSI) SUBCUT ×2 (17:09→20:55)
[2025-03-18 17:10] LABS: POC Glucose,Bedside 202 (70-110)
--- NOTE | 2025-03-18 18:05 | PC.NURSE ---
Patient alert and oriented times 4 but very drowsy during the day. Bipap worn by patient while sleeping. Turned q2, tylenol given for headache, relief noted. Patient diuresing well, 1L out of [place]. Lung sounds diminished
[2025-03-18] MEDS: MONTELUKAST SODIUM 10MG TAB 10 MG PO (20:52)
[2025-03-18] MEDS: BRIMONIDINE 0.2% 1 EACH OP (20:56)
[2025-03-18 21:13] LABS: POC Glucose,Bedside 171 (70-110)
--- NOTE | 2025-03-18 23:31 | PC.NURSE ---
Spoke with daughter, and provided patient update and POC after password obtained. Daughter states that she will be to see patient first thing in the morning unless patient status decline.
[2025-03-19] VITALS (13 sets, daily range): BP systolic 104–177; BP diastolic 55–91; PULSE 62–88; RESP 19–25; TEMP 36.8–37.9; O2SAT 87–95; BMI 59.0
[2025-03-19] MEDS: IPRATROPIUM/ALBUTEROL 3 ML NEB IH ×3 (02:39→09:32)
[2025-03-19] MEDS: ACETAMINOPHEN 325MG TAB 650 MG PO ×2 (04:19→09:48)
[2025-03-19] MEDS: LEVOTHYROXINE 100MCG (0.1MG) TAB 300 MCG PO (06:13)
[2025-03-19] MEDS: humaLOG 100 UNITS/ML 10ML VIAL (SSI) SUBCUT ×2 (06:13→11:45)
[2025-03-19] MEDS: BUDESONIDE 0.5MG/2ML NEB 0.5 MG IH (06:23)
[2025-03-19] MEDS: RIVAROXABAN 15MG TABLET 15 MG PO (06:32)
[2025-03-19] MEDS: LIDOCAINE 5% TRANSDERMAL PATCH 1 EACH TD (06:32)
[2025-03-19 06:34] LABS: Basophils # 0.1 K/mm3 (0-0.2); Basophils % 0.7 % (0.1-2.0); Eosinophils # 0.1 Kmm3 (0.0-0.4); Eosinophils % 0.4 % (0.1-12.0); Hematocrit 43.3 % (37.0-47.0); Hemoglobin 13.1 g/dL (12.2-16.2); Immature Granulocytes # 0.13 10^3uL; Immature Granulocytes % 1.1 %; Lymphocytes # 2.1 K/mm3 (0.7-4.5); Lymphocytes % 17.1 % (10-50); Mean Corpuscular HGB Conc 30.3 g/dL (31.8-35.4); Mean Corpuscular Hemoglobin 29.6 pg (27.0-31.2); Mean Corpuscular Volume 97.7 fl (81-99); Mean Platelet Volume 10.2 fl (7.4-10.4); Monocytes # 1.2 K/mm3 (0.1-1.0); Monocytes % 9.9 % (1.7-9.3); Neutrophils # 8.6 K/mm3 (1.8-7.8); Neutrophils % 70.8 % (37.0-80.0); Nucleated Red Blood Cells # 0 10^3/uL; Nucleated Red Blood Cells % 0 %; Platelet Count 254 K/mm3 (142-424); Red Blood Count 4.43 M/mm3 (4.20-5.40); Red Cell Distribution Width 15.8 % (11.5-17.5); White Blood Count 12.1 K/mm3 (4.8-10.8)
[2025-03-19 06:55] LABS: Albumin Level 3.8 g/dl (3.5-5.0); Chloride 92 mmol/L (98-107); Potassium 4.6 mmoL/L (3.5-5.1); Sodium 138 mmol/L (136-145)
[2025-03-19 06:58] LABS: Alanine Aminotransferase 25 U/L (12-78); Albumin/Globulin Ratio 1.2 (1.1-1.8); Alkaline Phosphatase 77 U/L (38-126); Aspartate Amino Transferase 28 U/L (14-36); Bilirubin,Total 0.6 mg/dl (0.2-1.3); Blood Urea Nitrogen 34 mg/dl (7-17); Creatinine Clearance Estimated 31 mL/min (50-200); Estimated Glomerular Filt Rate 42 ml/min (>60); GFR (African American) 50 ML/MIN (>60); Globulin 3.3 g/dL (1.3-3.2); Total Protein,Serum 7.1 g/dl (6.3-8.2)
[2025-03-19 06:59] LABS: Calcium 9.1 mg/dl (8.4-10.2); Glucose 166 mg/dl (74-100)
[2025-03-19 07:07] LABS: Anion Gap 10.6 mEq/L (5-15); Carbon Dioxide 40 mmol/L (22.0-30.0)
--- NOTE | 2025-03-19 09:31 | P.PN_ITS ---
Subjective *Date: 03/19/25 *Time: 12:18 Interval history: No acute respiratory events over the weekend Pulmonology Exam Inpatient Vital signs and Labs for Last 24 Hours: Temp Pulse Resp BP Pulse Ox O2 Del Method O2 Flow Rate 98.3 F 81 22 104/55 L 91 L Nasal Cannula 5 03/19/25 08:00 03/19/25 06:23 03/19/25 06:00 03/19/25 06:00 03/19/25 06:23 03/19/25 07:00 03/19/25 07:00 FiO2 35 03/19/25 03:01 Laboratory Results - last 24 hr 03/18/25 11:29: POC Glucose 134 H 03/18/25 17:00: POC Glucose 202 H 03/18/25 20:51: POC Glucose 171 H 03/19/25 05:43: WBC 12.1 H, RBC 4.43, Hgb 13.1, Hct 43.3, MCV 97.7, MCH 29.6, MCHC 30.3 L, RDW 15.8, Plt Count 254, MPV 10.2, Neut % (Auto) 70.8, Lymph % (Auto) 17.1, [place] % (Auto) 9.9 H, Eos % (Auto) 0.4, Baso % (Auto) 0.7, Neut # (Auto) 8.6 H, Lymph # (Auto) 2.1, [place] # (Auto) 1.2 H, Eos # (Auto) 0.1, Baso # (Auto) 0.1, Sodium 138, Potassium 4.6, Chloride 92 L, Carbon Dioxide 40 H, Anion Gap 10.6, BUN 34 H, Creatinine 1.30 H D, Estimated Creat Clear 31, Estimated GFR 42 L, Est GFR ( Amer) 50 L D, Glucose 166 H D, Calcium 9.1, Magnesium 2.0, Total Bilirubin 0.6, AST 28, ALT 25, Alkaline Phosphatase 77, Total Protein 7.1, Albumin 3.8, Globulin 3.3 H, Albumin/Globulin Ratio 1.2 Temp Pulse Resp BP Pulse Ox O2 Del Method O2 Flow Rate 98.0 F 62 20 107/51 L 97 Nasal Cannula 3 03/16/25 08:00 03/16/25 08:00 03/16/25 08:00 03/16/25 08:00 03/16/25 08:00 03/16/25 09:05 03/16/25 09:05 Laboratory Results - last 24 hr 03/15/25 17:50: SARS-CoV-2 (PCR) Not detected, Influenza A Untype (PCR) Not detected, Influenza Type B (PCR) Not detected 03/15/25 18:44: WBC 12.7 H, RBC 4.82, Hgb 14.3, Hct 47.0, MCV 97.5, MCH 29.7, MCHC 30.4 L, RDW 15.8, Plt Count 295, MPV 9.8, Neut % (Auto) 67.9, Lymph % (Auto) 18.9, [place] % (Auto) 8.1, Eos % (Auto) 3.0, Baso % (Auto) 0.7, Neut # (Auto) 8.6 H, Lymph # (Auto) 2.4, [place] # (Auto) 1.0, Eos # (Auto) 0.4, Baso # (Auto) 0.1, PT 10.8, INR 0.96, APTT 23.6 L, D-Dimer 1.20 H, Sodium 139, Potassium 4.5, Chloride 100, Carbon Dioxide 35 H, Anion Gap 8.5, BUN 25 H, Creatinine 1.20 H, Estimated Creat Clear 35, Estimated GFR 46 L, Est GFR ( Amer) 55 L, Glucose 108 H, Calcium 9.5, Magnesium 2.0, Total Bilirubin 0.6, AST 25, ALT 22, Alkaline Phosphatase 86, Troponin I < 0.01, NT-Pro-B Natriuret Pep 269 H, Total Protein 7.4, Albumin 4.0, Globulin 3.4 H, Albumin/Globulin Ratio 1.2, Lipase 47 03/15/25 21:02: Troponin I < 0.01 03/15/25 23:23: POC Glucose 120 H 03/15/25 23:58: APTT 50.0, Magnesium 1.9, Troponin I < 0.01 03/16/25 01:27: APTT 46.7 L 03/16/25 01:57: APTT 48.5 L 03/16/25 05:09: POC Glucose 165 H 03/16/25 06:16: WBC 12.7 H, RBC 4.52, Hgb 13.4, Hct 44.9, MCV 99.3 H, MCH 29.6, MCHC 29.8 L, RDW 16.0, Plt Count 255, MPV 9.9, Neut % (Auto) 68.2, Lymph % (Auto) 17.7, [place] % (Auto) 8.8, Eos % (Auto) 3.1, Baso % (Auto) 0.9, Neut # (Auto) 8.7 H, Lymph # (Auto) 2.3, [place] # (Auto) 1.1 H, Eos # (Auto) 0.4, Baso # (Auto) 0.1, Sodium 139, Potassium 4.1, Chloride 99, Carbon Dioxide 35 H, Anion Gap 9.1, BUN 23 H, Creatinine 1.10 H, Estimated Creat Clear 37, Estimated GFR 50 L, Est GFR ( Amer) 61, Glucose 165 H D, Hemoglobin A1c 7.2 H, Calcium 9.0, Phosphorus 4.8 H, TSH 6.13 H, Free T4 1.73 03/16/25 07:25: APTT 69.2 I & O for Labs for Last 24 Hours: Intake & Output 03/16/25 03/17/25 03/18/25 03/19/25 23:59 23:59 23:59 23:59 Intake Total 790 / 1080 390 / 435 285 / 335 290 / 290 Output Total 950 / 950 1650 / 1650 3000 / 3400 875 / 875 Balance -160 / 130 -1260 / -1215 -2715 / -3065 -585 / -585 Weight 310 lb 13.628 oz 313 lb 4.8 oz 305 lb 1.6 oz 300 lb 9.6 oz Intake & Output 03/13/25 03/14/25 03/15/25 03/16/25 23:59 23:59 23:59 23:59 Intake Total 290 / 290 Balance 290 / 290 Weight 300 lb 311 lb 3.2 oz Constitutional: Present severe distress Head: Present normocephalic and atraumatic ENT: Present normal exam, normal oropharynx and mucous membranes moist Neck: Present normal inspection and full ROM Respiratory: Present wheezes, crackles, diminished air movement and able to speak in complete sentences Cardiac: Present S1/S2, Tachycardia and radial pulses present GI: Present soft and distention; Absent tenderness or guarding Rectal (female): Present deferred (female): Present deferred Skin: Present intact; Absent cyanosis or jaundice Neuro: Present alert, awake and oriented x 3 Extremities: Present normal inspection; Absent clubbing or cyanosis Psychiatric: Present normal affect and cooperative Assessment and Plan *Assessment and plan (1) Acute on chronic hypoxic respiratory failure: Status: Acute Category: Medical Code(s): J96.21 - Acute and chronic respiratory failure with hypoxia (2) Pulmonary artery hypertension: Status: Acute Category: Medical Code(s): I27.21 - Secondary pulmonary arterial hypertension (3) Pulmonary embolism: Status: Acute Category: Medical Code(s): I26.99 - Other pulmonary embolism without acute cor pulmonale (4) Acute respiratory failure with hypoxia and hypercarbia: Status: Acute Category: Medical Code(s): J96.01 - Acute respiratory failure with hypoxia; J96.02 - Acute respiratory failure with hypercapnia Plan Ms. Barrera is a 60-year-old female no significant smoking history history of asthma allergic rhinitis exertional dyspnea heart failure preserved EF presented with worsening body aches and fatigue, worsening shortness of breath pulmonary was called for further evaluation and management. She does have a history of PE and DVT which was likely attributed to her taking OC pills. Her VQ scan from April 2021 high probability for PE, completed Xarelto currently not taking any anticoagulation. CTA PE protocol upon this admission central filling defect in the right main pulmonary artery and right lower lobe PA branches. No other airspace disease/consolidative changes noted. No lymphadenopathy. D-dimer on this elevation elevated at 1.2. Troponins within normal limits at [address] continued evidence of pulmonary hypertension, PA diameter stable from prior these filling defects were not evident on her CTA protocols from June 2024 and from October 2021. Concerning for recurrent PE. Patient on examination also appeared lethargic, following blood pressure worsening hypercarbic respiratory failure likely combination of asthma exacerbation along with underlying sleep apnea with AHI of 24 and she is currently not being treated. Interval update: No acute respiratory events over the weekend. Improving hypercarbic respiratory failure. Lower extremity venous Doppler negative for DVT. CT head no acute changes. Plan: Continue full dose anticoagulation for the noted pulmonary embolism. Patient will need indefinite anticoagulation therapy given her recurrent episodes of pulmonary embolism. Continue nasal cannula oxygen supplementation to maintain O2 saturation goal of 90% unable Advair 500 along with Spiriva inhaler Wean IV steroids to prednisone 40 mg daily to complete a total of 5-day course Please set patient at auto CPAP at 06/18 for her sleep apnea. Will reach out to [facility] to initiate the process. Patient previously has used noninvasive ventilator therapy however has been noncompliant in the recent months secondary to her machine being recalled Continue to receive clindamycin for mastoiditis
[2025-03-19] MEDS: CLINDAMYCIN PHOSPHATE/D5W 600 MG/50 ML PIGGYBACK 100 MG IV (09:37)
[2025-03-19] MEDS: BRIMONIDINE 0.2% OPHTH SOLN 5ML BOTTLE OP (09:37)
[2025-03-19] MEDS: LATANOPROST 0.005% OPTH SOLN 2.5ML OP (09:38)
[2025-03-19] MEDS: BUMETANIDE 1MG/4ML VIAL 1 MG IV (09:39)
--- NOTE | 2025-03-19 09:52 | [facility].PTWOUND ---
Rehab Inpt Wound Evaluation Rehab IP Wound Evaluation Start: 03/17/25 09:19 Freq: ONCE Status: Active Protocol: Document 03/19/25 09:49 ANDREA (Rec: 03/19/25 09:51 ANDREA [id number]) Rehab PT Wound Assessment Subjective Subjective This is a 60-year-old female with past medical history of prior pulmonary emboli now off of anticoagulation, ear pain, HFpEF, HLD, osteoarthritis, obesity, DM 2, asthma. States that for the past week she has experiencing increased shortness of breath and cough that is more substantial than her baseline. CT imaging with nonocclusive filling defect in the right lower lobe lobar pulmonary artery branch concerning for small PE also questionable filling defect of the right lower lobe medial basilar segmental branch. Patient currently lives at home with her son and has 2 steps to enter her home. Pt is able to transfer to bathroom using her hands on the [place]/ railing independently. Pt is usually bedbound otherwise. PT inpatient wound consult received per protocol cue to decreased claudia score. Pt has no wounds present at this time and nsg staff is monitoring pressure relief as indicated. Plan/Recommendation Comment No inpatient wound care necessary at this time. Continue appropriate pressure relief. Thank you for involving the wound care team in the care of this patient. PHYSICIAN CERTIFICATION: I certify the specified therapy services for Snow Barrera are required, authorized, and reviewed every 30 days.
--- NOTE | 2025-03-19 11:12 | EXP.DC.SUM ---
General Admission date:: 03/15/25 Discharge date: 03/19/25 HPI HPI HPI: This is a 60-year-old female with past medical history of prior pulmonary emboli now off of anticoagulation, ear pain, HFpEF, HLD, osteoarthritis, obesity, DM 2, asthma who presents emergency department today with complaints of bodyaches and fatigue. States that for the past week she has experiencing increased shortness of breath and cough that is more substantial than her baseline. She also reports subjective fever chills malaise and fatigue. States that she has just felt generally unwell. Also reports posterior headache. She reports new diagnosis of DM 2 and is still undergoing insurance verification for home medications for this. She does endorse polydipsia and polyuria. She denies any chest pain, or palpitations. Denies any lower extremity pain. Does endorse as needed oxygen usage at home and chronic bilateral lower extremity edema. Emergency department workup notable for mild hypoxia on arrival with oxygen saturation of 92% on room air. White blood cell count of 12.7, creatinine of 1.[address] imaging with nonocclusive filling defect in the right lower lobe lobar pulmonary artery branch concerning for small PE also questionable filling defect of the right lower lobe medial basilar segmental branch. Also moderate chronic pulmonary arterial dilatation consistent with pulmonary arterial hypertension which is increased since 06/05/2024. Moderate cardiomegaly. Given concerns for small PEs with possible right heart strain, cardiology was consulted and states it is given patient's stability, admit to hospital on heparin drip. She is admitted to hospitalist service at this time. Hospital Course Hospital Course Hospital Course: 60-year-old female with chronic pulmonary hypertension, HFpEF, previous PEs. Severe morbid obesity with immobility/bedbound status. Presented with respiratory distress. Found to have PEs. Necessitating inpatient care. Pulmonology and cardiology consulted during admission. Initially on BiPAP due to severe hypercapnic failure. Remained stable on transitioning to nasal cannula oxygen. Would benefit from CPAP at home. He previously had CPAP. Pulmonology ordering 3 Sorrels. Stable discharge home with further management at this time. Problems addressed as follows: #Pulmonary embolism #Acute on chronic hypoxemic and hypercapnic respiratory failure - Discussed case with pulmonology, initially had hypercapnic respiratory failure with pCO2 as high as 120. Showed gradual improvement on BiPAP. Able to wean off BiPAP, pulmonology recommends auto CPAP with settings of 18 for her sleep apnea. Ordering through [facility]. White count normal on day of discharge 12, hemoglobin 13. No signs of infection. Continued Xarelto treatment dose at discharge for anticoagulation due to PEs. Continue DuoNebs as needed. Recommend Advair 500 inhaler along with Spiriva inhaler. Nasal cannula oxygen as needed for goal sats greater than 90%. Patient's room air saturation at rest was 87% on day of discharge. Requires 2 L nasal cannula oxygen continuously. Steroids weaned to prednisone 40 mg daily to complete 5 days of therapy. Follow-up with pulmonology as an outpatient. #Pulmonary artery hypertension #Acute on chronic HFpEF Prior echocardiogram with RVSP of 35-40 with improvement to RVSP of 30 after completed treatment for pulmonary emboli. Repeat echo continues to show HFpEF. PEs identified on CTA of chest. No intervention planned. Initiated on anticoagulation. Transition to alto tolerated well. Continue 15 mg twice daily to complete 21 days total of treatment. Transition to 20 mg daily thereafter. Will likely need to be on anticoagulation for the rest of her life given recurrent PEs. CCTA obtained in July 2024, negative for CAD. Initiated on diuretics due to elevated RVSP. Continue Bumex 1 mg daily. Negative volume status during admission. #Headache #Chiari malformation #Mastoiditis Patient reports posterior headache as well as ear infection recently. Mild mastoiditis found on CT imaging. Will continue clindamycin to complete 10-day course. Also noted to have grade 1 Chiari malformation. #DM 2 #Morbid obesity, BMI 61 - Patient is already bedbound at home, this is life limiting, recommend bariatrics referral outpatient. A1c 7.2. TSH of 6. Morning glucose was controlled at 166 on day of discharge. Treated with sliding insulin fingers excised during admission. Not on a regimen at discharge. Discussed further diabetes management with PCP. Appears to be currently be at goal without treatment. Would benefit from consideration of GLP-1 to treat diabetes and weight loss. #CKD stage IIIa Creatinine at baseline. Necessitated [place] during admission. Voiding independently after removal. BUN 34, creatinine 1.3. At baseline. Needs repeat labs at follow-up with CBC, CMP, magnesium Oxygen saturation of 87% on room air at rest. Necessitating 3 L nasal cannula oxygen continuously for goal sats greater 90% Exam Data for Last 24 hours Vital signs and Labs for Last 24 Hours: Temp Pulse Resp BP Pulse Ox O2 Del Method O2 Flow Rate 98.3 F 81 20 124/67 88 L Nasal Cannula 5 03/19/25 08:00 03/19/25 10:00 03/19/25 10:00 03/19/25 10:00 03/19/25 10:00 03/19/25 10:00 03/19/25 10:00 FiO2 35 03/19/25 03:01 Laboratory Results - last 24 hr 03/18/25 11:29: POC Glucose 134 H 03/18/25 17:00: POC Glucose 202 H 03/18/25 20:51: POC Glucose 171 H 03/19/25 05:43: WBC 12.1 H, RBC 4.43, Hgb 13.1, Hct 43.3, MCV 97.7, MCH 29.6, MCHC 30.3 L, RDW 15.8, Plt Count 254, MPV 10.2, Neut % (Auto) 70.8, Lymph % (Auto) 17.1, [place] % (Auto) 9.9 H, Eos % (Auto) 0.4, Baso % (Auto) 0.7, Neut # (Auto) 8.6 H, Lymph # (Auto) 2.1, [place] # (Auto) 1.2 H, Eos # (Auto) 0.1, Baso # (Auto) 0.1, Sodium 138, Potassium 4.6, Chloride 92 L, Carbon Dioxide 40 H, Anion Gap 10.6, BUN 34 H, Creatinine 1.30 H D, Estimated Creat Clear 31, Estimated GFR 42 L, Est GFR ( Amer) 50 L D, Glucose 166 H D, Calcium 9.1, Magnesium 2.0, Total Bilirubin 0.6, AST 28, ALT 25, Alkaline Phosphatase 77, Total Protein 7.1, Albumin 3.8, Globulin 3.3 H, Albumin/Globulin Ratio 1.2 I & O for Last 24 hours: Intake & Output 03/16/25 03/17/25 03/18/25 03/19/25 23:59 23:59 23:59 23:59 Intake Total 790 / 1080 390 / 435 285 / 335 290 / 290 Output Total 950 / 950 1650 / 1650 3000 / 3400 875 / 875 Balance -160 / 130 -1260 / -1215 -2715 / -3065 -585 / -585 Weight 141 kg 142.11 kg 138.391 kg 136.35 kg Constitutional Constitutional: mild distress, morbidly obese, chronically ill appearing and cooperative *Routine HEENT Exam Head: Present normocephalic and cushingoid faces Eye: Present EOMI and PERRL ENT: Present mucous membranes moist *Routine Neck Exam Neck: Present supple; Absent lymphadenopathy *Routine Respiratory Exam Respiratory: Present prolonged expiratory phase and distant breath sounds; Absent rhonchi, wheezes or crackles *Routine Cardiovascular Exam Cardiovascular: Present RRR *Routine Abdominal Exam Abdominal: Present soft, normoactive bowel sounds and obese; Absent tenderness *Routine Rectal Exam Patient deferred: visual exam *Routine Exam Patient deferred: external exam *Routine Extremities Exam Extremities: Present edema; Absent cyanosis or clubbing *Routine Skin Exam Skin: Present intact and warm; Absent rash *Routine Neurological Exam Neurological: Present alert, oriented X3 and moving all extremities; Absent altered mental status Results Data Completed and Pending Labs on day of discharge: Labs from last 24 hours 03/19/25 03/18/25 03/18/25 05:43 20:51 17:00 WBC 12.1 H RBC 4.43 Hgb 13.1 Hct 43.3 MCV 97.7 MCH 29.6 MCHC 30.3 L RDW 15.8 Plt Count 254 MPV 10.2 Neut % (Auto) 70.8 Lymph % (Auto) 17.1 [place] % (Auto) 9.9 H Eos % (Auto) 0.4 Baso % (Auto) 0.7 Neut # (Auto) 8.6 H Lymph # (Auto) 2.1 [place] # (Auto) 1.2 H Eos # (Auto) 0.1 Baso # (Auto) 0.1 Sodium 138 Potassium 4.6 Chloride 92 L Carbon Dioxide 40 H Anion Gap 10.6 BUN 34 H Creatinine 1.30 H D Estimated Creat Clear 31 Estimated GFR 42 L Est GFR ( Amer) 50 L D Glucose 166 H D POC Glucose 171 H 202 H Calcium 9.1 Magnesium 2.0 Total Bilirubin 0.6 AST 28 ALT 25 Alkaline Phosphatase 77 Total Protein 7.1 Albumin 3.8 Globulin 3.3 H Albumin/Globulin Ratio 1.2 03/18/25 11:29 WBC RBC Hgb Hct MCV MCH MCHC RDW Plt Count MPV Neut % (Auto) Lymph % (Auto) [place] % (Auto) Eos % (Auto) Baso % (Auto) Neut # (Auto) Lymph # (Auto) [place] # (Auto) Eos # (Auto) Baso # (Auto) Sodium Potassium Chloride Carbon Dioxide Anion Gap BUN Creatinine Estimated Creat Clear Estimated GFR Est GFR ( Amer) Glucose POC Glucose 134 H Calcium Magnesium Total Bilirubin AST ALT Alkaline Phosphatase Total Protein Albumin Globulin Albumin/Globulin Ratio DS: Diagnosis Discharge Diagnosis (1) Acute on chronic hypoxic respiratory failure: Status: Acute Code(s): J96.21 - Acute and chronic respiratory failure with hypoxia (2) Pulmonary artery hypertension: Status: Acute Code(s): I27.21 - Secondary pulmonary arterial hypertension (3) Pulmonary embolism: Status: Acute Code(s): I26.99 - Other pulmonary embolism without acute cor pulmonale (4) Acute respiratory failure with hypoxia and hypercarbia: Status: Acute Code(s): J96.01 - Acute respiratory failure with hypoxia; J96.02 - Acute respiratory failure with hypercapnia Meds Home Medications and Allergies Home Medications ?Medication ?Instructions ?Recorded ?Confirmed ?Type loratadine 10 mg tablet 10 mg PO DAILY 03/17/21 03/16/25 History lisinopril 10 1 tab PO DAILY 10/12.5MG 11/03/21 03/16/25 History mg-hydrochlorothiazide 12.5 mg tablet montelukast 10 mg tablet 10 mg PO HS 02/15/23 03/16/25 History B-complex with vitamin C (Super 1 cap PO DAILY 04/14/23 03/16/25 History B/C capsule) cholecalciferol (vitamin D3) 25 25 mcg PO DAILY 04/14/23 03/16/25 History mcg (1,000 unit) capsule potassium citrate 99 mg capsule 99 mg PO DAILY 04/14/23 03/16/25 History fluticasone propionate 50 2 spray intranasal DAILY 90 days 08/07/24 03/16/25 Rx mcg/actuation nasal #16 grams spray,suspension (Flonase Allergy Relief) brimonidine 0.2 % eye drops 1 drp ophthalmic (eye) BID 03/16/25 03/16/25 History latanoprost 0.005 % eye drops 1 drp ophthalmic (eye) DAILY 03/16/25 03/16/25 History levothyroxine 200 mcg tablet 200 mcg PO DAILY 03/16/25 03/16/25 History levothyroxine 25 mcg tablet 25 mcg PO DAILY 03/16/25 03/16/25 History bumetanide 1 mg tablet 1 mg PO DAILY #30 tabs 03/19/25 Rx clindamycin HCl 150 mg capsule 450 mg (3 x 150 mg) PO TID 3 days 03/19/25 Rx #27 caps fluticasone 500 mcg-salmeterol 50 1 inh inhalation BIDRT 30 days #60 03/19/25 Rx mcg/dose blistr powdr for ea inhalation (Advair Diskus) ipratropium 0.5 mg-albuterol 3 mg 3 ml inhalation Q4HP PRN Shortness 03/19/25 Rx (2.5 mg base)/3 mL nebulization Of Breath #180 mL soln nystatin 100,000 unit/gram topical 1 applic topical QIDP PRN Rash #30 03/19/25 Rx powder grams rivaroxaban 15 mg tablet (Xarelto) 15 mg PO BID 19 days #38 tabs 03/19/25 Rx rivaroxaban 20 mg tablet (Xarelto) 20 mg PO DAILY #30 tabs 03/19/25 Rx tiotropium bromide 18 mcg capsule 1 cap inhalation DAILY 30 days #30 03/19/25 Rx with inhalation device (Spiriva puffs with HandiHaler) New Prescriptions to Start Prescriptions: bumetanide Will Bloom clindamycin HCl Will Bloom fluticasone propion-salmeterol [Advair Diskus] Will Bloom ipratropium-albuterol Will Bloom nystatin Will Bloom rivaroxaban [Xarelto] Will Bloom rivaroxaban [Xarelto] Will Bloom tiotropium bromide [Spiriva with HandiHaler] Will Bloom Allergies Allergy/AdvReac Type Severity Reaction Status Date / Time cefprozil (From Cefzil) Allergy Hives Verified 03/15/25 17:12 cephalexin (From Keflex) Allergy Hives Verified 03/15/25 17:12 cetirizine (From Zyrtec) Allergy Hives Verified 03/15/25 17:12 clemastine (From Tavist) Allergy Hives Verified 03/16/25 05:30 erythromycin base Allergy Hives Verified 03/15/25 17:12 fexofenadine (From Calista) Allergy Hives Verified 03/15/25 17:12 loratadine (From Claritin-D) Allergy Hives Verified 03/15/25 17:12 Penicillins Allergy Hives Verified 03/15/25 17:12 pseudoephedrine (From Allergy Hives Verified 03/15/25 17:12 Claritin-D) Antihistamine, Piperidine Allergy Unknown Hives Uncoded 03/15/25 17:12 Astemizole Allergy Unknown Unknown Uncoded 03/15/25 17:12 allergy reaction Cefprozil Allergy Unknown Unknown Uncoded 03/15/25 17:12 allergy reaction Cephalexin Allergy Unknown Hives Uncoded 03/15/25 17:12 Cephalosporin Allergy Unknown Hives Uncoded 03/15/25 17:12 Cetirizine Allergy Unknown Hives Uncoded 03/15/25 17:12 CLASS: 04:00 - ANTIHISTAMINE Allergy Unknown Hives Uncoded 03/15/25 17:12 DRUGS DHE 45 Allergy Unknown LOSS OF Uncoded 03/15/25 17:12 MUSCLE CONTROL From Erythromycin Stearate Allergy Unknown Hives Uncoded 03/15/25 17:12 From Fexofenadine Allergy Unknown Hives Uncoded 03/15/25 17:12 Hydrochloride Macrolide/Antibacterial Allergy Unknown Hives Uncoded 03/15/25 17:12 Penicillin Allergy Unknown Hives Uncoded 03/15/25 17:12 PSEUDOEPHEDRINE Allergy Unknown I-HIVES Uncoded 03/15/25 17:12 Terfenadine Allergy Unknown Hives Uncoded 03/15/25 17:12 [id number] Allergy Hives Uncoded 03/15/25 17:12 Discharge Plan Disposition Patient Disposition: Home, Self-Care Condition: Good Discharge Order Discharge Orders: Discharge Order (Routine); Ordered 03/19/25 Ordered By: Will Bloom Follow up Plan Follow up with: Noe (ED)Marian APRN [Nurse Practitioner] - 03/27/25 10:15 am Antony Hickman PT [Physical Therapist] - 03/28/25 10:00 am Prescriptions/Medication Reconciliation: New fluticasone propion-salmeterol [Advair Diskus] 500-50 mcg/dose Blister With Device 1 inh inhalation BIDRT 30 Days Qty: 60 0RF ipratropium-albuterol 0.5 mg-3 mg(2.5 mg base)/3 mL Solution For Nebulization 3 ml inhalation Q4HP PRN (Reason: Shortness Of Breath) Qty: 180 0RF nystatin 100,000 unit/gram Powder 1 applic topical QIDP PRN (Reason: Rash) Qty: 30 0RF tiotropium bromide [Spiriva with HandiHaler] 18 mcg Capsule, W/Inhalation Device 1 cap inhalation DAILY 30 Days Qty: 30 0RF Xarelto 15 mg Tablet 15 mg PO BID 19 Days Qty: 38 0RF Xarelto 20 mg tablet 20 mg PO DAILY Qty: 30 1RF Rx Instructions: start after finishing the 15mg BID course clindamycin HCl 150 mg capsule 450 mg PO TID 3 Days Qty: 27 0RF bumetanide 1 mg tablet 1 mg PO DAILY Qty: 30 0RF Continued lisinopril-hydrochlorothiazide 10-12.5 mg tablet 1 tab PO DAILY cholecalciferol (vitamin D3) 25 mcg (1,000 unit) capsule 25 mcg PO DAILY B-complex with vitamin C [Super B/C] Capsule 1 cap PO DAILY potassium citrate 99 mg capsule 99 mg PO DAILY loratadine 10 mg tablet 10 mg PO DAILY fluticasone propionate [Flonase Allergy Relief] 50 mcg/actuation spray,suspension 2 spray intranasal DAILY 90 Days Qty: 16 3RF Rx Instructions: administer into each nostril levothyroxine 25 mcg tablet 25 mcg PO DAILY Rx Instructions: TOTAL DOSE 225MCG brimonidine 0.2 % drops 1 drp ophthalmic (eye) BID latanoprost 0.005 % drops 1 drp ophthalmic (eye) DAILY levothyroxine 200 mcg tablet 200 mcg PO DAILY Patient Comments: TAKE 1 TABLET BY MOUTH ONCE DAILY IN THE MORNING ON AN EMPTY STOMACH Rx Instructions: TOTAL DOSE 225MCG montelukast 10 mg tablet 10 mg PO HS Discontinued celecoxib 200 mg capsule 200 mg PO DAILY aspirin [Adult Low Dose Aspirin] 81 mg tablet,delayed release (DR/EC) 81 mg PO DAILY fluticasone propion-salmeterol [Advair Diskus] 250-50 mcg/dose blister with device 1 inh inhalation BID 90 Days Qty: 180 3RF Other Ambulatory Orders: Home Medical Equipment (Routine) Location: None Selected Ordered By: Will Bloom Rehab Eval, OP (Routine) Timeframe: 3 Days Facility: [facility] - Location: Physical Therapy Ordered By: Will Bloom Rehab Eval, OP (Routine) Timeframe: 3 Days Facility: [facility] - Location: Physical Therapy Ordered By: Will Bloom Problem Reconciliation Problems Reviewed?: Yes Patient Discharge Instructions ACTIVITY: Continue current activity DIET: continue same diet Patient Instructions: Carbohydrate-Counting Diet, DI for Pulmonary Embolism, Catheter-Associated Urinary Tract Infection, Diabetes Diet Label Reading Tips, Heart-Healthy Consistent Carbohydrate Diet, Stop Light Heart Failure Print Language: Pashto Providers Primary Care Provider: Provider,Referral Admit Provider: Will Bloom Attending Provider: Will Bloom
--- NOTE | 2025-03-19 11:24 | PC.NURSE ---
BLADDER TRAINING STARTED AT THIS TIME
--- NOTE | 2025-03-19 14:32 | CARE MANAGER ---
Addendum entered by Snow Ziegler RN 03/19/25 14:47: Patient states she has Oxygen at home, but no portables. She states it is not from [facility], but she would like it to be from [facility] as her nebulizer is from there. Sent information for O2 and walker to [place]. Original Note: Patient requires assistance with ambulation due to a mobility impairment that cannot be corrected with a cane, but there is potential for ambulation.
[2025-03-19] MEDS: METHYLPREDNISOLONE SOD SUCC 40MG VIAL 40 MG IV (14:50)
[2025-03-19 18:11] LABS: POC Glucose,Bedside 151 (70-110)
[2025-03-19 18:11] LABS: POC Glucose,Bedside 188 (70-110)
--- NOTE | 2025-03-20 12:33 | SW/DCPLANNER ---
Spoke with patient on the phone. Patient stated that she is doing well. Patient stated that she is aware of her appointments. Patient stated that she has not got her medicines picked up yet but her son is going to get it today. Patient stated that she has no concerns or questions at this time. Beverly Todd
== END 2025-03-19 16:28 | disposition home or self-care (01) | DRG 175 ==
LOC: ER 22:25 → 2ND 23:14
PROVIDERS: Internal Medicine Pulmonary Disease; Nurse Practitioner Acute Care; Physician Assistant; Admitting Provider Internal Medicine Adolescent Medicine; Emergency Provider Emergency Medicine; Visit Provider Internal Medicine Adolescent Medicine
DX: I26.99 Other pulmonary embolism without acute cor pulmonale (principal); G93.41 Metabolic encephalopathy; G93.5 Compression of brain; I50.33 Acute on chronic diastolic (congestive) heart failure; J96.22 Acute and chronic respiratory failure with hypercapnia; J96.21 Acute and chronic respiratory failure with hypoxia; I13.0 Hypertensive heart and chronic kidney disease with heart failure and stage 1 through stage 4 chronic kidney disease, or unspecified chronic kidney disease; Z68.44 Body mass index [BMI] 60.0-69.9, adult; J45.41 Moderate persistent asthma with (acute) exacerbation; H70.001 Acute mastoiditis without complications, right ear; I27.24 Chronic thromboembolic pulmonary hypertension; N18.31 Chronic kidney disease, stage 3a; E78.5 Hyperlipidemia, unspecified; E66.01 Morbid (severe) obesity due to excess calories; I89.0 Lymphedema, not elsewhere classified; E03.9 Hypothyroidism, unspecified; E11.22 Type 2 diabetes mellitus with diabetic chronic kidney disease; M19.90 Unspecified osteoarthritis, unspecified site; Z71.3 Dietary counseling and surveillance; Z86.718 Personal history of other venous thrombosis and embolism; Z82.3 Family history of stroke; Z80.9 Family history of malignant neoplasm, unspecified; Z82.49 Family history of ischemic heart disease and other diseases of the circulatory system; Z83.49 Family history of other endocrine, nutritional and metabolic diseases; Z86.711 Personal history of pulmonary embolism; Z79.890 Hormone replacement therapy; Z79.899 Other long term (current) drug therapy; Z79.82 Long term (current) use of aspirin; Z79.51 Long term (current) use of inhaled steroids; Z88.8 Allergy status to other drugs, medicaments and biological substances; Z88.6 Allergy status to analgesic agent; Z88.0 Allergy status to penicillin; Z88.1 Allergy status to other antibiotic agents; Z74.01 Bed confinement status; Z82.5 Family history of asthma and other chronic lower respiratory diseases; Z91.198 Patient's noncompliance with other medical treatment and regimen for other reason
CPT/HCPCS: 36415; 70450; 71045; 71275; 80048; 80053; 81001; 82803; 82962; 83036; 83690; 83735; 83880; 84100; 84439; 84443; 84484; 85025; 85378; 85610; 85730; 87636; 93005; 93306; 93970; 94640; 94660; 94761; 97110; 97163; 99291; J0736; J0780; J1644; J1939; J2405; J2919; J7620; Q9967

== ENCOUNTER 2025-04-04 15:09 | Outpatient (RCR) | payer OTHER, SELFPAY ==
--- NOTE | 2025-04-04 15:55 | HMH.PTOPEV ---
PT Outpatient Evaluation Rehab PT Outpatient Evaluation Start: 04/04/25 15:13 Freq: Status: Active Protocol: Document 04/04/25 15:36 TG (Rec: 04/04/25 15:55 TG [id number]) E-signed By Antony Hickman, PT Outpatient Therapy Subjective History Subjective History Pt is a 60 yof who is referred to [facility] outpatient PT for weakness and shortness of breath following a hospital stay for a pulmonary embolism approximately 3 weeks ago . Pt reports that she has been using a walker most of the time since her hospital stay. Pt reports that she can only stand for 1-2 minutes at a time before she has to sit down. Pt reports that she lives with her daughter in a house with 2 JOSE C. Reports one fall that occurred about a week before she went into the hospital . PMH: Pulmonary artery hypertension, T2DM, HTN, PE, cor pulmonale, CHF, Lymphedema New diagnosis of No cancer in past 12 months? Chief Complaint Pain,Stiff Symptom Type Ache Symptoms Relieved By Nothing Symptoms Aggravated Standing,Physical Activity,Walking,Lifting By Prior Functional None Limitations Current Functional Housework,Standing,Squatting,Recreation Activity, Limitations Walking,Stairs Symptom Description Constant and Continuous Level of pain today 7 (0-10) Pain scale - at its 5 best (0-10) Pain scale - at its 10 worst (0-10) Dynamic Gait Index Test Protocol Gait Level Surface Mild Impairment Query Text: Instructions: Walk at your normal speed from here to the next lea (20'). Grading: Lea the lowest category that applies. Change in Gait Speed Moderate Impairment Query Text: Instructions: Begin walking at your normal pace (for 5') , when I tell you go , walk as fast as you can (for 5'). When I tell you slow , walk as slowly as you can ( for 5'). Grading: Lea the lowest category that applies. Gait with Horizontal Moderate Impairment Head Turns Query Text: Instructions: Begin walking at your normal pace. When I tell you to look right , keep walking straight, but turn you head to the right. Keep looking to the right unit I tell you look left , then keep walking straight and turn your head to the left. Keep your head to the left until I tell you look straight , then keep walking straight, but return you head to the center. Grading: Lea the lowest category that applies. Gait with Vertical Mild Impairment Head Turns Query Text: Instructions: Begin walking at your normal pace. When I tell you to look up , keep walking staight, but tip your head up. Keep looking up until I tell you to look down , then keep walking straight and tip your head down. Keep your head down until I tell you look straight , then keep walking straight, but return your head to the center. Grading: Lea the lowest category that applies. Gait and Pivot Turn Moderate Impairment Query Text: Instructions: Begin walking at your normal pace. When I tell you turn and stop , turn as quickly as you can to face the opposite direction and stop. Grading: Lea the lowest category that applies. Step Over Obstacle Moderate Impairment Query Text: Instructions: Begin walking at your normal speed. When you come to the shoebox, step over it, not around it and keep walking. Grading: Lea the lowest category that applies. Step Around Mild Impairment Obstacles Query Text: Instructions: Begin walking at normal speed. When you come to the first cone (about 6' away) , walk around the right side of it. When you come to the second cone (6' past first cone), walk around it to the left. Grading: Lea the lowest category that applies. Steps Moderate Impairment Query Text: Instructions: Walk up these stairs as you would at home. At the top, turn around and walk down . Grading: Lea the lowest category that applies. Scoring Dynamic Gait Index 11 Score Lower Extremity Functional Index Activities Today, do you or would you have any difficulty at all with: a.Any of your usual Quite a bit of difficulty work, housework or school activities b. Your usual Quite a bit of difficulty hobbies, recreational or sporting activities c. Getting into or Moderate difficulty out of the bath d. Walking between Quite a bit of difficulty rooms e. Putting on your Quite a bit of difficulty shoes or socks f. Squatting Extreme difficulty or unable to perform activity g. Lifting an object Quite a bit of difficulty , like a bag of groceries from the floor h. Performing light Quite a bit of difficulty activities around your home i. Performing heavy Extreme difficulty or unable to perform activity activities around your home j. Getting into or Quite a bit of difficulty out of a car k. Walking 2 blocks Extreme difficulty or unable to perform activity l. Walking a mile Extreme difficulty or unable to perform activity m. Going up or down Extreme difficulty or unable to perform activity 10 stairs (about 1 flight of stairs) n. Standing for 1 Extreme difficulty or unable to perform activity hour o. Sitting for 1 Extreme difficulty or unable to perform activity hour p. Running on even Extreme difficulty or unable to perform activity ground q. Running on uneven Extreme difficulty or unable to perform activity ground r. Making sharp Extreme difficulty or unable to perform activity turns while running fast s. Hopping Extreme difficulty or unable to perform activity t. Rolling over in Quite a bit of difficulty bed LEFI Score Lower Extremity 10 Functional Index Score Miscellaneous Dx PT Eval Objective Objective Gait Assessment: Wide MELANY gait, slowed samy, unsteady throughout gait. TUs MMT: - RLE 2/5 globally, LLE 2/5 globally Outpatient Therapy Assessment Impairments Problems/ Impaired Strength,Impaired Gait Pattern,Impaired Impairmments Walking,Impaired Standing,Impaired Household Care, Impaired Stair Climbing,Impaired Balance,Subjective C/O Pain Prognosis Rehab Potential Fair Clinical Impression Consistent with Yes Diagnosis Consistent with Reduced Mobility (Z74.09) Short Term Goals Number of Weeks 4 Increase Strength Yes: B LEs to 3/5 grossly Improve Gait Pattern Yes: no apparent LOB with AAD. with Assistive Device Increase Ability to Yes: 10 minutes without needing a sitting break Stand Increase DGI Score Yes: >14 Improve LEFI Score Yes Decrease TUG Time Yes: <15s Decrease Subjective Yes: 03/10 with above assessment C/O Pain Patient to be Ind w/ Yes HEP Nursing Home Goals Number of Weeks 8 Increase Strength Yes: 3+/5 to B LEs Improve Gait Pattern Yes: No apparent LOB without AD without Assistive Device Increase Ability to Yes: 20 minutes without requiring rest break Stand Improve Ability to Yes: 3 stairs with hand rail Climb Stairs Increase DGI Score Yes: >17 Improve LEFI Score Yes: >20 Decrease TUG Time Yes: <12s Decrease Subjective Yes: 310 with above assessment C/O Pain Patient to be Ind w/ Yes Advanced HEP Outpatient Therapy Plan of Care Treatment Plan May Include Therapeutic Exercise Yes Including Home Exercise Program Manual Therapy Yes Techniques Neuromuscular Re- Yes education Therapeutic Yes Activities to Return to Previous Functional/Work Level Gait Training Yes ADL/Self Care Yes Education Thermal Modalities Yes Electrical Yes Stimulation Manual Lymphatic Yes Drainage Eval/Re-Eval Yes Frequency Times per week 1-2 Duration Number of Weeks 8 Addendums This patient is a No candidate for social or vocational rehab ? Patient/Guardian Yes verbally acknowledges understanding of treatment program and consents to further treatment? Patient/Guardian Yes verbally acknowledges understanding of diagnosis, prognosis and goals for treatment? Eval Complexity PT Charges 55875 - High Complexity Shoulder/Elbow Eval Shoulder Objective Measurements Elbow Objective Measurements PHYSICIAN CERTIFICATION: I certify the specified therapy services for [facility] are required, authorized, and reviewed every 30 days.
== END 2025-04-04 23:59 | disposition home or self-care (01) ==
LOC: PT 15:09
PROVIDERS: Visit Provider Internal Medicine Adolescent Medicine
DX: I27.21 Secondary pulmonary arterial hypertension (principal); I26.99 Other pulmonary embolism without acute cor pulmonale; I50.30 Unspecified diastolic (congestive) heart failure; E66.01 Morbid (severe) obesity due to excess calories; Z68.43 Body mass index [BMI] 50.0-59.9, adult
CPT/HCPCS: 97163; 97530

== ENCOUNTER 2025-05-22 19:09 | Emergency (ER) | payer OTHER, SELFPAY ==
--- OUTSIDE RECORDS SUMMARY | 2025-05-22 19:29 | XMS_ITS | Clinical Summary ---
Author Organization Healthcare Address [address] [place] [address] Care Team Providers Care Parts Identification Technician Name Role Phone Lisa Aguirre Primary Care Provider [phone] Social History Tobacco Use Types Packs/Day Years Used Date Smoking Tobacco: Never Assessed Comments Unknown Sex and Gender Information Value Date Recorded Sex Assigned at Not on file Legal Sex Female 6:04 PM EDT Gender Identity Not on file Sexual Orientation Not on file Last Filed Vital Signs Vital Sign Reading Time Taken Comments Blood Pressure 122/71 03/25/2021 9:02 AM EDT Pulse 95 03/25/2021 9:02 AM EDT Temperature 36.6 C (97.9 F) 03/25/2021 9:02 AM EDT Respiratory Rate - - Oxygen Saturation - - Inhaled Oxygen Concentration - - Weight 134 kg (295 lb 4.2 oz) 03/25/2021 9:02 AM EDT Height 157.5 cm (5' 2 ) 03/25/2021 9:02 AM EDT Body Mass Index 54 03/25/2021 9:02 AM EDT Plan of Treatment Health Maintenance Due Date Last Done Comments [facility]-Depression Screening 1964 [facility]-/Child/Adol SDOH Screenings 1964 [facility]- SDOH Screenings 1982 [facility]-Adult SDOH Screenings 1982 [facility]-DTaP,Tdap,and Td Vaccine s (1 - Tdap) 1983 [facility]-Pap Smear 1985 [facility]-Cervical Cancer Screening 1994 [facility]-HPV/Cotest 1994 CT Colonography 2009 Colonoscopy 2009 FIT-DNA 2009 FIT 2009 FOBT 2009 Sigmoidoscopy 2009 [facility]-Colorectal Cancer Screening 2009 [facility]-Pneumococcal Vaccine: 50 + Years (1 of 1 - PCV) 2014 [facility]-Zoster Vaccines (1 of 2) 2014 [id number] Vaccine (1 - 20 24-25 season) 2024 [facility]-Influenza Vaccine (#1) 2025 [facility]-RSV Vaccine: 60+ Years o r (1 - 1-dose 75+ series) 2039 HPV Vaccines Aged Out No longer eligi ble based on patient's age to complete this topic [facility]-HIB Vaccines Aged Out No longer e ligible based on patient's age to complete this topic [facility]-Hepatitis A Vaccines Aged Out No longer eligible based on patient's age to complete this topic [facility]-IPV Vaccines Aged Out No longer e ligible based on patient's age to complete this topic [facility]-Rotavirus Vaccines Aged Out No lo nger eligible based on patient's age to complete this topic Care Teams Parts Identification Technician Relationship Specialty Start Date End Date Lisa Aguirre PA [address] [place], [place] [id number] PCP - General 03/14/21
[2025-05-22 19:30] VITALS: BP 114/72; PULSE 122; RESP 18; TEMP 37.4; O2SAT 96; BMI 47.5
--- NOTE | 2025-05-22 19:32 | ED_ITS ---
<Statement entered by Lanie Mead DO - 05/23/25 20:30> I was consulted by the MOISÉS, and we discussed the complexity of problems being addressed. I approve the treatment and management plan for this patient's care in the emergency department, thus performing a substantial portion of the medical decision making. Lanie Mead DO Discharge Plan Disposition Patient Disposition: Home, Self-Care Condition: Good Prescriptions Prescriptions: No Action lisinopril-hydrochlorothiazide 10-12.5 mg tablet 1 tab PO DAILY cholecalciferol (vitamin D3) 25 mcg (1,000 unit) capsule 25 mcg PO DAILY B-complex with vitamin C [Super B/C] Capsule 1 cap PO DAILY loratadine 10 mg tablet 10 mg PO DAILY fluticasone propionate [Flonase Allergy Relief] 50 mcg/actuation spray,suspension 2 spray intranasal DAILY 90 Days Qty: 16 3RF Rx Instructions: administer into each nostril spironolactone 25 mg tablet 25 mg PO DAILY Patient Comments: TAKE 1 TABLET BY MOUTH ONCE DAILY Ozempic 0.25 mg or 0.5 mg (2 mg/3 mL) pen injector SQ Patient Comments: INJECT 0.25MG SUBCUTANEOUSLY ONCE A WEEK Xarelto 20 mg tablet 20 mg PO DAILY Qty: 60 2RF Rx Instructions: start after finishing the 15mg BID course albuterol sulfate [Ventolin HFA] 90 mcg/actuation HFA aerosol inhaler 2 inh inhalation Q6H PRN (Reason: shortness of breath or wheezing) 90 Days Qty: 18 3RF levothyroxine 25 mcg tablet 25 mcg PO DAILY Rx Instructions: TOTAL DOSE 225MCG brimonidine 0.2 % drops 1 drp ophthalmic (eye) BID latanoprost 0.005 % drops 1 drp ophthalmic (eye) DAILY levothyroxine 200 mcg tablet 200 mcg PO DAILY Patient Comments: TAKE 1 TABLET BY MOUTH ONCE DAILY IN THE MORNING ON AN EMPTY STOMACH Rx Instructions: TOTAL DOSE 225MCG fluticasone propion-salmeterol [Advair Diskus] 500-50 mcg/dose Blister With Device 1 inh inhalation BIDRT 30 Days Qty: 60 0RF ipratropium-albuterol 0.5 mg-3 mg(2.5 mg base)/3 mL Solution For Nebulization 3 ml inhalation Q4HP PRN (Reason: Shortness Of Breath) Qty: 180 0RF nystatin 100,000 unit/gram Powder 1 applic topical QIDP PRN (Reason: Rash) Qty: 30 0RF tiotropium bromide [Spiriva with HandiHaler] 18 mcg Capsule, W/Inhalation Device 1 cap inhalation DAILY 30 Days Qty: 30 0RF Xarelto 15 mg Tablet 15 mg PO BID 19 Days Qty: 38 0RF clindamycin HCl 150 mg capsule 450 mg PO TID 3 Days Qty: 27 0RF bumetanide 1 mg tablet 1 mg PO DAILY Qty: 30 0RF montelukast 10 mg tablet 10 mg PO HS Referrals Follow up/Referrals: Provider,Referral, [Referring, Medical] - See instructions Bri Hall DPM [Staff Physician, Podiatry] - See instructions Activity Restrictions/Add. Instructions Additional Instructions/Restrictions: I have referred you to podiatry for the symptoms that you experience. You may be developing peripheral neuropathy however please call tomorrow to make your appointment to establish care with them. You do not have evidence of constipation today however should you have persistent new or worsening signs or symptoms please follow-up with your PCP return to the ER as needed. You do have what is described as a pulmonary nodule that is new since your previous exam. Please let your PCP know so that can be followed over time. Clinical Impressions Clinical Impression: Decreased frequency of bowel movements, Foot pain, right, Incidental pulmonary nodule Print Language Print Language: Welsh Discharge ED Provider: Lanie Mead Adult HPI General Stated complaint: right leg swollen ,constipation Time Seen by Provider: 05/22/25 19:21 History of Present Illness HPI narrative: Patient presents for multiple complaints. Patient states that she has not had a bowel movement in 4 days. She is not intolerant of oral intake is actually eating and drinking normally with no nausea vomiting diarrhea. She also reports that Wednesday she began having burning pain in her right toe that has intermittently radiated up her leg. She denies any injury loss of motor or sensory but reports that it is painful to walk. She is a diabetic maintained currently on Ozempic. She is only on a low-dose of 0.25. Patient is currently on Xarelto due to previous pulmonary emboli. She denies any shortness of breath fever chills hemoptysis hematochezia melena. Related Data Home Medications ?Medication ?Instructions ?Recorded ?Confirmed loratadine 10 mg tablet 10 mg PO DAILY 03/17/2104/02 0 lisinopril 10 1 tab PO DAILY 1012.5MG 01/2004/20/25 mg-hydrochlorothiazide 12.5 mg tablet montelukast 10 mg tablet 10 mg PO HS 02/15/23 5 B-complex with vitamin C (Super 1 cap PO DAILY 3 04/20/25 B/C capsule) cholecalciferol (vitamin D3) 25 25 mcg PO DAILY 04/20/25 mcg (1,000 unit) capsule brimonidine 0.2 % eye drops 1 drp ophthalmic (eye) BID 03/16/25 04/20/25 latanoprost 0.005 % eye drops 1 drp ophthalmic (eye) D AILY 03/16/25 04/20/25 levothyroxine 200 mcg tablet 200 mcg PO DAILY 03/16/25 04/20/25 levothyroxine 25 mcg tablet 25 mcg PO DAILY 03/16/25 0 04/20/25 semaglutide 0.25 mg or 0.5 mg (2 mg SQ 04/20/25 mg/3 mL) subcutaneous pen injector (Ozempic) spironolactone 25 mg tablet 25 mg PO DAILY 04/20/25 Previous Rx's ?Medication ?Instructions ?Recorded fluticasone propionate 50 2 spray intranasal DAILY 90 days 08/07/24 mcg/actuation nasal #16 grams spray,suspension (Flonase Allergy Relief) bumetanide 1 mg tablet 1 mg PO DAILY #30 tabs 03/19 clindamycin HCl 150 mg capsule 450 mg (3 x 150 mg) PO TID 3 days 03/19/25 #27 caps fluticasone 500 mcg-salmeterol 50 1 inh inhalation BID RT 30 days #60 03/19/25 mcg/dose blistr powdr for ea inhalation (Advair Diskus) ipratropium 0.5 mg-albuterol 3 mg 3 ml inhalation Q4HP PRN Shortness 03/19/25 (2.5 mg base)/3 mL nebulization Of Breath #180 mL soln nystatin 100,000 unit/gram topical 1 applic topical QI DP PRN Rash #30 05/19/25 powder grams rivaroxaban 15 mg tablet (Xarelto) 15 mg PO BID 19 day s #38 tabs 03/19/25 tiotropium bromide 18 mcg capsule 1 cap inhalation [place] LY 30 days #30 03/19/25 with inhalation device (Spiriva puffs with HandiHaler) albuterol sulfate 90 mcg/actuation 2 inh inhalation Q6 H PRN shortness 04/10/25 aerosol inhaler (Ventolin HFA) of breath or wheezing 9 0 days #18 grams rivaroxaban 20 mg tablet (Xarelto) 20 mg PO DAILY #60 tabs 04/23/25 Allergies Allergy/AdvReac Type Severity Reaction Status Date / Time cefprozil (From Cefzil) Allergy Hives Verified 04/20/25 09:44 cephalexin (From Keflex) Allergy Hives Verified 04/20/25 09:44 cetirizine (From Zyrtec) Allergy Hives Verified 04/20/25 09:44 clemastine (From Tavist) Allergy Hives Verified 04/20/25 09:44 erythromycin base Allergy Hives Verified 04/20/25 09:44 fexofenadine (From Calista) Allergy Hives Verified 04/20/25 09:44 loratadine (From Claritin-D) Allergy Hives Verified 04/20/25 09:44 Penicillins Allergy Hives Verified 04/20/25 09:44 pseudoephedrine (From Allergy Hives Verified 04/20/25 09:44 Claritin-D) Antihistamine, Piperidine Allergy Unknown Hives Uncoded 04/20/25 09:44 Astemizole Allergy Unknown Unknown Uncoded 04/20/25 09:44 allergy reaction Cefprozil Allergy Unknown Unknown Uncoded 04/20/25 09:44 allergy reaction Cephalexin Allergy Unknown Hives Uncoded 04/20/25 09:44 Cephalosporin Allergy Unknown Hives Uncoded 04/20/25 09:44 Cetirizine Allergy Unknown Hives Uncoded 04/20/25 09:44 CLASS: 04:00 - ANTIHISTAMINE Allergy Unknown Hives Uncoded 04/20/25 09:44 DRUGS DHE 45 Allergy Unknown LOSS OF Uncoded 04/20/25 09:44 MUSCLE CONTROL From Erythromycin Stearate Allergy Unknown Hives Uncoded 04/20/25 09:44 From Fexofenadine Allergy Unknown Hives Uncoded 04/20/25 09:44 Hydrochloride Macrolide/Antibacterial Allergy Unknown Hives Uncoded 04/20/25 09:44 Penicillin Allergy Unknown Hives Uncoded 04/20/25 09:44 PSEUDOEPHEDRINE Allergy Unknown I-HIVES Uncoded 04/20/25 09:44 Terfenadine Allergy Unknown Hives Uncoded 04/20/25 09:44 DHE45 Allergy Hives Uncoded 04/20/25 09:44 [facility] Disclaimer: The information contained in this section may have been updated after the patient was seen, as this information can be updated by other users. Medical History (Updated 05/22/25 @ 22:05 by YULIYA Babcock) Recurrent pulmonary emboli Shortness of breath Acute respiratory failure with hypoxia and hypercarbia Cataract Osteoarthritis Tooth abscess Hypertrophy of nasal turbinates Chronic sinusitis Asthma Allergic rhinitis Seasonal allergies Family history of asthma Moderate persistent asthma History of pulmonary embolism Pulmonary hypertension Shortness of breath Dyspnea on exertion History of DVT (deep vein thrombosis) Pulmonary embolism Mild right atrial enlargement Abnormal EKG Sinus tachycardia Chest pain Dyspnea Hypothyroidism Lymphedema of both lower extremities Morbid obesity with BMI of 50.0-59.9, adult HTN (hypertension) Surgical History History of colonoscopy Family History Other Cancer Coronary artery disease Heart attack Hypertension Stroke Thyroid disorder Social History Smoking Status: Never smoker alcohol intake: never substance use type: denies use current occupational status: other Travel in the last 8 weeks?: None household members: family housing: house number of children: 2 Have you lived/traveled outside [place] in past 30 days?: No Contact w/someone who lives/traveled outside US past 30 days?: No Exposure to someone with infectious disease in past 14 days?: No Do you have a fever (greater than 100.4 F or 38 C)?: No Have you tested positive for COVID-19?: No Exposed to someone with COVID-19 in past 14 days?: No Do you have a sore throat?: No Do you have a cough?: No Do you have any weakness?: No Do you have any diarrhea?: No Are you experiencing any unusual bleeding?: No Do you have any muscle aches/pain?: No Do you have any abdominal pain?: No Are you experiencing loss of taste or smell?: No Other Medical History Have you received the Flu Vaccine for this season: No Have you received the Pneumonia Vaccine: Yes ROS Obtained: Yes Systems reviewed as appropriate & no additional complaints except as documented Physical Exam General General appearance: alert and in no apparent distress Respiratory Respiratory exam: Present normal lung sounds bilaterally Cardiovascular Cardiovascular exam: Present regular rate Neurological Exam Neurological exam: Present alert and oriented X3 Medical Decision Making Medical Records Medical records reviewed: Yes I reviewed the patient's medical records. Screening: Per USPSTF and CDC recommendations, given the prevalence of disease in our region, it is our hospital?s policy to screen for HIV and viral Hepatitis for all patients aged 18 and over and those with ongoing risk factors. Cesar Inquiry Pt receiving controlled substance: No Vital Signs: 05/22/25 20:01 05/22/25 20:31 05/22/25 21:31 Pulse Rate 112 H 108 H Respiratory Rate 21 20 19 Blood Pressure 115/72 124/73 120/81 02 Sat by Pulse Oximetry 90 L 90 L 05/22/25 22:01 Pulse Rate 108 H Respiratory Rate 18 Blood Pressure 133/76 02 Sat by Pulse Oximetry 93 L Lab Data Lab results reviewed: Yes I reviewed the patient's lab results. Lab Results 05/22/25 19:54: WBC 12.3 H, RBC 4.42, Hgb 12.9, Hct 38.4, MCV 86.9, MCH 29.2, MCHC 33.6, RDW 14.3, Plt Count 228, MPV 9.9, Neut % (Auto) 76.6, Lymph % (Auto) 11.6, [place] % (Auto) 7.4, Eos % (Auto) 1.6, Baso % (Auto) 0.6, Neut # (Auto) 9.4 H, Lymph # (Auto) 1.4, [place] # (Auto) 0.9, Eos # (Auto) 0.2, Baso # (Auto) 0.1, S odium 128 L, Potassium 4.4, Chloride 96 L, Carbon Dioxide 26, Anion Gap 10.4, BUN 17, Creatinine 1.20 H, Estimated GFR 46 L, Est GFR ( Amer) 55 L, G lucose 161 H, Calcium 10.7 H, Total Bilirubin 1.1, AST 29, ALT 31, Alkaline Phosphatase 78, Total Protein 8.6 H, Albumin 4.4, Globulin 4.2 H, A lbumin/Globulin Ratio 1.0 L, Acetone Level None detected 05/22/25 19:54 05/22/25 19:54 Orders (Tests/Meds): ED MEDICATIONS Generic Name Dose Route Start Last Admin Trade Name Freq PRN Reason Stop Dose Admin Sodium Chloride 10 ml 05/22/25 20:57 05/22/25 20:58 Sodium Chloride 0.9% 10ml Syr (Rad Only) IV 06/21/25 20:56 10 ml NEEDED PRN Administration Maintain IV Site Discontinued Medications Generic Name Dose Route Start Last Admin Trade Name Freq PRN Reason Stop Dose Admin Sodium Chloride 1,000 mls @ 999 mls/hr 05/22/25 19:39 05/22/25 19:57 Sod Chlor 0.9% 1000ml Bag IV 05/22/25 20:39 999 mls/hr .Q1H1M ONE Administration Iopamidol 70 ml 05/22/25 20:57 05/22/25 20:58 Iopamidol-370 (76%);100ml Bottle IV 05/22/25 20:58 70 ml ONCE ONE Administration Ondansetron HCl 4 mg 05/22/25 19:39 05/22/25 19:57 Ondansetron 4mg/2ml Vial IV 05/22/25 19:40 4 mg ONCE ONE Administration Sodium Chloride 50 ml 05/22/25 20:57 05/22/25 20:58 0.9 % Sodium Chloride 50 Ml Vial IV 05/22/25 20:58 50 ml ONCE ONE Administration ORDERS Category Date Time Status CT abdomen pelvis w con Stat Cat Scan 05/22/25 19:[address] angio chest PE protocol Stat Cat Scan 05/22/25 20:02 Completed Ankle XR -Right minimum 3 Views [XR ankle RT min 3V] Exams 05/22/25 20:22 Completed Stat Fibula/tibia XR right 2 views [XR tibia fibula RT 2V] Exams 05/22/25 20:22 Completed Stat Foot XR right minimum 3 views [XR foot RT min 3V] Stat Exams 05/22/25 20:22 Completed Acetone, Serum (Rapid) Stat Lab 05/22/25 19:54 Completed CBC w/Auto Diff [Complete Blood Count Auto Diff] Stat Lab 05/22/25 19:54 Completed CMP [Comprehensive Metabolic Panel] Stat Lab 05/22/25 19:54 Completed UA [Urinalysis and Microscopic] Stat Lab 05/22/25 19:40 Ordered Medical Decision Narrative: In summary patient is a 60-year-old female who presents to the emergency department for evaluation of constipation and paresthesia of the right lower extremity. Patient is normotensive with a blood pressure of 115/72 however she is tachycardic at 112 with sinus tachycardia the bedside monitor breathing 21 times a minute satting at 90% on room air upon arrival. Physical exam is remarkable for well-nourished well-developed 60-year-old female who otherwise in no acute distress. Breath sounds clear and equal bilaterally to the bases without adventitious sounds abdomen is obese but soft nontender no rebound no guarding no rigidity. Bowel sounds normal active. Patient moves all 4 extremities however patient has tenderness to even light touch of the right lower extremity there is no redness loss of motor or sensory noted. She has palpable pulses and good cap refill bilaterally. There are no palpable cords. She has negative Homans' sign. She does have dependent edema 3+ to the level of the thighs.. Differential diagnosis includes constipation versus obstipation versus peripheral neuropathy and less likely but possible thrombus Cetera. Initial workup will be conducted with hematologic labs CT scan PE protocol CT scan abdomen pelvis. Initial interventions include Tylenol Toradol Zofran. Initial workup interpreted by me and patient's white count is 12.3 normal H&H absolute neutrophil count is 9.4, sodium is 128 potassium 4.4 creatinine 1.2 GFR is 46 glucose 161 calcium 10.7 with no acetone detected my informal to rotation of her x-ray shows no acute fracture or bony abnormality and my interpretation of her CT scan abdomen pelvis does not show any evidence of obstruction nor excessive stool burden prior to radiology read. CTA of the chest via my informal interpretation shows no evidence of thrombus but does show a new pulmonary nodule. Given this patient is appropriate for discharge as we have ruled out any serious or life-threatening condition and while there remains diagnostic uncertainty as to the cause of her symptoms I feel the patient is safe for discharge with follow-up with her PCP, referral to podiatry and strict return precautions. Critical Care Critical Care Time Critical Care Time: No
--- NOTE | 2025-05-22 19:33 | ECG_ITS ---
APPROVED REPORT Exam: Resting ECG HR:117 bpm ECG Measurements Heart Rate 117 AXES ME 206 P 48 QRSd 97 QRS 107 QT 405 T 48 QTc 475 Conclusion Sinus tachycardia [address] or T wave changes concerning for ischemia Electronically signed by : Lanie Mead, 05/23/2025 00:34:51
--- NOTE | 2025-05-22 19:40 | CT_ITS ---
PROCEDURE INFORMATION: Exam: CT Abdomen And Pelvis With Contrast Exam date and time: 05/22/2025 8:54 PM Age: 60 years old Clinical indication: Constipation; Additional info: 4 days with no bowel movement TECHNIQUE: Imaging protocol: Computed tomography of the abdomen and pelvis with contrast. 3D rendering (Not supervised by radiologist): MIP and/or 3D reconstructed images were created by the technologist. Radiation optimization: All CT scans at this facility use at least one of these dose optimization techniques: automated exposure control; mA and/or kV adjustment per patient size (includes targeted exams where dose is matched to clinical indication); or iterative reconstruction. Contrast material: ISOVUE; Contrast volume: 70 ml; Contrast route: IV; COMPARISON: CT ANGIO CHEST PE PROTOCOL 03/15/2025 8:20 PM FINDINGS: Liver: Normal. No mass. Gallbladder and biliary ducts: Normal. No calcified stones. No ductal dilation. Pancreas: Normal. No ductal dilation. Spleen: Normal. No splenomegaly. Adrenal glands: Normal. No mass. Kidneys and ureters: Low attenuation renal lesions measuring up to 3.4 cm in diameter are incompletely characterized, but are likely cysts. No followup imaging is warranted. Stomach and bowel: Small amount of stool in the colon. No evidence of colonic obstruction. Appendix: The appendix measures up to 8 mm in diameter, which is abnormal. The contents are predominantly gas. No periappendiceal inflammation. This is likely the baseline appearance of the appendix. Intraperitoneal space: Unremarkable. No free air. No significant fluid collection. Vasculature: Unremarkable. No abdominal aortic aneurysm. Lymph nodes: Unremarkable. No enlarged lymph nodes. Urinary bladder: Unremarkable as visualized. Reproductive: Unremarkable as visualized. Bones/joints: Unremarkable. No acute fracture. Soft tissues: Tiny fat containing umbilical hernia. Other findings: Please see separate report for CT chest. Stigmata of old granulomatous disease. IMPRESSION: Small amount of stool in the colon. No evidence of colonic obstruction. COMMENTS: Consistent with the [place] [employer]'s Incidental Findings Committee white paper (J Am Hannah Radiol 2018): Any incidental renal lesion less than 1 cm or classified as too small to characterize, or any incidental cystic renal lesion characterized as simple-appearing, is likely benign. No follow-up imaging is recommended for these lesions per consensus recommendations based on imaging criteria.
[2025-05-22] MEDS: ONDANSETRON 4MG/2ML VIAL 4 MG IV (19:57)
[2025-05-22] MEDS: 0.9 % SODIUM CHLORIDE 1000ML 1,000 ML 999 ML IV (19:57)
[2025-05-22 20:01] VITALS: BP 115/72; PULSE 112; RESP 21; O2SAT 90
--- NOTE | 2025-05-22 20:02 | CT_ITS ---
PROCEDURE INFORMATION: Exam: CTA Chest With Contrast Exam date and time: 05/22/2025 8:54 PM Age: 60 years old Clinical indication: Other: Evaluate extension of blood clots TECHNIQUE: Imaging protocol: Computed tomographic angiography of the chest with contrast. Exam focused on the arteries. 3D rendering (Not supervised by radiologist): MIP and/or 3D reconstructed images were created by the technologist. Radiation optimization: All CT scans at this facility use at least one of these dose optimization techniques: automated exposure control; mA and/or kV adjustment per patient size (includes targeted exams where dose is matched to clinical indication); or iterative reconstruction. Contrast material: ISOVUE; Contrast volume: 70 ml; Contrast route: INTRAVENOUS (IV); COMPARISON: CT ANGIO CHEST PE PROTOCOL 03/15/2025 8:20 PM FINDINGS: Pulmonary arteries: Enlarged pulmonary arteries likely represent chronic pulmonary arterial hypertension. No pulmonary emboli. Aorta: Unremarkable. No aortic aneurysm. No aortic dissection. Lungs: Small left upper lobe posterior scar. Mild scarring and atelectasis in the lower lungs. There is a new left upper lobe 5 mm pulmonary nodule on image 29 series 5. There is an unchanged 2 mm left upper lobe nodules image 29 series 5. This is unchanged since at least 2020 and no additional follow-up is warranted for this nodule. Pleural spaces: Unremarkable. No pneumothorax. No pleural effusion. Heart: Cardiomegaly. Coronary arteries: Coronary artery calcifications. Lymph nodes: Unremarkable. No enlarged lymph nodes. Bones/joints: Unremarkable. No acute fracture. Soft tissues: Unremarkable. Other findings: Please see separate report for abdomen/pelvis. Stigmata of old granulomatous disease. IMPRESSION: 1. No pulmonary emboli. 2. There is a new left upper lobe 5 mm pulmonary nodule on image 29 series 5. For patients at low risk (minimal or absent history of smoking and of other known risk factors), no routine follow-up is indicated. For patients at high risk (history of smoking or of other known risk factors), consider optional CT Chest at 12 months. (Reference: Cierra) REFERENCES: Cierra Byrne et al. Guidelines for Management of Incidental Pulmonary Nodules Detected on CT Images: From the Fleischner Society 2017. Radiology. 2017;284(1):228-243.
[2025-05-22 20:03] LABS: Hematocrit 38.4 % (37.0-47.0); Hemoglobin 12.9 g/dL (12.2-16.2); Immature Granulocytes % 2.2 %; Mean Corpuscular HGB Conc 33.6 g/dL (31.8-35.4); Mean Corpuscular Hemoglobin 29.2 pg (27.0-31.2); Mean Corpuscular Volume 86.9 fl (81-99); Nucleated Red Blood Cells % 0 %; Platelet Count 228 K/mm3 (142-424); Red Blood Count 4.42 M/mm3 (4.20-5.40); Red Cell Distribution Width-SD 45.8 fL; White Blood Count 12.3 K/mm3 (4.8-10.8)
[2025-05-22 20:16] LABS: Chloride 96 mmol/L (98-107)
[2025-05-22 20:17] LABS: Albumin Level 4.4 g/dl (3.5-5.0); Potassium 4.4 mmoL/L (3.5-5.1); Sodium 128 mmol/L (136-145)
[2025-05-22 20:20] LABS: Alanine Aminotransferase 31 U/L (12-78); Albumin/Globulin Ratio 1.0 (1.1-1.8); Alkaline Phosphatase 78 U/L (38-126); Anion Gap 10.4 mEq/L (5-15); Aspartate Amino Transferase 29 U/L (14-36); Bilirubin,Total 1.1 mg/dl (0.2-1.3); Blood Urea Nitrogen 17 mg/dl (7-17); Calcium 10.7 mg/dl (8.4-10.2); Carbon Dioxide 26 mmol/L (22.0-30.0); Creatinine,Serum 1.20 mg/dl (0.52-1.04); Estimated Glomerular Filt Rate 46 ml/min (>60); GFR (African American) 55 ML/MIN (>60); Globulin 4.2 g/dL (1.3-3.2); Glucose 161 mg/dl (74-100); Total Protein,Serum 8.6 g/dl (6.3-8.2)
--- NOTE | 2025-05-22 20:22 | XR_ITS ---
PROCEDURE INFORMATION: Exam: XR Right Tibia and Fibula Exam date and time: 05/22/2025 8:38 PM Age: 60 years old Clinical indication: Other: Tenderness TECHNIQUE: Imaging protocol: Radiologic exam of the right tibia and fibula. Views: 2 views. COMPARISON: CR XR ANKLE RT MIN 3V 05/22/2025 8:38 PM FINDINGS: Bones/joints: No acute fracture or dislocation. Soft tissues: Normal. Vasculature: Vascular calcifications. IMPRESSION: No acute fracture or dislocation.
--- NOTE | 2025-05-22 20:22 | XR_ITS ---
PROCEDURE INFORMATION: Exam: XR Right Foot Exam date and time: 05/22/2025 8:38 PM Age: 60 years old Clinical indication: Pain; Foot; Right; Additional info: Tenderness, pain with ambulation TECHNIQUE: Imaging protocol: Radiologic exam of the right foot. Views: 3 or more views. COMPARISON: CR XR ANKLE RT MIN 3V 05/22/2025 8:38 PM FINDINGS: Bones/joints: Calcaneus enthesophytes. No acute fracture or dislocation. Soft tissues: Moderate dorsal soft tissue edema of the midfoot. Vasculature: Vascular calcifications. IMPRESSION: 1. Moderate dorsal soft tissue edema of the midfoot. Please exclude cellulitis. 2. No acute fracture or dislocation.
--- NOTE | 2025-05-22 20:22 | XR_ITS ---
PROCEDURE INFORMATION: Exam: XR Right Ankle Exam date and time: 05/22/2025 8:38 PM Age: 60 years old Clinical indication: Other: Tenderness TECHNIQUE: Imaging protocol: Radiologic exam of the right ankle. Views: 3 or more views. COMPARISON: CR XR ANKLE RT MIN 3V 05/22/2025 8:38 PM FINDINGS: Bones/joints: Calcaneus enthesophytes. No acute fracture or dislocation. Soft tissues: Normal. Vasculature: Vascular calcifications. IMPRESSION: No acute fracture or dislocation.
[2025-05-22 20:28] LABS: Acetone, Serum (Rapid) None Detected (None Detect)
[2025-05-22 20:31] VITALS: BP 124/73; PULSE 108; RESP 20; O2SAT 90
[2025-05-22] MEDS: SODIUM CHLORIDE 0.9% 10ML SYR (RAD ONLY) 10 ML IV (20:58)
[2025-05-22] MEDS: 0.9 % SODIUM CHLORIDE 50 ML VIAL IV (20:58)
[2025-05-22] MEDS: IOPAMIDOL-370 (76%);100ML BOTTLE 70 ML IV (20:58)
[2025-05-22 21:31] VITALS: BP 120/81; RESP 19
[2025-05-22 22:01] VITALS: BP 133/76; PULSE 108; RESP 18; O2SAT 93
[2025-05-22 22:29] VITALS: BP 133/76; PULSE 109; RESP 20; TEMP 37.4; O2SAT 96
== END 2025-05-22 22:31 | disposition home or self-care (01) ==
PROVIDERS: Physician Assistant; Emergency Provider Student in an Organized Health Care Education/Training Program; PCP Nurse Practitioner
DX: M79.671 Pain in right foot (principal); R91.1 Solitary pulmonary nodule; R19.4 Change in bowel habit; I27.21 Secondary pulmonary arterial hypertension; E78.5 Hyperlipidemia, unspecified; I10 Essential (primary) hypertension; E03.9 Hypothyroidism, unspecified
CPT/HCPCS: 71275; 73590; 73610; 73630; 74177; 80053; 82009; 85025; 93005; 96361; 96374; 99285; J2405; J7030; Q9967

== ENCOUNTER 2025-05-24 10:24 | Emergency (ER) | payer OTHER, SELFPAY ==
[2025-05-24] VITALS (15 sets, daily range): BP systolic 106–135; BP diastolic 63–86; PULSE 89–124; RESP 15–25; TEMP 36.8–36.9; O2SAT 88–95; BMI 48.4
--- NOTE | 2025-05-24 10:33 | HMH.EDGENADL ---
Discharge Plan Disposition Patient Disposition: Home, Self-Care Condition: Fair Prescriptions Prescriptions: New doxycycline hyclate 100 mg capsule 100 mg PO BID 7 Days Qty: 14 0RF prednisone 20 mg tablet 20 mg PO BID 5 Days Qty: 10 0RF oxycodone 5 mg tablet 5 mg PO Q8H PRN (Reason: pain) Qty: 12 0RF No Action lisinopril-hydrochlorothiazide 10-12.5 mg tablet 1 tab PO DAILY cholecalciferol (vitamin D3) 25 mcg (1,000 unit) capsule 25 mcg PO DAILY B-complex with vitamin C [Super B/C] Capsule 1 cap PO DAILY loratadine 10 mg tablet 10 mg PO DAILY fluticasone propionate [Flonase Allergy Relief] 50 mcg/actuation spray,suspension 2 spray intranasal DAILY 90 Days Qty: 16 3RF Rx Instructions: administer into each nostril spironolactone 25 mg tablet 25 mg PO DAILY Patient Comments: TAKE 1 TABLET BY MOUTH ONCE DAILY Ozempic 0.25 mg or 0.5 mg (2 mg/3 mL) pen injector SQ Patient Comments: INJECT 0.25MG SUBCUTANEOUSLY ONCE A WEEK Xarelto 20 mg tablet 20 mg PO DAILY Qty: 60 2RF Rx Instructions: start after finishing the 15mg BID course albuterol sulfate [Ventolin HFA] 90 mcg/actuation HFA aerosol inhaler 2 inh inhalation Q6H PRN (Reason: shortness of breath or wheezing) 90 Days Qty: 18 3RF levothyroxine 25 mcg tablet 25 mcg PO DAILY Rx Instructions: TOTAL DOSE 225MCG brimonidine 0.2 % drops 1 drp ophthalmic (eye) BID latanoprost 0.005 % drops 1 drp ophthalmic (eye) DAILY levothyroxine 200 mcg tablet 200 mcg PO DAILY Patient Comments: TAKE 1 TABLET BY MOUTH ONCE DAILY IN THE MORNING ON AN EMPTY STOMACH Rx Instructions: TOTAL DOSE 225MCG fluticasone propion-salmeterol [Advair Diskus] 500-50 mcg/dose Blister With Device 1 inh inhalation BIDRT 30 Days Qty: 60 0RF ipratropium-albuterol 0.5 mg-3 mg(2.5 mg base)/3 mL Solution For Nebulization 3 ml inhalation Q4HP PRN (Reason: Shortness Of Breath) Qty: 180 0RF nystatin 100,000 unit/gram Powder 1 applic topical QIDP PRN (Reason: Rash) Qty: 30 0RF tiotropium bromide [Spiriva with HandiHaler] 18 mcg Capsule, W/Inhalation Device 1 cap inhalation DAILY 30 Days Qty: 30 0RF Xarelto 15 mg Tablet 15 mg PO BID 19 Days Qty: 38 0RF clindamycin HCl 150 mg capsule 450 mg PO TID 3 Days Qty: 27 0RF bumetanide 1 mg tablet 1 mg PO DAILY Qty: 30 0RF montelukast 10 mg tablet 10 mg PO HS Referrals Follow up/Referrals: Marian Liu APRN [Primary Care Provider, Medical] - See instructions Activity Restrictions/Add. Instructions Additional Instructions/Restrictions: Follow-up with your head athletic trainer/strength coach as well as your PCP for probable gout flare. Get your blood sugar rechecked after beginning the steroids, you may need to come off of them if your blood sugar spikes too high. Return to the emergency department if your swelling or redness gets worse or you develop fevers. Please follow up with your primary care provider in 2-3 days. Please return to ED if your symptoms worsen, change in location, change in severity, new symptoms develop or if you become concerned for your health. You have been prescribed opioid pain medications. Take only as prescribed and only when needed for pain. Please do not drive, operate heavy machinery, or make important decisions while taking this medication until you know how it affects you as they can impair your judgement. Do not drink alcohol while taking this medication. Should you need a refill of this pain medication, please contact your primary care provider. Clinical Impressions Clinical Impression: Localized swelling of right foot, Acute pain of right foot, Gout flare, Cellulitis Print Language Print Language: Slovenian Discharge ED Provider: Domingo Morton Adult HPI General Chief complaint: Extremity Problem,Nontraumatic Stated complaint: Right Leg pain and swelling Time Seen by Provider: 05/24/25 10:31 History of Present Illness HPI narrative: Patient is a 60-year-old female with history of obesity hypoventilation syndrome, diabetes, CHF, lymphedema, plantar fasciitis. Per my read EMR, she was seen here 2 days ago for concerns for multiple complaints including shortness of breath. She had a negative CT chest and abdomen and was sent home with treatment for constipation. She reports worsening pain in her right foot which had negative x-rays and then with just soft tissue swelling. The swelling she reports gotten worse with pain and she is unable to ambulate on it. Denies any fevers, chest pain shortness of breath, extension of redness beyond the top of the foot. Related Data Home Medications ?Medication ?Instructions ?Recorded ?Confirmed loratadine 10 mg tablet 10 mg PO DAILY 03/17/21 04/20/25 lisinopril 10 1 tab PO DAILY 10/12.5MG 11/03/21 04/20/25 mg-hydrochlorothiazide 12.5 mg tablet montelukast 10 mg tablet 10 mg PO HS 02/15/23 04/20/25 B-complex with vitamin C (Super 1 cap PO DAILY 04/14/23 04/20/25 B/C capsule) cholecalciferol (vitamin D3) 25 25 mcg PO DAILY 04/14/23 04/20/25 mcg (1,000 unit) capsule brimonidine 0.2 % eye drops 1 drp ophthalmic (eye) BID 03/16/25 04/20/25 latanoprost 0.005 % eye drops 1 drp ophthalmic (eye) DAILY 03/16/25 04/20/25 levothyroxine 200 mcg tablet 200 mcg PO DAILY 03/16/25 04/20/25 levothyroxine 25 mcg tablet 25 mcg PO DAILY 03/16/25 04/20/25 semaglutide 0.25 mg or 0.5 mg (2 mg SQ 04/20/25 04/20/25 mg/3 mL) subcutaneous pen injector (Ozempic) spironolactone 25 mg tablet 25 mg PO DAILY 04/20/25 04/20/25 Previous Rx's ?Medication ?Instructions ?Recorded fluticasone propionate 50 2 spray intranasal DAILY 90 days 08/07/24 mcg/actuation nasal #16 grams spray,suspension (Flonase Allergy Relief) bumetanide 1 mg tablet 1 mg PO DAILY #30 tabs 03/19/25 clindamycin HCl 150 mg capsule 450 mg (3 x 150 mg) PO TID 3 days 03/19/25 #27 caps fluticasone 500 mcg-salmeterol 50 1 inh inhalation BIDRT 30 days #60 03/19/25 mcg/dose blistr powdr for ea inhalation (Advair Diskus) ipratropium 0.5 mg-albuterol 3 mg 3 ml inhalation Q4HP PRN Shortness 03/19/25 (2.5 mg base)/3 mL nebulization Of Breath #180 mL soln nystatin 100,000 unit/gram topical 1 applic topical QIDP PRN Rash #30 03/19/25 powder grams rivaroxaban 15 mg tablet (Xarelto) 15 mg PO BID 19 days #38 tabs 03/19/25 tiotropium bromide 18 mcg capsule 1 cap inhalation DAILY 30 days #30 03/19/25 with inhalation device (Spiriva puffs with HandiHaler) albuterol sulfate 90 mcg/actuation 2 inh inhalation Q6H PRN shortness 04/10/25 aerosol inhaler (Ventolin HFA) of breath or wheezing 90 days #18 grams rivaroxaban 20 mg tablet (Xarelto) 20 mg PO DAILY #60 tabs 04/23/25 doxycycline hyclate 100 mg capsule 100 mg PO BID 7 days #14 caps 05/24/25 oxycodone 5 mg tablet 5 mg PO Q8H PRN pain #12 tabs 05/24/25 prednisone 20 mg tablet 20 mg PO BID 5 days #10 tabs 05/24/25 Allergies Allergy/AdvReac Type Severity Reaction Status Date / Time cefprozil (From Cefzil) Allergy Hives Verified 04/20/25 09:44 cephalexin (From Keflex) Allergy Hives Verified 04/20/25 09:44 cetirizine (From Zyrtec) Allergy Hives Verified 04/20/25 09:44 clemastine (From Tavist) Allergy Hives Verified 04/20/25 09:44 erythromycin base Allergy Hives Verified 04/20/25 09:44 fexofenadine (From Calista) Allergy Hives Verified 04/20/25 09:44 loratadine (From Claritin-D) Allergy Hives Verified 04/20/25 09:44 Penicillins Allergy Hives Verified 04/20/25 09:44 pseudoephedrine (From Allergy Hives Verified 04/20/25 09:44 Claritin-D) Antihistamine, Piperidine Allergy Unknown Hives Uncoded 04/20/25 09:44 Astemizole Allergy Unknown Unknown Uncoded 04/20/25 09:44 allergy reaction Cefprozil Allergy Unknown Unknown Uncoded 04/20/25 09:44 allergy reaction Cephalexin Allergy Unknown Hives Uncoded 04/20/25 09:44 Cephalosporin Allergy Unknown Hives Uncoded 04/20/25 09:44 Cetirizine Allergy Unknown Hives Uncoded 04/20/25 09:44 CLASS: 04:00 - ANTIHISTAMINE Allergy Unknown Hives Uncoded 04/20/25 09:44 DRUGS DHE 45 Allergy Unknown LOSS OF Uncoded 04/20/25 09:44 MUSCLE CONTROL From Erythromycin Stearate Allergy Unknown Hives Uncoded 04/20/25 09:44 From Fexofenadine Allergy Unknown Hives Uncoded 04/20/25 09:44 Hydrochloride Macrolide/Antibacterial Allergy Unknown Hives Uncoded 04/20/25 09:44 Penicillin Allergy Unknown Hives Uncoded 04/20/25 09:44 PSEUDOEPHEDRINE Allergy Unknown I-HIVES Uncoded 04/20/25 09:44 Terfenadine Allergy Unknown Hives Uncoded 04/20/25 09:44 DHE45 Allergy Hives Uncoded 04/20/25 09:44 PFSH [facility] Disclaimer: The information contained in this section may have been updated after the patient was seen, as this information can be updated by other users. Medical History (Updated 05/24/25 @ 14:31 by Domingo Morton MD) Recurrent pulmonary emboli Shortness of breath Acute respiratory failure with hypoxia and hypercarbia Cataract Osteoarthritis Tooth abscess Hypertrophy of nasal turbinates Chronic sinusitis Asthma Allergic rhinitis Seasonal allergies Family history of asthma Moderate persistent asthma History of pulmonary embolism Pulmonary hypertension Shortness of breath Dyspnea on exertion History of DVT (deep vein thrombosis) Pulmonary embolism Mild right atrial enlargement Abnormal EKG Sinus tachycardia Chest pain Dyspnea Hypothyroidism Lymphedema of both lower extremities Morbid obesity with BMI of 50.0-59.9, adult HTN (hypertension) Surgical History History of colonoscopy Family History Other Cancer Coronary artery disease Heart attack Hypertension Stroke Thyroid disorder Social History Smoking Status: Never smoker alcohol intake: never substance use type: denies use current occupational status: other Travel in the last 8 weeks?: None household members: family housing: house number of children: 2 Have you lived/traveled outside US in past 30 days?: No Contact w/someone who lives/traveled outside US past 30 days?: No Exposure to someone with infectious disease in past 14 days?: No Do you have a fever (greater than 100.4 F or 38 C)?: No Have you tested positive for COVID-19?: No Exposed to someone with COVID-19 in past 14 days?: No Do you have a sore throat?: No Do you have a cough?: No Do you have any weakness?: No Do you have any diarrhea?: No Are you experiencing any unusual bleeding?: No Do you have any muscle aches/pain?: No Do you have any abdominal pain?: No Are you experiencing loss of taste or smell?: No Other Medical History Have you received the Flu Vaccine for this season: No Have you received the Pneumonia Vaccine: Yes ROS Obtained: Yes All systems reviewed & no additional complaints except as documented Physical Exam General General appearance: alert, in no apparent distress and obese Head Head exam: atraumatic and normocephalic Eye Eye exam: Present PERRL and EOMI ENT ENT exam: Present normal oropharynx Neck Neck exam: Present full ROM and trachea midline Chest Chest inspection: Present symmetric chest wall rise Respiratory Respiratory exam: Present normal lung sounds bilaterally; Absent stridor Cardiovascular Cardiovascular exam: Present regular rate and normal rhythm Abdominal Exam Abdominal exam: Present soft; Absent distention or tenderness Extremities Exam Extremities exam: Present full ROM, tenderness (Tender palpation over the dorsum of the right foot with edema significantly on the top of the right foot compared with the left with confluent blanching erythema without induration or crepitus no pain with passive try) and edema Neurological Exam Neurological exam: Present alert and oriented X3 Psychiatric Psychiatric exam: Present normal mood Skin Skin exam: Present warm and dry Medical Decision Making Medical Records Screening: Per USPSTF and CDC recommendations, given the prevalence of disease in our region, it is our hospital?s policy to screen for HIV and viral Hepatitis for all patients aged 18 and over and those with ongoing risk factors. Cesar Inquiry Pt receiving controlled substance: No Vital Signs: 05/24/25 10:31 05/24/25 10:36 05/24/25 10:45 Temperature 98.5 F Temperature Source Oral Pulse Rate 124 H 122 H Pulse Rate [Right] 118 H Respiratory Rate 20 25 H Blood Pressure 133/71 124/77 Blood Pressure [Right Arm] 133/71 Blood Pressure Mean Blood Pressure Mean [Right Arm] 91 02 Sat by Pulse Oximetry 94 L 92 L 93 L Oxygen Delivery Method Room Air 05/24/25 11:01 05/24/25 11:15 05/24/25 11:45 Temperature Temperature Source Pulse Rate 115 H 113 H 112 H Pulse Rate [Right] Respiratory Rate 18 22 21 Blood Pressure 115/66 135/86 119/79 Blood Pressure [Right Arm] Blood Pressure Mean Blood Pressure Mean [Right Arm] 02 Sat by Pulse Oximetry 92 L 94 L 95 Oxygen Delivery Method 05/24/25 11:45 05/24/25 12:13 05/24/25 12:15 Temperature Temperature Source Pulse Rate 111 H 114 H Pulse Rate [Right] Respiratory Rate 20 19 Blood Pressure 128/70 111/82 125/81 Blood Pressure [Right Arm] Blood Pressure Mean 89 Blood Pressure Mean [Right Arm] 02 Sat by Pulse Oximetry 93 L 93 L Oxygen Delivery Method 05/24/25 12:30 05/24/25 12:45 05/24/25 13:00 Temperature Temperature Source Pulse Rate 110 H 103 H 109 H Pulse Rate [Right] Respiratory Rate 15 19 21 Blood Pressure 123/79 107/73 L 110/82 Blood Pressure [Right Arm] Blood Pressure Mean Blood Pressure Mean [Right Arm] 02 Sat by Pulse Oximetry 94 L 93 L 93 L Oxygen Delivery Method 05/24/25 13:15 05/24/25 13:30 05/24/25 13:45 Temperature Temperature Source Pulse Rate 103 H 98 H 100 H Pulse Rate [Right] Respiratory Rate 18 18 18 Blood Pressure 110/74 106/72 L 122/68 Blood Pressure [Right Arm] Blood Pressure Mean Blood Pressure Mean [Right Arm] 02 Sat by Pulse Oximetry 88 L 90 L 93 L Oxygen Delivery Method Lab Data Lab Results 05/24/25 11:25: WBC 14.1 H, RBC 4.34, Hgb 12.8, Hct 38.8, MCV 89.4, MCH 29.5, MCHC 33.0, RDW 14.5, Plt Count 229, MPV 9.7, Neut % (Auto) 80.0, Lymph % (Auto) 8.7 L, [place] % (Auto) 8.4, Eos % (Auto) 0.9, Baso % (Auto) 0.6, Neut # (Auto) 11.3 H, Lymph # (Auto) 1.2, [place] # (Auto) 1.2 H, Eos # (Auto) 0.1, Baso # (Auto) 0.1, ESR 53 H, Sodium 130 L, Potassium 4.5, Chloride 95 L, Carbon Dioxide 25, Anion Gap 14.5, BUN 12 D, Creatinine 1.30 H, Estimated Creat Clear 36, Estimated GFR 42 L, Est GFR ( Amer) 50 L, Glucose 143 H, Calcium 10.6 H, Total Bilirubin 0.8, AST 26, ALT 27, Alkaline Phosphatase 88, C-Reactive Protein 157.1 H, Total Protein 8.5 H, Albumin 4.5, Globulin 4.0 H, Albumin/Globulin Ratio 1.1 05/24/25 11:25 05/24/25 11:25 Orders (Tests/Meds): ED MEDICATIONS Discontinued Medications Generic Name Dose Route Start Last Admin Trade Name Freq PRN Reason Stop Dose Admin Gabapentin 300 mg 05/24/25 11:18 05/24/25 11:25 Gabapentin 300mg Capsule PO 05/24/25 11:19 300 mg ONCE ONE Administration Lactated Ringer's 500 mls @ 999 mls/hr 05/24/25 11:21 05/24/25 11:28 Lactated Ringer's 500ml IV 05/24/25 11:51 999 mls/hr .Q31M ONE Administration Methocarbamol 1,000 mg 05/24/25 11:19 05/24/25 11:25 Methocarbamol 500mg Tablet PO 05/24/25 11:20 1,000 mg ONCE ONE Administration Morphine Sulfate 4 mg 05/24/25 12:58 05/24/25 13:16 Morphine 4mg/Ml Syringe IV 05/24/25 12:59 4 mg ONCE ONE Administration Oxycodone HCl 5 mg 05/24/25 12:13 05/24/25 12:20 Oxycodone 5mg Immediate Release Tablet PO 05/24/25 12:14 5 mg ONCE ONE Administration ORDERS Category Date Time Status POCUS Point of Care (ER Only) Stat Exams 05/24/25 11:18 Completed XR foot RT min 3V Stat Exams 05/24/25 11:18 Completed C-Reactive Protein Stat Lab 05/24/25 11:25 Completed CBC w/Auto Diff [Complete Blood Count Auto Diff] Stat Lab 05/24/25 11:25 Completed CMP [Comprehensive Metabolic Panel] Stat Lab 05/24/25 11:25 Completed ESR [Erythrocyte Sedimentation Rate] Stat Lab 05/24/25 11:25 Completed Medical Decision Narrative: In summary, this 60-year-old female presents to the emergency department today with foot pain. On initial evaluation patient is afebrile mildly tachycardic otherwise stable. On exam, is warm well-perfused with full pulses and brisk capillary refill. The dorsum of her right foot is edematous, has confluent erythema over the dorsum that is blanching and moderately tender. No crepitus. No pain with passive stretch, she is able to fully range the foot. Low concern for compartment syndrome or deep space infection. Most consistent with cellulitis versus a gout flare. Will obtain screening labs, repeat x-ray to rule out occult fracture. Differential diagnosis includes but is not limited to gout, cellulitis, abscess, deep space infection, fracture dislocation sprain strain. Based on these concerns, I ordered CBC CMP ESR CRP. I reviewed prior records including as above. Patient received Tylenol morphine and oxycodone for treatment. On reassessment, patient reports improvement in her pain. She is able to ambulate toe-touch weight-bear here. Labs personally reviewed demonstrate demonstrate some elevation in ESR and CRP and a slightly elevated white count of 14.. XR personally interpreted demonstrates no fracture or dislocation. Some soft tissue swelling.. On reassessment patient ports improvement in her pain. Most consistent with a gout flare given it started on her toes extending to the dorsum of the foot. There may be some slight cellulitis, so we will treat with antibiotics, but will also start her on steroids. I considered beginning colchicine, however given that she has some diminished kidney function, will defer starting that to her PCP. Very low concern for deep space infection given patient is able to range the foot easily and has no significant induration or crepitus. Of note, social determinants of health include poor health literacy, lives alone. At this time it was felt that the patient was safe to be discharged home. The patient was in agreement with this plan. The patient was given strict return precautions prior to being discharged from the emergency department. Indication: Soft tissue swelling Identified structures: Dorsum of foot Location: Right foot Findings: Cobblestoning consistent with edema and possible cellulitis, no focal abscess or air Impression: Cellulitis Images were saved to the permanent archive. The study was technically adequate. Soft tissue CPT codes Lower extremity: 99979-39 This study was performed by me, and I personally interpreted all images/videos. Based on my clinical judgment, these images were adequate and did not necessitate further imaging. Critical Care Critical Care Time Critical Care Time: No
--- OUTSIDE RECORDS SUMMARY | 2025-05-24 10:39 | XMS_ITS | Clinical Summary ---
Author Organization Healthcare Address [address] [place] [address] Care Team Providers Care Threader Name Role Phone Lisa Aguirre Primary Care Provider [phone] Social History Tobacco Use Types Packs/Day Years [...] 2014 UKY-Zoster Vaccines (1 of 2) 2014 [id number] Vaccine (1 - 20 24-25 season) 2024 [...] age to complete this topic Care Teams Threader Relationship Specialty Start Date End Date Lisa Aguirre PA [address] [place], [place] [id number] PCP - General 03/14/21
--- NOTE | 2025-05-24 11:18 | XR_ITS ---
FINAL REPORT CLINICAL HISTORY: trauma swelling COMPARISON: 05/22/2025 FINDINGS: Three views of the right foot show no evidence of acute displaced fracture or dislocation of the visualized bony architecture. The joint spaces appear normal. Soft tissue swelling over the dorsal midfoot is worse since the previous exam. There is no evidence of radiopaque foreign body or gas in the soft tissues. IMPRESSION: No acute bony abnormality. Worsening soft tissue swelling. Reviewed, Interpreted and Dictated by Patricia Quick MD Transcribed by Maria Antonia Manjarrez Authenticated and [facility]
[2025-05-24] MEDS: METHOCARBAMOL 500MG TABLET 1000 MG PO (11:25)
[2025-05-24] MEDS: GABAPENTIN 300MG CAPSULE 300 MG PO (11:25)
[2025-05-24] MEDS: RINGERS SOLUTION,LACTATED 500 ML 999 ML IV (11:28)
[2025-05-24 11:35] LABS: Hematocrit 38.8 % (37.0-47.0); Hemoglobin 12.8 g/dL (12.2-16.2); Immature Granulocytes % 1.4 %; Mean Corpuscular HGB Conc 33.0 g/dL (31.8-35.4); Mean Corpuscular Hemoglobin 29.5 pg (27.0-31.2); Mean Corpuscular Volume 89.4 fl (81-99); Nucleated Red Blood Cells % 0 %; Platelet Count 229 K/mm3 (142-424); Red Blood Count 4.34 M/mm3 (4.20-5.40); Red Cell Distribution Width-SD 47.2 fL; White Blood Count 14.1 K/mm3 (4.8-10.8)
[2025-05-24 11:40] LABS: Albumin Level 4.5 g/dl (3.5-5.0); Chloride 95 mmol/L (98-107)
[2025-05-24 11:41] LABS: Potassium 4.5 mmoL/L (3.5-5.1); Sodium 130 mmol/L (136-145)
[2025-05-24 11:43] LABS: Blood Urea Nitrogen 12 mg/dl (7-17); Creatinine Clearance Estimated 36 mL/min (50-200); Creatinine,Serum 1.30 mg/dl (0.52-1.04); Estimated Glomerular Filt Rate 42 ml/min (>60); GFR (African American) 50 ML/MIN (>60)
[2025-05-24 11:44] LABS: Alanine Aminotransferase 27 U/L (12-78); Albumin/Globulin Ratio 1.1 (1.1-1.8); Alkaline Phosphatase 88 U/L (38-126); Anion Gap 14.5 mEq/L (5-15); Aspartate Amino Transferase 26 U/L (14-36); Bilirubin,Total 0.8 mg/dl (0.2-1.3); Calcium 10.6 mg/dl (8.4-10.2); Carbon Dioxide 25 mmol/L (22.0-30.0); Globulin 4.0 g/dL (1.3-3.2); Glucose 143 mg/dl (74-100); Total Protein,Serum 8.5 g/dl (6.3-8.2)
[2025-05-24 11:49] LABS: C-Reactive Protein 157.1 mg/L (0-4)
[2025-05-24] MEDS: OXYCODONE 5MG IMMEDIATE RELEASE TABLET 5 MG PO (12:20)
--- NOTE | 2025-05-24 12:34 | PC.NURSE ---
BRITNEY HE spoke with Nicole in radiology. She states the XR is locked and currently being read by the radiologist.
[2025-05-24] MEDS: MORPHINE 4MG/ML SYRINGE 4 MG IV (13:16)
--- NOTE | 2025-05-24 14:01 | PC.NURSE ---
patient states her leg is no longer hurting however is stating that her back is still hurting.
== END 2025-05-24 14:40 | disposition home or self-care (01) ==
PROVIDERS: Emergency Provider Emergency Medicine; PCP Nurse Practitioner
DX: M10.071 Idiopathic gout, right ankle and foot (principal); L03.115 Cellulitis of right lower limb; R22.41 Localized swelling, mass and lump, right lower limb
CPT/HCPCS: 73630; 80053; 85025; 85651; 86140; 96374; 99284; J2270; J7120

== ENCOUNTER 2025-06-25 09:11 | Outpatient (CLI) | payer OTHER, SELFPAY ==
--- NOTE | 2025-06-25 09:15 | XR_ITS ---
FINAL REPORT CLINICAL HISTORY: Right foot pain and swelling COMPARISON: 05/22/2025 FINDINGS: AP, oblique and lateral views of the right foot were obtained. There is no acute fracture or dislocation. There is mild multijoint degenerative disease, most pronounced in the midfoot. There is mild loss of the midfoot arch. Soft tissues are unremarkable. IMPRESSION: No acute osseous abnormality of the right foot. Reviewed, Interpreted and Dictated by Katie Haas MD Transcribed by Jil Soler Authenticated and [facility]
--- NOTE | 2025-06-25 09:15 | XR_ITS ---
FINAL REPORT CLINICAL HISTORY: Right ankle pain and swelling COMPARISON: 05/22/2025 FINDINGS: RIGHT ANKLE 3 views of the right ankle were obtained. There is no acute fracture or dislocation. The mortise is intact. Visualized joint spaces are normally aligned. Soft tissues are unremarkable. IMPRESSION: No acute bony abnormality. Reviewed, Interpreted and Dictated by Katie Haas MD Transcribed by Jil Soler Authenticated and [facility]
--- OUTSIDE RECORDS SUMMARY | 2025-06-25 09:48 | XMS_ITS | Clinical Summary ---
Author Organization Healthcare Address [address] [place] [address] Care Team Providers Care Lithography Contact Worker Name Role Phone Lisa Aguirre Primary Care Provider [phone] Social History Tobacco Use Types Packs/Day Years [...] 2014 UKY-Zoster Vaccines (1 of 2) 2014 [id number] Vaccine (1 - 20 24-25 season) 2024 [...] age to complete this topic Care Teams Lithography Contact Worker Relationship Specialty Start Date End Date Lisa Aguirre PA [address] [place], [place] [id number] PCP - General 03/14/21
== END 2025-06-25 23:59 | disposition home or self-care (01) ==
LOC: RAD 09:11
PROVIDERS: PCP Nurse Practitioner; Visit Provider Nurse Practitioner
DX: M19.071 Primary osteoarthritis, right ankle and foot (principal)
CPT/HCPCS: 73610; 73630

== ENCOUNTER 2025-06-27 16:53 | Outpatient (CLI) | payer OTHER, SELFPAY ==
--- OUTSIDE RECORDS SUMMARY | 2025-06-27 16:56 | XMS_ITS | Clinical Summary ---
Author Organization Healthcare Address [address] [place] [address] Care Team Providers Care Environmental Health Safety Manager Name Role Phone Lisa Aguirre Primary Care Provider [phone] Social History Tobacco Use Types Packs/Day Years [...] 2014 UKY-Zoster Vaccines (1 of 2) 2014 [id number] Vaccine (1 - 20 24-25 season) 2024 [...] age to complete this topic Care Teams Environmental Health Safety Manager Relationship Specialty Start Date End Date Lisa Aguirre PA [address] [place], [place] [id number] PCP - General 03/14/21
[2025-06-27 16:59] LABS: Microscopic, Urine URINE MICROSCOPIC (MICROSCOPIC)
[2025-06-27 18:17] LABS: Bilirubin,Urine Negative (Negative); Color,Urine YELLOW (Yellow); Glucose,Urine (UA) Negative (Negative); Ketones,Urine Negative (Negative); Leukocyte Esterase,Urine Negative (Negative); PH,Urine 7.0 (5.0-8.5); Protein,Urine Negative (Negative); Specific Gravity, Urine 1.010 (1.005-1.030); Urobilinogen,Urine 1.0 EU/dl (0.2)
[2025-06-27 18:26] LABS: Chloride 106 mmol/L (98-107)
[2025-06-27 18:27] LABS: Albumin Level 3.8 g/dl (3.5-5.0); Potassium 4.4 mmoL/L (3.5-5.1); Sodium 140 mmol/L (136-145)
[2025-06-27 18:29] LABS: Blood Urea Nitrogen 13 mg/dl (7-17); Creatinine,Serum 1.00 mg/dl (0.52-1.04); Estimated Glomerular Filt Rate 56 ml/min (>60); GFR (African American) 68 ML/MIN (>60)
[2025-06-27 18:30] LABS: Anion Gap 12.4 mEq/L (5-15); Calcium 9.8 mg/dl (8.4-10.2); Carbon Dioxide 26 mmol/L (22.0-30.0); Glucose 114 mg/dl (74-100); Phosphorous 3.1 mg/dl (2.5-4.5)
[2025-06-27 18:50] LABS: Bacteria,Urine 1+ /lpf
== END 2025-06-27 23:59 | disposition home or self-care (01) ==
LOC: LAB 16:54
PROVIDERS: PCP Nurse Practitioner; Visit Provider Internal Medicine Nephrology
DX: N17.9 Acute kidney failure, unspecified (principal)
CPT/HCPCS: 36415; 80069; 81001; 82570; 84156

== ENCOUNTER 2025-08-01 16:44 | Outpatient (CLI) | payer OTHER, SELFPAY ==
[2025-08-01 20:32] LABS: Coronavirus 19, PCR Not Detected (NotDetected); Influenza A, PCR Not Detected (NotDetected); Influenza B, PCR Not Detected (NotDetected)
--- OUTSIDE RECORDS SUMMARY | 2025-08-02 12:12 | XMS_ITS | Clinical Summary ---
Author Organization Healthcare Address [address] [place] [address] Care Team Providers Care Tree Worker Name Role Phone Lisa Aguirre Primary Care Provider [phone] Social History Tobacco Use Types Packs/Day Years [...] 2014 UKY-Zoster Vaccines (1 of 2) 2014 [id number] Vaccine (1 - 20 24-25 season) 2025 UKY-Influenza Vaccine (#1) 2025 UKY-RSV Vaccine: 60+ [...] age to complete this topic Care Teams Tree Worker Relationship Specialty Start Date End Date Lisa Aguirre PA [address] [place], [place] [id number] PCP - General 03/14/21
== END 2025-08-01 23:59 | disposition home or self-care (01) ==
LOC: LAB.DROPOF 08-02 12:11
PROVIDERS: PCP Nurse Practitioner; Visit Provider Nurse Practitioner
DX: J06.9 Acute upper respiratory infection, unspecified (principal); J02.9 Acute pharyngitis, unspecified
CPT/HCPCS: 87631

== ENCOUNTER 2025-09-28 00:41 | Emergency (ER) | payer OTHER, SELFPAY ==
--- NOTE | 2025-09-28 00:44 | HMH.EDGENADL ---
Discharge Plan Disposition Patient Disposition: Home, Self-Care Prescriptions Prescriptions: New sulfamethoxazole-trimethoprim 800-160 mg tablet 2 tab PO BID 7 Days Qty: 28 0RF lidocaine 5 % adhesive patch,medicated 1 patch topical DAILY PRN (Reason: pain) Qty: 30 0RF Rx Instructions: leave on most painful area for up to 12 hrs No Action cholecalciferol (vitamin D3) 25 mcg (1,000 unit) capsule 25 mcg PO DAILY B-complex with vitamin C [Super B/C] Capsule 1 cap PO DAILY loratadine 10 mg tablet 10 mg PO DAILY Ozempic 0.25 mg or 0.5 mg (2 mg/3 mL) pen injector SQ Patient Comments: INJECT 0.25MG SUBCUTANEOUSLY ONCE A WEEK diclofenac sodium 1 % gel 4 g topical QID PRN (Reason: pain ) Qty: 100 2RF Rx Instructions: apply to single, ankle, foot; for foot includes sole/toes/top of foot (DME) Diabetic Shoes (DME) Misc See Rx Instructions .ROUTE .MEDSUPPLY Qty: 1 0RF Rx Instructions: [facility] Please dispense one (1) pair of Diabetic shoes with inserts ammonium lactate 12 % cream 1 applic topical BID 30 Days Qty: 385 2RF fluticasone propionate [Flonase Allergy Relief] 50 mcg/actuation spray,suspension 2 spray intranasal DAILY 90 Days Qty: 16 3RF Rx Instructions: administer into each nostril albuterol sulfate [Ventolin HFA] 90 mcg/actuation HFA aerosol inhaler 2 inh inhalation Q6H PRN (Reason: shortness of breath or wheezing) 90 Days Qty: 18 3RF doxycycline hyclate 100 mg capsule 100 mg PO BID 10 Days Qty: 20 0RF guaifenesin [Mucinex] 1,200 mg tablet extended release 12hr 1,200 mg PO BID Qty: 20 0RF levothyroxine 25 mcg tablet 25 mcg PO DAILY Rx Instructions: TOTAL DOSE 225MCG brimonidine 0.2 % drops 1 drp ophthalmic (eye) BID latanoprost 0.005 % drops 1 drp ophthalmic (eye) DAILY levothyroxine 200 mcg tablet 200 mcg PO DAILY Patient Comments: TAKE 1 TABLET BY MOUTH ONCE DAILY IN THE MORNING ON AN EMPTY STOMACH Rx Instructions: TOTAL DOSE 225MCG fluticasone propion-salmeterol [Advair Diskus] 500-50 mcg/dose Blister With Device 1 inh inhalation BIDRT 30 Days Qty: 60 0RF ipratropium-albuterol 0.5 mg-3 mg(2.5 mg base)/3 mL Solution For Nebulization 3 ml inhalation Q4HP PRN (Reason: Shortness Of Breath) Qty: 180 0RF nystatin 100,000 unit/gram Powder 1 applic topical QIDP PRN (Reason: Rash) Qty: 30 0RF tiotropium bromide [Spiriva with HandiHaler] 18 mcg Capsule, W/Inhalation Device 1 cap inhalation DAILY 30 Days Qty: 30 0RF Xarelto 15 mg Tablet 15 mg PO BID 19 Days Qty: 38 0RF montelukast 10 mg tablet 10 mg PO HS Referrals Follow up/Referrals: Marian Liu APRN [Primary Care Provider, Medical] - See instructions Activity Restrictions/Add. Instructions Additional Instructions/Restrictions: Please take antibiotics as prescribed for treatment of cellulitis. Please continue to monitor the area and if it is continuing to worsen I recommend being reevaluated. Clinical Impressions Clinical Impression: Cellulitis of foot, left Print Language Print Language: Gambian Discharge ED Provider: Graham Denis General Adult HPI General Chief complaint: PAIN Stated complaint: Possible Cellulitis In L foot Time Seen by Provider: 09/28/25 00:44 History of Present Illness HPI narrative: 60-year-old female with history of insulin-dependent, pulm retention, lymphedema, potential, anemia, presents for left foot pain. She reports has been hurting worse over the last couple of days that she has noticed a little bit of redness and mild swelling. Denies any trauma. She reports that she had similar pain on her right foot previously and was told she may have gout. She recently saw her provider and was started on doxycycline (she does not know why) as well as meclizine for vertigo. She was also started on low-dose prednisone. She denies fever. Related Data Home Medications ?Medication ?Instructions ?Recorded ?Confirmed loratadine 10 mg tablet 10 mg PO DAILY 03/17/21 08/01/25 montelukast 10 mg tablet 10 mg PO HS 02/15/23 08/01/25 B-complex with vitamin C (Super 1 cap PO DAILY 04/14/23 08/01/25 B/C capsule) cholecalciferol (vitamin D3) 25 25 mcg PO DAILY 04/14/23 08/01/25 mcg (1,000 unit) capsule brimonidine 0.2 % eye drops 1 drp ophthalmic (eye) BID 03/16/25 08/01/25 latanoprost 0.005 % eye drops 1 drp ophthalmic (eye) DAILY 03/16/25 08/01/25 levothyroxine 200 mcg tablet 200 mcg PO DAILY 03/16/25 08/01/25 levothyroxine 25 mcg tablet 25 mcg PO DAILY 03/16/25 08/01/25 semaglutide 0.25 mg or 0.5 mg (2 mg SQ 04/20/25 08/01/25 mg/3 mL) subcutaneous pen injector ([employer] ([employer])) Previous Rx's ?Medication ?Instructions ?Recorded fluticasone 500 mcg-salmeterol 50 1 inh inhalation BIDRT 30 days #60 03/19/25 mcg/dose blistr powdr for ea inhalation (Advair Diskus) ipratropium 0.5 mg-albuterol 3 mg 3 ml inhalation Q4HP PRN Shortness 03/19/25 (2.5 mg base)/3 mL nebulization Of Breath #180 mL soln nystatin 100,000 unit/gram topical 1 applic topical QIDP PRN Rash #30 03/19/25 powder grams rivaroxaban 15 mg tablet (Xarelto) 15 mg PO BID 19 days #38 tabs 03/19/25 tiotropium bromide 18 mcg capsule 1 cap inhalation DAILY 30 days #30 03/19/25 with inhalation device (Spiriva puffs with HandiHaler) fluticasone propionate 50 2 spray intranasal DAILY 90 days 06/04/25 mcg/actuation nasal #16 grams spray,suspension (Flonase Allergy Relief) Diabetic Shoes (DME) #1 ea 07/09/25 ammonium lactate 12 % topical cream 1 applic topical BID dry skin, 07/09/25 callus care 30 days #385 grams diclofenac sodium 1 % topical gel 4 g topical QID PRN pain #100 07/09/25 grams albuterol sulfate 90 mcg/actuation 2 inh inhalation Q6H PRN shortness 07/16/25 aerosol inhaler (Ventolin HFA) of breath or wheezing 90 days #18 grams doxycycline hyclate 100 mg capsule 100 mg PO BID 10 days #20 caps 08/02/25 guaifenesin 1,200 mg tablet, 1,200 mg PO BID #20 tabs 08/02/25 extended release 12 hr (Mucinex) lidocaine 5 % topical patch 1 patch topical DAILY PRN pain #30 09/28/25 ea sulfamethoxazole 800 2 tab PO BID 7 days #28 tabs 09/28/25 mg-trimethoprim 160 mg tablet Allergies Allergy/AdvReac Type Severity Reaction Status Date / Time cefprozil (From Cefzil) Allergy Hives Verified 08/01/25 16:56 cephalexin (From Keflex) Allergy Hives Verified 08/01/25 16:56 cetirizine (From Zyrtec) Allergy Hives Verified 08/01/25 16:56 clemastine (From Tavist) Allergy Hives Verified 08/01/25 16:56 erythromycin base Allergy Hives Verified 08/01/25 16:56 fexofenadine (From Calista) Allergy Hives Verified 08/01/25 16:56 loratadine (From Claritin-D) Allergy Hives Verified 08/01/25 16:56 Penicillins Allergy Hives Verified 08/01/25 16:56 pseudoephedrine (From Allergy Hives Verified 08/01/25 16:56 Claritin-D) Antihistamine, Piperidine Allergy Unknown Hives Uncoded 08/01/25 16:56 Astemizole Allergy Unknown Unknown Uncoded 08/01/25 16:56 allergy reaction Cefprozil Allergy Unknown Unknown Uncoded 08/01/25 16:56 allergy reaction Cephalexin Allergy Unknown Hives Uncoded 08/01/25 16:56 Cephalosporin Allergy Unknown Hives Uncoded 08/01/25 16:56 Cetirizine Allergy Unknown Hives Uncoded 08/01/25 16:56 CLASS: 04:00 - ANTIHISTAMINE Allergy Unknown Hives Uncoded 08/01/25 16:56 DRUGS DHE 45 Allergy Unknown LOSS OF Uncoded 08/01/25 16:56 MUSCLE CONTROL From Erythromycin Stearate Allergy Unknown Hives Uncoded 08/01/25 16:56 From Fexofenadine Allergy Unknown Hives Uncoded 08/01/25 16:56 Hydrochloride Macrolide/Antibacterial Allergy Unknown Hives Uncoded 08/01/25 16:56 Penicillin Allergy Unknown Hives Uncoded 08/01/25 16:56 PSEUDOEPHEDRINE Allergy Unknown I-HIVES Uncoded 08/01/25 16:56 Terfenadine Allergy Unknown Hives Uncoded 08/01/25 16:56 DHE45 Allergy Hives Uncoded 08/01/25 16:56 [facility] Disclaimer: The information contained in this section may have been updated after the patient was seen, as this information can be updated by other users. Medical History (Updated 09/28/25 @ 02:24 by Graham Denis MD) Viral upper respiratory infection CARLI (obstructive sleep apnea) Recurrent pulmonary emboli Shortness of breath Acute respiratory failure with hypoxia and hypercarbia Cataract Osteoarthritis Tooth abscess Hypertrophy of nasal turbinates Chronic sinusitis Asthma Allergic rhinitis Seasonal allergies Family history of asthma Moderate persistent asthma History of pulmonary embolism Pulmonary hypertension Shortness of breath Dyspnea on exertion History of DVT (deep vein thrombosis) Pulmonary embolism Mild right atrial enlargement Abnormal EKG Sinus tachycardia Chest pain Dyspnea Hypothyroidism Lymphedema of both lower extremities Morbid obesity with BMI of 50.0-59.9, adult HTN (hypertension) Surgical History History of colonoscopy Family History Other Cancer Coronary artery disease Heart attack Hypertension Stroke Thyroid disorder Social History Smoking Status: Never smoker alcohol intake: never substance use type: denies use current occupational status: other Travel in the last 8 weeks?: None household members: family housing: house number of children: 2 Have you lived/traveled outside [place] in past 30 days?: No Contact w/someone who lives/traveled outside US past 30 days?: No Exposure to someone with infectious disease in past 14 days?: No Do you have a fever (greater than 100.4 F or 38 C)?: No Have you tested positive for COVID-19?: No Exposed to someone with COVID-19 in past 14 days?: No Do you have a sore throat?: No Do you have a cough?: No Do you have any weakness?: No Do you have any diarrhea?: No Are you experiencing any unusual bleeding?: No Do you have any muscle aches/pain?: No Do you have any abdominal pain?: No Are you experiencing loss of taste or smell?: No Other Medical History Have you received the Flu Vaccine for this season: No Have you received the Pneumonia Vaccine: No ROS Obtained: Yes All systems reviewed & no additional complaints except as documented Physical Exam General General appearance: alert and in no apparent distress Head Head exam: atraumatic and normocephalic Eye Eye exam: Present normal appearance, PERRL and EOMI ENT ENT exam: Present normal oropharynx and normal external ear exam Neck Neck exam: Present normal inspection and full ROM Chest Chest inspection: Present normal inspection and symmetric chest wall rise; Absent tenderness Respiratory Respiratory exam: Present normal lung sounds bilaterally; Absent respiratory distress Cardiovascular Cardiovascular exam: Present regular rate and normal rhythm Abdominal Exam Abdominal exam: Present soft; Absent distention, tenderness or guarding Extremities Exam Extremities exam: Present edema and other (Bilateral feet are mildly edematous, the right superior medial foot is tender to patient, no obvious joint swelling, there is mild erythema associated. No laceration, no induration); Absent joint swelling Back Exam Back exam: Present normal inspection; Absent tenderness Neurological Exam Neurological exam: Present alert and oriented X3; Absent motor sensory deficit Psychiatric Psychiatric exam: Present normal affect and normal mood Skin Skin exam: Present warm, dry and normal color Lymphatic Lymphatic Findings: no adenopathy Medical Decision Making Medical Records Medical records reviewed: Yes I reviewed the patient's medical records. Screening: Per USPSTF and CDC recommendations, given the prevalence of disease in our region, it is our hospital?s policy to screen for HIV and viral Hepatitis for all patients aged 18 and over and those with ongoing risk factors. Cesar Inquiry Pt receiving controlled substance: No Cesar was queried for this patient: No Vital Signs: 09/28/25 00:56 09/28/25 01:01 09/28/25 02:28 Temperature 98.9 F 98.9 F 98.3 F Temperature Source Oral Pulse Rate 105 H 65 Pulse Rate [Right] 105 H Respiratory Rate 18 18 18 Blood Pressure 125/89 131/87 Blood Pressure [Right Arm] 125/89 Blood Pressure Mean [Right Arm] 101 02 Sat by Pulse Oximetry 100 97 Oxygen Delivery Method Room Air Room Air 09/28/25 02:29 Temperature 98.8 F Temperature Source Oral Pulse Rate 74 Pulse Rate [Right] Respiratory Rate 18 Blood Pressure 145/78 H Blood Pressure [Right Arm] Blood Pressure Mean [Right Arm] 02 Sat by Pulse Oximetry Oxygen Delivery Method Room Air Lab Data Lab results reviewed: Yes I reviewed the patient's lab results. Lab Results 09/28/25 01:15: WBC 12.2 H, RBC 4.12 L, Hgb 12.4, Hct 38.3, MCV 93.0, MCH 30.1, MCHC 32.4, RDW 13.3, Plt Count 291, MPV 10.4, Neut % (Auto) 72.2, Lymph % (Auto) 20.0, [place] % (Auto) 5.7, Eos % (Auto) 0.7, Baso % (Auto) 0.7, Neut # (Auto) 8.8 H, Lymph # (Auto) 2.4, [place] # (Auto) 0.7, Eos # (Auto) 0.1, Baso # (Auto) 0.1, Sodium 143, Potassium 4.4, Chloride 105, Carbon Dioxide 27, Anion Gap 15.4 H, BUN 21 H, Creatinine 1.10 H, Estimated Creat Clear 42, Estimated GFR 50 L, Est GFR ( Amer) 61, Glucose 119 H, Calcium 9.6, Total Bilirubin 0.4, AST 27, ALT 19, Alkaline Phosphatase 104, Total Protein 8.4 H, Albumin 4.1, Globulin 4.3 H, Albumin/Globulin Ratio 1.0 L, HCV Ab RAGHU w/Rflx PCR Qn Negative, HIV Ag/Ab Combo Qual Negative 09/28/25 01:15 09/28/25 01:15 Orders (Tests/Meds): ED MEDICATIONS Discontinued Medications Generic Name Dose Route Start Last Admin Trade Name Cayden PRN Reason Stop Dose Admin Acetaminophen 1,000 mg 09/28/25 01:04 09/28/25 01:38 Acetaminophen 500mg Tab PO 09/28/25 01:05 1,000 mg ONCE ONE Administration Ketorolac Tromethamine 30 mg 09/28/25 01:04 09/28/25 01:38 Ketorolac 30mg/Ml Vial IV 09/28/25 01:05 30 mg ONCE ONE Administration Lidocaine 1 each 09/28/25 01:04 09/28/25 01:38 Lidocaine 5% Transdermal Patch TD 09/28/25 01:05 1 each ONCE ONE Administration Trimethoprim/Sulfamethoxazole 2 each 09/28/25 02:23 09/28/25 02:35 Sulfa/Trimethoprim 1 Tablet PO 09/28/25 02:24 2 each ONCE ONE Administration ORDERS Category Date Time Status Foot XR left minimum 3 views [XR foot LT min 3V] Stat Exams 09/28/25 01:04 Completed CBC w/Auto Diff [Complete Blood Count Auto Diff] Stat Lab 09/28/25 01:15 Completed CMP [Comprehensive Metabolic Panel] Stat Lab 09/28/25 01:15 Completed HIV Combo Stat Lab 09/28/25 01:15 Completed Hepatitis C Ab Qual. W/ RFX Stat Lab 09/28/25 01:15 Completed Blood Culture Stat Micro 09/28/25 01:15 Received Medical Decision Narrative: 60-year-old female with history of insulin-dependent diabetes, pulmonary artery hypertension presents for worsening left foot pain over the last couple of days. History was obtained via interactive discussion with patient. On arrival, patient is [afebrile, hemodynamically stable, satting appropriately, alert, oriented x4, GCS 15], moving all extremities spontaneously. Full physical exam performed and significant for mild tenderness, swelling and erythema of the left medial foot without induration, laceration, abscess etc. Differential includes but is not limited to cellulitis, fracture, abscess, osteo, gout. Patient was given Tylenol, Toradol, lidocaine patch for symptomatic management and correction of underlying abnormalities. Workup initiated including basic labs, blood cultures, radiographs of the left foot. On re-evaluation, patient [remains afebrile, HD stable.] Laboratory workup independently interpreted by me and significant for mild leukocytosis, normal renal function, no significant lecture light derangement. Imaging independently interpreted by me and significant for no obvious fracture. See radiology read for full review of final results. Given patient history, exam and workup, patient's presentation most likely represents cellulitis. No focal swelling or tenderness at the MTP joint to suggest gout or septic arthritis, no trauma noted on history or imaging. Patient is on Doxy for unclear reasons. We will add double strength Bactrim for coverage of cellulitis. Patient was discharged in stable condition with return precautions.. Procedures Risk/Benefits of Procedure(s) Were Explained: Yes Critical Care Critical Care Time Critical Care Time: No
--- OUTSIDE RECORDS SUMMARY | 2025-09-28 00:47 | XMS_ITS | Clinical Summary ---
Author Organization Healthcare Address [address] [place] [address] Care Team Providers Care Loader Operator Supervisor Name Role Phone Lisa Aguirre Primary Care Provider [phone] Social History Tobacco Use Types Packs/Day Years [...] 2014 [facility]-Zoster Vaccines (1 of 2) 2014 [id number] Vaccine (1 - 20 25-26 season) 2025 [facility]-Influenza Vaccine (#1) 2025 [facility]-RSV [...] age to complete this topic Care Teams Loader Operator Supervisor Relationship Specialty Start Date End Date Lisa Aguirre PA [address] [place], [place] [id number] PCP - General 03/14/21
[2025-09-28 00:56] VITALS: BP 125/89; PULSE 105; RESP 18; TEMP 37.2; O2SAT 100; BMI 46.6
[2025-09-28 01:01] VITALS: BP 125/89; PULSE 105; RESP 18; TEMP 37.2; O2SAT 97
--- NOTE | 2025-09-28 01:04 | XR_ITS ---
PROCEDURE INFORMATION: Exam: XR Left Foot Exam date and time: 09/28/2025 1:22 AM Age: 60 years old Clinical indication: Pain; Foot; Left; Additional info: Foot pain and swelling, diabetic TECHNIQUE: Imaging protocol: Radiologic exam of the left foot. Views: 3 or more views. COMPARISON: No relevant prior studies available. FINDINGS: Bones/joints: No acute fracture. No dislocation. Plantar calcaneal enthesophyte. No definite cortical destruction. Soft tissues: Soft tissue swelling. IMPRESSION: No definite radiographic evidence of osteomyelitis. If there remains clinical concern for osteomyelitis, suggest MRI.
[2025-09-28 01:24] LABS: Hematocrit 38.3 % (37.0-47.0); Hemoglobin 12.4 g/dL (12.2-16.2); Immature Granulocytes % 0.7 %; Mean Corpuscular HGB Conc 32.4 g/dL (31.8-35.4); Mean Corpuscular Hemoglobin 30.1 pg (27.0-31.2); Mean Corpuscular Volume 93.0 fl (81-99); Nucleated Red Blood Cells % 0 %; Platelet Count 291 K/mm3 (142-424); Red Blood Count 4.12 M/mm3 (4.20-5.40); Red Cell Distribution Width-SD 44.9 fL; White Blood Count 12.2 K/mm3 (4.8-10.8)
[2025-09-28] MEDS: LIDOCAINE 5% TRANSDERMAL PATCH 1 EACH TD (01:38)
[2025-09-28] MEDS: ACETAMINOPHEN 500MG TAB 1000 MG PO (01:38)
[2025-09-28] MEDS: KETOROLAC 30MG/ML VIAL 30 MG IV (01:38)
[2025-09-28 01:43] LABS: Albumin Level 4.1 g/dl (3.5-5.0); Chloride 105 mmol/L (98-107); Potassium 4.4 mmoL/L (3.5-5.1); Sodium 143 mmol/L (136-145)
[2025-09-28 01:46] LABS: Alanine Aminotransferase 19 U/L (12-78); Albumin/Globulin Ratio 1.0 (1.1-1.8); Alkaline Phosphatase 104 U/L (38-126); Anion Gap 15.4 mEq/L (5-15); Aspartate Amino Transferase 27 U/L (14-36); Bilirubin,Total 0.4 mg/dl (0.2-1.3); Blood Urea Nitrogen 21 mg/dl (7-17); Calcium 9.6 mg/dl (8.4-10.2); Carbon Dioxide 27 mmol/L (22.0-30.0); Creatinine Clearance Estimated 42 mL/min (50-200); Creatinine,Serum 1.10 mg/dl (0.52-1.04); Estimated Glomerular Filt Rate 50 ml/min (>60); GFR (African American) 61 ML/MIN (>60); Globulin 4.3 g/dL (1.3-3.2); Glucose 119 mg/dl (74-100); Total Protein,Serum 8.4 g/dl (6.3-8.2)
[2025-09-28 02:28] VITALS: BP 131/87; PULSE 65; RESP 18; TEMP 36.8; O2SAT 100
[2025-09-28 02:29] VITALS: BP 145/78; PULSE 74; RESP 18; TEMP 37.1; O2SAT 98
[2025-09-28] MEDS: SULFA/TRIMETHOPRIM 1 TABLET 2 EACH PO (02:35)
[2025-09-28 03:42] LABS: Hepatitis C Ab Qual. W/ RFX NEGATIVE (Negative)
== END 2025-09-28 02:40 | disposition home or self-care (01) ==
PROVIDERS: Emergency Provider Emergency Medicine; PCP Nurse Practitioner
DX: L03.116 Cellulitis of left lower limb (principal); E11.9 Type 2 diabetes mellitus without complications; I10 Essential (primary) hypertension; Z79.4 Long term (current) use of insulin
CPT/HCPCS: 73630; 80053; 85025; 86803; 87040; 87389; 96374; 99284; 99285; J1885

== ENCOUNTER 2025-10-08 09:36 | Outpatient (CLI) | payer OTHER, SELFPAY | END 2025-10-08 23:59 | disposition home or self-care (01) | LOC: RT 09:36 | PROVIDERS: PCP Nurse Practitioner; Visit Provider Internal Medicine Pulmonary Disease | DX: R94.2 Abnormal results of pulmonary function studies (principal); R06.02 Shortness of breath; R06.09 Other forms of dyspnea | CPT/HCPCS: 94010; 94618 ==